=== PATIENT | female | born 1945 | race Caucasian/White ===

== ENCOUNTER 2018-01-24 15:59 | Inpatient (IN) | payer MEDICARE ==
--- NOTE | 2018-01-24 16:50 | ED ---
General Adult HPI - General Chief complaint: Nausea/Vomiting/Diarrhea Stated complaint: SOB Time Seen by Provider: 01/24/18 16:00 Source: patient, RN notes reviewed Mode of arrival: wheelchair Limitations: no limitations - History of Present Illness Initial comments: This is a 73-year-old female who presents emergency Department complaining of nausea initially. But as I talked to the patient she states she's noticed some heaviness on her chest today as well as some shortness of breath. Patient states the nausea is been intermittent for the last 3 days and today has been more consistent. Patient states the heaviness on her chest and shortness of breath is only started today. Patient denies any fever chills or cough per patient denies any chest pain. Patient denies any palpitations. Patient denies abdominal pain patient denies any actual vomiting or diarrhea. Patient has a headache patient denies numbness weakness. Patient denies any lightheadedness dizziness or near syncopal episode. - Related Data Home Medications Medication Instructions Recorded Confirmed Aspirin 81 mg PO DAILY 11/14/14 01/24/18 Atenolol [Tenormin] 50 mg PO DAILY 11/14/14 01/24/18 Hydrochlorothiazide [Hydrodiuril] 50 mg PO DAILY 11/14/14 01/24/18 Lisinopril 40 mg PO BID 11/14/14 01/24/18 Spironolactone [Aldactone] 25 mg PO DAILY 11/14/14 01/24/18 amLODIPine BESYLATE [Norvasc] 2.5 mg PO DAILY 11/14/14 01/24/18 cloNIDine HCL [Catapres] 0.2 mg PO TID 11/14/14 01/24/18 hydrALAZINE HCL [Apresoline] 25 mg PO BID 11/14/14 01/24/18 Biotin 5 mg PO DAILY 01/24/18 01/24/18 Calcium Carb/Vitamin D3/Vit K1 1 tab PO DAILY 01/24/18 01/24/18 [Citracal Soft Chew] Eye Vitamin Otc 1 tab PO DAILY 01/24/18 01/24/18 L.acidoph,Paracasei, B.lactis 1 cap PO DAILY 01/24/18 01/24/18 [Probiotic] Rosuvastatin [Crestor] 10 mg PO DAILY 01/24/18 01/24/18 Allergies Allergy/AdvReac Type Severity Reaction Status Date / Time Penicillins Allergy Unknown Verified 01/24/18 16:44 STAINLESS STEEL Allergy Rash/Hives Uncoded 01/24/18 16:44 Review of Systems ROS Statement: Those systems with pertinent positive or pertinent negative responses have been documented in the HPI. ROS Other: All systems not noted in ROS Statement are negative. Past Medical History Past Medical History: Hyperlipidemia, Hypertension History of Any Multi-Drug Resistant Organisms: None Reported Past Surgical History: Appendectomy, Cholecystectomy, Tubal Ligation Past Psychological History: No Psychological Hx Reported Smoking Status: Never smoker Past Alcohol Use History: None Reported Past Drug Use History: None Reported General Exam - General Exam Comments Initial Comments: GENERAL: Patient is well-developed and well-nourished. Patient is nontoxic and well- hydrated and is in mild distress. ENT: Neck is soft and supple. No significant lymphadenopathy is noted. Oropharynx is clear. Moist mucous membranes. Neck has full range of motion without eliciting any pain. EYES: The sclera were anicteric and conjunctiva were pink and moist. Extraocular movements were intact and pupils were equal round and reactive to light. Eyelids were unremarkable. PULMONARY: Unlabored respirations. Good breath sounds bilaterally. No audible rales rhonchi or wheezing was noted. CARDIOVASCULAR: There is a regular rate and rhythm without any murmurs gallops or rubs. ABDOMEN: Soft and nontender with normal bowel sounds. No palpable organomegaly was noted. There is no palpable pulsatile mass. SKIN: Skin is clear with no lesions or rashes and otherwise unremarkable. NEUROLOGIC: Patient is alert and oriented x3. Cranial nerves II through XII are grossly intact. Motor and sensory are also intact. Normal speech, volume and content. Symmetrical smile. MUSCULOSKELETAL: Normal extremities with adequate strength and full range of motion. No lower extremity swelling or edema. No calf tenderness. LYMPHATICS: No significant lymphadenopathy is noted PSYCHIATRIC: Normal psychiatric evaluation. Normal interpersonal interactions appears functionally intact in deals appropriately with others. No signs of depression. No signs of anxiety. Limitations: no limitations Course Vital Signs 01/24/18 01/24/18 01/24/18 16:05 17:30 18:25 Temperature 98.4 F Pulse Rate 67 66 65 Respiratory 18 16 18 Rate Blood Pressure 144/67 142/74 150/88 O2 Sat by Pulse 99 98 98 Oximetry Medical Decision Making - Medical Decision Making EKG shows sinus rhythm at 60 bpm DE interval 212 QRS is 164 Q-T intervals 466 QTC is 466 patient's EKG shows a right bundle branch block when compared this EKG to an old EKG there are no acute changes noted. Chest x-ray shows no acute abnormality. I will back into reevaluate the patient she stated she got aspirin and shortly thereafter her chest heaviness resolved. [facility] the patient I consult cardiology. - Lab Data Result diagrams: 01/24/18 17:11 01/24/18 17:11 Lab Results 01/24/18 01/24/18 01/24/18 Range/Units 17:11 17:11 17:11 WBC 10.6 (3.8-10.6) k/uL RBC 4.82 (3.80-5.40) m/uL Hgb 13.6 (11.4-16.0) gm/dL Hct 41.4 (34.0-46.0) % MCV 85.8 (80.0-100.0) fL MCH 28.2 (25.0-35.0) pg MCHC 32.8 (31.0-37.0) g/dL RDW 13.6 (11.5-15.5) % Plt Count 318 (150-450) k/uL Neutrophils % 76 % Lymphocytes % 17 % Monocytes % 5 % Eosinophils % 2 % Basophils % 0 % Neutrophils # 8.1 H (1.3-7.7) k/uL Lymphocytes # 1.8 (1.0-4.8) k/uL Monocytes # 0.5 (0-1.0) k/uL Eosinophils # 0.2 (0-0.7) k/uL Basophils # 0.0 (0-0.2) k/uL PT (9.0-12.0) sec INR (<1.2) APTT (22.0-30.0) sec Sodium 133 L (137-145) mmol/L Potassium 4.3 (3.5-5.1) mmol/L Chloride 95 L (98-107) mmol/L Carbon Dioxide 25 (22-30) mmol/L Anion Gap 13 mmol/L BUN 24 H (7-17) mg/dL Creatinine 0.90 (0.52-1.04) mg/dL Est GFR (CKD-EPI)AfAm 75 (>60 ml/min/1.73 sqM) Est GFR (CKD-EPI)NonAf 65 (>60 ml/min/1.73 sqM) Glucose 101 H (74-99) mg/dL Calcium 10.1 (8.4-10.2) mg/dL Magnesium 1.6 (1.6-2.3) mg/dL Total Bilirubin 0.2 (0.2-1.3) mg/dL AST 16 (14-36) U/L ALT 26 (9-52) U/L Alkaline Phosphatase 114 (38-126) U/L Total Creatine Kinase 35 (30-135) U/L CK-MB (CK-2) 0.4 (0.0-2.4) ng/mL CK-MB (CK-2) Rel Index 1.1 Troponin I <0.012 (0.000-0.034) ng/mL Total Protein 7.3 (6.3-8.2) g/dL Albumin 4.3 (3.5-5.0) g/dL 01/24/18 Range/Units 17:11 WBC (3.8-10.6) k/uL RBC (3.80-5.40) m/uL Hgb (11.4-16.0) gm/dL Hct (34.0-46.0) % MCV (80.0-100.0) fL MCH (25.0-35.0) pg MCHC (31.0-37.0) g/dL RDW (11.5-15.5) % Plt Count (150-450) k/uL Neutrophils % % Lymphocytes % % Monocytes % % Eosinophils % % Basophils % % Neutrophils # (1.3-7.7) k/uL Lymphocytes # (1.0-4.8) k/uL Monocytes # (0-1.0) k/uL Eosinophils # (0-0.7) k/uL Basophils # (0-0.2) k/uL PT 9.6 (9.0-12.0) sec INR 1.0 (<1.2) APTT 23.7 (22.0-30.0) sec Sodium (137-145) mmol/L Potassium (3.5-5.1) mmol/L Chloride (98-107) mmol/L Carbon Dioxide (22-30) mmol/L Anion Gap mmol/L BUN (7-17) mg/dL Creatinine (0.52-1.04) mg/dL Est GFR (CKD-EPI)AfAm (>60 ml/min/1.73 sqM) Est GFR (CKD-EPI)NonAf (>60 ml/min/1.73 sqM) Glucose (74-99) mg/dL Calcium (8.4-10.2) mg/dL Magnesium (1.6-2.3) mg/dL Total Bilirubin (0.2-1.3) mg/dL AST (14-36) U/L ALT (9-52) U/L Alkaline Phosphatase (38-126) U/L Total Creatine Kinase (30-135) U/L CK-MB (CK-2) (0.0-2.4) ng/mL CK-MB (CK-2) Rel Index Troponin I (0.000-0.034) ng/mL Total Protein (6.3-8.2) g/dL Albumin (3.5-5.0) g/dL Disposition Clinical Impression: Chest pain, Dyspnea Disposition: ADMITTED IP TO THIS HOSP Referrals: Matthew Olivas MD [Primary Care Provider] - 1-2 days Time of Disposition: 18:45
[2018-01-24] MEDS ORDERED: ONDANSETRON 4 MG/2 ML VIAL IVP STA (16:52)
[2018-01-24] MEDS ORDERED: NITROGLYCERIN SL TABS 0.4 MG TAB SUBLINGUAL STA (16:52)
[2018-01-24] MEDS ORDERED: ASPIRIN 81 MG PO STA (16:52)
[2018-01-24 17:27] LABS: Basophils % (A) 0 %; Eosinophils # (A) 0.2 k/uL (0-0.7); Eosinophils % (A) 2 %; HCT 41.4 % (34.0-46.0); HGB 13.6 gm/dL (11.4-16.0); Lymphocytes # (A) 1.8 k/uL (1.0-4.8); Lymphocytes % (A) 17 %; MCH 28.2 pg (25.0-35.0); MCHC 32.8 g/dL (31.0-37.0); MCV 85.8 fL (80.0-100.0); Mean Platelet Volume 6.6; Monocytes # (A) 0.5 k/uL (0-1.0); Monocytes % (A) 5 %; Neutrophils # (A) 8.1 k/uL (1.3-7.7); Neutrophils % (A) 76 %; Platelet Count 318 k/uL (150-450); RBC 4.82 m/uL (3.80-5.40); RDW 13.6 % (11.5-15.5); WBC 10.6 k/uL (3.8-10.6)
[2018-01-24 17:37] LABS: Albumin 4.3 g/dL (3.5-5.0); Calcium 10.1 mg/dL (8.4-10.2); Magnesium 1.6 mg/dL (1.6-2.3); Partial Thromboplastin Time 23.7 sec (22.0-30.0); Potassium 4.3 mmol/L (3.5-5.1); Prothrombin Time 9.6 sec (9.0-12.0); Total Bilirubin 0.2 mg/dL (0.2-1.3); Total Protein 7.3 g/dL (6.3-8.2)
[2018-01-24 17:41] LABS: Creatine Kinase 35 U/L (30-135)
[2018-01-24 17:53] LABS: Creatine Kinase MB 0.4 ng/mL (0.0-2.4); Troponin I <0.012 ng/mL (0.000-0.034)
--- NOTE | 2018-01-24 17:53 | XR ---
EXAMINATION TYPE: XR chest 2V DATE OF EXAM: 01/24/2018 COMPARISON: Chest x-ray October 10, 2016. HISTORY: Shortness of breath and chest pain. TECHNIQUE: Frontal and lateral views of the chest are obtained. FINDINGS: There is chronic parenchymal change without suspicious focal air space opacity, pleural ef fusion, or pneumothorax seen. The cardiac silhouette size remains enlarged. Underlying scoliosis is redemonstrated. Cholecystectomy clips are redemonstrated seen best on lateral view. IMPRESSION: Chronic changes and cardiomegaly without acute pulmonary process.
[2018-01-24] MEDS ORDERED: NITROGLYCERIN OINT 1 INCH/GM PACKET TOPICAL STA (18:35)
[2018-01-24] MEDS ORDERED: NITROGLYCERIN SL TABS 0.4 MG TAB SUBLINGUAL PRN (18:45)
[2018-01-24] MEDS: cloNIDine HCL 0.2 MG TAB PO SCH (22:06)
[2018-01-24] MEDS: ACETAMINOPHEN TAB 325 MG TAB PO PRN (23:53)
[2018-01-25 00:36] LABS: Creatine Kinase 35 U/L (30-135)
[2018-01-25 00:50] LABS: Creatine Kinase MB 0.7 ng/mL (0.0-2.4); Troponin I <0.012 ng/mL (0.000-0.034)
[2018-01-25] MEDS: NITROGLYCERIN OINT 1 INCH/GM PACKET TOPICAL SCH ×2 (03:00→14:09)
[2018-01-25 05:53] VITALS: BMI 34.3
[2018-01-25 06:20] LABS: Cholesterol 127 mg/dL (<200); HDL Cholesterol 42 mg/dL (40-60); LDL Cholesterol,Calculated 53 mg/dL (0-99); Triglycerides 158 mg/dL (<150)
[2018-01-25 06:29] LABS: Creatine Kinase 115 U/L (30-135)
[2018-01-25 06:41] LABS: Creatine Kinase MB 0.6 ng/mL (0.0-2.4); Troponin I <0.012 ng/mL (0.000-0.034)
[2018-01-25] MEDS ORDERED: ASPIRIN 325 MG TAB PO SCH (09:00)
[2018-01-25] MEDS ORDERED: ASPIRIN 81 MG PO SCH (09:00)
[2018-01-25] MEDS ORDERED: REGADENOSON 0.4 MG/5 ML SYRINGE IV ONE (09:42)
[2018-01-25] MEDS ORDERED: AMINOPHYLLINE 500 MG/20 ML VIAL IV PRN (09:42)
--- NOTE | 2018-01-25 12:21 | NM ---
EXAMINATION TYPE: NM stress lexiscan cardiolite DATE OF EXAM: 01/25/2018 COMPARISON: NONE HISTORY: Chest pain TECHNIQUE: After the intravenous administration of 9.27 mCi Tc 99m Sestamibi - Cardiolite resting SP ECT images acquired 50 minutes post injection. The patient received 0.4mg Lexiscan, 25.7 mCi Tc 99m Sestamibi - Stress images obtained [address] injection FINDINGS: Review of stress and rest SPECT images demonstrates focal area of stress-induced reversibility involv ing the apical myocardium. Findings compatible with stress-induced reversible ischemia.. Gated katerina sis shows normal wall motion with an estimated left ventricular ejection fraction of 67 %. Report edvin led to the patient's nurse. IMPRESSION: Findings are compatible with an area of stress-induced reversible ischemia involving the apical myoca rdium. A [place] level critical message alert has been initiated for Gumaro Montes De Oca MD via the [employer] Critical Results System on 01/25/2018 12:17 PM. This message alert has been sent to Gumaro Montes De Oca MD via the preferences provided by the clinician for the receipt of Radiology Critical Findings. Message ID [id number].
--- NOTE | 2018-01-25 12:54 | P.CRDCN ---
History of Present Illness Consult date: 01/25/18 Consult reason: chest pain History of present illness: Mrs. Marcial is a pleasant 73-year-old female past medical history significant for dyslipidemia and hypertension. She sees Dr. Durbin in the office. We have been asked to see her in consultation for complaints of chest pain. She states for the last 3 days she has felt increasing shortness of breath and nausea. Then started with intermittent episodes of heaviness in the mid-sternal region. The symptoms come at rest and exertion actually makes things better. 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 She denies symptoms since admission and telemetry tracings have been unremarkable. She denies radiation of the pain to her back, arm, neck/jaw or shoulder. Denies associated palpitations, vomiting, diaphoresis or dizziness. EKG on arrival reveals right bundle branch block pattern with first degree AV block. This is consistent with old EKG. Chest xray shows cardiomegaly with no evidence of acute cardiopulmonary process. Laboratory data reviewed, hgb 13.6, plt 318, potassium 4.3, magnesium 1.6, creatinine 0.9, cardiac enzymes negative 3, LDL 53. Current cardiac medications include aspirin 81 mg daily, atenolol 50 mg daily, hydrochlorothiazide 50 mg daily, lisinopril 40 mg twice a day, rosuvastatin 10 mg daily, Aldactone 25 mg daily, amlodipine 2.5 mg daily, Catapres 0.2 mg 3 times a day and hydralazine 25 mg twice a day. Review of Systems At the time of my exam: CONSTITUTIONAL: Denies fever. Denies chills. EYES: Denies blurred vision. Denies vision changes. Denies eye pain. EARS, NOSE, MOUTH & THROAT: Denies headache. Denies sore throat. Denies ear pain. CARDIOVASCULAR: Denies chest pain. Denies shortness of breath. Denies orthopnea. Denies PND. Denies palpitations. RESPIRATORY: Denies cough. GASTROINTESTINAL: Denies abdominal pain. Denies diarrhea. Denies constipation. Denies nausea. Denies vomiting. MUSCULOSKELETAL: Denies myalgias. INTEGUMENTARY: Denies pruitis. Denies rash. NEUROLOGIC: Denies numbness. Denies tingling. Denies weakness. PSYCHIATRIC: Denies anxiety. Denies depression. ENDOCRINE: Denies fatigue. Denies weight change. Denies polydipsia. Denies polyurina. GENITOURINARY: Denies burning, hematuria or urgency with micturation. HEMATOLOGIC: Denies history of anemia. Denies bleeding. Past Medical History Past Medical History: Hyperlipidemia, Hypertension History of Any Multi-Drug Resistant Organisms: None Reported Past Surgical History: Appendectomy, Cholecystectomy, Tubal Ligation Past Anesthesia/Blood Transfusion Reactions: No Reported Reaction Past Psychological History: No Psychological Hx Reported Smoking Status: Never smoker Past Alcohol Use History: None Reported Past Drug Use History: None Reported Medications and Allergies Home Medications Medication Instructions Recorded Confirmed Type Aspirin 81 mg PO DAILY 11/14/14 01/24/18 History Atenolol [Tenormin] 50 mg PO DAILY 11/14/14 01/24/18 History Hydrochlorothiazide [Hydrodiuril] 50 mg PO DAILY 11/14/14 01/24/18 History Lisinopril 40 mg PO BID 11/14/14 01/24/18 History Spironolactone [Aldactone] 25 mg PO DAILY 11/14/14 01/24/18 History amLODIPine BESYLATE [Norvasc] 2.5 mg PO DAILY 11/14/14 01/24/18 History cloNIDine HCL [Catapres] 0.2 mg PO TID 11/14/14 01/24/18 History hydrALAZINE HCL [Apresoline] 25 mg PO BID 11/14/14 01/24/18 History Biotin 5 mg PO DAILY 01/24/18 01/24/18 History Calcium Carb/Vitamin D3/Vit K1 1 tab PO DAILY 01/24/18 01/24/18 History [Citracal Soft Chew] Eye Vitamin Otc 1 tab PO DAILY 01/24/18 01/24/18 History L.acidoph,Paracasei, B.lactis 1 cap PO DAILY 01/24/18 01/24/18 History [Probiotic] Rosuvastatin [Crestor] 10 mg PO DAILY 01/24/18 01/24/18 History Allergies Allergy/AdvReac Type Severity Reaction Status Date / Time Penicillins Allergy Unknown Verified 01/24/18 16:44 STAINLESS STEEL Allergy Rash/Hives Uncoded 01/24/18 16:44 Physical Exam Vitals: Vital Signs Temp Pulse Pulse Resp BP BP Pulse Ox 01/25/18 04:00 16 01/25/18 03:05 97.3 F L 61 16 107/53 95 01/25/18 00:02 98.1 F 72 18 116/58 96 01/25/18 00:00 16 01/24/18 21:00 98.3 F 78 16 158/87 98 01/24/18 19:53 97.9 F 67 18 161/75 99 01/24/18 18:25 65 18 150/88 98 01/24/18 17:30 66 16 142/74 98 01/24/18 16:05 98.4 F 67 18 144/67 99 Intake and Output 01/24/18 01/25/18 01/25/18 22:59 06:59 14:59 Other: Voiding Method Toilet Toilet # Voids 1 Weight 90.718 kg Blood pressure 114/79 heart rate 64 afebrile maintaining oxygen saturation on room air GENERAL: This is a 73-year-old female in no apparent distress at the time of my examination. HEENT: Head is atraumatic, normocephalic. Pupils are equal, round. Sclerae anicteric. Conjunctivae are clear. Mucous membranes of the mouth are moist. Neck is supple. There is no jugular venous distention. No carotid bruit is heard. LUNGS: Clear to auscultation no wheezes, rales or rhonchi. No chest wall tenderness is noted on palpation or with deep breathing. HEART: Regular rate and rhythm without murmurs, rubs or gallops. S1 and S2 heard. ABDOMEN: Soft, nontender. Bowel sounds are heard. No organomegaly noted. EXTREMITIES: No evidence of peripheral edema and no calf tenderness noted. VASCULAR: Radial and dorsalis pedis pulses palpated, no evidence of clubbing. NEUROLOGIC: Patient is awake, alert and oriented x3. Results 01/24/18 17:11 01/24/18 17:11 Cardiac Enzymes 01/24/18 01/24/18 01/24/18 Range/Units 17:11 17:11 23:50 AST 16 (14-36) U/L CK-MB (CK-2) 0.4 0.7 (0.0-2.4) ng/mL Troponin I <0.012 <0.012 (0.000-0.034) ng/mL 01/25/18 Range/Units 05:25 AST (14-36) U/L CK-MB (CK-2) 0.6 (0.0-2.4) ng/mL Troponin I <0.012 (0.000-0.034) ng/mL Coagulation 01/24/18 Range/Units 17:11 PT 9.6 (9.0-12.0) sec APTT 23.7 (22.0-30.0) sec Lipids 01/25/18 Range/Units 05:25 Triglycerides 158 H (<150) mg/dL Cholesterol 127 (<200) mg/dL HDL Cholesterol 42 (40-60) mg/dL CBC 01/24/18 Range/Units 17:11 WBC 10.6 (3.8-10.6) k/uL RBC 4.82 (3.80-5.40) m/uL Hgb 13.6 (11.4-16.0) gm/dL Hct 41.4 (34.0-46.0) % Plt Count 318 (150-450) k/uL Comprehensive Metabolic Panel 01/24/18 Range/Units 17:11 Sodium 133 L (137-145) mmol/L Potassium 4.3 (3.5-5.1) mmol/L Chloride 95 L (98-107) mmol/L Carbon Dioxide 25 (22-30) mmol/L BUN 24 H (7-17) mg/dL Creatinine 0.90 (0.52-1.04) mg/dL Glucose 101 H (74-99) mg/dL Calcium 10.1 (8.4-10.2) mg/dL AST 16 (14-36) U/L ALT 26 (9-52) U/L Alkaline Phosphatase 114 (38-126) U/L Total Protein 7.3 (6.3-8.2) g/dL Albumin 4.3 (3.5-5.0) g/dL Current Medications Generic Name Dose Route Start Last Admin Trade Name Freq PRN Reason Stop Dose Admin Acetaminophen 650 mg 01/24/18 23:47 01/24/18 23:53 Tylenol Tab PO 650 mg Q6HR PRN Administration Fever and/ or Pain Aspirin 81 mg 01/25/18 09:00 Aspirin PO DAILY KRISTINE Clonidine 0.2 mg 01/24/18 22:00 01/24/18 22:06 Catapres PO 0.2 mg TID KRISTINE Administration Nitroglycerin 0.4 mg 01/24/18 18:45 Nitrostat SUBLINGUAL Q5M PRN Chest Pain Intake and Output 01/24/18 01/25/18 01/25/18 22:59 06:59 14:59 Other: Voiding Method Toilet Toilet # Voids 1 Weight 90.718 kg 01/24/18 17:11 01/24/18 17:11 Assessment and Plan Assessment: ASSESSMENT 1. Chest pain, atypical. An acute coronary event has been ruled out with negative cardiac enzymes and no EKG evidence of ischemia. 2. Dyslipidemia, maintained on rosuvastatin 3. Hypertension 4. Obesity, BMI 34.3 PLAN An acute coronary event has been ruled out with negative cardiac enzymes and no EKG evidence of acute ischemia. Change aspirin to 81 mg daily from 324 that was started in ED. Obtain 2D echocardiogram and doppler study to assess cardiac structure and function. Perform Lexiscan stress test to evaluate for stress induced ischemia. Further recommendations to follow based on diagnostic findings. Thank you kindly for this consultation. Nurse Practitioner note has been reviewed, I agree with a documented findings and plan of care. Patient was seen and examined.
[2018-01-25] MEDS: cloNIDine HCL 0.2 MG TAB PO SCH ×3 (14:09→20:03)
[2018-01-25] MEDS ORDERED: SODIUM CHLORIDE 0.9% 1,000 ML in EMPTY BAG 1 BAG IV ONE (14:10)
[2018-01-25] MEDS ORDERED: ALPRAZolam 0.25 MG TAB PO PRN (14:10)
[2018-01-25] MEDS ORDERED: ALPRAZolam 0.5 MG TAB PO PRN (14:10)
--- NOTE | 2018-01-25 14:10 | P.PN ---
Progress Note - Text Progress Note Date: 01/25/18 Lexiscan stress test indicates area of stress induced reversible ischemia in apical region with EF 67%. These finding were discussed with her primary [employer] sales consultant Dr. Durbin and he is recommending cardiac catheterization in the morning. I have discussed the risks, benefits and alternative therapies for the above-mentioned procedure and for both sedation/analgesia as well as necessary blood product administration, if indicated, as they pertain to this patient. The patient has indicated understanding and acceptance of the risks and procedures discussed. Questions have been answered appropriately and she is agreeable to move forward with above stated procedure. Her is at the bedside. Procedure has been boarded for tomorrow morning at 0715, orders have been placed.
[2018-01-25] MEDS: ACETAMINOPHEN TAB 325 MG TAB PO PRN (14:24)
--- NOTE | 2018-01-25 15:36 | P.HPIM ---
History of Present Illness H&P Date: 01/25/18 Chief Complaint: Chest pain Patient is a 73-year-old female with a known history of hypertension, hyperlipidemia came to ER with complaints of chest pain. Patient says that for the past 3 days she's been having chest tightness and nausea and shortness of breath along with that. Patient felt like heaviness in the chest. Her symptoms worsens with exertion. Otherwise denied any headache or dizziness or lightheadedness. No nausea vomiting or abdominal pain. Patient felt like she was catching a cold. Denied any recent travel or sick contacts. EKG showed right bundle branch block with first-degree AV block. No change from previous study Chest x-ray showed cardiac megaly with no acute cardio pulmonary process Magnesium 1.6 Troponin 3 negative Patient is on multiple antihypertensive medications. Patient follows with Dr. Durbin due to her fluctuating blood pressure. Review of Systems Constitutional: Patient denies any fever or chills . No generalized weakness or weight loss. Abdomen: Patient denied nausea vomiting and diarrhea and abdominal pain. Cardiovascular: Patient did have chest pressure and nausea and no palpitations no leg swelling Respiratory: patient denied any cough is from production. No shortness of breath Neurologic: Patient denied any numbness or tingling headache. Musculoskeletal: Patient denies any complaints of joint swelling or deformity. Skin: Negative Psychiatric: Negative Endocrine: No heat or cold intolerance. No recent weight gain. Genitourinary: No dysuria or hematuria. All other 14 point ROS negative except the above Past Medical History Past Medical History: Hyperlipidemia, Hypertension History of Any Multi-Drug Resistant Organisms: None Reported Past Surgical History: Appendectomy, Cholecystectomy, Tubal Ligation Past Anesthesia/Blood Transfusion Reactions: No Reported Reaction Past Psychological History: No Psychological Hx Reported Smoking Status: Never smoker Past Alcohol Use History: None Reported Past Drug Use History: None Reported Medications and Allergies Home Medications Medication Instructions Recorded Confirmed Type Aspirin 81 mg PO DAILY 11/14/14 01/24/18 History Atenolol [Tenormin] 50 mg PO DAILY 11/14/14 01/24/18 History Hydrochlorothiazide [Hydrodiuril] 50 mg PO DAILY 11/14/14 01/24/18 History Lisinopril 40 mg PO BID 11/14/14 01/24/18 History Spironolactone [Aldactone] 25 mg PO DAILY 11/14/14 01/24/18 History amLODIPine BESYLATE [Norvasc] 2.5 mg PO DAILY 11/14/14 01/24/18 History cloNIDine HCL [Catapres] 0.2 mg PO TID 11/14/14 01/24/18 History hydrALAZINE HCL [Apresoline] 25 mg PO BID 11/14/14 01/24/18 History Biotin 5 mg PO DAILY 01/24/18 01/24/18 History Calcium Carb/Vitamin D3/Vit K1 1 tab PO DAILY 01/24/18 01/24/18 History [Citracal Soft Chew] Eye Vitamin Otc 1 tab PO DAILY 01/24/18 01/24/18 History L.acidoph,Paracasei, B.lactis 1 cap PO DAILY 01/24/18 01/24/18 History [Probiotic] Rosuvastatin [Crestor] 10 mg PO DAILY 01/24/18 01/24/18 History Allergies Allergy/AdvReac Type Severity Reaction Status Date / Time Penicillins Allergy Unknown Verified 01/24/18 16:44 STAINLESS STEEL Allergy Rash/Hives Uncoded 01/24/18 16:44 Physical Exam Vitals: Vital Signs Temp Pulse Pulse Resp BP BP Pulse Ox 01/25/18 08:00 98.7 F 64 16 114/79 97 01/25/18 04:00 16 01/25/18 03:05 97.3 F L 61 16 107/53 95 01/25/18 00:02 98.1 F 72 18 116/58 96 01/25/18 00:00 16 01/24/18 21:00 98.3 F 78 16 158/87 98 01/24/18 19:53 97.9 F 67 18 161/75 99 01/24/18 18:25 65 18 150/88 98 01/24/18 17:30 66 16 142/74 98 01/24/18 16:05 98.4 F 67 18 144/67 99 Intake and Output 01/24/18 01/25/18 01/25/18 22:59 06:59 14:59 Other: Voiding Method Toilet Toilet Toilet # Voids 1 Weight 90.718 kg PHYSICAL EXAMINATION: Patient is lying in the bed comfortably, no acute distress, awake alert and oriented.. HEENT: Normocephalic. Neck is supple. Pupils reactive. Nostrils clear. Oral cavity is moist. Ears reveal no drainage. Neck reveals no JVD, carotid bruits, or thyromegaly. CHEST EXAMINATION: Trachea is central. Symmetrical expansion. Lung ramirez clear to auscultation and percussion. CARDIAC: Normal S1, S2 with no gallops. No murmurs ABDOMEN: Soft. Bowel sounds normal. No organomegaly. No abdominal bruits. Extremities: reveal no edema. No clubbing or cyanosis Neurologically awake, alert, oriented x3 with well-coordinated movements. No focal deficits noted Skin: No rash or skin lesions. Psychiatric: Coperative. Nonsuicidal Musculoskeletal: No joint swelling or deformity. Normal range of motion. Results CBC & Chem 7: 01/24/18 17:11 01/24/18 17:11 Labs: Abnormal Lab Results - Last 24 Hours (Table) 01/24/18 01/24/18 01/25/18 Range/Units 17:11 17:11 05:25 Neutrophils # 8.1 H (1.3-7.7) k/uL Sodium 133 L (137-145) mmol/L Chloride 95 L (98-107) mmol/L BUN 24 H (7-17) mg/dL Glucose 101 H (74-99) mg/dL Triglycerides 158 H (<150) mg/dL Thrombosis Risk Factor Assmnt - Choose All That Apply Each Risk Factor Represents 2 Points: Age 61-74 years Thrombosis Risk Factor Assessment Total Risk Factor Score: 2 Thrombosis Risk Factor Assessment Level: Low Risk Assessment and Plan Assessment: Atypical chest pain vs angina. rule out acute coronary syndrome. Serial EKG and troponins are negative. Positive Lexiscan stress test Abnormal EKG with right bundle branch block and first-degree AV block. No change from previous EKG tracing Hyperlipidemia Hypertension uncontrolled Obesity with BMI 34.3 Plan: Patient be continued on telemetry monitoring. Patient had Lexiscan stress test today which showed findings are compatible with an area of stress-induced reversible ischemia involving the apical myocardium. Cardiology is planning for catheterization tomorrow. Further recommendations based on the clinical course. Time with Patient: Greater than 30
--- NOTE | 2018-01-25 17:00 | P.STRESS ---
- Stress Test Note Stress Test Results/Findings: Exam Performed: NM stress lexiscan cardiolite Exam Date: 01/25/18 Reason for Exam: Chest Pain Height: 5 ft 4 in Weight: 90.718 kg Protocol: Khalida Scan Stage: na Duration of Exercise: na Resting Heart Rate: 64 Resting Blood Pressure: 121/86 Maximum Achieved Heart Rate: 88 Maximum Achieved Blood Pressure: 160/75 85% PMHR: na 100% PMHR: na METS: na Technologist Comment: Stress Test Results/Findings: This is a 73-year-old female is admitted to the hospital with chest pain and shortness of breath. Has history of hypertension and hypercholesterolemia. Baseline EKG showed sinus rhythm with evidence of right bundle-branch block pattern. Blood pressure at rest was 120/80 with pulse rate of 64. A standard dose of Lexiscan was infused EKGs continued to show right bundle branch block pattern without any significant deviation from the baseline. Final impression #1. Negative Lexiscan stress test #2. Report on the nuclear images to begin with the radiologist.
[2018-01-25 19:23] VITALS: RESP 16
[2018-01-25] MEDS: hydrALAZINE HCL 25 MG TAB PO SCH (20:02)
[2018-01-25] MEDS: LISINOPRIL 20 MG TAB PO SCH (20:03)
[2018-01-26 03:47] VITALS: TEMP 97.6
[2018-01-26] MEDS ORDERED: ASPIRIN 325 MG TAB PO ONE (06:00)
[2018-01-26] MEDS ORDERED: ATORVASTATIN 80 MG TAB PO ONE (06:00)
[2018-01-26] MEDS: cloNIDine HCL 0.2 MG TAB PO SCH (06:14)
[2018-01-26] MEDS: LISINOPRIL 20 MG TAB PO SCH (06:14)
[2018-01-26] MEDS: hydrALAZINE HCL 25 MG TAB PO SCH (06:15)
[2018-01-26] MEDS ORDERED: VERAPAMIL 2.5 MG/ML 2 ML AMP ONE (07:25)
[2018-01-26] MEDS ORDERED: fentaNYL (PF) 50 MCG/ML 2 ML AMP IV ONE (07:38)
[2018-01-26] MEDS ORDERED: LIDOCAINE 2% INJ 20 MG/ML SQ ONE (07:39)
[2018-01-26] MEDS ORDERED: IV FLUID CONTINUATION 1,000 ML IV ONE (07:41)
[2018-01-26] MEDS ORDERED: VERAPAMIL SYRINGE (5 MG/10 ML) INTRAARTER ONE (07:43)
[2018-01-26] MEDS ORDERED: IOHEXOL 350 MG/ML 125ML BOTTLE INJ ONE (07:52)
[2018-01-26] MEDS ORDERED: RX INFO: IV CONTRAST WAS GIVEN 1 EACH MISC MISCELLANE PRN (08:02)
[2018-01-26] MEDS ORDERED: SODIUM CHLORIDE 0.9% 1,000 ML IV SCH (08:15)
--- NOTE | 2018-01-26 08:48 | CC ---
CARDIAC CATHETERIZATION REPORT Mrs. Marcial is a 73-year-old female, known history of hypertension, hyperlipidemia, who has been complaining of episode of chest discomfort, was admitted to the hospital. Her cardiac enzymes were unremarkable, but she had an abnormal stress test. In view of that, recommendation was made regarding cardiac catheterization. The procedure as well as the risks and the complication were discussed with the patient who is in full understanding and agreement. PROCEDURE: Patient was brought to laborer sawmill in a fasting semi-sedated state after receiving fentanyl and Benadryl and achieving moderate conscious sedated state. Using Xylocaine anesthesia in the Seldinger technique, a 6-New Zealander sheath was introduced in the right radial artery. Selective right and left coronary angiography performed using 5-New Zealander 3.5 bend right and left Danie catheters. Multiple views of the coronary artery including hemiaxial view was obtained. Following that 5-New Zealander tight pigtail catheter was introduced in the left ventricle and a 30-degree WRIGHT view of the left ventricle was obtained. Following that, catheter and sheath were removed. Hemostasis was obtained with deployment of a TR band. There was no immediate complication. Patient is returned to her room in stable condition. Of note, the patient received 4500 units of intravenous heparin as well as intra-arterial verapamil. FINDINGS: LEFT MAIN: This is a short size vessel trifurcating left circumflex, left anterior descending artery and ramus intermedius. Left main coronary artery has no evidence of high-grade stenosis. LEFT ANTERIOR DESCENDING ARTERY: This vessel gives rise to 3 diagonal branches. The third one is largest in caliber. The left anterior descending artery tapers down in the distal third and has no evidence of high-grade stenosis. Minimal plaque were noted in the mid segment. LEFT CIRCUMFLEX: This is a nondominant vessel giving rise to 3 obtuse marginal branches with small caliber. The left circumflex as well as branches have no evidence of obstructive coronary artery disease. RAMUS INTERMEDIUS: This is a large-size vessel reaching towards the apical lateral wall. The ramus intermedius has no evidence of high-grade stenosis. RIGHT CORONARY ARTERY: This is a large dominant vessel bifurcating into PDA, posterolateral segment and branches. The right PDA reaches toward the inferior apical segment. The right coronary artery as well as branches have no evidence of obstructive coronary artery disease. LEFT VENTRICULOGRAM: Left ventriculogram is performed 30-degree WRIGHT view and revealed normal left ventricular size and systolic function. Ejection fraction is 60%. appearance of dilatation of the ascending aorta. HEMODYNAMICS: There was no gradient across the aortic valve. The left ventricle end- diastolic pressure was 16 to 20 mmHg. CONCLUSION: 1. Minimal plaque involving the mid left anterior descending artery. 2. Normal left ventricular size and systolic function. 3. Appearance of dilatation of the ascending aorta. RECOMMENDATION: In view of finding anatomy, I recommend continuing with medical therapy. Those findings and recommendations were discussed with the patient and her family and are in full understanding and agreement. Duration procedure is 17 minutes. MMODL / IJN: [id number] /
--- NOTE | 2018-01-26 08:57 | LTR ---
January 26, 2018 Re: Sue Marcial Dear Dr. Olivas: I had the opportunity to perform cardiac catheterization on Mrs. Marcial at [facility] the 26 of January and a full copy of the procedure note will be forwarded to you. In brief, she was found to have mild intimal disease with a normal left ventricular size and systolic function. Based on those findings, I recommend to continue medical therapy with aggressive coronary risk modification initiated. Thank you again for allowing me the opportunity to participate in her care. Please feel free to call for any questions. Sincerely yours, MD HARJIT De LeonL / BJN: [id number] /
[2018-01-26] MEDS ORDERED: ATENOLOL 50 MG TAB PO SCH (09:00)
[2018-01-26] MEDS ORDERED: SPIRONOLACTONE 25 MG TAB PO SCH (09:00)
[2018-01-26] MEDS ORDERED: amLODIPine 2.5 MG TAB PO SCH (09:00)
[2018-01-26 15:22] VITALS: PULSE 55
[2018-01-26 15:23] VITALS: BP 109/58
--- NOTE | 2018-01-26 23:07 | P.DS ---
Providers Date of admission: 01/25/18 15:08 Expected date of discharge: 01/26/18 Attending physician: Gumaro Montes De Oca Consults: 01/24/18 18:45 Consult Physician Urgent Consulting Provider: [facility] Consult Reason/Comments: Chest pain, dyspnea Do you want consulting provider notified?: Yes Primary care physician: [facility] Course: Discharge diagnosis Atypical chest pain vs angina. ruled out acute coronary syndrome. Serial EKG and troponins are negative. Positive Lexiscan stress test but a cardiac Catheterization showed normal coronaries Abnormal EKG with right bundle branch block and first-degree AV block. No change from previous EKG tracing Hyperlipidemia Hypertension uncontrolled Obesity with BMI 34.3 Hospital course Patient is a 73-year-old female with a known history of hypertension, hyperlipidemia came to ER with complaints of chest pain. Patient says that for the past 3 days she's been having chest tightness and nausea and shortness of breath along with that. Patient felt like heaviness in the chest. Her symptoms worsens with exertion. Otherwise denied any headache or dizziness or lightheadedness. No nausea vomiting or abdominal pain. Patient felt like she was catching a cold. Denied any recent travel or sick contacts. EKG showed right bundle branch block with first-degree AV block. No change from previous study Chest x-ray showed cardiac megaly with no acute cardio pulmonary process Magnesium 1.6 Troponin 3 negative Patient is on multiple antihypertensive medications. Patient follows with Dr. Durbin due to her fluctuating blood pressure. Patient was continued on telemetry monitoring. Patient had Lexiscan stress test today which showed findings are compatible with an area of stress-induced reversible ischemia involving the apical myocardium. Patient underwent cardiac catheterization today which showed normal coronaries. Otherwise patient currently is chest pain-free. Chest tightness could related to her stressful situation. 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 Discharge physical examination PHYSICAL EXAMINATION: Patient is lying in the bed comfortably, no acute distress, awake alert and oriented.. HEENT: Normocephalic. Neck is supple. Pupils reactive. Nostrils clear. Oral cavity is moist. Ears reveal no drainage. Neck reveals no JVD, carotid bruits, or thyromegaly. CHEST EXAMINATION: Trachea is central. Symmetrical expansion. Lung ramirez clear to auscultation and percussion. CARDIAC: Normal S1, S2 with no gallops. No murmurs ABDOMEN: Soft. Bowel sounds normal. No organomegaly. No abdominal bruits. Extremities: reveal no edema. No clubbing or cyanosis Neurologically awake, alert, oriented x3 with well-coordinated movements. No focal deficits noted Skin: No rash or skin lesions. Psychiatric: Coperative. Nonsuicidal Musculoskeletal: No joint swelling or deformity. Normal range of motion. Patient Condition at Discharge: Stable Plan - Discharge Summary Discharge Rx Participant: No New Discharge Prescriptions: Continue Hydrochlorothiazide [Hydrodiuril] 50 mg PO DAILY hydrALAZINE HCL [Apresoline] 25 mg PO BID amLODIPine BESYLATE [Norvasc] 2.5 mg PO DAILY Atenolol [Tenormin] 50 mg PO DAILY cloNIDine HCL [Catapres] 0.2 mg PO TID Spironolactone [Aldactone] 25 mg PO DAILY Lisinopril 40 mg PO BID Aspirin 81 mg PO DAILY L.acidoph,Paracasei, B.lactis [Probiotic] 1 cap PO DAILY Biotin 5 mg PO DAILY Calcium Carb/Vitamin D3/Vit K1 [Citracal Soft Chew] 1 tab PO DAILY Rosuvastatin [Crestor] 10 mg PO DAILY Eye Vitamin Otc 1 tab PO DAILY Discharge Medication List Aspirin 81 mg PO DAILY 11/14/14 [History] Atenolol [Tenormin] 50 mg PO DAILY 11/14/14 [History] Hydrochlorothiazide [Hydrodiuril] 50 mg PO DAILY 11/14/14 [History] Lisinopril 40 mg PO BID 11/14/14 [History] Spironolactone [Aldactone] 25 mg PO DAILY 11/14/14 [History] amLODIPine BESYLATE [Norvasc] 2.5 mg PO DAILY 11/14/14 [History] cloNIDine HCL [Catapres] 0.2 mg PO TID 11/14/14 [History] hydrALAZINE HCL [Apresoline] 25 mg PO BID 11/14/14 [History] Biotin 5 mg PO DAILY 01/24/18 [History] Calcium Carb/Vitamin D3/Vit K1 [Citracal Soft Chew] 1 tab PO DAILY 01/24/18 [ History] Eye Vitamin Otc 1 tab PO DAILY 01/24/18 [History] L.acidoph,Paracasei, B.lactis [Probiotic] 1 cap PO DAILY 01/24/18 [History] Rosuvastatin [Crestor] 10 mg PO DAILY 01/24/18 [History] Follow up Appointment(s)/Referral(s): Ryley Durbin MD [STAFF PHYSICIAN] - 01/31/18 1:30 pm Matthew Olivas MD [Primary Care Provider] - 1-2 days Patient Instructions/Handouts: After Radial Heart Catheterization (GEN) Discharge Disposition: HOME SELF-CARE
[2018-01-27] MEDS ORDERED: ASPIRIN 81 MG PO SCH (09:00)
[2018-01-27] MEDS ORDERED: ATORVASTATIN 20 MG TAB PO SCH (09:00)
--- NOTE | 2018-01-30 18:45 | ECHOF ---
Referral Reason:cp, sob MEASUREMENTS -------- HEIGHT: 162.6 cm WEIGHT: 90.7 kg BP: 114/79 RVIDd: 3.4 cm (< 3.3) IVSd: 1.5 cm (0.6 - 1.1) LVIDd: 4.7 cm (3.9 - 5.3) LVPWd: 1.5 cm (0.6 - 1.1) IVSs: 2.0 cm LVIDs: 3.0 cm LVPWs: 1.7 cm LA Diam: 3.8 cm (2.7 - 3.8) LAESV Index (A-L): 18.69 ml/m Ao Diam: 3.8 cm (2.0 - 3.7) AV Cusp: 2.3 cm (1.5 - 2.6) MV EXCURSION: 16.594 mm (> 18.000) MV EF SLOPE: 22 mm/s (70 - 150) EPSS: 0.6 cm MV E Bay: 0.68 m/s MV DecT: 206 ms MV A Bay: 0.90 m/s MV E/A Ratio: 0.76 RAP: 5.00 mmHg RVSP: 23.58 mmHg FINDINGS -------- Sinus rhythm. This was a technically adequate study. The left ventricular size is normal. There is moderate concentric left ventricular hypertrophy. O verall left ventricular systolic function is normal with, an EF between 55 - 60 %. Moderate asymmet martina septal hypertrophy with septal thickness 1.6 - 1.9 cm. The right ventricle is mildly enlarged. Normal LA size by volume 22+/-6 ml/m2. The right atrium is normal in size. Lipomatous Hypertrophy of the atrial septum is present There is mild aortic valve sclerosis. Mild mitral annular calcification present. The tricuspid valve appears structurally normal. Trace/mild (physiologic) pulmonic regurgitation. The aortic root is dilated measuring 3.8cm. Normal inferior vena cava with normal inspiratory collapse consistent with estimated right atrial pre ssure of 5 mmHg. There is no pericardial effusion. CONCLUSIONS -------- 1. Sinus rhythm. 2. This was a technically adequate study. 3. The left ventricular size is normal. 4. There is moderate concentric left ventricular hypertrophy. 5. Overall left ventricular systolic function is normal with, an EF between 55 - 60 %. 6. Moderate asymmetric septal hypertrophy with septal thickness 1.6 - 1.9 cm. 7. The right ventricle is mildly enlarged. 8. Normal LA size by volume 22+/-6 ml/m2. 9. The right atrium is normal in size. 10. Lipomatous Hypertrophy of the atrial septum is present 11. There is mild aortic valve sclerosis. 12. Mild mitral annular calcification present. 13. The tricuspid valve appears structurally normal. 14. Trace/mild (physiologic) pulmonic regurgitation. 15. The aortic root is dilated measuring 3.8cm. 16. Normal inferior vena cava with normal inspiratory collapse consistent with estimated right atrial pressure of 5 mmHg. 17. There is no pericardial effusion. ARCHITECTURAL INSPECTOR: Elva Chester RDCS
== END 2018-01-26 15:43 | disposition home or self-care (01) | DRG 287 ==
LOC: EC 15:59 → 3OBS 18:45 → OBSVTOIN 01-25 15:08
PROVIDERS: ADMIT Hospitalist; ATTEND Hospitalist
PROC: B2111ZZ Fluoroscopy of Multiple Coronary Arteries using Low Osmolar Contrast (ICD-10-PCS; 2018-01-26)
PROC: B2151ZZ Fluoroscopy of Left Heart using Low Osmolar Contrast (ICD-10-PCS; 2018-01-26)
PROC: 4A023N7 Measurement of Cardiac Sampling and Pressure, Left Heart, Percutaneous Approach (ICD-10-PCS; principal; 2018-01-26 07:18)
DX: R07.89 Other chest pain (principal); I11.9 Hypertensive heart disease without heart failure; I45.10 Unspecified right bundle-branch block; E66.9 Obesity, unspecified; I20.9 Angina pectoris, unspecified; E78.5 Hyperlipidemia, unspecified; F41.9 Anxiety disorder, unspecified; I44.0 Atrioventricular block, first degree; I51.7 Cardiomegaly; I77.810 Thoracic aortic ectasia; Z68.34 Body mass index [BMI] 34.0-34.9, adult; Z79.82 Long term (current) use of aspirin; Z79.899 Other long term (current) drug therapy; Z90.49 Acquired absence of other specified parts of digestive tract; Z88.0 Allergy status to penicillin; Z91.048 Other nonmedicinal substance allergy status
CPT/HCPCS: 36415; 71046; 78452; 80053; 80061; 82550; 82553; 83735; 84484; 85025; 85379; 85610; 85730; 93005; 93017; 93306; 93458; 96374; 99285

== ENCOUNTER → 2018-02-06 | Outpatient (CLI) | payer MEDICARE ==
[2018-02-06 16:03] LABS: Blood Urea Nitrogen 19 mg/dL (7-17)
--- NOTE | 2018-02-06 16:42 | CT ---
EXAMINATION TYPE: CT angio chest DATE OF EXAM: 02/06/2018 COMPARISON: NONE HISTORY: Ascending aortic aneurysm. CT DLP: 419.5 mGycm. Automated Exposure Control for Dose Reduction was Utilized. CONTRAST: CTA scan of the thorax is performed with IV Contrast, patient injected with 100 mL of Omnipaque 350, pulmonary embolism protocol. Three-D reconstructed images are created on independent workstation and reviewed. FINDINGS: LUNGS: The lungs are grossly clear, there is no concerning parenchymal mass or nodule identified. T here is no pleural effusion or pneumothorax seen. The tracheobronchial tree is patent. MEDIASTINUM: There are no greater than 1 cm hilar or mediastinal lymph nodes. There is prominent prev ascular lymph node measuring 1.6 x 0.8 cm axial image 13. No cardiomegaly or pericardial effusion i s seen. Ascending aorta measures up to 4.4 cm in diameter axial image 22. There is normal three-vesse l origin from aorta. No aneurysm of descending aorta is present. There is heterogeneous suspicious lo wer pole left thyroid with substernal extension, cannot exclude large nodule. Advise follow-up. OTHER: Cholecystectomy clips are noted. Underlying dextroconvex scoliosis is seen. There is moderate multilevel spurring in the mid to lower thoracic spine. A few subcentimeter low dense lesions scatter ed throughout the liver are too small to characterize but presumed benign. IMPRESSION: 1. There is 4.4 cm aneurysm of the ascending aorta. 2. Enlarged left thyroid lobe with substernal extension versus lower pole left thyroid nodule. Advise thyroid ultrasound to better evaluate and characterize.
== END | disposition home or self-care (01) ==
LOC: RADCTMAIN 15:12
PROVIDERS: ATTEND Internal Medicine Interventional Cardiology
DX: I71.2 Thoracic aortic aneurysm, without rupture (principal)
CPT/HCPCS: 82565; 84520; 71275; Q9967

== ENCOUNTER → 2018-07-09 | Outpatient (CLI) | payer MEDICARE ==
--- NOTE | 2018-07-09 17:26 | CT ---
EXAMINATION TYPE: CT abdomen pelvis wo con DATE OF EXAM: 07/09/2018 COMPARISON: None INDICATION: diverticulitis DLP: 1154 mGycm, Automated exposure control for dose reduction was used. CONTRAST: 0 mL of Isovue 300. Study performed with Oral Contrast TECHNIQUE: Axial images were obtained from above the diaphragm to the pubic rami in the axial plane a t 5 mm thick sections. Reconstructed images are reviewed on the computer in the coronal plane. FINDINGS: Limited CT sections are obtained the lung bases. The lung bases are clear. There is a small hiatal hernia. CT ABDOMEN: Scoliosis is present. There is tortuosity the aorta. There is a periumbilical hernia yi uring 1.7 cm an opening with mesenteric fat. Liver: There is a 1.0 cm hepatic cyst in the anterior right lobe liver. Spleen: Normal Pancreas: Normal Adrenal glands: The adrenal glands are normal. Gallbladder: Not identified. Postsurgical changes appear to be present. Kidneys: No masses are evident. No hydronephrosis is present. No cysts are present. Delayed images were obtained through the kidneys, which remain unremarkable. Aorta: Vascular calcification is within the aorta. Inferior vena cava: Normal. CT PELVIS: Loops of bowel within the abdomen and pelvis are normal. There are loops of bowel which are incom pletely distended or lack oral contrast limiting their evaluation. Appendix: Normal as visualized. Urinary bladder: Normal. Genitourinary structures: Uterus and adnexal regions are unremarkable. Osseous structures: No suspicious lytic or sclerotic lesions. Scoliosis is present. Degenerative disc changes are within the lumbar spine. Degenerative joint changes are at the bilateral hips. IMPRESSIONS: 1. No suspicious acute changes to suggest renal stones or diverticulitis
== END | disposition home or self-care (01) ==
LOC: RADCTMAIN 06:14
PROVIDERS: ATTEND Surgery Plastic and Reconstructive Surgery
DX: K57.32 Diverticulitis of large intestine without perforation or abscess without bleeding (principal); Z88.0 Allergy status to penicillin
CPT/HCPCS: 74176

== ENCOUNTER 2018-11-29 09:47 | Day surgery (SDC) | payer MEDICARE ==
[2018-11-27 11:51] VITALS: BMI 36.0
--- NOTE | 2018-11-29 05:47 | P.GSHP ---
History of Present Illness H&P Date: 11/29/18 CHIEF COMPLAINT: Ventral hernia. HISTORY OF PRESENT ILLNESS: The patient is a 73-year-old female who presents with a history of swelling along the umbilicus. Findings were consistent with hernia. Now she presents for further evaluation and management. PAST MEDICAL HISTORY: Please see list. PAST SURGICAL HISTORY: Please see list. MEDICATIONS: Please see list. ALLERGIES: Please see list. SOCIAL HISTORY: No illicit drug use FAMILY HISTORY: No reports of Crohn disease or ulcerative colitis. REVIEW OF ORGAN SYSTEMS: CONSTITUTIONAL: No reports of fevers or chills. GI: Denies any blood in stools or constipation. PHYSICAL EXAM: VITAL SIGNS: Stable GENERAL: Well-developed pleasant female in no acute distress. HEENT: No scleral icterus. Extraocular movements grossly intact. Moist buccal mucosa. NECK: Supple without lymphadenopathy. CHEST: Unlabored respirations. Equal bilateral excursions. CARDIOVASCULAR: Regular rate and rhythm. Distal 2+ pulses. ABDOMEN: Soft, nondistended. Umbilical hernia. Protuberant. MUSCULOSKELETAL: No clubbing, cyanosis, or edema. ASSESSMENT: 1. Umbilical ventral hernia. 2. Morbid obesity, BMI 36.0 PLAN: 1. Recommend proceeding with robotic ventral hernia repair with mesh. 2. Benefits and risks of surgical intervention was discussed including possibility of open technique. 3. DVT prophylaxis. 4. Antibiotic prophylaxis. Past Medical History Past Medical History: Cancer, Hyperlipidemia, Hypertension Additional Past Medical History / Comment(s): aneurysm,melanoma History of Any Multi-Drug Resistant Organisms: None Reported Past Surgical History: Appendectomy, Cholecystectomy, Heart Catheterization, Tubal Ligation Past Anesthesia/Blood Transfusion Reactions: No Reported Reaction Smoking Status: Never smoker - Past Family History Father Family Medical History: Cancer Medications and Allergies Home Medications Medication Instructions Recorded Confirmed Type Aspirin 81 mg PO DAILY 11/14/14 11/27/18 History Atenolol [Tenormin] 50 mg PO DAILY 11/14/14 11/27/18 History Hydrochlorothiazide [Hydrodiuril] 50 mg PO DAILY 11/14/14 11/27/18 History Spironolactone [Aldactone] 25 mg PO DAILY 11/14/14 11/27/18 History amLODIPine BESYLATE [Norvasc] 2.5 mg PO DAILY 11/14/14 11/27/18 History cloNIDine HCL [Catapres] 0.2 mg PO TID 11/14/14 11/27/18 History hydrALAZINE HCL [Apresoline] 25 mg PO BID 11/14/14 11/27/18 History L.acidoph,Paracasei, B.lactis 1 cap PO DAILY 01/24/18 11/27/18 History [Probiotic] Rosuvastatin [Crestor] 10 mg PO TUTHSA 01/24/18 11/27/18 History Calcium Carb/Vitamin D3/Vit K1 1 each PO DAILY 11/27/18 11/27/18 History [Citracal Soft Chew] Losartan Potassium [Cozaar] 100 mg PO HS 11/27/18 11/27/18 History Vitamin C/Biotin [Hair, Skin and 1 tab PO DAILY 11/27/18 11/27/18 History Nails] Allergies Allergy/AdvReac Type Severity Reaction Status Date / Time Penicillins Allergy Unknown Verified 11/27/18 11:08 STAINLESS STEEL Allergy Rash/Hives Uncoded 11/27/18 11:08
[~2018-11-29 09:47] MED LIST: ACETAMINOPHEN IV (For NPO) 1,000 MG in EMPTY BAG 1 BAG IVPB ONE; DEXAMETHASONE SOD PHOSPHATE 10 MG/ML 1 ML VIAL IV ONE; HEPARIN SODIUM,PORCINE 5,000 UNIT/ML 1 ML VIAL SQ STA; HYDROmorphone 0.5 MG/0.5 ML SYRINGE IVP PRN; LACTATED RINGERS 1,000 ML IV SCH; LIDOCAINE 1% 20 ML VIAL (10MG/ML) FOR IV START INTRADERMA PRN; ONDANSETRON 4 MG/2 ML VIAL IVP ONE; ceFAZolin IN SWFI 2 GM/20 ML SYRINGE IVP ONE
[2018-11-29] MEDS ORDERED: MIDAZOLAM 2 MG/2 ML VIAL IV ONE (11:36)
[2018-11-29] MEDS ORDERED: fentaNYL (PF) 50 MCG/ML 2 ML AMP IV ONE (11:36)
[2018-11-29] MEDS ORDERED: ROPIVACAINE 5 MG/ML 30 ML VIAL ONE (11:52)
[2018-11-29] MEDS ORDERED: PHENYLEPHRINE-0.9% NACL SYG 1 MG/10 ML SYRINGE ONE (11:52)
[2018-11-29] MEDS ORDERED: PROPOFOL 10 MG/ML 20 ML VIAL IV ONE (11:52)
[2018-11-29] MEDS ORDERED: NEOSTIGMINE 1 MG/ML 10 ML VIAL ONE (11:52)
[2018-11-29] MEDS ORDERED: fentaNYL (PF) 50 MCG/ML 2 ML AMP ONE (11:52)
[2018-11-29] MEDS ORDERED: ROCURONIUM BROMIDE 10 MG/ML 10 ML VIAL IV ONE (11:52)
[2018-11-29] MEDS ORDERED: GLYCOPYRROLATE 0.2 MG/ML 2 ML VIAL ONE (11:52)
[2018-11-29] MEDS ORDERED: SUCCINYLCHOLINE CHLORIDE 100 MG/5 ML SYR IV ONE (11:52)
[2018-11-29] MEDS ORDERED: KETOROLAC 30 MG/ML 1 ML VIAL ONE (11:52)
[2018-11-29] MEDS ORDERED: MIDAZOLAM 2 MG/2 ML VIAL ONE (11:52)
[2018-11-29] MEDS ORDERED: LIDOCAINE 1% INJ 10MG/ML (20 ML MDV) ONE (11:52)
--- NOTE | 2018-11-29 12:18 | P.ONQ ---
Anesthesiology Proc Note - PNB - Peripheral Nerve Block Performed Bilateral Rectus Abdominis Single Procedure Start Time: 11:35 Indication: Acute Post-Operative Pain Specifically requested for management of pain by DrThom: Sue Balbuena Sedation Type: Sedate with meaningful contact maintained Preparation: Sterile Prep Position: Supine Catheter: None Needle Types: Other (see comment) (Pajunk) Needle Size: 100mm (4") Needle Gauge: 21 Technique: Ultrasound Injectate: Other (see comment) (0.5% lido/ .025% ropivicaine 30cc on a side) Adjunct: Epinephrine (see comment for dilution ratio) (1:200,000) Blood Aspirated: No Pain Paresthesia on Injection Noted: No Resistance on Injection: Normal Events: Uneventful and Well Tolerated
[2018-11-29] MEDS ORDERED: BUPIVACAIN-EPI 0.25%-1:200,000 30 ML VIAL SQ ONE ×2 (12:31)
[2018-11-29] MEDS: MORPHINE SULFATE 4 MG/ML SYRINGE IVP ONE ×2 (12:46→13:51)
[2018-11-29] MEDS ORDERED: LACTATED RINGERS 1,000 ML IV ONE (13:37)
[2018-11-29 13:50] VITALS: TEMP 97.1
[2018-11-29 13:56] VITALS: RESP 16
[2018-11-29] MEDS: fentaNYL (PF) 50 MCG/ML 2 ML AMP IVP ONE ×2 (14:00→14:05)
--- NOTE | 2018-11-29 14:20 | P.OP ---
Date of Procedure: 11/29/18 Description of Procedure: SURGEON: ISAMAR ROME MD PREOPERATIVE DIAGNOSES: 1. Initial ventral hernia with incarceration 2. Morbid obesity does due to excess calories, BMI 36.0 3. Hypertensive heart disease 4. Congestive heart failure, diastolic dysfunction 5. Previous history of melanoma 6. Hyperlipidemia POSTOPERATIVE DIAGNOSES: 1. Initial ventral hernia with incarceration 2. Morbid obesity does due to excess calories, BMI 36.0 3. Hypertensive heart disease 4. Congestive heart failure, diastolic dysfunction 5. Previous history of melanoma 6. Hyperlipidemia OPERATION: 1. Robotic-assisted da Alexandria Xi laparoscopic repair of initial incarcerated ventral hernia 3-cm with mesh, ventralight ST mesh 11.4 cm COMPLICATIONS: None. Anesthesia: GETA, regional, local Estimated Blood Loss (ml): 10 Pathology: other (Ventral hernia) Condition: stable Disposition: same day Operative Findings: 1. Incarcerated ventral hernia. 2. No peritoneal adhesions along previous right upper quadrant cholecystectomy scar INDICATIONS: The patient is a 73-year-old female who presents ventral hernia of the umbilicus. Surgical intervention with laparoscopic versus robotic and open techniques were reviewed. Placement of mesh was also reviewed. Benefits and risks were thoroughly described. Informed consent was obtained. DESCRIPTION OF PROCEDURE: The patient was brought into the operating room and laid in supine position. After general induction, the abdomen had been prepped and draped in standard sterile fashion. Ioban draping was also placed. Prior to incision, a timeout protocol was confirmed with surgical team regarding the patient's name including procedures to be performed. The robot was primed prior to the procedure. A field block using local anesthetic was placed along hernia site including the proposed port sites. Initial incision was made with an #11 blade along the left upper quadrant. A 0 degree 5 mm laparoscopic trocar entry was performed and insufflated. An 8 mm port was placed along the right upper quadrant and another at the epigastrium under direct localization. The 5- mm port was exchanged for an 12 mm robotic port. Placements of the ports were 15 cm from the target anatomy and 10 cm apart. The Party Over Herei Xi robot was previously primed, prepped and draped then docked along the right side of the patient. I then sat at the robot Fracturei Xi console where working arms of the robot including Bovie cautery connected to robotic scissors, vessel sealer, needle stacker driver, and graspers placed by the orthodontic assistant. Fascial defect of 3 cm of the umbilicus was identified after cleaning the peritoneal fat of the abdominal wall and reducing an incarcerated omentum. A 12 mm port was placed along the left upper quadrant for placement of the mesh and for sutures. The incarcerated contents was reduced as the peritoneal fat was cleaned from the abdominal wall. Next, hemostasis was checked with cautery. The hernia defect was oversewn using #1 Stratafix with fascial imbrication x 3. Next, ventralight ST mesh 11.4 cm was placed with the rough side towards the abdominal wall. 2-0 VLOC 9 inch sutures were used to fixate the mesh. A final endoscopic imaging was obtained. All instruments and pneumoperitoneum were evacuated from the abdominal cavity. The da Alexandria Xi robot was undocked from the patient. I re-scrubbed into the case for closure of incisions. The fascia of the 12-mm port was probed and less than 8-mm in size. The incisions were reapproximated using 4-0 Monocryl in an interrupted subcuticular fashion. Liquid glue was applied to the skin after cleansing the skin with normal saline and dilute hydrogen peroxide. An abdominal binder was placed. An umbilical dressing was placed prior. At the end of the procedure, needle, sponge, and instrument count had been verified correct by surgical forceps fabricator. The patient was taken to the postanesthesia care unit in stable condition.
[2018-11-29 14:29] VITALS: PULSE 62
[2018-11-29 15:11] VITALS: BP 121/69
== END 2018-11-29 15:45 | disposition home or self-care (01) ==
LOC: OR 09:47
PROVIDERS: ATTEND Surgery Plastic and Reconstructive Surgery
DX: K43.6 Other and unspecified ventral hernia with obstruction, without gangrene (principal); K42.0 Umbilical hernia with obstruction, without gangrene; I71.4 Abdominal aortic aneurysm, without rupture; E66.01 Morbid (severe) obesity due to excess calories; I11.0 Hypertensive heart disease with heart failure; I50.30 Unspecified diastolic (congestive) heart failure; E78.5 Hyperlipidemia, unspecified; Z85.820 Personal history of malignant melanoma of skin; Z88.0 Allergy status to penicillin; Z79.899 Other long term (current) drug therapy; Z68.36 Body mass index [BMI] 36.0-36.9, adult; Z79.82 Long term (current) use of aspirin
CPT/HCPCS: 64488; 49653; 88302; C1781; J2250; J2270; J1644; J1100; J2710; J2405; J2001; J3010; J1885; J2795; J0131; J2370; J0330; J2704; J0690

== ENCOUNTER → 2019-02-06 | Outpatient (CLI) | payer MEDICARE ==
--- NOTE | 2019-02-06 11:58 | CT ---
EXAMINATION TYPE: CT angio chest DATE OF EXAM: 02/06/2019 COMPARISON: CTA chest February 06, 2018 HISTORY: ANEURYSM CT DLP: 357.2 mGycm. Automated Exposure Control for Dose Reduction was Utilized. CONTRAST: CTA scan of the thorax is performed with IV Contrast, patient injected with 100 mL of Isovue 370, pul monary embolism protocol. 3-D reconstructed images are created on an independent workstation and revi ewed. FINDINGS: LUNGS: The lungs are grossly clear, there is no concerning parenchymal mass or nodule identified. T here is no pleural effusion or pneumothorax seen. The tracheobronchial tree is patent. MEDIASTINUM: There is satisfactory enhancement of the pulmonary artery and its branches, there is no CT evidence for pulmonary embolism. 70 aorta measures up to 4.3 cm at level of main pulmonary artery bifurcation axial image 26 not significantly changed in size from prior CT. No aneurysm extension int o the arch is identified. Normal 3 vessel origins from arch is seen. Ascending aorta shows slight tor tuous course without aneurysm. No linear hypodensity or dissection is present. There are no greater t jones 1 cm hilar or mediastinal lymph nodes. No significant pericardial effusion is seen. Cardiomegal y is redemonstrated. There is persistent heterogeneous enlarged left thyroid lobe with substernal ext ension unchanged from prior. OTHER: Mild to moderate multilevel spurring in the thoracic spine is seen. Slight S-shaped scoliotic curvature is noted. Occasional subcentimeter lesions throughout the liver remains present presumed be nign. IMPRESSION: Stable 4.3 cm ascending aortic aneurysm. No significant change from prior CT.
== END | disposition home or self-care (01) ==
LOC: RADCTMAIN 10:32
PROVIDERS: ATTEND Internal Medicine Interventional Cardiology
DX: I71.2 Thoracic aortic aneurysm, without rupture (principal)
CPT/HCPCS: 82565; 84520; 71275; 36415; Q9967

== ENCOUNTER → 2021-03-08 | Outpatient (CLI) | payer MEDICARE ==
--- NOTE | 2021-03-08 13:38 | CT ---
EXAMINATION TYPE: CT angio chest DATE OF EXAM: 03/08/2021 12:32 PM COMPARISON: CTA chest February 06, 2019 and older studies HISTORY: Thoracic aortic aneurysm CT DLP: 774 mGycm Automated exposure control for dose reduction was used. CONTRAST: CTA scan of the thorax is performed without and with IV Contrast, patient injected with 100 mL of Iso zaida 370, aneurysm protocol. 3D reconstructed images are created on an independent workstation and re viewed.. FINDINGS: LUNGS: The lungs are grossly clear, there is no concerning parenchymal mass or nodule identified. T here is no pleural effusion or pneumothorax seen. The tracheobronchial tree is patent. MEDIASTINUM: Noncontrast images show no suspicious hyperdensity in the arch or thoracic aorta to sugg est intramural hematoma. There is satisfactory enhancement of the pulmonary artery and its branches, there is no CT evidence for pulmonary embolism. Thoracic aorta measures up to 4.7 cm at level of main pulmonary artery bifurcation axial image 26 slightly increased in in size from prior CTs. No aneurys m extension into the arch is identified. Normal 3 vessel origins from arch is seen. The descending ao rta shows slight tortuous course without aneurysm. No linear hypodensity or dissection is present. There are no new greater than 1 cm hilar or mediastinal lymph nodes. No significant pericardial eff usion is seen. Stable Cardiomegaly is redemonstrated. There is persistent heterogeneous enlarged left thyroid lobe or goiter with substernal extension unch anged from prior studies. OTHER: Mild to moderate multilevel spurring in the thoracic spine is seen. There is S-shaped scolioti c curvature redemonstrated. Occasional subcentimeter lesions throughout the liver remains present pre sumed benign. Cholecystectomy clips are redemonstrated. IMPRESSION: Slightly more prominent 4.7 cm ascending aortic aneurysm.
== END | disposition home or self-care (01) ==
LOC: RADCTMAIN 10:19
PROVIDERS: ATTEND Internal Medicine Interventional Cardiology
DX: I71.2 Thoracic aortic aneurysm, without rupture (principal)
CPT/HCPCS: 82565; 84520; 71275; 36415; Q9967

== ENCOUNTER → 2022-03-22 | Outpatient (CLI) | payer MEDICARE ==
--- NOTE | 2022-03-22 12:33 | CT ---
EXAMINATION TYPE: CT angio chest DATE OF EXAM: 03/22/2022 12:17 PM COMPARISON: 03/08/2021 HISTORY: Thoracic aortic aneurysm, without rupture CT DLP: 647 mGycm Automated exposure control for dose reduction was used. CONTRAST: CTA scan of the thorax is performed without and with IV Contrast, patient injected with 80 mL of Isov ue 370, pulmonary embolism protocol. . FINDINGS: LUNGS: The lungs are grossly clear, there is no concerning parenchymal mass or nodule identified. T here is no pleural effusion or pneumothorax seen. The tracheobronchial tree is patent. MEDIASTINUM: Noncontrast images show no suspicious hyperdensity in the arch or thoracic aorta to sugg est intramural hematoma. There is satisfactory enhancement of the pulmonary artery and its branches, there is no CT evidence for pulmonary embolism. Thoracic ascending aorta measures up to 4.7 cm stable from prior exam no aneurysm extension into the arch is identified. Normal 3 vessel origins from arch is seen. The descending aorta shows slight tort uous course without aneurysm. No linear hypodensity or dissection is present. There are no new greater than 1 cm hilar or mediastinal lymph nodes. No significant pericardial effus ion is seen. Stable Cardiomegaly is redemonstrated. There is persistent heterogeneous enlarged left thyroid lobe or goiter with substernal extension unch anged from prior studies. OTHER: Mild to moderate multilevel spurring in the thoracic spine is seen. There is S-shaped scoliot ic curvature redemonstrated. Occasional subcentimeter lesions throughout the liver remains present pr esumed benign. Cholecystectomy clips are redemonstrated Small hiatal hernia noted. IMPRESSION: STABLE 4.7 CM ASCENDING AORTIC ANEURYSM.
== END | disposition home or self-care (01) ==
LOC: RADCTMAIN 10:52
PROVIDERS: ATTEND Internal Medicine Interventional Cardiology
DX: I71.2 Thoracic aortic aneurysm, without rupture (principal)
CPT/HCPCS: 82565; 84520; 71275; 36415; Q9967

== ENCOUNTER → 2024-04-24 | Outpatient (CLI) | payer MEDICARE ==
[2024-04-24 09:37] LABS: African American GFR (CKD) 57 (>60 ml/min/1.73 sqM); Blood Urea Nitrogen 36 mg/dL (7-17); Non-African American GFR(CKD) 50 (>60 ml/min/1.73 sqM)
--- NOTE | 2024-04-24 13:30 | CT ---
EXAMINATION TYPE: CT angio chest CT DLP: 854.3 mGycm, Automated exposure control for dose reduction was used. DATE OF EXAM: 04/24/2024 10:31 AM COMPARISON: Chest CAT scan 03/22/2022. CLINICAL INDICATION:Female, 79 years old with history of I71.20 THORACIC AORTIC ANEURYSM; FOLLOW UP T HORACIC ANEURYSM TECHNIQUE/CONTRAST: CTA scan of the thorax is performed with IV Contrast, patient injected with 80 mL of Isovue 370, MIP images are created and reviewed these are created on a separate workstation.. FINDINGS: Pulmonary Artery: Unremarkable and unchanged. Lungs/Pleura: No evidence of focal consolidation, pleural effusion or pneumothorax. Airway: Large airways are patent. Heart: Heart is within normal limits for size. Vasculature: Descending thoracic aortic aneurysm is stable measuring since 2021 measuring 4.6 cm. No dissection. No pulmonary emboli. Mediastinum: No gross evidence of adenopathy. Musculoskeletal: No acute osseous abnormalities Soft Tissues: Unremarkable. Lower neck: Thyroid goiter appears similar with large left lobe displacing the trachea to the right. Upper Abdomen: No significant findings. IMPRESSION: 1. No evidence of pulmonary embolism.. Stable ascending thoracic aortic aneurysm. No dissection
== END | disposition home or self-care (01) ==
LOC: RADCTMAIN 08:56
PROVIDERS: ATTEND Internal Medicine Interventional Cardiology
DX: I71.21 Aneurysm of the ascending aorta, without rupture (principal)
CPT/HCPCS: 82565; 84520; 71275; 36415; Q9967

== ENCOUNTER 2025-02-07 13:15 | Inpatient (IN) | payer MEDICARE ==
--- NOTE | 2025-02-07 14:08 | ED ---
Female Urogenital HPI - General Chief complaint: Fever Stated complaint: Fever Time Seen by Provider: 02/07/25 14:07 Source: patient, family (son), RN notes reviewed, old records reviewed Mode of arrival: wheelchair Limitations: no limitations - History of Present Illness Initial comments: 80-year-old female presented to the ER for evaluation of fevers. Son, at bedside, is aiding in HPI and past medical history. Patient reports since 01 18 25 she has felt unwell. Patient was seen by urgent care at that time and diagnosed with a UTI. Patient was started on Macrobid. She completed the full course of antibiotic and was still feeling unwell. She states she feels weak and fatigued. Unknown fevers but states she has recently had the chills and shakes. Patient was seen by PCP this week and diagnosed with another UTI and started on another round of Macrobid. Patient has taken 2 doses of this. Patient presents today for increase in chills, myalgias, fatigue and weakness. Patient does admit to a recent cough and congestion but denies any shortness of breath, chest pain, constipation/diarrhea. No other complaints. - Related Data Home Medications Medication Instructions Recorded Confirmed Atenolol [Tenormin] 50 mg PO DAILY 11/14/14 02/07/25 Spironolactone [Aldactone] 25 mg PO DAILY 11/14/14 02/07/25 amLODIPine BESYLATE [Norvasc] 2.5 mg PO DAILY 11/14/14 02/07/25 cloNIDine HCL [Catapres] 0.2 mg PO TID 11/14/14 02/07/25 Rosuvastatin [Crestor] 10 mg PO DAILY 01/24/18 02/07/25 Losartan Potassium [Cozaar] 100 mg PO DAILY 11/27/18 02/07/25 Acetaminophen [Tylenol 8 Hour] 1,300 mg PO Q8H PRN 02/07/25 02/07/25 Aspirin EC [Ecotrin Low Dose] 81 mg PO DAILY 02/07/25 02/07/25 Biotin 5 mg PO DAILY 02/07/25 02/07/25 Cholecalciferol [Vitamin D3 (125 125 mcg PO DAILY 02/07/25 02/07/25 Mcg = 5000 Iu)] Furosemide [Lasix] 20 mg PO BID 02/07/25 02/07/25 Ketoconazole 2% Cream [Nizoral 2%] 1 applic TOPICAL BID PRN 02/07/25 02/07/25 LORazepam [Ativan] 0.25 - 0.5 mg PO Q6H PRN 02/07/25 02/07/25 Nitrofurantoin Monohyd/M-Cryst 100 mg PO Q12H 02/07/25 02/07/25 [Macrobid] Potassium Chloride ER [K-Dur 10] 10 meq PO BID 02/07/25 02/07/25 Vit C/E/Zn/Coppr/Lutein/Zeaxan 1 cap PO DAILY 02/07/25 02/07/25 [Preservision Areds 2 Softgel] Vitamin C/Biotin [Hair, Skin and 2 tab PO DAILY 02/07/25 02/07/25 Nails Chew] hydrALAZINE HCL [Apresoline] 75 mg PO BID 02/07/25 02/07/25 Allergies Allergy/AdvReac Type Severity Reaction Status Date / Time Penicillins Allergy Rash/Hives Verified 02/07/25 15:25 Review of Systems ROS Statement: Those systems with pertinent positive or pertinent negative responses have been documented in the HPI. ROS Other: All systems not noted in ROS Statement are negative. Past Medical History Past Medical History: Cancer, Hyperlipidemia, Hypertension Additional Past Medical History / Comment(s): aneurysm,melanoma History of Any Multi-Drug Resistant Organisms: None Reported Past Surgical History: Appendectomy, Cholecystectomy, Heart Catheterization, Tubal Ligation Past Anesthesia/Blood Transfusion Reactions: No Reported Reaction Past Psychological History: No Psychological Hx Reported Smoking Status: Never smoker Past Alcohol Use History: None Reported Past Drug Use History: None Reported - Past Family History Father Family Medical History: Cancer General Exam - General Exam Comments Initial Comments: Visual Physical Exam Vital signs reviewed General: Well-appearing, nontoxic, no acute distress. Head: Normocephalic, atraumatic Eyes: PERRLA, EOMI ENT: Airway patent Chest: Nonlabored breathing Skin: No visual rash, normal skin tone Neuro: Alert and oriented 3 Musculoskeletal: No gross abnormalities Limitations: no limitations General appearance: alert, in no apparent distress Respiratory exam: Present: normal lung sounds bilaterally. Absent: respiratory distress, wheezes, rales, rhonchi, stridor Cardiovascular Exam: Present: regular rate, normal rhythm, normal heart sounds. Absent: systolic murmur, diastolic murmur, rubs, gallop, clicks GI/Abdominal exam: Present: soft, normal bowel sounds. Absent: distended, tend erness, guarding, rebound, rigid Extremities exam: Present: normal inspection, full ROM, normal capillary refill. Absent: tenderness, pedal edema, joint swelling, calf tenderness Neurological exam: Present: alert, oriented X3, CN II-XII intact Skin exam: Present: warm, dry, intact, normal color. Absent: rash Course Vital Signs 02/07/25 02/07/25 02/07/25 13:30 15:50 18:04 Temperature 100.4 F H 102.1 F H 98.4 F Pulse Rate 83 81 72 Respiratory 18 18 18 Rate Blood Pressure 119/80 122/89 102/52 O2 Sat by Pulse 95 94 L 93 L Oximetry - Reevaluation(s) Reevaluation #1: 02/07/25 17:28 Case discussed with Delgado Zamorano. [facility] for admission. 02/07/25 17:51 Patient met sepsis criteria at 1414 Rocephin ordered at 1451. Infection identified at 1653. Medical Decision Making - Medical Decision Making I performed the quick note portion of this chart. Electronically signed by Jaime Kumar PA-C Was pt. sent in by a medical professional or institution (DEANA Kiran, SEPARATING MACHINE OPERATOR, urgent care, hospital, or jail...) When possible be specific @ -No Did you speak to anyone other than the patient for history (EMS, parent, family, police, friend...)? What history was obtained from this source @ -Patient's son, at bedside, aiding in HPI past medical history. Did you review nursing and triage notes (agree or disagree)? Why? @ -I reviewed and agree with nursing and triage notes Were old charts reviewed (outside hosp., previous admission, EMS record, old EKG, old radiological studies, urgent care reports/EKG's, jail records)? Report findings @ -No old charts were reviewed Differential Diagnosis (chest pain, altered mental status, abdominal pain women, abdominal pain men, vaginal bleeding, weakness, fever, dyspnea, syncope, headache, dizziness, GI bleed, back pain, seizure, CVA, palpatations, mental health, musculoskeletal)? @ -Differential Fever: Pneumonia, viral URI, endocarditis, myocarditis, pericarditis, otitis, sinusitis, peritonsillar Abscess, retropharyngeal Abscess, epiglottitis, peritonitis, appendicitis, Maia cystitis, diverticulitis, hepatitis, colitis, UTI, PID, TOA, pyelonephritis, prostatitis, epididymitis, meningitis, encephalitis, pulmonary embolism, CVA, thyroid storm, pancreatitis, adrenal crisis, cavernous sinus thrombosis, this is not meant to be an all- inclusive list. EKG interpreted by me (3pts min.). @ -As above X-rays interpreted by me (1pt min.). @ -CXR interpreted by me showing bibasilar patchy airspace opacities possibly atelectasis versus infiltrates. Cardiomegaly w/ pulmonary vascular congestion CT interpreted by me (1pt min.). @ -None done U/S interpreted by me (1pt. min.). @ -None done What testing was considered but not performed or refused? (CT, X-rays, U/S, labs)? Why? @ -None What meds were considered but not given or refused? Why? @ -None Did you discuss the management of the patient with other professionals (professionals i.e. , PA, SEPARATING MACHINE OPERATOR, lab, RT, psych nurse, social science professor, devops consultant, teacher, student officer, leather case finisher)? Give summary @ -Yes, case discussed with Delgado Zamorano [facility] for admission. Was smoking cessation discussed for >3mins.? @ -No Was critical care preformed (if so, how long)? @ -No Were there social determinants of health that impacted care today? How? (Homelessness, low income, unemployed, alcoholism, drug addiction, transportation, low edu. Level, literacy, decrease access to med. care, custodial, r ehab)? @ -No Was there de-escalation of care discussed even if they declined (Discuss DNR or withdrawal of care, Hospice)? DNR status @ -No What co-morbidities impacted this encounter? (DM, HTN, Smoking, COPD, CAD, Cancer, CVA, ARF, Chemo, Hep., AIDS, mental health diagnosis, sleep apnea, morbid obesity)? @ -Hyperlipidemia, hypertension Was patient admitted / discharged? Hospital course, mention meds given and route, prescriptions, significant lab abnormalities, going to OR and other pertinent info. @ -Admitted. 80-year-old female presented the ER for evaluation of fever. Patient febrile upon arrival with a oral temperature of 100.4. Vital signs otherwise within acceptable limits. Upon examination, patient resting comfortably on stretcher no signs of acute distress. Laboratory studies showed a leukocytosis of 12.3 with a left shift. Lactic 1.3. Hemoglobin 9.4. Kidney function appears to be at patient's baseline with a creatinine 1.09 with a GFR 49. Urinalysis with trace protein concerning of dehydration no evidence of infection. Viral swabs negative. Chest x-ray showing bibasilar patchy airspace opacities possibly representing atelectasis versus infiltrates. Given patient is febrile with a leukocytosis it is believed to be a pneumonia for which patient received 2 g IV Rocephin and azithromycin. Blood cultures obtained. Patient given IV 2000 LR fluid bolus. Patient was started on maintenance fluid at 50 cc/h given concern of possible CHF as patient takes Lasix 20 mg BID. Patient denies a history of CHF. Patient given ibuprofen and Tylenol for fever control in the ER, with improvement. Admission considered and discussed with [facility], Delgado Zamorano for further treatment of sepsis and pneumonia. ID on consult. Patient agreeable for admission. Case discussed with ED attending, Dr. Brock. Undiagnosed new problem with uncertain prognosis? @ -No Drug Therapy requiring intensive monitoring for toxicity (Heparin, Nitro, Insulin, Cardizem)? @ -No Were any procedures done? @ -No Diagnosis/symptom? @ -Sepsis/pneumonia Acute, or Chronic, or Acute on Chronic? @ -Acute Uncomplicated (without systemic symptoms) or Complicated (systemic symptoms)? @ -Complicated Side effects of treatment? @ -No Exacerbation, Progression, or Severe Exacerbation? @ -No Poses a threat to life or bodily function? How? (Chest pain, [place], [place], pneumonia, PE, COPD, DKA, ARF, appy, cholecystitis, CVA, Diverticulitis, Homicidal, Suicidal, threat to staff... and all critical care pts) @ -Yes, sepsis can lead to endorgan dysfunction - Lab Data Result diagrams: 02/07/25 14:00 02/07/25 16:10 Lab Results 02/07/25 02/07/25 02/07/25 Range/Units 14:00 16:10 16:10 WBC 12.3 H (3.8-10.6) k/uL RBC 3.44 L (3.80-5.40) m/uL Hgb 9.4 L (11.4-16.0) gm/dL Hct 29.1 L (34.0-46.0) % MCV 84.5 (80.0-100.0) fL MCH 27.4 (25.0-35.0) pg MCHC 32.5 (31.0-37.0) g/dL RDW 14.6 (11.5-15.5) % Plt Count 429 (150-450) k/uL MPV 6.8 Neutrophils % 91 % Lymphocytes % 4 % Monocytes % 2 % Eosinophils % 3 % Basophils % 0 % Neutrophils # 11.2 H (1.3-7.7) k/uL Lymphocytes # 0.5 L (1.0-4.8) k/uL Monocytes # 0.3 (0-1.0) k/uL Eosinophils # 0.3 (0-0.7) k/uL Basophils # 0.0 (0-0.2) k/uL Hypochromasia Slight Sodium 131 L (137-145) mmol/L Potassium 5.0 (3.5-5.1) mmol/L Chloride 98 (98-107) mmol/L Carbon Dioxide 23 (22-30) mmol/L Anion Gap 10 mmol/L BUN 28 H (7-17) mg/dL Creatinine 1.09 H (0.52-1.04) mg/dL Est GFR (CKD-EPI)AfAm 56 (>60 ml/min/1.73 sqM) Est GFR (CKD-EPI)NonAf 49 (>60 ml/min/1.73 sqM) Glucose 124 H (74-99) mg/dL Plasma Lactic Acid Greg 1.3 (0.7-2.0) mmol/L Calcium 9.1 (8.4-10.2) mg/dL Total Bilirubin 0.4 (0.2-1.3) mg/dL AST 18 (14-36) U/L ALT 12 (4-34) U/L Alkaline Phosphatase 149 H (38-126) U/L Total Protein 6.1 L (6.3-8.2) g/dL Albumin 3.4 L (3.5-5.0) g/dL Urine Color Urine Appearance (Clear) Urine pH (5.0-8.0) Ur Specific [place] (1.001-1.035) Urine Protein (Negative) Urine Glucose (UA) (Negative) Urine Ketones (Negative) Urine Blood (Negative) Urine Nitrite (Negative) Urine Bilirubin (Negative) Urine Urobilinogen (<2.0) mg/dL Ur Leukocyte Esterase (Negative) Influenza Type A (PCR) (Not Detectd) Influenza Type B (PCR) (Not Detectd) RSV (PCR) (Not Detectd) SARS-CoV-2 (PCR) (Not Detectd) 02/07/25 02/07/25 Range/Units 16:10 17:00 WBC (3.8-10.6) k/uL RBC (3.80-5.40) m/uL Hgb (11.4-16.0) gm/dL Hct (34.0-46.0) % MCV (80.0-100.0) fL MCH (25.0-35.0) pg MCHC (31.0-37.0) g/dL RDW (11.5-15.5) % Plt Count (150-450) k/uL MPV Neutrophils % % Lymphocytes % % Monocytes % % Eosinophils % % Basophils % % Neutrophils # (1.3-7.7) k/uL Lymphocytes # (1.0-4.8) k/uL Monocytes # (0-1.0) k/uL Eosinophils # (0-0.7) k/uL Basophils # (0-0.2) k/uL Hypochromasia Sodium (137-145) mmol/L Potassium (3.5-5.1) mmol/L Chloride (98-107) mmol/L Carbon Dioxide (22-30) mmol/L Anion Gap mmol/L BUN (7-17) mg/dL Creatinine (0.52-1.04) mg/dL Est GFR (CKD-EPI)AfAm (>60 ml/min/1.73 sqM) Est GFR (CKD-EPI)NonAf (>60 ml/min/1.73 sqM) Glucose (74-99) mg/dL Plasma Lactic Acid Greg (0.7-2.0) mmol/L Calcium (8.4-10.2) mg/dL Total Bilirubin (0.2-1.3) mg/dL AST (14-36) U/L ALT (4-34) U/L Alkaline Phosphatase (38-126) U/L Total Protein (6.3-8.2) g/dL Albumin (3.5-5.0) g/dL Urine Color Yellow Urine Appearance Clear (Clear) Urine pH 5.5 (5.0-8.0) Ur Specific [place] 1.016 (1.001-1.035) Urine Protein Trace H (Negative) Urine Glucose (UA) Negative (Negative) Urine Ketones Negative (Negative) Urine Blood Negative (Negative) Urine Nitrite Negative (Negative) Urine Bilirubin Negative (Negative) Urine Urobilinogen <2.0 (<2.0) mg/dL Ur Leukocyte Esterase Negative (Negative) Influenza Type A (PCR) Not Detected (Not Detectd) Influenza Type B (PCR) Not Detected (Not Detectd) RSV (PCR) Not Detected (Not Detectd) SARS-CoV-2 (PCR) Not Detected (Not Detectd) - Radiology Data Radiology results: report reviewed, image reviewed Disposition Clinical Impression: Sepsis, Pneumonia Disposition: ADMITTED IP TO THIS [facility] Condition: Stable Time of Disposition: 17:21
[2025-02-07 14:12] LABS: Basophils % (A) 0 %; Eosinophils # (A) 0.3 k/uL (0-0.7); Eosinophils % (A) 3 %; HCT 29.1 % (34.0-46.0); HGB 9.4 gm/dL (11.4-16.0); Hypochromasia Slight; Lymphocytes # (A) 0.5 k/uL (1.0-4.8); Lymphocytes % (A) 4 %; MCH 27.4 pg (25.0-35.0); MCHC 32.5 g/dL (31.0-37.0); MCV 84.5 fL (80.0-100.0); Mean Platelet Volume 6.8; Monocytes # (A) 0.3 k/uL (0-1.0); Monocytes % (A) 2 %; Neutrophils # (A) 11.2 k/uL (1.3-7.7); Neutrophils % (A) 91 %; Platelet Count 429 k/uL (150-450); RBC 3.44 m/uL (3.80-5.40); RDW 14.6 % (11.5-15.5); WBC 12.3 k/uL (3.8-10.6)
[2025-02-07] MEDS: ACETAMINOPHEN TAB 325 MG TAB PO STA (15:29)
[2025-02-07] MEDS: IBUPROFEN 800 MG TAB PO STA (15:29)
[2025-02-07] MEDS: LACTATED RINGERS 1,000 ML IV SCH ×2 (16:09→18:52)
[2025-02-07] MEDS: cefTRIAXone IN SWFI 1,000 MG/10 ML SYRINGE IVP STA (16:11)
[2025-02-07 16:42] LABS: ALT 12 U/L (4-34); AST 18 U/L (14-36); African American GFR (CKD) 56 (>60 ml/min/1.73 sqM); Albumin 3.4 g/dL (3.5-5.0); Alkaline Phosphatase 149 U/L (38-126); Anion Gap 10 mmol/L; Blood Urea Nitrogen 28 mg/dL (7-17); Calcium 9.1 mg/dL (8.4-10.2); Carbon Dioxide 23 mmol/L (22-30); Chloride 98 mmol/L (98-107); Glucose 124 mg/dL (74-99); Non-African American GFR(CKD) 49 (>60 ml/min/1.73 sqM); Sodium 131 mmol/L (137-145); Total Bilirubin 0.4 mg/dL (0.2-1.3); Total Protein 6.1 g/dL (6.3-8.2)
--- NOTE | 2025-02-07 16:57 | XR ---
EXAMINATION TYPE: XR chest 2V DATE OF EXAM: 02/07/2025 4:49 PM COMPARISON: Chest radiographs from 05/17/2023, CTA chest 04/24/2024 TECHNIQUE: XR chest 2V Frontal and lateral views of the chest. CLINICAL INDICATION:Female, 80 years old with history of Fever; FINDINGS: Lungs/Pleura: There is no evidence of pleural effusion or pneumothorax. Bibasilar patchy airspace opa cities. Pulmonary vascularity: Pulmonary vascular congestion. Heart/mediastinum: Cardiomediastinal silhouette is enlarged and stable. Musculoskeletal: Multiple level degenerative disc disease changes seen throughout the spine. Other findings: Surgical clips in the upper abdomen. IMPRESSION: 1. Cardiomegaly with pulmonary vascular congestion. Correlate for CHF exacerbation. 2. Bibasilar patchy airspace opacities which may represent atelectasis versus infiltrates. [facility], , 02/07/2025 4:55 PM
[2025-02-07 17:02] LABS: Influenza A Not Detected (Not Detectd); Influenza B Not Detected (Not Detectd); RSV Not Detected (Not Detectd)
[2025-02-07 17:08] LABS: Appearance,Urine Clear (Clear); Bilirubin,Urine Negative (Negative); Blood,Urine Negative (Negative); Color,Urine Yellow; Glucose,Urine (UA) Negative (Negative); Ketones,Urine Negative (Negative); Leukocyte Esterase,Urine Negative (Negative); Nitrite,Urine Negative (Negative); PH, Urine 5.5 (5.0-8.0); Protein,Urine Trace (Negative); Specific Gravity,Urine 1.016 (1.001-1.035); Urobilinogen,Urine <2.0 mg/dL (<2.0)
[2025-02-07] MEDS ORDERED: NALOXONE 0.4 MG/ML 1 ML VIAL IV PRN (17:21)
[2025-02-07] MEDS: AZITHROMYCIN 500 MG TAB PO STA (18:49)
[2025-02-08 07:27] LABS: Basophils % (A) 0 %; Eosinophils # (A) 0.7 k/uL (0-0.7); Eosinophils % (A) 7 %; HCT 29.5 % (34.0-46.0); HGB 9.1 gm/dL (11.4-16.0); Hypochromasia Moderate; Lymphocytes # (A) 0.5 k/uL (1.0-4.8); Lymphocytes % (A) 6 %; MCH 26.9 pg (25.0-35.0); MCHC 30.7 g/dL (31.0-37.0); MCV 87.5 fL (80.0-100.0); Monocytes # (A) 0.4 k/uL (0-1.0); Monocytes % (A) 4 %; Neutrophils # (A) 7.5 k/uL (1.3-7.7); Neutrophils % (A) 82 %; Platelet Count 417 k/uL (150-450); RBC 3.37 m/uL (3.80-5.40); RDW 14.8 % (11.5-15.5); WBC 9.2 k/uL (3.8-10.6)
[2025-02-08 07:47] LABS: ALT 13 U/L (4-34); AST 17 U/L (14-36); African American GFR (CKD) 56 (>60 ml/min/1.73 sqM); Albumin 3.1 g/dL (3.5-5.0); Albumin/Globulin Ratio 1.2; Alkaline Phosphatase 132 U/L (38-126); Anion Gap 8 mmol/L; Bilirubin,Unconjugated 0.1 mg/dL (0.0-1.1); Blood Urea Nitrogen 29 mg/dL (7-17); Calcium 8.6 mg/dL (8.4-10.2); Carbon Dioxide 26 mmol/L (22-30); Chloride 99 mmol/L (98-107); Globulin 2.6 g/dL; Glucose 119 mg/dL (74-99); Non-African American GFR(CKD) 49 (>60 ml/min/1.73 sqM); Potassium 4.2 mmol/L (3.5-5.1); Sodium 133 mmol/L (137-145); Total Bilirubin 0.4 mg/dL (0.2-1.3); Total Protein 5.7 g/dL (6.3-8.2)
[2025-02-08 07:55] LABS: NT-Pro-B-Type Natriuretic Pept 2100 pg/mL
[2025-02-08] MEDS: LACTATED RINGERS 1,000 ML IV SCH (08:33)
[2025-02-08] MEDS: ACETAMINOPHEN TAB 325 MG TAB PO PRN (08:33)
[2025-02-08] MEDS ORDERED: CLOTRIMAZOLE 1% CREAM 30 GM TUBE TOPICAL PRN (11:53)
[2025-02-08] MEDS ORDERED: NON FORMULARY DRUG (Acetaminophen [Tylenol 8 Hour] 650 MG Tablet) PO PRN (11:53)
--- NOTE | 2025-02-08 12:01 | P.HPIM ---
History of Present Illness This is a pleasant 80 years old female with past medical history of multiple medical problems including hypertension. Presents because of not feeling well and suspected infection and fever. Patient states that in the first week of January she felt that she is weak and she thought she has UTI when she went to urgent care and she was prescribed oral antibiotic x 1 week, after finishing her antibiotic she did not feel improved and she still was weak and lethargic so she went to her PCP who sent a urine culture and then they called her and called in for another 7 days of the same antibiotics but patient did not feel improvement and she was feeling this time shaking with chills and yesterday showing a fever at 102 at home as she confirms so she decided to come to the emergency room. Patient complaining from cough and shortness of breath but no chest pain. Denies any specific GI or symptoms. No abdominal pain vomiting or diarrhea. No dysuria or urgency. Patient also did not notice any blood in her stool or urine or anywhere else. She denies headache dizziness weakness or numbness. She is walking at her baseline. She denies smoking alcohol or illicit drugs. She denies falling or confusion. Patient was hypotensive on admission and blood pressure was low at 92/53, currently improved. WBC mildly elevated at 12.3, hemoglobin 9.4 with baseline about 12-14 Creatinine is slightly up at 1.09 with baseline 0.7-1.0. Lactic acid 1.3. Urine analysis is not suspicious for infection Influenza A and type B, RSV, SARS (coronavirus) are undetected chest x-ray showing cardiomegaly with mild pulmonary vascular congestion and bibasilar infiltrate with suspicious for atelectasis versus pneumonia. Patient was given one-time dose of Zithromax and ceftriaxone emergency room and started on Ringer lactate at 100 mL/h and admitted to the hospital Patient currently sitting up in chair feeling improved but still generally weak. Review of Systems Review of systems CONSTITUTIONAL: No fever, no malaise, no fatigue. HEENT: No recent visual problems or hearing problems. Denied any sore throat. CARDIOVASCULAR: No orthopnea, PND, no palpitations, no syncope. PULMONARY: no chest wall tenderness, no hemoptysis. GASTROINTESTINAL: No diarrhea, no nausea, no vomiting, no abdominal pain. Normoactive bowel sounds. NEUROLOGICAL: No headaches, no weakness, no numbness. HEMATOLOGICAL: Denies any bleeding or petechiae. GENITOURINARY: Denies any burning micturition, frequency, or urgency. MUSCULOSKELETAL/RHEUMATOLOGICAL: Denies any joint pain, swelling, or any muscle pain. ENDOCRINE: Denies any polyuria or polydipsia. Past Medical History Past Medical History: Cancer, Hyperlipidemia, Hypertension Additional Past Medical History / Comment(s): aneurysm,melanoma History of Any Multi-Drug Resistant Organisms: None Reported Past Surgical History: Appendectomy, Cholecystectomy, Heart Catheterization, Tubal Ligation Past Anesthesia/Blood Transfusion Reactions: No Reported Reaction Past Psychological History: No Psychological Hx Reported Smoking Status: Never smoker Past Alcohol Use History: None Reported Past Drug Use History: None Reported - Past Family History Father Family Medical History: Cancer Medications and Allergies Home Medications Medication Instructions Recorded Confirmed Type Atenolol [Tenormin] 50 mg PO DAILY 11/14/14 02/07/25 History Spironolactone [Aldactone] 25 mg PO DAILY 11/14/14 02/07/25 History amLODIPine BESYLATE [Norvasc] 2.5 mg PO DAILY 11/14/14 02/07/25 History cloNIDine HCL [Catapres] 0.2 mg PO TID 11/14/14 02/07/25 History Rosuvastatin [Crestor] 10 mg PO DAILY 01/24/18 02/07/25 History Losartan Potassium [Cozaar] 100 mg PO DAILY 11/27/18 02/07/25 History Acetaminophen [Tylenol 8 Hour] 1,300 mg PO Q8H PRN 02/07/25 02/07/25 History Aspirin EC [Ecotrin Low Dose] 81 mg PO DAILY 02/07/25 02/07/25 History Biotin 5 mg PO DAILY 02/07/25 02/07/25 History Cholecalciferol [Vitamin D3 (125 125 mcg PO DAILY 02/07/25 02/07/25 History Mcg = 5000 Iu)] Furosemide [Lasix] 20 mg PO BID 02/07/25 02/07/25 History Ketoconazole 2% Cream [Nizoral 2%] 1 applic TOPICAL BID PRN 02/07/25 02/07/25 History LORazepam [Ativan] 0.25 - 0.5 mg PO Q6H PRN 02/07/25 02/07/25 History Nitrofurantoin Monohyd/M-Cryst 100 mg PO Q12H 02/07/25 02/07/25 History [Macrobid] Potassium Chloride ER [K-Dur 10] 10 meq PO BID 02/07/25 02/07/25 History Vit C/E/Zn/Coppr/Lutein/Zeaxan 1 cap PO DAILY 02/07/25 02/07/25 History [Preservision Areds 2 Softgel] Vitamin C/Biotin [Hair, Skin and 2 tab PO DAILY 02/07/25 02/07/25 History Nails Chew] hydrALAZINE HCL [Apresoline] 75 mg PO BID 02/07/25 02/07/25 History Allergies Allergy/AdvReac Type Severity Reaction Status Date / Time Penicillins Allergy Rash/Hives Verified 02/07/25 15:25 Physical Exam Vitals: Vital Signs Temp Pulse Pulse Resp BP BP Pulse Ox 02/08/25 07:06 97.5 F L 66 18 123/70 95 02/08/25 01:15 97.9 F 65 18 93/58 96 02/07/25 20:40 87 18 92/53 96 02/07/25 18:04 98.4 F 72 18 102/52 93 L 02/07/25 15:50 102.1 F H 81 18 122/89 94 L 02/07/25 13:30 100.4 F H 83 18 119/80 95 Intake and Output 02/07/25 02/08/25 02/08/25 22:59 06:59 14:59 Intake Total 400 Balance 400 Intake: Oral 400 Other: Voiding Method Toilet # Voids 4 Weight 87.09 kg -GENERAL: The patient is alert and oriented x3, not in any acute distress. Well developed, well nourished. Obese HEENT: Pupils are round and equally reacting to light. EOMI. No scleral icterus. No conjunctival pallor. Normocephalic, atraumatic. No pharyngeal erythema. No thyromegaly. CARDIOVASCULAR: S1 and S2 present. No murmurs, rubs, or gallops. PULMONARY: Chest is clear to auscultation, no wheezing , no crackles. ABDOMEN: Soft, nontender, nondistended, normoactive bowel sounds. No palpable organomegaly. MUSCULOSKELETAL: No joint swelling or deformity. EXTREMITIES: No cyanosis, clubbing, or pedal edema. NEUROLOGICAL: Gross neurological examination did not reveal any focal deficits. SKIN: No rashes. no petechiae. Results CBC & Chem 7: 02/08/25 07:05 02/08/25 07:05 Labs: Abnormal Lab Results - Last 24 Hours (Table) 02/07/25 02/07/25 02/07/25 Range/Units 14:00 16:10 17:00 WBC 12.3 H (3.8-10.6) k/uL RBC 3.44 L (3.80-5.40) m/uL Hgb 9.4 L (11.4-16.0) gm/dL Hct 29.1 L (34.0-46.0) % MCHC (31.0-37.0) g/dL Neutrophils # 11.2 H (1.3-7.7) k/uL Lymphocytes # 0.5 L (1.0-4.8) k/uL Sodium 131 L (137-145) mmol/L BUN 28 H (7-17) mg/dL Creatinine 1.09 H (0.52-1.04) mg/dL Glucose 124 H (74-99) mg/dL Alkaline Phosphatase 149 H (38-126) U/L Total Protein 6.1 L (6.3-8.2) g/dL Albumin 3.4 L (3.5-5.0) g/dL Urine Protein Trace H (Negative) 02/08/25 02/08/25 Range/Units 07:05 07:05 WBC (3.8-10.6) k/uL RBC 3.37 L (3.80-5.40) m/uL Hgb 9.1 L (11.4-16.0) gm/dL Hct 29.5 L (34.0-46.0) % MCHC 30.7 L (31.0-37.0) g/dL Neutrophils # (1.3-7.7) k/uL Lymphocytes # 0.5 L (1.0-4.8) k/uL Sodium 133 L (137-145) mmol/L BUN 29 H (7-17) mg/dL Creatinine 1.09 H (0.52-1.04) mg/dL Glucose 119 H (74-99) mg/dL Alkaline Phosphatase 132 H (38-126) U/L Total Protein 5.7 L (6.3-8.2) g/dL Albumin 3.1 L (3.5-5.0) g/dL Urine Protein (Negative) Thrombosis Risk Factor Assmnt - Choose All That Apply Any of the Below Risk Factors Present?: Yes Each Factor Represents 1 point: Obesity (BMI >25), Sepsis (< 1month), Serious lung disease incl. pneumonia (< 1month) Other Risk Factors: Yes Each Risk Factor Represents 3 Points: Age 75 years or older Other congenital or acquired thrombophilia - If yes, enter type in comment: No Thrombosis Risk Factor Assessment Total Risk Factor Score: 6 Thrombosis Risk Factor Assessment Level: High Risk Assessment and Plan Assessment: Possible pneumonia with bibasilar infiltrate Sepsis with fever, checked at home and leukocytosis, mild and is improving Acute anemia Chronic kidney disease stage III Obesity with BMI of 33. Hypotension, improved History of hypertension on multiple medication which are put on hold now Plan: Continue with antibiotics ceftriaxone and Zithromax for total of 5 days Check procalcitonin Infectious disease consult Patient has acute drop in hemoglobin will do anemia workup Check occult blood in stool General Surgery consult. Please note there is no GI coverage in this facility during this weekend or week. Start therapeutic dose of Protonix twice daily Labs and medication were reviewed.. Continue same treatment. Continue with sym ptomatic treatment. Resume home medication. Monitor labs and vitals. DVT and GI prophylaxis. Further recommendations as per clinical course of the patient DVT prophylaxis: no for low hemoglobin subcutaneous heparin GI Prophylaxis: Protonix PT/OT: Pending Prognosis is guarded
[2025-02-08] MEDS: AZITHROMYCIN 500 MG TAB PO SCH (12:28)
[2025-02-08] MEDS: PANTOPRAZOLE 40 MG/10 ML VIAL IVP SCH (12:29)
[2025-02-08] MEDS: FUROSEMIDE 20 MG TAB PO SCH (16:19)
[2025-02-08] MEDS: SENNOSIDES-DOCUSATE SODIUM 1 EACH TAB PO SCH (18:12)
[2025-02-08] MEDS: MELATONIN 3 MG TABLET PO SCH (21:44)
[2025-02-08] MEDS: POTASSIUM CHLORIDE ER 10 MEQ TAB.ER.PRT PO SCH (21:44)
--- NOTE | 2025-02-08 23:24 | P.CONS ---
History of Present Illness - Reason for Consult Consult date: 02/08/25 Sepsis Requesting physician: Beulah Kumar - Chief Complaint Fever and weakness x days - History of Present Illness Patient is a 80-year-old female with a past medical history significant for hypertension hyperlipidemia melanoma presenting to the hospital for evaluation of fever patient mention she has been not feeling well since beginning of January 2025 and apparently has been evaluated in urgent care diagnosed with a UTI and treated with Macrobid patient mention she completed a course of antibiotic however still feeling very weak and fatigue subsequently went by PCP diagnosed with a UTI and again another course of Macrobid. Patient took 2 doses however the patient did have progressive weakness along with chills and myalgias and started having a fever with the patient was brought to the hospital patient denies having any URI symptoms no chest pain or shortness of breath she did have mild cough but not bring up any sputum denies any nausea no vomiting no abdominal pain no diarrhea or constipation no burning or frequency of urine no joint swelling or any lower extremity swelling or redness or presentation to the hospital patient did have a temperature of 102.1 degrees for night patient was not tachycardic hypotensive or hypoxic no need for sup plemental oxygen she did have a white count of 12.3 with a left shift BUN and creatinine has been mildly elevated liver enzymes normal patient did have negative UA influenza RSV COVID testing was negative procalcitonin 0.48 blood culture has been obtained chest x-ray did shows cardiomegaly with pulmonary vascular congestion bibasilar patchy airspace opacity concerning for atelectasis versus infiltrate patient was started on Rocephin and Zithromax infectious disease was consulted for further management of antibiotic therapy Review of Systems Positive point and negatives has been mentioned in the HPI, complete review of systems was performed and all other systems are negative Past Medical History Past Medical History: Cancer, Hyperlipidemia, Hypertension Additional Past Medical History / Comment(s): aneurysm,melanoma History of Any Multi-Drug Resistant Organisms: None Reported Past Surgical History: Appendectomy, Cholecystectomy, Heart Catheterization, Tubal Ligation Past Anesthesia/Blood Transfusion Reactions: No Reported Reaction Past Psychological History: No Psychological Hx Reported Smoking Status: Never smoker Past Alcohol Use History: None Reported Past Drug Use History: None Reported - Past Family History Father Family Medical History: Cancer Medications and Allergies Home Medications Medication Instructions Recorded Confirmed Type Atenolol [Tenormin] 50 mg PO DAILY 11/14/14 02/07/25 History Spironolactone [Aldactone] 25 mg PO DAILY 11/14/14 02/07/25 History amLODIPine BESYLATE [Norvasc] 2.5 mg PO DAILY 11/14/14 02/07/25 History cloNIDine HCL [Catapres] 0.2 mg PO TID 11/14/14 02/07/25 History Rosuvastatin [Crestor] 10 mg PO DAILY 01/24/18 02/07/25 History Losartan Potassium [Cozaar] 100 mg PO DAILY 11/27/18 02/07/25 History Acetaminophen [Tylenol 8 Hour] 1,300 mg PO Q8H PRN 02/07/25 02/07/25 History Aspirin EC [Ecotrin Low Dose] 81 mg PO DAILY 02/07/25 02/07/25 History Biotin 5 mg PO DAILY 02/07/25 02/07/25 History Cholecalciferol [Vitamin D3 (125 125 mcg PO DAILY 02/07/25 02/07/25 History Mcg = 5000 Iu)] Furosemide [Lasix] 20 mg PO BID 02/07/25 02/07/25 History Ketoconazole 2% Cream [Nizoral 2%] 1 applic TOPICAL BID PRN 02/07/25 02/07/25 History LORazepam [Ativan] 0.25 - 0.5 mg PO Q6H PRN 02/07/25 02/07/25 History Nitrofurantoin Monohyd/M-Cryst 100 mg PO Q12H 02/07/25 02/07/25 History [Macrobid] Potassium Chloride ER [K-Dur 10] 10 meq PO BID 02/07/25 02/07/25 History Vit C/E/Zn/Coppr/Lutein/Zeaxan 1 cap PO DAILY 02/07/25 02/07/25 History [Preservision Areds 2 Softgel] Vitamin C/Biotin [Hair, Skin and 2 tab PO DAILY 02/07/25 02/07/25 History Nails Chew] hydrALAZINE HCL [Apresoline] 75 mg PO BID 02/07/25 02/07/25 History Allergies Allergy/AdvReac Type Severity Reaction Status Date / Time Penicillins Allergy Rash/Hives Verified 02/07/25 15:25 Physical Exam Vitals: Vital Signs Temp Pulse Pulse Resp BP BP Pulse Ox 02/08/25 07:06 97.5 F L 66 18 123/70 95 02/08/25 01:15 97.9 F 65 18 93/58 96 02/07/25 20:40 87 18 92/53 96 02/07/25 18:04 98.4 F 72 18 102/52 93 L 02/07/25 15:50 102.1 F H 81 18 122/89 94 L 02/07/25 13:30 100.4 F H 83 18 119/80 95 Intake and Output 02/07/25 02/08/25 02/08/25 22:59 06:59 14:59 Intake Total 400 Balance 400 Intake: Oral 400 Other: Voiding Method Toilet # Voids 4 Weight 87.09 kg GENERAL DESCRIPTION: Elderly female up in the chair, no distress. No tachypnea or accessory muscle of respiration use. HEENT: Shows Pallor , no scleral icterus. Oral mucous membrane is dry. No pharyngeal erythema or thrush NECK: Trachea central, no thyromegaly. LUNGS: Unlabored breathing. Decreased breath sounds at the base HEART: S1, S2, regular rate and rhythm. ABDOMEN: Soft, no tenderness , EXTREMITIES: No edema of feet. SKIN: No rash, no masses palpable. NEUROLOGICAL: The patient is awake, alert, oriented x3, mood and affect normal. Results CBC & Chem 7: 02/08/25 07:05 02/08/25 07:05 Labs: Abnormal Lab Results - Last 24 Hours (Table) 02/07/25 02/07/25 02/07/25 Range/Units 14:00 16:10 17:00 WBC 12.3 H (3.8-10.6) k/uL RBC 3.44 L (3.80-5.40) m/uL Hgb 9.4 L (11.4-16.0) gm/dL Hct 29.1 L (34.0-46.0) % MCHC (31.0-37.0) g/dL Neutrophils # 11.2 H (1.3-7.7) k/uL Lymphocytes # 0.5 L (1.0-4.8) k/uL Sodium 131 L (137-145) mmol/L BUN 28 H (7-17) mg/dL Creatinine 1.09 H (0.52-1.04) mg/dL Glucose 124 H (74-99) mg/dL Alkaline Phosphatase 149 H (38-126) U/L Total Protein 6.1 L (6.3-8.2) g/dL Albumin 3.4 L (3.5-5.0) g/dL Urine Protein Trace H (Negative) 02/08/25 02/08/25 Range/Units 07:05 07:05 WBC (3.8-10.6) k/uL RBC 3.37 L (3.80-5.40) m/uL Hgb 9.1 L (11.4-16.0) gm/dL Hct 29.5 L (34.0-46.0) % MCHC 30.7 L (31.0-37.0) g/dL Neutrophils # (1.3-7.7) k/uL Lymphocytes # 0.5 L (1.0-4.8) k/uL Sodium 133 L (137-145) mmol/L BUN 29 H (7-17) mg/dL Creatinine 1.09 H (0.52-1.04) mg/dL Glucose 119 H (74-99) mg/dL Alkaline Phosphatase 132 H (38-126) U/L Total Protein 5.7 L (6.3-8.2) g/dL Albumin 3.1 L (3.5-5.0) g/dL Urine Protein (Negative) Assessment and Plan (1) Penicillin allergy Current Visit: Yes Status: Acute Code(s): Z88.0 - ALLERGY STATUS TO PENICILLIN SNOMED Code(s): 60190698 (2) Failure of outpatient treatment Current Visit: Yes Status: Acute Code(s): Z78.9 - OTHER SPECIFIED HEALTH STATUS SNOMED Code(s): 942699055 (3) Pneumonia Current Visit: Yes Status: Acute Code(s): J18.9 - PNEUMONIA, UNSPECIFIED ORGANISM SNOMED Code(s): 449844257 (4) Sepsis Current Visit: Yes Status: Acute Code(s): A41.9 - SEPSIS, UNSPECIFIED ORGANISM SNOMED Code(s): 91757392 Plan: 1patient presented hospital with sepsis in this patient who did have fever elevated white count meeting currently for SIRS source is likely pneumonia as currently do not have any other obvious focus of infection UA has been negative abdominal was soft on clinical examination no evidence of any joint swelling or cellulitis noticed clinically. 2patient did fail outpatient Macrobid therapy x 2 before presentation to the hospital. 3penicillin allergy that will limit the number of antibiotics safe to use. 4try to obtain sputum for Gram stain and culture. 5we will treat the patient with Rocephin and Zithromax while waiting for the workup to be completed Question concern answered We will follow on clinical condition and cultures to further adjust medication if needed Thank you for this consultation we will follow the patient along with you Dictation was produced using [employer] dictation software. please excuse any grammatical, word or spelling errors. Time with Patient: Greater than 30
[2025-02-09 09:28] LABS: Basophils # (A) 0.03 X 10*3/uL (0.00-0.10); Basophils % (A) 0.4 %; Eosinophils % (A) 9.9 %; HCT 26.9 % (37.2-46.3); HGB 8.2 g/dL (12.0-15.0); Lymphocytes # (A) 1.26 X 10*3/uL (0.90-5.00); Lymphocytes % (A) 15.7 %; MCH 26.5 pg (27.0-32.0); MCHC 30.5 g/dL (32.0-37.0); MCV 86.8 FL (80.0-97.0); Mean Platelet Volume 9.5 FL (9.5-12.2); Monocytes # (A) 0.64 X 10*3/uL (0.20-1.00); NRBC Per 100 WBC 0 X 10*3/uL (0.00-0.01); Neutrophils # (A) 5.22 X 10*3/uL (1.80-7.70); Neutrophils % (A) 64.8 %; Platelet Count 419 X 10*3/uL (140-440); RDW 15.6 % (11.5-14.5); WBC 8.05 X 10*3/uL (4.50-10.00)
[2025-02-09] MEDS: ONDANSETRON ODT 4 MG TAB PO PRN (09:41)
[2025-02-09] MEDS: LORazepam 1 MG TAB PO PRN (09:41)
[2025-02-09 09:53] LABS: % Iron Saturation 9.69 (12.00-45.00); BUN/Creat Ratio 18.25 Ratio (12.00-20.00); Blood Urea Nitrogen 21.9 mg/dL (9.0-27.0); Calcium 8.4 mg/dL (8.7-10.3); Carbon Dioxide 23.1 mmol/L (21.6-31.8); Chloride 99 mmol/L (96-109); Glucose 124 mg/dL (70-110); Iron 25 UG/DL (50-170); Potassium 4.5 mmol/L (3.5-5.5); Sodium 134 mmol/L (135-145); Total Iron Binding Capacity 258 UG/DL (228-460)
--- NOTE | 2025-02-09 11:19 | P.PN ---
Subjective This is a pleasant 80 years old female with past medical history of multiple medical problems including hypertension. Presents because of not feeling well and suspected infection and fever. Patient states that in the first week of January she felt that she is weak and she thought she has UTI when she went to urgent care and she was prescribed oral antibiotic x 1 week, after finishing her antibiotic she did not feel improved and she still was weak and lethargic so she went to her PCP who sent a urine culture and then they called her and called in for another 7 days of the same antibiotics but patient did not feel improvement and she was feeling this time shaking with chills and yesterday showing a fever at 102 at home as she confirms so she decided to come to the emergency room. Patient complaining from cough and shortness of breath but no chest pain. Denies any specific GI or symptoms. No abdominal pain vomiting or diarrhea. No dysuria or urgency. Patient also did not notice any blood in her stool or urine or anywhere else. She denies headache dizziness weakness or numbness. She is walking at her baseline. She denies smoking alcohol or illicit drugs. She denies falling or confusion. Patient was hypotensive on admission and blood pressure was low at 92/53, currently improved. WBC mildly elevated at 12.3, hemoglobin 9.4 with baseline about 12-14 Creatinine is slightly up at 1.09 with baseline 0.7-1.0. Lactic acid 1.3. Urine analysis is not suspicious for infection Influenza A and type B, RSV, SARS (coronavirus) are undetected chest x-ray showing cardiomegaly with mild pulmonary vascular congestion and bibasilar infiltrate with suspicious for atelectasis versus pneumonia. Patient was given one-time dose of Zithromax and ceftriaxone emergency room and started on Ringer lactate at 100 mL/h and admitted to the hospital Patient currently sitting up in chair feeling improved but still generally weak. 02/09 Patient sitting in chair, states breathing and coughing are improving but not completely resolved No other new complaint. She has a brown bowel movement, occult blood in the stool is negative. Hemoglobin dropped to 8.2. Creatinine slightly up to 1.2 Blood pressure slightly elevated after multiple blood pressure medication were held. She still has nausea and poor appetite we will keep IV fluid at 50 mL/h Resume her atenolol 50 mg and Aldactone 25 mg Keep the rest of blood pressure medication on hold Discussed the case with surgery team who recommended colonoscopy as an outpatient in 1 or 2 weeks, patient informed and she agrees. Currently aspirin remains on hold Anemia most likely also nutritional with borderline low vitamin B12, low folate and low iron. Home Medications Medication Instructions Recorded Confirmed Atenolol [Tenormin] 50 mg PO DAILY 11/14/14 02/07/25 Spironolactone [Aldactone] 25 mg PO DAILY 11/14/14 02/07/25 amLODIPine BESYLATE [Norvasc] 2.5 mg PO DAILY 11/14/14 02/07/25 cloNIDine HCL [Catapres] 0.2 mg PO TID 11/14/14 02/07/25 Rosuvastatin [Crestor] 10 mg PO DAILY 01/24/18 02/07/25 Losartan Potassium [Cozaar] 100 mg PO DAILY 11/27/18 02/07/25 Acetaminophen [Tylenol 8 Hour] 1,300 mg PO Q8H PRN 02/07/25 02/07/25 Aspirin EC [Ecotrin Low Dose] 81 mg PO DAILY 02/07/25 02/07/25 Biotin 5 mg PO DAILY 02/07/25 02/07/25 Cholecalciferol [Vitamin D3 (125 125 mcg PO DAILY 02/07/25 02/07/25 Mcg = 5000 Iu)] Furosemide [Lasix] 20 mg PO BID 02/07/25 02/07/25 Ketoconazole 2% Cream [Nizoral 2%] 1 applic TOPICAL BID PRN 02/07/25 02/07/25 LORazepam [Ativan] 0.25 - 0.5 mg PO Q6H PRN 02/07/25 02/07/25 Nitrofurantoin Monohyd/M-Cryst 100 mg PO Q12H 02/07/25 02/07/25 [Macrobid] Potassium Chloride ER [K-Dur 10] 10 meq PO BID 02/07/25 02/07/25 Vit C/E/Zn/Coppr/Lutein/Zeaxan 1 cap PO DAILY 02/07/25 02/07/25 [Preservision Areds 2 Softgel] Vitamin C/Biotin [Hair, Skin and 2 tab PO DAILY 02/07/25 02/07/25 Nails Chew] hydrALAZINE HCL [Apresoline] 75 mg PO BID 02/07/25 02/07/25 Objective - Vital Signs Vital signs: Vital Signs Temp 97.8 F 02/09/25 07:19 Pulse 85 02/09/25 07:19 Resp 22 02/09/25 07:19 BP 164/78 02/09/25 07:19 Pulse Ox 96 02/09/25 07:19 FiO2 Intake & Output 02/08/25 02/09/25 02/09/25 18:59 06:59 18:59 Other: Voiding Method Toilet Toilet # Voids 1 4 # Bowel Movements 1 - Exam GENERAL: The patient is alert and oriented x3, not in any acute distress. Well developed, well nourished. HEENT: Pupils are round and equally reacting to light. EOMI. No scleral icterus. No conjunctival pallor. Normocephalic, atraumatic. No pharyngeal erythema. No t hyromegaly. CARDIOVASCULAR: S1 and S2 present. No murmurs, rubs, or gallops. PULMONARY: Chest is clear to auscultation, no wheezing , no crackles. ABDOMEN: Soft, nontender, nondistended, normoactive bowel sounds. No palpable organomegaly. MUSCULOSKELETAL: No joint swelling or deformity. EXTREMITIES: No cyanosis, clubbing, or pedal edema. NEUROLOGICAL: Gross neurological examination did not reveal any focal deficits. SKIN: No rashes. no petechiae. - Labs CBC & Chem 7: 02/09/25 02:30 02/09/25 02:30 Labs: Abnormal Lab Results - Last 24 Hours (Table) 02/09/25 02/09/25 02/09/25 Range/Units 02:30 02:30 02:30 RBC 3.10 L (4.10-5.20) X 10*6/uL Hgb 8.2 L (12.0-15.0) g/dL Hct 26.9 L (37.2-46.3) % MCH 26.5 L (27.0-32.0) pg MCHC 30.5 L (32.0-37.0) g/dL RDW 15.6 H (11.5-14.5) % Immature Gran # 0.10 H (0.00-0.04) X 10*3/uL Eosinophils # 0.80 H (0.04-0.35) X 10*3/uL Sodium 134 L (135-145) mmol/L Est GFR (CKD-EPI) 46 L (>=60) Glucose 124 H (70-110) mg/dL Calcium 8.4 L (8.7-10.3) mg/dL Iron 25 L (50-170) UG/DL % Saturation 9.69 L (12.00-45.00) Transferrin 184.0 L (204.0-354.0) mg/dL Folate 3.80 L (4.40-31.00) ng/mL Microbiology - Last 24 Hours (Table) 02/07/25 16:03 Blood Culture - Preliminary Blood Assessment and Plan Assessment: Possible pneumonia with bibasilar infiltrate Sepsis with fever, checked at home and leukocytosis, resolved Acute anemia, mostly nutritional with iron deficiency, folate deficiency and low borderline B12 deficiency Chronic kidney disease stage III Obesity with BMI of 33. Hypotension, improved History of hypertension on multiple medication which are put on hold now Plan: Continue with antibiotics ceftriaxone and Zithromax for total of 5 days Reviewed procalcitonin mildly elevated with intermediate probability for pneumonia. Antibiotics indicated Infectious disease consult Patient has acute drop in hemoglobin will do anemia workup showing nutritional deficiency secondary to iron, low folate and low B12 which has been replaced Check occ discussed with surgery team recommend colonoscopy as an outpatient. Patient also informed need colonoscopy aspiration risk including of continuous of bleeding, missing a tumor or cancer and she verbalized understanding and acceptance General Surgery consult. Please note there is no GI coverage in this facility during this weekend or week. Start therapeutic dose of Protonix twice daily Labs and medication were reviewed.. Continue same treatment. Continue with symptomatic treatment. Resume home medication. Monitor labs and vitals. DVT and GI prophylaxis. Further recommendations as per clinical course of the patient DVT prophylaxis: no for low hemoglobin subcutaneous heparin GI Prophylaxis: Protonix PT/OT: Pending Prognosis is guarded
[2025-02-09] MEDS: FOLIC ACID 1 MG TAB PO SCH (12:01)
[2025-02-09] MEDS: atenoloL 50 MG TAB PO SCH (12:02)
[2025-02-09] MEDS: SPIRONOLACTONE 25 MG TAB PO SCH (12:02)
[2025-02-09] MEDS: FERROUS SULFATE 325 MG TAB PO SCH (12:02)
--- NOTE | 2025-02-09 12:37 | P.GSCN ---
History of Present Illness Consult date: 02/09/25 Reason for Consult: anemia History of present illness: This is a pleasant 80 years old female with past medical history of multiple medical problems including hypertension. Presents because of not feeling well and suspected infection and fever. Patient states that in the first week of January she felt that she is weak and she thought she has UTI when she went to urgent care and she was prescribed oral antibiotic x 1 week, after finishing her antibiotic she did not feel improved and she still was weak and lethargic so she went to her PCP who sent a urine culture and then they called her and called in for another 7 days of the same antibiotics but patient did not feel improvement and she was feeling this time shaking with chills and yesterday showing a fever at 102 at home as she confirms so she decided to come to the emergency room. Patient complaining from cough and shortness of breath but no chest pain. Denies any specific GI or symptoms. No abdominal pain vomiting or diarrhea. No dysuria or urgency. Patient also did not notice any blood in her stool or urine or anywhere else. She denies headache dizziness weakness or numbness. General Surgery was consulted 2/2 anemia. patient admits to bloody bowel movement a few days ago but states only brown stools over the last 48 hrs. Past Medical History Past Medical History: Cancer, Hyperlipidemia, Hypertension Additional Past Medical History / Comment(s): aneurysm,melanoma History of Any Multi-Drug Resistant Organisms: None Reported Past Surgical History: Appendectomy, Cholecystectomy, Heart Catheterization, Tubal Ligation Past Anesthesia/Blood Transfusion Reactions: No Reported Reaction Past Psychological History: No Psychological Hx Reported Smoking Status: Never smoker Past Alcohol Use History: None Reported Past Drug Use History: None Reported - Past Family History Father Family Medical History: Cancer Medications and Allergies Home Medications Medication Instructions Recorded Confirmed Type Atenolol [Tenormin] 50 mg PO DAILY 11/14/14 02/07/25 History Spironolactone [Aldactone] 25 mg PO DAILY 11/14/14 02/07/25 History amLODIPine BESYLATE [Norvasc] 2.5 mg PO DAILY 11/14/14 02/07/25 History cloNIDine HCL [Catapres] 0.2 mg PO TID 11/14/14 02/07/25 History Rosuvastatin [Crestor] 10 mg PO DAILY 01/24/18 02/07/25 History Losartan Potassium [Cozaar] 100 mg PO DAILY 11/27/18 02/07/25 History Acetaminophen [Tylenol 8 Hour] 1,300 mg PO Q8H PRN 02/07/25 02/07/25 History Aspirin EC [Ecotrin Low Dose] 81 mg PO DAILY 02/07/25 02/07/25 History Biotin 5 mg PO DAILY 02/07/25 02/07/25 History Cholecalciferol [Vitamin D3 (125 125 mcg PO DAILY 02/07/25 02/07/25 History Mcg = 5000 Iu)] Furosemide [Lasix] 20 mg PO BID 02/07/25 02/07/25 History Ketoconazole 2% Cream [Nizoral 2%] 1 applic TOPICAL BID PRN 02/07/25 02/07/25 History LORazepam [Ativan] 0.25 - 0.5 mg PO Q6H PRN 02/07/25 02/07/25 History Nitrofurantoin Monohyd/M-Cryst 100 mg PO Q12H 02/07/25 02/07/25 History [Macrobid] Potassium Chloride ER [K-Dur 10] 10 meq PO BID 02/07/25 02/07/25 History Vit C/E/Zn/Coppr/Lutein/Zeaxan 1 cap PO DAILY 02/07/25 02/07/25 History [Preservision Areds 2 Softgel] Vitamin C/Biotin [Hair, Skin and 2 tab PO DAILY 02/07/25 02/07/25 History Nails Chew] hydrALAZINE HCL [Apresoline] 75 mg PO BID 02/07/25 02/07/25 History Allergies Allergy/AdvReac Type Severity Reaction Status Date / Time Penicillins Allergy Rash/Hives Verified 02/07/25 15:25 Surgical - Exam Osteopathic Statement: *. No significant issues noted on an osteopathic structural exam other than those noted in the History and Physical/Consult. Vital Signs Temp Pulse Resp BP Pulse Ox 100.4 F H 83 18 119/80 95 02/07/25 13:30 02/07/25 13:30 02/07/25 13:30 02/07/25 13:30 02/07/25 13:30 gen: nad cv: rrr pul: non labored breathing abd: soft, non distended, non tender to palpation, no guarding or rebound tenderness Results - Labs 02/09/25 02:30 02/09/25 02:30 Abnormal Lab Results - Last 24 Hours (Table) 02/09/25 02/09/25 02/09/25 Range/Units 02:30 02:30 02:30 RBC 3.10 L (4.10-5.20) X 10*6/uL Hgb 8.2 L (12.0-15.0) g/dL Hct 26.9 L (37.2-46.3) % MCH 26.5 L (27.0-32.0) pg MCHC 30.5 L (32.0-37.0) g/dL RDW 15.6 H (11.5-14.5) % Immature Gran # 0.10 H (0.00-0.04) X 10*3/uL Eosinophils # 0.80 H (0.04-0.35) X 10*3/uL Sodium 134 L (135-145) mmol/L Est GFR (CKD-EPI) 46 L (>=60) Glucose 124 H (70-110) mg/dL Calcium 8.4 L (8.7-10.3) mg/dL Iron 25 L (50-170) UG/DL % Saturation 9.69 L (12.00-45.00) Transferrin 184.0 L (204.0-354.0) mg/dL Folate 3.80 L (4.40-31.00) ng/mL Microbiology - Last 24 Hours (Table) 02/07/25 16:03 Blood Culture - Preliminary Blood Diabetes panel 02/09/25 Range/Units 02:30 Sodium 134 L (135-145) mmol/L Potassium 4.5 (3.5-5.5) mmol/L Chloride 99 (96-109) mmol/L Carbon Dioxide 23.1 (21.6-31.8) mmol/L BUN 21.9 (9.0-27.0) mg/dL Creatinine 1.2 (0.6-1.5) mg/dL Glucose 124 H (70-110) mg/dL Calcium 8.4 L (8.7-10.3) mg/dL Calcium panel 02/09/25 Range/Units 02:30 Calcium 8.4 L (8.7-10.3) mg/dL Pituitary panel 02/09/25 Range/Units 02:30 Sodium 134 L (135-145) mmol/L Potassium 4.5 (3.5-5.5) mmol/L Chloride 99 (96-109) mmol/L Carbon Dioxide 23.1 (21.6-31.8) mmol/L BUN 21.9 (9.0-27.0) mg/dL Creatinine 1.2 (0.6-1.5) mg/dL Glucose 124 H (70-110) mg/dL Calcium 8.4 L (8.7-10.3) mg/dL Adrenal panel 02/09/25 Range/Units 02:30 Sodium 134 L (135-145) mmol/L Potassium 4.5 (3.5-5.5) mmol/L Chloride 99 (96-109) mmol/L Carbon Dioxide 23.1 (21.6-31.8) mmol/L BUN 21.9 (9.0-27.0) mg/dL Creatinine 1.2 (0.6-1.5) mg/dL Glucose 124 H (70-110) mg/dL Calcium 8.4 L (8.7-10.3) mg/dL Assessment and Plan Assessment: 80 yo female w/ anemia resolved gi bleeding -ok for regular diet -ok for discharge -ok to continue asa outpatient follow up for colonoscopy as patient last colonscopy was 10 years ago Time with Patient: Less than 30
[2025-02-09] MEDS: CYANOCOBALAMIN 1,000 MCG/ML 1 ML VIAL IM SCH (13:34)
--- NOTE | 2025-02-09 16:13 | P.PN ---
Subjective Progress Note Date: 02/09/25 Principal diagnosis: Reason for follow-up is fever/pneumonia Patient is a 80-year-old female with a past medical history significant for hypertension hyperlipidemia melanoma presenting to the hospital for evaluation of fever treated outpatient setting with oral Macrobid for possible UTI workup so far suspicious for pneumonia. On today's evaluation that is 02/09/2025, Patient did have resolution of her fever and is afebrile this morning patient is currently on room air and denies having any shortness of breath, the patient denies any chest pain he did have a cough but not bring up any sputum. The patient denies any nausea vomiting did not have any abdominal pain and no diarrhea. Patient white count is 8.05, creatinine is 1.2 blood cultures are pending Objective - Vital Signs Vital signs: Vital Signs Temp 98.3 F 02/09/25 13:45 Pulse 75 02/09/25 13:45 Resp 18 02/09/25 13:45 BP 152/83 02/09/25 13:45 Pulse Ox 97 02/09/25 13:45 FiO2 Intake & Output 02/08/25 02/09/25 02/09/25 18:59 06:59 18:59 Other: Voiding Method Toilet Toilet Toilet # Voids 1 4 # Bowel Movements 1 - Exam GENERAL DESCRIPTION: An elderly female up in the chair in no distress RESPIRATORY SYSTEM: Unlabored breathing , decreased breath sounds at bases HEART: S1 S2 regular rate and rhythm , ABDOMEN: Soft , no tenderness EXTREMITIES: No edema feet - Labs CBC & Chem 7: 02/09/25 02:30 02/09/25 02:30 Labs: Abnormal Lab Results - Last 24 Hours (Table) 02/09/25 02/09/25 02/09/25 Range/Units 02:30 02:30 02:30 RBC 3.10 L (4.10-5.20) X 10*6/uL Hgb 8.2 L (12.0-15.0) g/dL Hct 26.9 L (37.2-46.3) % MCH 26.5 L (27.0-32.0) pg MCHC 30.5 L (32.0-37.0) g/dL RDW 15.6 H (11.5-14.5) % Immature Gran # 0.10 H (0.00-0.04) X 10*3/uL Eosinophils # 0.80 H (0.04-0.35) X 10*3/uL Sodium 134 L (135-145) mmol/L Est GFR (CKD-EPI) 46 L (>=60) Glucose 124 H (70-110) mg/dL Calcium 8.4 L (8.7-10.3) mg/dL Iron 25 L (50-170) UG/DL % Saturation 9.69 L (12.00-45.00) Transferrin 184.0 L (204.0-354.0) mg/dL Folate 3.80 L (4.40-31.00) ng/mL Microbiology - Last 24 Hours (Table) 02/07/25 16:03 Blood Culture - Preliminary Blood Assessment and Plan (1) Penicillin allergy Current Visit: Yes Status: Acute Code(s): Z88.0 - ALLERGY STATUS TO PENICILLIN SNOMED Code(s): 66271511 (2) Failure of outpatient treatment Current Visit: Yes Status: Acute Code(s): Z78.9 - OTHER SPECIFIED HEALTH STATUS SNOMED Code(s): 221402807 (3) Pneumonia Current Visit: Yes Status: Acute Code(s): J18.9 - PNEUMONIA, UNSPECIFIED ORGANISM SNOMED Code(s): 723971251 (4) Sepsis Current Visit: Yes Status: Acute Code(s): A41.9 - SEPSIS, UNSPECIFIED ORGANISM SNOMED Code(s): 86754931 Plan: 1patient presented hospital with sepsis in this patient who did have fever elevated white count meeting currently for SIRS source is likely pneumonia as currently do not have any other obvious focus of infection UA has been negative abdominal was soft on clinical examination no evidence of any joint swelling or cellulitis noticed clinically. 2patient did fail outpatient Macrobid therapy x 2 before presentation to the [facility]. 3penicillin allergy that will limit the number of antibiotics safe to use. 4try to obtain sputum for Gram stain and culture. 5patient did have resolution of her fever hence we will continue with Rocephin and Zithromax while waiting for the workup to be completed Dictation was produced using [employer] dictation software. please excuse any grammatical, word or spelling errors. Time with Patient: Less than 30
[2025-02-09] MEDS: LORazepam 0.5 MG TAB PO PRN (20:59)
[2025-02-10 08:36] LABS: Basophils # (A) 0.02 X 10*3/uL (0.00-0.10); Basophils % (A) 0.2 %; Eosinophils # (A) 0.63 X 10*3/uL (0.04-0.35); Eosinophils % (A) 7.1 %; HCT 26.4 % (37.2-46.3); HGB 7.9 g/dL (12.0-15.0); Lymphocytes # (A) 1.45 X 10*3/uL (0.90-5.00); Lymphocytes % (A) 16.3 %; MCH 26.1 pg (27.0-32.0); MCHC 29.9 g/dL (32.0-37.0); MCV 87.1 FL (80.0-97.0); Mean Platelet Volume 9.5 FL (9.5-12.2); Monocytes # (A) 0.69 X 10*3/uL (0.20-1.00); Monocytes % (A) 7.8 %; NRBC Per 100 WBC 0 X 10*3/uL (0.00-0.01); Neutrophils # (A) 5.92 X 10*3/uL (1.80-7.70); Neutrophils % (A) 66.8 %; Platelet Count 436 X 10*3/uL (140-440); RBC 3.03 X 10*6/uL (4.10-5.20); RDW 15.3 % (11.5-14.5); WBC 8.87 X 10*3/uL (4.50-10.00)
[2025-02-10 08:48] LABS: Blood Urea Nitrogen 14.5 mg/dL (9.0-27.0); Calcium 8.1 mg/dL (8.7-10.3); Carbon Dioxide 25.8 mmol/L (21.6-31.8); Chloride 101 mmol/L (96-109); Glucose 112 mg/dL (70-110); Potassium 4.8 mmol/L (3.5-5.5); Sodium 137 mmol/L (135-145)
[2025-02-10 09:09] VITALS: BP 130/75; PULSE 83; RESP 18; TEMP 98.4
--- NOTE | 2025-02-10 11:44 | P.PN ---
Subjective Progress Note Date: 02/10/25 SURGICAL PROGRESS NOTE CHIEF COMPLAINT: Anemia HISTORY OF PRESENT ILLNESS: Surgical service following regards to patient's anemia. She had 1 episode of a small amount of blood passed with bowel movement several days ago. She has had no further bloody bowel movements. She denies any abdominal pain. vitals stable. Hgb is down from 8.2-7.9. Iron low at 25. Stool for occult blood negative PHYSICAL EXAM: VITAL SIGNS: Reviewed. GENERAL: Well-developed in no acute distress. ABDOMEN: Soft. Nondistended. Nontender. NEUROLOGIC: Alert and oriented. Cranial nerves II through XII grossly intact. ASSESSMENT: 1. 80-year-old female with anemia and resolved GI bleeding PLAN: -Continue regular diet -Okay for discharge from surgical standpoint -Vital stable. No active bleeding. Hemoglobin stable. Recommend outpatient colonoscopy. -Surgical service will sign off. Please call with any questions or concerns. Physician Belt Back Operator note has been reviewed by physician. Signing provider agrees with the documented findings, assessment, and plan of care. Objective - Vital Signs Vital signs: Vital Signs Temp 98.4 F 02/10/25 07:13 Pulse 83 02/10/25 07:13 Resp 18 02/10/25 07:13 BP 130/75 02/10/25 07:13 Pulse Ox 98 02/10/25 07:13 FiO2 Intake & Output 02/09/25 02/10/25 02/10/25 18:59 06:59 18:59 Other: Voiding Method Toilet Toilet # Voids 4 3 # Bowel Movements 1 1 - Labs CBC & Chem 7: 02/10/25 02:34 02/10/25 02:34 Labs: Abnormal Lab Results - Last 24 Hours (Table) 02/10/25 02/10/25 Range/Units 02:34 02:34 RBC 3.03 L (4.10-5.20) X 10*6/uL Hgb 7.9 L (12.0-15.0) g/dL Hct 26.4 L (37.2-46.3) % MCH 26.1 L (27.0-32.0) pg MCHC 29.9 L (32.0-37.0) g/dL RDW 15.3 H (11.5-14.5) % Immature Gran # 0.16 H (0.00-0.04) X 10*3/uL Eosinophils # 0.63 H (0.04-0.35) X 10*3/uL Est GFR (CKD-EPI) 58 L (>=60) Glucose 112 H (70-110) mg/dL Calcium 8.1 L (8.7-10.3) mg/dL Microbiology - Last 24 Hours (Table) 02/07/25 16:03 Blood Culture - Preliminary Blood
[2025-02-10] MEDS: LOSARTAN 50 MG TAB PO SCH (14:11)
--- NOTE | 2025-02-10 22:06 | P.DS ---
Providers Date of admission: 02/07/25 17:29 Attending physician: Gumaro Montes De Oca Consults: 02/07/25 17:21 Consult Physician Urgent Consulting Provider: Cesar Bower Consult Reason/Comments: sepsis Do you want consulting provider notified?: Yes Primary care physician: Matthew L [place] Hospital Course: Diagnoses: pneumonia with bibasilar infiltrate, clinically improved Sepsis with fever, checked at home and leukocytosis, resolved Acute anemia, mostly nutritional with iron deficiency, folate deficiency and low borderline B12 deficiency Chronic kidney disease stage III Obesity with BMI of 33. Hypotension, improved History of hypertension on multiple medication which are put on hold now Hospital course: This is a pleasant 80 years old female with past medical history of multiple medical problems including hypertension. Presents because of not feeling well and suspected infection and fever. Patient states that in the first week of January she felt that she is weak and she thought she has UTI when she went to urgent care and she was prescribed oral antibiotic x 1 week, after finishing her antibiotic she did not feel improved and she still was weak and lethargic so she went to her PCP who sent a urine culture and then they called her and called in for another 7 days of the same antibiotics but patient did not feel improvement and she was feeling this time shaking with chills and yesterday showing a fever at 102 at home as she confirms so she decided to come to the emergency room. Patient complaining from cough and shortness of breath but no chest pain. Patient chest x-ray showing evidence of bibasilar infiltrates suspicious for pneumonia versus atelectasis. Patient was treated with antibiotics for pneumonia including Zithromax and ceftriaxone. Infectious disease team evaluated the patient. Patient was hypotensive on admission she was treated with IV fluid. Her blood pressure medication were held on admission and gradually was placed back. Patient was instructed to resume all of her blood pressure medication upon discharge except hydralazine and to check her blood pressure with her PCP within this coming week and she agrees. Also patient has evidence of acute anemia but hemoglobin remains stable. Patient evaluated by surgery team Dr. Hurst. I discussed the case with Dr. Hurst who told me patient can be discharged home and follow-up as an outpatient for outpatient colonoscopy. Also he told me she can resume her aspirin upon discharge, this recommendation were discussed with the patient with details including risk but not limited to cancer or bleeding and she verbalized understanding and acceptance Patient today she was feeling all right, no chest pain no coughing or dyspnea improved. Ability to ambulate is better close to baseline. She has good appetite no headache or dizziness. No other new complaint no fever or chills. Patient agrees to go home and follow-up as an outpatient Patient was cleared for discharge by infectious disease and surgery team. Patient will be discharged on antibiotics as per ID team Problems and management plan were discussed with the patient and he verbalized understanding and acceptance Patient was found stable and can be discharged home in guarded prognosis however he needs follow-up as an outpatient. Patient was instructed to follow up with PCP within one week and patient agrees. Patient told me her PCP Dr. Puckett has retired and she is looking for new PCP, patient was instructed to call her health insurance provider for this purpose and she agrees. Also upon her request the contact information for Dr. Carbone was provided for her Patient was instructed to follow-up with type rolling machine operator Dr. Durbin in 1 week. And with general surgeon Dr. Hurst in 1 to 2 weeks after discharge and she agrees Physical exam Gen: patient is a AAOx3, no distress CVS: S1-S2, RRR, no murmur Lungs: B/L CTA, no wheezing Abdomen: soft, no distention, no tenderness, positive bowel sounds Extremity: no leg edema or induration Time spent more than 35 minutes Patient Condition at Discharge: Stable Plan - Discharge Summary Discharge Rx Participant: Yes New Discharge Prescriptions: New cefuroxime axetiL [Ceftin] 500 mg PO BID #4 tab Folic Acid 1 mg PO DAILY #30 tab Cyanocobalamin [Vitamin B-12] 1,000 mcg PO DAILY #60 tab Ferrous Sulfate [Iron (65 MG Elemental)] 325 mg PO BID-W/MEALS #60 tab Sennosides-Docusate Sodium [Senokot-S] 2 each PO BID 5 Days #10 tab Continue amLODIPine BESYLATE [Norvasc] 2.5 mg PO DAILY Atenolol [Tenormin] 50 mg PO DAILY cloNIDine HCL [Catapres] 0.2 mg PO TID Spironolactone [Aldactone] 25 mg PO DAILY Rosuvastatin [Crestor] 10 mg PO DAILY Losartan Potassium [Cozaar] 100 mg PO DAILY Aspirin EC [Ecotrin Low Dose] 81 mg PO DAILY Cholecalciferol [Vitamin D3 (125 Mcg = 5000 Iu)] 125 mcg PO DAILY Acetaminophen [Tylenol 8 Hour] 1,300 mg PO Q8H PRN PRN Reason: Pain LORazepam [Ativan] 0.25 - 0.5 mg PO Q6H PRN PRN Reason: Anxiety Biotin 5 mg PO DAILY Vitamin C/Biotin [Hair, Skin and Nails Chew] 2 tab PO DAILY Potassium Chloride ER [K-Dur 10] 10 meq PO BID Ketoconazole 2% Cream [Nizoral 2%] 1 applic TOPICAL BID PRN PRN Reason: under breast & groin area Vit C/E/Zn/Coppr/Lutein/Zeaxan [Preservision Areds 2 Softgel] 1 cap PO DAILY Furosemide [Lasix] 20 mg PO BID Discontinued hydrALAZINE HCL [Apresoline] 75 mg PO BID Nitrofurantoin Monohyd/M-Cryst [Macrobid] 100 mg PO Q12H Discharge Medication List Atenolol [Tenormin] 50 mg PO DAILY 11/14/14 [History] Spironolactone [Aldactone] 25 mg PO DAILY 11/14/14 [History] amLODIPine BESYLATE [Norvasc] 2.5 mg PO DAILY 11/14/14 [History] cloNIDine HCL [Catapres] 0.2 mg PO TID 11/14/14 [History] Rosuvastatin [Crestor] 10 mg PO DAILY 01/24/18 [History] Losartan Potassium [Cozaar] 100 mg PO DAILY 11/27/18 [History] Acetaminophen [Tylenol 8 Hour] 1,300 mg PO Q8H PRN 02/07/25 [History] Aspirin EC [Ecotrin Low Dose] 81 mg PO DAILY 02/07/25 [History] Biotin 5 mg PO DAILY 02/07/25 [History] Cholecalciferol [Vitamin D3 (125 Mcg = 5000 Iu)] 125 mcg PO DAILY 02/07/25 [History] Furosemide [Lasix] 20 mg PO BID 02/07/25 [History] Ketoconazole 2% Cream [Nizoral 2%] 1 applic TOPICAL BID PRN 02/07/25 [History] LORazepam [Ativan] 0.25 - 0.5 mg PO Q6H PRN 02/07/25 [History] Potassium Chloride ER [K-Dur 10] 10 meq PO BID 02/07/25 [History] Vit C/E/Zn/Coppr/Lutein/Zeaxan [Preservision Areds 2 Softgel] 1 cap PO DAILY 02/07/25 [History] Vitamin C/Biotin [Hair, Skin and Nails Chew] 2 tab PO DAILY 02/07/25 [History] Cyanocobalamin [Vitamin B-12] 1,000 mcg PO DAILY #60 tab 02/10/25 [Rx] Ferrous Sulfate [Iron (65 MG Elemental)] 325 mg PO BID-W/MEALS #60 tab 02/10/25 [Rx] Folic Acid 1 mg PO DAILY #30 tab 02/10/25 [Rx] Sennosides-Docusate Sodium [Senokot-S] 2 each PO BID 5 Days #10 tab 02/10/25 [Rx] cefuroxime axetiL [Ceftin] 500 mg PO BID #4 tab 02/10/25 [Rx] Follow up Appointment(s)/Referral(s): Delgado Carbone MD [STAFF PHYSICIAN] - 1 Week Matthew Olivas MD [Primary Care Provider] - 1-2 days (Office closed for lunch.) Amador Hurst DO [Doctor of Osteopathic Medicine] - 02/25/25 8:30 am (Recommend colonoscopy as an outpatient) Activity/Diet/Wound Care/Special Instructions: Heart healthy diet Activity is restricted till you see your doctor Avoid NSAIDs like ibuprofen naproxen and Mobic We recommend colonoscopy in 1 to [address] surgeon Dr[address] Hurst Discharge Disposition: HOME WITH HOME HEALTH SERVICES
--- NOTE | 2025-02-11 13:48 | P.PN ---
Subjective Progress Note Date: 02/10/25 Principal diagnosis: Reason for follow-up is fever/pneumonia Patient is a 80-year-old female with a past medical history significant for hypertension hyperlipidemia melanoma presenting to the hospital for evaluation of fever treated outpatient setting with oral Macrobid for possible UTI workup so far suspicious for pneumonia. On today's evaluation that is 02/10/2025, patient has been afebrile, patient is breathing comfortably and is currently on room air, patient denies having any significant chest pain and cough is decreased in intensity, patient denies nausea vomiting or diarrhea and no abdominal pain. Patient white count is 8.87, creatinine is 1.0 blood culture has been negative so far Objective - Vital Signs Vital signs: Vital Signs Temp 98.4 F 02/10/25 07:13 Pulse 83 02/10/25 07:13 Resp 18 02/10/25 07:13 BP 130/75 02/10/25 07:13 Pulse Ox 98 02/10/25 07:13 FiO2 Intake & Output 02/09/25 02/10/25 02/10/25 18:59 06:59 18:59 Other: Voiding Method Toilet Toilet Toilet # Voids 4 3 # Bowel Movements 1 1 - Exam GENERAL DESCRIPTION: An elderly female up in the chair in no distress RESPIRATORY SYSTEM: Unlabored breathing , decreased breath sounds at bases HEART: S1 S2 regular rate and rhythm , ABDOMEN: Soft , no tenderness EXTREMITIES: No edema feet - Labs CBC & Chem 7: 02/10/25 02:34 02/10/25 02:34 Labs: Abnormal Lab Results - Last 24 Hours (Table) 02/10/25 02/10/25 Range/Units 02:34 02:34 RBC 3.03 L (4.10-5.20) X 10*6/uL Hgb 7.9 L (12.0-15.0) g/dL Hct 26.4 L (37.2-46.3) % MCH 26.1 L (27.0-32.0) pg MCHC 29.9 L (32.0-37.0) g/dL RDW 15.3 H (11.5-14.5) % Immature Gran # 0.16 H (0.00-0.04) X 10*3/uL Eosinophils # 0.63 H (0.04-0.35) X 10*3/uL Est GFR (CKD-EPI) 58 L (>=60) Glucose 112 H (70-110) mg/dL Calcium 8.1 L (8.7-10.3) mg/dL Microbiology - Last 24 Hours (Table) 02/07/25 16:03 Blood Culture - Preliminary Blood Assessment and Plan (1) Penicillin allergy Status: Acute Code(s): Z88.0 - ALLERGY STATUS TO PENICILLIN SNOMED Code(s): 27865935 (2) Failure of outpatient treatment Status: Acute Code(s): Z78.9 - OTHER SPECIFIED HEALTH STATUS SNOMED Code(s): 956856692 (3) Pneumonia Status: Acute Code(s): J18.9 - PNEUMONIA, UNSPECIFIED ORGANISM SNOMED Code(s): 371564213 (4) Sepsis Status: Acute Code(s): A41.9 - SEPSIS, UNSPECIFIED ORGANISM SNOMED Code(s): 36489049 Plan: 1patient presented hospital with sepsis in this patient who did have fever elevated white count meeting currently for SIRS source is likely pneumonia as currently do not have any other obvious focus of infection UA has been negative abdominal was soft on clinical examination no evidence of any joint swelling or cellulitis noticed clinically. 2patient did fail outpatient Macrobid therapy x 2 before presentation to the hospital. 3penicillin allergy that will limit the number of antibiotics safe to use. 4patient did have resolution of her fever we will consider 2-day course of oral Ceftin to finish a 5-day course of therapy for community-acquired pneumonia prescription sent to the pharmacy Dictation was produced using [employer] dictation software. please excuse any grammatical, word or spelling errors.
[2025-02-12] MEDS ORDERED: CYANOCOBALAMIN 500 MCG TAB PO SCH (09:00)
== END 2025-02-10 14:27 | disposition home health service (06) | DRG 871 ==
LOC: EC 13:15 → 4SSUR 17:29
PROVIDERS: ADMIT Hospitalist; ATTEND Hospitalist
DX: A41.9 Sepsis, unspecified organism (principal); J18.9 Pneumonia, unspecified organism; N39.0 Urinary tract infection, site not specified; K92.1 Melena; D63.1 Anemia in chronic kidney disease; N18.30 Chronic kidney disease, stage 3 unspecified; I12.9 Hypertensive chronic kidney disease with stage 1 through stage 4 chronic kidney disease, or unspecified chronic kidney disease; D50.9 Iron deficiency anemia, unspecified; E66.9 Obesity, unspecified; I13.10 Hypertensive heart and chronic kidney disease without heart failure, with stage 1 through stage 4 chronic kidney disease, or unspecified chronic kidney disease; E53.8 Deficiency of other specified B group vitamins; E78.5 Hyperlipidemia, unspecified; Z68.33 Body mass index [BMI] 33.0-33.9, adult; Z85.820 Personal history of malignant melanoma of skin; Z79.82 Long term (current) use of aspirin; Z88.0 Allergy status to penicillin; Z79.899 Other long term (current) drug therapy
CPT/HCPCS: 36415; 71046; 80048; 80053; 80076; 81003; 82272; 82607; 82728; 82746; 83540; 83550; 83605; 83880; 84145; 85025; 87040; 87636; 96361; 96365; 99285

== ENCOUNTER 2025-03-15 20:03 | Inpatient (IN) | payer MEDICARE ==
--- NOTE | 2025-03-15 20:32 | ED ---
Recheck HPI - General Chief Complaint: Recheck/Abnormal Lab/Rx Stated Complaint: abn labs Time Seen by Provider: 03/15/25 20:32 Source: patient, RN notes reviewed, old records reviewed Mode of arrival: ambulatory Limitations: no limitations - History of Present Illness Initial Comments: This is a 80 female who presents with anemia known anemia and known recent anemia from inpatient hospitalization patient found to have fever here in the ER he had been called by primary care told that she has low hemoglobin and told to come to the emergency room. Patient admits to black stools currently on iron. No current feelings of lightheadedness dizziness or weakness MD Complaint: abnormal lab (Low hemoglobin) -: week(s) Returns Today for: Called Because of Abnormal Lab/Test (Low hemoglobin) Symptoms Since Prior Visit: no new symptoms Context: called for abnormal lab result Associated Symptoms: none - Related Data Home Medications Medication Instructions Recorded Confirmed Atenolol [Tenormin] 50 mg PO DAILY 11/14/14 03/16/25 Spironolactone [Aldactone] 25 mg PO DAILY 11/14/14 03/16/25 amLODIPine BESYLATE [Norvasc] 2.5 mg PO DAILY 11/14/14 03/16/25 cloNIDine HCL [Catapres] 0.2 mg PO TID 11/14/14 03/16/25 Rosuvastatin [Crestor] 10 mg PO Q48H 01/24/18 03/16/25 Losartan Potassium [Cozaar] 100 mg PO DAILY 11/27/18 03/16/25 Acetaminophen [Tylenol 8 Hour] 650 mg PO HS PRN 02/07/25 03/16/25 Aspirin EC [Ecotrin Low Dose] 81 mg PO DAILY 02/07/25 03/16/25 Cholecalciferol [Vitamin D3 (125 125 mcg PO DAILY 02/07/25 03/16/25 Mcg = 5000 Iu)] Furosemide [Lasix] 20 mg PO BID 02/07/25 03/16/25 Ketoconazole 2% Cream [Nizoral 2%] 1 applic TOPICAL BID PRN 02/07/25 03/16/25 LORazepam [Ativan] 0.25 - 0.5 mg PO Q6H PRN 02/07/25 03/16/25 Potassium Chloride ER [K-Dur 10] 10 meq PO BID 02/07/25 03/16/25 Vit C/E/Zn/Coppr/Lutein/Zeaxan 1 cap PO BID 02/07/25 03/16/25 [Preservision Areds 2 Softgel] Previous Rx's Medication Instructions Recorded Cyanocobalamin [Vitamin B-12] 1,000 mcg PO DAILY #60 tab 02/10/25 Ferrous Sulfate [Iron (65 MG 325 mg PO BID-W/MEALS #60 tab 02/10/25 Elemental)] Folic Acid 1 mg PO DAILY #30 tab 02/10/25 Pantoprazole [Protonix] 40 mg PO DAILY #30 tab 03/18/25 Allergies Allergy/AdvReac Type Severity Reaction Status Date / Time Penicillins Allergy Rash/Hives Verified 03/16/25 09:48 Review of Systems ROS Statement: Those systems with pertinent positive or pertinent negative responses have been documented in the HPI. ROS Other: All systems not noted in ROS Statement are negative. Past Medical History Past Medical History: Cancer, Hyperlipidemia, Hypertension Additional Past Medical History / Comment(s): Recent hospitalization for pneumonia and low blood/iron counts-d/c 02/10/25, treatment completed. 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 Durbin, hx of melanoma. History of Any Multi-Drug Resistant Organisms: None Reported Past Surgical History: Appendectomy, Cholecystectomy, Heart Catheterization, Tubal Ligation Additional Past Surgical History / Comment(s): Melanoma removed L leg. Cataract removal B/L eyes. Past Anesthesia/Blood Transfusion Reactions: No Reported Reaction Additional Past Anesthesia/Blood Transfusion Reaction / Comment(s): No hx of blood transfusion. Past Psychological History: Anxiety, Depression Smoking Status: Never smoker Past Alcohol Use History: None Reported Past Drug Use History: None Reported - Past Family History Father Family Medical History: Cancer Mother Additional Family Medical History / Comment(s): Mother in her 90s in the hospital after she broke her hip, suddenly after she was taken off of blood thinners before hip surgery. General Exam Limitations: no limitations General appearance: alert, in no apparent distress Head exam: Present: atraumatic, normocephalic, normal inspection Eye exam: Present: normal appearance, PERRL, EOMI. Absent: scleral icterus, conjunctival injection, periorbital swelling ENT exam: Present: normal exam, mucous membranes moist Neck exam: Present: normal inspection. Absent: tenderness, meningismus, lymphadenopathy Respiratory exam: Present: normal lung sounds bilaterally. Absent: respiratory distress, wheezes, rales, rhonchi, stridor Cardiovascular Exam: Present: regular rate, normal rhythm, normal heart sounds. Absent: systolic murmur, diastolic murmur, rubs, gallop, clicks GI/Abdominal exam: Present: soft, normal bowel sounds. Absent: distended, tenderness, guarding, rebound, rigid Extremities exam: Present: normal inspection, full ROM, normal capillary refill. Absent: tenderness, pedal edema, joint swelling, calf tenderness Back exam: Present: normal inspection Neurological exam: Present: alert, oriented X3, CN II-XII intact Psychiatric exam: Present: normal affect, normal mood Skin exam: Present: warm, dry, intact, normal color. Absent: rash Course Vital Signs 03/15/25 03/15/25 03/15/25 20:06 21:06 23:30 Temperature 100.2 F H 100.1 F H 98.5 F Pulse Rate 71 69 65 Respiratory 18 18 18 Rate Blood Pressure 105/66 107/58 O2 Sat by Pulse 99 94 L 95 Oximetry 03/15/25 03/15/25 03/16/25 23:54 23:57 00:07 Temperature 99.4 F 99.4 F 100.1 F H Pulse Rate 63 64 63 Respiratory 18 15 18 Rate Blood Pressure 111/59 111/59 122/65 O2 Sat by Pulse 96 Oximetry 03/16/25 03/16/25 03/16/25 00:27 01:28 02:51 Temperature 98.4 F 98.3 F 95.5 F L Pulse Rate 60 64 59 L Respiratory 16 16 18 Rate Blood Pressure 95/60 114/62 131/71 O2 Sat by Pulse 95 93 L 98 Oximetry 03/16/25 03/16/25 03/16/25 03:10 03:20 03:40 Temperature 98.3 F 98.2 F 98.0 F Pulse Rate 62 62 61 Respiratory 16 18 16 Rate Blood Pressure 117/73 120/64 126/60 O2 Sat by Pulse 98 97 Oximetry 03/16/25 03/16/25 03/16/25 05:00 06:20 08:39 Temperature 98.1 F 98.4 F 97.7 F Pulse Rate 64 65 Respiratory 16 69 H 18 Rate Blood Pressure 141/85 170/91 135/58 O2 Sat by Pulse 99 99 97 Oximetry 03/16/25 03/16/25 03/16/25 10:26 13:54 20:41 Temperature 97.8 F Pulse Rate 66 73 70 Respiratory 16 16 19 Rate Blood Pressure 147/61 147/98 110/71 O2 Sat by Pulse 96 98 97 Oximetry 03/16/25 03/17/25 21:59 02:56 Temperature 97.3 F L Pulse Rate 67 97 Respiratory 19 Rate Blood Pressure 122/63 152/89 O2 Sat by Pulse 96 100 Oximetry - Reevaluation(s) Reevaluation #1: 03/15/25 22:38 Medical records reviewed hemoglobin does continue to have drop, patient's hemoglobin is same today as it was earlier Reevaluation #2: 03/15/25 22:39 Patient has no active GI bleed here in the ER Patient has no cough or congestion no shortness of breath Reevaluation #3: 03/15/25 22:39 Patient informed of results and questions answered Reevaluation #4: Was pt. sent in by a medical professional or institution (, PA, SENIOR SECURITY ENGINEER, urgent care, hospital, or usp...) When possible be specific @ -no Did you speak to anyone other than the patient for history (EMS, parent, family, police, friend...)? What history was obtained from this source @ -no Did you review nursing and triage notes (agree or disagree)? Why? @ -agree Are old charts reviewed (outside hosp., previous admission, EMS record, old EKG, old radiological studies, urgent care reports/EKG's, usp records)? Report findings @ -yes Differential Diagnosis (chest pain, altered mental status, abdominal pain women, abdominal pain men, vaginal bleeding, weakness, fever, dyspnea, syncope, headache, dizziness, GI bleed, back pain, seizure, CVA, palpatations, mental health, musculoskeletal)? @ -prior EKG interpreted by me (3pts min.). @ -yes X-rays interpreted by me (1pt min.). @ -yes negative for acute disease CT interpreted by me (1pt min.). @ -no U/S interpreted by me (1pt. min.). @ -no What testing was considered but not performed or refused? (CT, X-rays, U/S, labs)? Why? @ -none What meds were considered but not given or refused? Why? @ -none Did you discuss the management of the patient with other professionals (pro fessionals i.e. , PA, SENIOR SECURITY ENGINEER, lab, RT, psych nurse, high school social studies teacher, work order detailer, teacher, founder and chief executive officer, nurse case management)? Give summary @ -no Was smoking cessation discussed for >3mins.? @ -no Was critical care preformed (if so, how long)? @ -yes31 Were there social determinants of health that impacted care today? How? (Homelessness, low income, unemployed, alcoholism, drug addiction, transportation, low edu. Level, literacy, decrease access to med. care, nursing home, rehab)? @ -none Was there de-escalation of care discussed even if they declined (Discuss DNR or withdrawal of care, Hospice)? DNR status @ -no What co-morbidities impacted this encounter? (DM, HTN, Smoking, COPD, CAD, Cancer, CVA, ARF, Chemo, Hep., AIDS, mental health diagnosis, sleep apnea, morbid obesity)? @ -none Was patient admitted / discharged? Hospital course, mention meds given and route, prescriptions, significant lab abnormalities, going to OR and other pertinent info. @ - 80 female for concern for anemia. Patient does have scheduled colonoscopy with Dr. Carolina, patient presents today for worsening anemia will admit for transfusion Admitted Undiagnosed new problem with uncertain prognosis? @ -no Drug Therapy requiring intensive monitoring for toxicity (Heparin, Nitro, Insulin, Cardizem)? @ -no Were any procedures done? @ -no Diagnosis/symptom? @ -anemia and weakness Acute, or Chronic, or Acute on Chronic? @ -Acute Uncomplicated (without systemic symptoms) or Complicated (systemic symptoms)? @ -Complicated Side effects of treatment? @ -no Exacerbation, Progression, or Severe Exacerbation? @ -exacerbation Poses a threat to life or bodily function? How? (Chest pain, [place], [place], pneumonia, PE, COPD, DKA, ARF, appy, cholecystitis, CVA, Diverticulitis, Homicidal, Suicidal, threat to staff... and all critical care pts) @ -yes severe anemia Reevaluation #5: Differential Weakness: Hypoglycemia, shock, sepsis, hyponatremia, anemia, infection, [place], ETOH, adverse medicine reaction, overdose, stroke, this is not meant to be an all-inclusive list. - Consultations Consultation #1: Spoke with [facility] who agrees to admit this patient Medical Decision Making - Medical Decision Making 80 female for concern for anemia. Patient does have scheduled colonoscopy with Dr. Carolina, patient presents today for worsening anemia will admit for transfusion, patient did not have cough or congestion no elevated white blood cell count x-ray did have concern for pneumonia but patient is for low-grade fever - Lab Data Result diagrams: 03/18/25 06:47 03/18/25 06:47 Lab Results 03/15/25 03/15/25 03/15/25 Range/Units 20:30 20:35 20:39 WBC 10.85 H (4.50-10.00) 10*3/uL RBC 2.47 L (4.10-5.20) 10*6/uL Hgb 6.5 L* (12.0-15.0) g/dL Hct 21.0 L (37.2-46.3) % MCV 85.0 (80.0-97.0) fL MCH 26.3 L (27.0-32.0) pg MCHC 31.0 L (32.0-37.0) g/dL Plt Count 521 H (140-440) 10*3/uL MPV 9.0 L (9.5-12.2) fL Immature Gran % (Auto) 0.8 % Neutrophils % 75.3 % Lymphocytes % 12.3 % Monocytes % 10.9 % Eosinophils % 0.4 % Basophils % 0.3 % Immature Gran # 0.09 H (0.00-0.04) 10*3/uL Neutrophils # 8.18 H (1.80-7.70) 10*3/uL Lymphocytes # 1.33 (0.90-5.00) 10*3/uL Monocytes # 1.18 H (0.20-1.00) 10*3/uL Eosinophils # 0.04 (0.04-0.35) 10*3/uL Basophils # 0.03 (0.00-0.10) 10*3/uL PT (10.0-12.5) sec INR (<1.2) APTT (22.0-30.0) sec Sodium (137-145) mmol/L Potassium (3.5-5.1) mmol/L Chloride (98-107) mmol/L Carbon Dioxide (22-30) mmol/L Anion Gap mmol/L BUN (7-17) mg/dL Creatinine (0.52-1.04) mg/dL Est GFR (CKD-EPI)AfAm (>60 ml/min/1.73 sqM) Est GFR (CKD-EPI)NonAf (>60 ml/min/1.73 sqM) Glucose (74-99) mg/dL Plasma Lactic Acid Greg (0.7-2.0) mmol/L Calcium (8.4-10.2) mg/dL Phosphorus (2.5-4.5) mg/dL Magnesium (1.6-2.3) mg/dL Total Bilirubin (0.2-1.3) mg/dL AST (14-36) U/L ALT (4-34) U/L Alkaline Phosphatase (38-126) U/L Troponin I (0.000-0.034) ng/mL NT-Pro-B Natriuret Pep pg/mL Total Protein (6.3-8.2) g/dL Albumin (3.5-5.0) g/dL Blood Type A Positive Blood Type Confirm A Positive Blood Type Recheck No Previous Record Bld Type Recheck Status CABO Indicated Antibody Screen NEGATIVE Crossmatch See Detail Spec Expiration Date 03/18/2025 - 232903/15/25 03/15/25 03/15/25 Range/Units 20:39 20:39 20:39 WBC (4.50-10.00) 10*3/uL RBC (4.10-5.20) 10*6/uL Hgb (12.0-15.0) g/dL Hct (37.2-46.3) % MCV (80.0-97.0) fL MCH (27.0-32.0) pg MCHC (32.0-37.0) g/dL Plt Count (140-440) 10*3/uL MPV (9.5-12.2) fL Immature Gran % (Auto) % Neutrophils % % Lymphocytes % % Monocytes % % Eosinophils % % Basophils % % Immature Gran # (0.00-0.04) 10*3/uL Neutrophils # (1.80-7.70) 10*3/uL Lymphocytes # (0.90-5.00) 10*3/uL Monocytes # (0.20-1.00) 10*3/uL Eosinophils # (0.04-0.35) 10*3/uL Basophils # (0.00-0.10) 10*3/uL PT 11.5 (10.0-12.5) sec INR 1.1 (<1.2) APTT 24.6 (22.0-30.0) sec Sodium 138 (137-145) mmol/L Potassium 4.3 (3.5-5.1) mmol/L Chloride 102 (98-107) mmol/L Carbon Dioxide 24 (22-30) mmol/L Anion Gap 12 mmol/L BUN 31 H (7-17) mg/dL Creatinine 1.16 H (0.52-1.04) mg/dL Est GFR (CKD-EPI)AfAm 52 (>60 ml/min/1.73 sqM) Est GFR (CKD-EPI)NonAf 45 (>60 ml/min/1.73 sqM) Glucose 142 H (74-99) mg/dL Plasma Lactic Acid Greg (0.7-2.0) mmol/L Calcium 9.6 (8.4-10.2) mg/dL Phosphorus 3.9 (2.5-4.5) mg/dL Magnesium 2.0 (1.6-2.3) mg/dL Total Bilirubin 0.3 (0.2-1.3) mg/dL AST 22 (14-36) U/L ALT 10 (4-34) U/L Alkaline Phosphatase 128 H (38-126) U/L Troponin I <0.012 (0.000-0.034) ng/mL NT-Pro-B Natriuret Pep 719 pg/mL Total Protein 6.3 (6.3-8.2) g/dL Albumin 3.5 (3.5-5.0) g/dL Blood Type Blood Type Confirm Blood Type Recheck Bld Type Recheck Status Antibody Screen Crossmatch Spec Expiration Date 03/15/25 Range/Units 20:43 WBC (4.50-10.00) 10*3/uL RBC (4.10-5.20) 10*6/uL Hgb (12.0-15.0) g/dL Hct (37.2-46.3) % MCV (80.0-97.0) fL MCH (27.0-32.0) pg MCHC (32.0-37.0) g/dL Plt Count (140-440) 10*3/uL MPV (9.5-12.2) fL Immature Gran % (Auto) % Neutrophils % % Lymphocytes % % Monocytes % % Eosinophils % % Basophils % % Immature Gran # (0.00-0.04) 10*3/uL Neutrophils # (1.80-7.70) 10*3/uL Lymphocytes # (0.90-5.00) 10*3/uL Monocytes # (0.20-1.00) 10*3/uL Eosinophils # (0.04-0.35) 10*3/uL Basophils # (0.00-0.10) 10*3/uL PT (10.0-12.5) sec INR (<1.2) APTT (22.0-30.0) sec Sodium (137-145) mmol/L Potassium (3.5-5.1) mmol/L Chloride (98-107) mmol/L Carbon Dioxide (22-30) mmol/L Anion Gap mmol/L BUN (7-17) mg/dL Creatinine (0.52-1.04) mg/dL Est GFR (CKD-EPI)AfAm (>60 ml/min/1.73 sqM) Est GFR (CKD-EPI)NonAf (>60 ml/min/1.73 sqM) Glucose (74-99) mg/dL Plasma Lactic Acid Greg 1.2 (0.7-2.0) mmol/L Calcium (8.4-10.2) mg/dL Phosphorus (2.5-4.5) mg/dL Magnesium (1.6-2.3) mg/dL Total Bilirubin (0.2-1.3) mg/dL AST (14-36) U/L ALT (4-34) U/L Alkaline Phosphatase (38-126) U/L Troponin I (0.000-0.034) ng/mL NT-Pro-B Natriuret Pep pg/mL Total Protein (6.3-8.2) g/dL Albumin (3.5-5.0) g/dL Blood Type Blood Type Confirm Blood Type Recheck Bld Type Recheck Status Antibody Screen Crossmatch Spec Expiration Date - EKG Data -: EKG Interpreted by Me (EKG is sinus 70 VA 200 QRS 145 QTc 441) - Radiology Data Radiology results: report reviewed (Chest x-ray concern for possible developing infiltrate), image reviewed Critical Care Time Critical Care Time: Yes Total Critical Care Time: 31 Disposition Clinical Impression: Anemia, Weakness Disposition: ADMITTED IP TO THIS [facility] Condition: Serious Is patient prescribed a controlled substance at d/c from ED?: No Time of Disposition: 22:30
[2025-03-15] MEDS: SODIUM CHLORIDE 0.9% 1,000 ML IV SCH (21:04)
[2025-03-15 21:11] LABS: ALT 10 U/L (4-34); AST 22 U/L (14-36); African American GFR (CKD) 52 (>60 ml/min/1.73 sqM); Albumin 3.5 g/dL (3.5-5.0); Alkaline Phosphatase 128 U/L (38-126); Anion Gap 12 mmol/L; Basophils # (A) 0.03 10*3/uL (0.00-0.10); Basophils % (A) 0.3 %; Blood Urea Nitrogen 31 mg/dL (7-17); Calcium 9.6 mg/dL (8.4-10.2); Carbon Dioxide 24 mmol/L (22-30); Chloride 102 mmol/L (98-107); Eosinophils # (A) 0.04 10*3/uL (0.04-0.35); Eosinophils % (A) 0.4 %; Glucose 142 mg/dL (74-99); Lymphocytes # (A) 1.33 10*3/uL (0.90-5.00); Lymphocytes % (A) 12.3 %; MCH 26.3 pg (27.0-32.0); Monocytes # (A) 1.18 10*3/uL (0.20-1.00); Monocytes % (A) 10.9 %; Neutrophils # (A) 8.18 10*3/uL (1.80-7.70); Neutrophils % (A) 75.3 %; Non-African American GFR(CKD) 45 (>60 ml/min/1.73 sqM); Phosphorus 3.9 mg/dL (2.5-4.5); Platelet Count 521 10*3/uL (140-440); Potassium 4.3 mmol/L (3.5-5.1); RBC 2.47 10*6/uL (4.10-5.20); RDW 18.2 % (11.5-14.5); Sodium 138 mmol/L (137-145); Total Bilirubin 0.3 mg/dL (0.2-1.3); Total Protein 6.3 g/dL (6.3-8.2); WBC 10.85 10*3/uL (4.50-10.00)
[2025-03-15 21:13] LABS: INR 1.1 (<1.2); Partial Thromboplastin Time 24.6 sec (22.0-30.0); Prothrombin Time 11.5 sec (10.0-12.5)
[2025-03-15 21:19] LABS: NT-Pro-B-Type Natriuretic Pept 719 pg/mL
[2025-03-15 21:26] LABS: HGB 6.5 g/dL (12.0-15.0)
[2025-03-15] MEDS ORDERED: NALOXONE 0.4 MG/ML 1 ML VIAL IV PRN (22:34)
[2025-03-15] MEDS ORDERED: ONDANSETRON 4 MG/2 ML VIAL IVP PRN (22:34)
[2025-03-15] MEDS: ACETAMINOPHEN TAB 325 MG TAB PO STA (22:37)
--- NOTE | 2025-03-15 22:55 | XR ---
EXAMINATION TYPE: XR chest 1V portable DATE OF EXAM: 03/15/2025 COMPARISON: Chest x-ray February 07, 2025 CLINICAL INDICATION: Female, 80 years old with history of cough; TECHNIQUE: Single frontal view of the chest is obtained. FINDINGS: There is no new focal air space opacity, pleural effusion, or pneumothorax seen. Persisten t bibasilar opacities and cardiomegaly. Osseous structures are intact. IMPRESSION: Stable cardiomegaly and bibasilar opacities consistent with acute infiltrates and/or ate lectasis. [facility] Yue Aquino, , 03/15/2025 10:53 PM
[2025-03-15 23:42] LABS: Influenza A Not Detected (Not Detectd); Influenza B Not Detected (Not Detectd); RSV Not Detected (Not Detectd)
[2025-03-15] MEDS: PANTOPRAZOLE 40 MG/10 ML VIAL IV SCH (23:42)
[2025-03-16 02:30] LABS: Appearance,Urine Clear (Clear); Bilirubin,Urine Negative (Negative); Blood,Urine Negative (Negative); Color,Urine Yellow; Glucose,Urine (UA) Negative (Negative); Ketones,Urine Negative (Negative); Leukocyte Esterase,Urine Negative (Negative); Nitrite,Urine Negative (Negative); Protein,Urine Negative (Negative); Specific Gravity,Urine 1.014 (1.001-1.035); Urobilinogen,Urine <2.0 mg/dL (<2.0)
[2025-03-16] MEDS: ACETAMINOPHEN TAB 325 MG TAB PO PRN (06:07)
[2025-03-16] MEDS: SODIUM CHLORIDE 0.9% 1,000 ML IV SCH (06:51)
[2025-03-16 07:35] LABS: Basophils # (A) 0.03 10*3/uL (0.00-0.10); Basophils % (A) 0.3 %; Eosinophils # (A) 0.05 10*3/uL (0.04-0.35); Eosinophils % (A) 0.4 %; HCT 28.8 % (37.2-46.3); Lymphocytes # (A) 1.34 10*3/uL (0.90-5.00); Lymphocytes % (A) 11.9 %; MCH 27.6 pg (27.0-32.0); MCHC 31.6 g/dL (32.0-37.0); MCV 87.3 fL (80.0-97.0); Mean Platelet Volume 9.2 fL (9.5-12.2); Monocytes # (A) 1.21 10*3/uL (0.20-1.00); Monocytes % (A) 10.8 %; Neutrophils # (A) 8.45 10*3/uL (1.80-7.70); Neutrophils % (A) 75.3 %; Platelet Count 479 10*3/uL (140-440); RDW 17.4 % (11.5-14.5); WBC 11.23 10*3/uL (4.50-10.00)
[2025-03-16 07:37] LABS: HGB 9.1 g/dL (12.0-15.0)
[2025-03-16 07:54] LABS: ALT 9 U/L (4-34); AST 23 U/L (14-36); African American GFR (CKD) 62 (>60 ml/min/1.73 sqM); Albumin 3.4 g/dL (3.5-5.0); Alkaline Phosphatase 125 U/L (38-126); Anion Gap 11 mmol/L; Blood Urea Nitrogen 34 mg/dL (7-17); Calcium 9.2 mg/dL (8.4-10.2); Carbon Dioxide 22 mmol/L (22-30); Chloride 106 mmol/L (98-107); Glucose 128 mg/dL (74-99); Non-African American GFR(CKD) 54 (>60 ml/min/1.73 sqM); Phosphorus 4.7 mg/dL (2.5-4.5); Potassium 4.7 mmol/L (3.5-5.1); Sodium 139 mmol/L (137-145); Total Bilirubin 0.9 mg/dL (0.2-1.3); Total Protein 6.2 g/dL (6.3-8.2)
--- NOTE | 2025-03-16 13:35 | P.GSCN ---
History of Present Illness History of present illness: his is a 80 female who presents with anemia known anemia and known recent anemia from inpatient hospitalization patient found to have fever here in the ER he had been called by primary care told that she has low hemoglobin and told to come to the emergency room. Patient admits to black stools currently on iron. No current feelings of lightheadedness dizziness or weakness MD Complaint:Low hemoglobin. s/p transfusion. Pt denies any active bleeding, hematemesis, Review of Systems - Constitutional Reports as per HPI Past Medical History Past Medical History: Cancer, Hyperlipidemia, Hypertension Additional Past Medical History / Comment(s): Recent hospitalization for pneumonia and low blood/iron counts-d/c 02/10/25, treatment completed. 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 Durbin, hx of melanoma. History of Any Multi-Drug Resistant Organisms: None Reported Past Surgical History: Appendectomy, Cholecystectomy, Heart Catheterization, Tubal Ligation Additional Past Surgical History / Comment(s): Melanoma removed L leg. Cataract removal B/L eyes. Past Anesthesia/Blood Transfusion Reactions: No Reported Reaction Additional Past Anesthesia/Blood Transfusion Reaction / Comm: No hx of blood transfusion. Past Psychological History: Anxiety, Depression Smoking Status: Never smoker Past Alcohol Use History: None Reported Past Drug Use History: None Reported - Past Family History Father Family Medical History: Cancer Mother Additional Family Medical History / Comment(s): Mother in her 90s in the hospital after she broke her hip, suddenly after she was taken off of blood thinners before hip surgery. Medications and Allergies Home Medications Medication Instructions Recorded Confirmed Type Atenolol [Tenormin] 50 mg PO DAILY 11/14/14 03/16/25 History Spironolactone [Aldactone] 25 mg PO DAILY 11/14/14 03/16/25 History amLODIPine BESYLATE [Norvasc] 2.5 mg PO DAILY 11/14/14 03/16/25 History cloNIDine HCL [Catapres] 0.2 mg PO TID 11/14/14 03/16/25 History Rosuvastatin [Crestor] 10 mg PO Q48H 01/24/18 03/16/25 History Losartan Potassium [Cozaar] 100 mg PO DAILY 11/27/18 03/16/25 History Acetaminophen [Tylenol 8 Hour] 650 mg PO HS PRN 02/07/25 03/16/25 History Aspirin EC [Ecotrin Low Dose] 81 mg PO DAILY 02/07/25 03/16/25 History Cholecalciferol [Vitamin D3 (125 125 mcg PO DAILY 02/07/25 03/16/25 History Mcg = 5000 Iu)] Furosemide [Lasix] 20 mg PO BID 02/07/25 03/16/25 History Ketoconazole 2% Cream [Nizoral 2%] 1 applic TOPICAL BID PRN 02/07/25 03/16/25 History LORazepam [Ativan] 0.25 - 0.5 mg PO Q6H PRN 02/07/25 03/16/25 History Potassium Chloride ER [K-Dur 10] 10 meq PO BID 02/07/25 03/16/25 History Vit C/E/Zn/Coppr/Lutein/Zeaxan 1 cap PO BID 02/07/25 03/16/25 History [Preservision Areds 2 Softgel] Cyanocobalamin [Vitamin B-12] 1,000 mcg PO DAILY #60 tab 02/10/25 03/16/25 Rx Ferrous Sulfate [Iron (65 MG 325 mg PO BID-W/MEALS #60 tab 02/10/25 03/16/25 Rx Elemental)] Folic Acid 1 mg PO DAILY #30 tab 02/10/25 03/16/25 Rx Allergies Allergy/AdvReac Type Severity Reaction Status Date / Time Penicillins Allergy Rash/Hives Verified 03/16/25 09:48 Surgical - Exam Osteopathic Statement: *. No significant issues noted on an osteopathic structural exam other than those noted in the History and Physical/Consult. Vital Signs Temp Pulse Resp BP Pulse Ox 100.2 F H 71 18 105/66 99 03/15/25 20:06 03/15/25 20:06 03/15/25 20:06 03/15/25 20:06 03/15/25 20:06 gen: nad cv: rrr pul: non labored breathing abd: soft, non distended, non tender to palpation, noguarding or rebound tenderness Results - Labs 03/16/25 06:40 03/16/25 06:40 Abnormal Lab Results - Last 24 Hours (Table) 03/15/25 03/15/25 03/15/25 Range/Units 20:30 20:39 20:39 WBC 10.85 H (4.50-10.00) 10*3/uL RBC 2.47 L (4.10-5.20) 10*6/uL Hgb 6.5 L* (12.0-15.0) g/dL Hct 21.0 L (37.2-46.3) % MCH 26.3 L (27.0-32.0) pg MCHC 31.0 L (32.0-37.0) g/dL Plt Count 521 H (140-440) 10*3/uL MPV 9.0 L (9.5-12.2) fL Immature Gran # 0.09 H (0.00-0.04) 10*3/uL Neutrophils # 8.18 H (1.80-7.70) 10*3/uL Monocytes # 1.18 H (0.20-1.00) 10*3/uL BUN 31 H (7-17) mg/dL Creatinine 1.16 H (0.52-1.04) mg/dL Glucose 142 H (74-99) mg/dL Phosphorus (2.5-4.5) mg/dL Alkaline Phosphatase 128 H (38-126) U/L Total Protein (6.3-8.2) g/dL Albumin (3.5-5.0) g/dL Crossmatch See Detail 03/16/25 03/16/25 Range/Units 06:40 06:40 WBC 11.23 H (4.50-10.00) 10*3/uL RBC 3.30 L (4.10-5.20) 10*6/uL Hgb 9.1 L D (12.0-15.0) g/dL Hct 28.8 L (37.2-46.3) % MCH (27.0-32.0) pg MCHC 31.6 L (32.0-37.0) g/dL Plt Count 479 H (140-440) 10*3/uL MPV 9.2 L (9.5-12.2) fL Immature Gran # 0.15 H (0.00-0.04) 10*3/uL Neutrophils # 8.45 H (1.80-7.70) 10*3/uL Monocytes # 1.21 H (0.20-1.00) 10*3/uL BUN 34 H (7-17) mg/dL Creatinine (0.52-1.04) mg/dL Glucose 128 H (74-99) mg/dL Phosphorus 4.7 H (2.5-4.5) mg/dL Alkaline Phosphatase (38-126) U/L Total Protein 6.2 L (6.3-8.2) g/dL Albumin 3.4 L (3.5-5.0) g/dL Crossmatch Diabetes panel 03/15/25 03/16/25 Range/Units 20:39 06:40 Sodium 138 139 (137-145) mmol/L Potassium 4.3 4.7 (3.5-5.1) mmol/L Chloride 102 106 (98-107) mmol/L Carbon Dioxide 24 22 (22-30) mmol/L BUN 31 H 34 H (7-17) mg/dL Creatinine 1.16 H 1.01 (0.52-1.04) mg/dL Glucose 142 H 128 H (74-99) mg/dL Calcium 9.6 9.2 (8.4-10.2) mg/dL AST 22 23 (14-36) U/L ALT 10 9 (4-34) U/L Alkaline Phosphatase 128 H 125 (38-126) U/L Total Protein 6.3 6.2 L (6.3-8.2) g/dL Albumin 3.5 3.4 L (3.5-5.0) g/dL Calcium panel 03/15/25 03/16/25 Range/Units 20:39 06:40 Calcium 9.6 9.2 (8.4-10.2) mg/dL Phosphorus 3.9 4.7 H (2.5-4.5) mg/dL Albumin 3.5 3.4 L (3.5-5.0) g/dL Pituitary panel 03/15/25 03/16/25 Range/Units 20:39 06:40 Sodium 138 139 (137-145) mmol/L Potassium 4.3 4.7 (3.5-5.1) mmol/L Chloride 102 106 (98-107) mmol/L Carbon Dioxide 24 22 (22-30) mmol/L BUN 31 H 34 H (7-17) mg/dL Creatinine 1.16 H 1.01 (0.52-1.04) mg/dL Glucose 142 H 128 H (74-99) mg/dL Calcium 9.6 9.2 (8.4-10.2) mg/dL Adrenal panel 03/15/25 03/16/25 Range/Units 20:39 06:40 Sodium 138 139 (137-145) mmol/L Potassium 4.3 4.7 (3.5-5.1) mmol/L Chloride 102 106 (98-107) mmol/L Carbon Dioxide 24 22 (22-30) mmol/L BUN 31 H 34 H (7-17) mg/dL Creatinine 1.16 H 1.01 (0.52-1.04) mg/dL Glucose 142 H 128 H (74-99) mg/dL Calcium 9.6 9.2 (8.4-10.2) mg/dL Total Bilirubin 0.3 0.9 (0.2-1.3) mg/dL AST 22 23 (14-36) U/L ALT 10 9 (4-34) U/L Alkaline Phosphatase 128 H 125 (38-126) U/L Total Protein 6.3 6.2 L (6.3-8.2) g/dL Albumin 3.5 3.4 L (3.5-5.0) g/dL Assessment and Plan Assessment: 80 yo female w/ unexplained anemia -regular diet today -clear liquid diet tomorrow -golytely prep starting in am -upper/lower scope on Monday Time with Patient: Greater than 30
--- NOTE | 2025-03-16 15:29 | P.HPIM ---
History of Present Illness H&P Date: 03/16/25 History of present illness; patient 80-year-old lady with past medical history significant for anemia, hypertension, hyperlipidemia who was sent to the ER because of abnormal labs. Patient was recently admitted to the hospital and was treated for pneumonia, during that admission, patient was seen by surgery as well as ID. Patient stated that ever since discharge he was doing well. Patient did not notice that her stools were dark in color, patient is currently taking iron supplementation. Denies any nausea or vomiting. Denies any hematemesis. Patient had blood work done at her PCP office and was later told that her hemoglobin was 6.5 and she was told to come to the ER Initial lab work done in the ER showed WBC 10.85, hemoglobin 6.5, platelet count 521, sodium 130, potassium 4.3, BUN 31, creatinine 1.16, glucose 142, calcium 9.6, phosphorus 3.9, MG 72, alk phos 128, troponin 0.012 UA negative for infection Influenza A not detected Influenza B not detected RSV not detected COVID-19 not detected EKG done in the ER showed heart rate of 70, no ST segment elevation or depression seen, no T-wave inversions seen. Chest x-ray done in the ER showed stable cardiomegaly and bibasilar opacities consistent with acute infiltrates/atelectasis Patient admitted to internal medicine service REVIEW OF SYSTEMS: CONSTITUTIONAL: No fever, no malaise, no fatigue. HEENT: No recent visual problems or hearing problems. Denied any sore throat. CARDIOVASCULAR: No chest pain, orthopnea, PND, no palpitations, no syncope. PULMONARY: No shortness of breath, no cough, no hemoptysis. GASTROINTESTINAL: As mentioned above NEUROLOGICAL: No headaches, no weakness, no numbness. HEMATOLOGICAL: Denies any bleeding or petechiae. GENITOURINARY: Denies any burning micturition, frequency, or urgency. MUSCULOSKELETAL/RHEUMATOLOGICAL: Denies any joint pain, swelling, or any muscle pain. ENDOCRINE: Denies any polyuria or polydipsia. The rest of the 14-point review of systems is negative. PHYSICAL EXAMINATION: GENERAL: The patient is alert and oriented x3, not in any acute distress. Well developed, well nourished. HEENT: Pupils are round and equally reacting to light. EOMI. No scleral icterus. No conjunctival pallor. Normocephalic, atraumatic. No pharyngeal erythema. No thyromegaly. CARDIOVASCULAR: S1 and S2 present. No murmurs, rubs, or gallops. PULMONARY: Chest is clear to auscultation, no wheezing or crackles. ABDOMEN: Soft, nontender, nondistended, normoactive bowel sounds. No palpable organomegaly. MUSCULOSKELETAL: No joint swelling or deformity. EXTREMITIES: No cyanosis, clubbing, or pedal edema. NEUROLOGICAL: Gross neurological examination did not reveal any focal deficits. SKIN: No rashes. Assessment and plan Acute on chronic anemia most likely iron, folate deficient Chronic kidney disease stage III Obesity with BMI of 33. History of hypertension Monitor vital signs Monitor CBC Monitor CMP Ordered IV fluids Ordered IV Protonix Ordered antiemetics Patient is on a bunch of blood pressure medications, at this time we will resume atenolol, Norvasc and clonidine Consult surgery, patient was seen by Dr. Hurst last time, patient prefers to see him. Labs and medication were reviewed.. Continue same treatment. Continue with symptomatic treatment. Resume home medication. Monitor labs and vitals. DVT and GI prophylaxis. Further recommendations as per clinical course of the patient Dictation was produced using [employer] dictation software. please excuse any grammatical, word or spelling errors. Past Medical History Past Medical History: Cancer, Hyperlipidemia, Hypertension Additional Past Medical History / Comment(s): Recent hospitalization for pneumonia and low blood/iron counts-d/c 02/10/25, treatment completed. 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 Durbin, hx of melanoma. History of Any Multi-Drug Resistant Organisms: None Reported Past Surgical History: Appendectomy, Cholecystectomy, Heart Catheterization, Tubal Ligation Additional Past Surgical History / Comment(s): Melanoma removed L leg. Cataract removal B/L eyes. Past Anesthesia/Blood Transfusion Reactions: No Reported Reaction Additional Past Anesthesia/Blood Transfusion Reaction / Comment(s): No hx of blood transfusion. Past Psychological History: Anxiety, Depression Smoking Status: Never smoker Past Alcohol Use History: None Reported Past Drug Use History: None Reported - Past Family History Father Family Medical History: Cancer Mother Additional Family Medical History / Comment(s): Mother in her 90s in the hospital after she broke her hip, suddenly after she was taken off of blood thinners before hip surgery. Medications and Allergies Home Medications Medication Instructions Recorded Confirmed Type Atenolol [Tenormin] 50 mg PO DAILY 11/14/14 03/16/25 History Spironolactone [Aldactone] 25 mg PO DAILY 11/14/14 03/16/25 History amLODIPine BESYLATE [Norvasc] 2.5 mg PO DAILY 11/14/14 03/16/25 History cloNIDine HCL [Catapres] 0.2 mg PO TID 11/14/14 03/16/25 History Rosuvastatin [Crestor] 10 mg PO Q48H 01/24/18 03/16/25 History Losartan Potassium [Cozaar] 100 mg PO DAILY 11/27/18 03/16/25 History Acetaminophen [Tylenol 8 Hour] 650 mg PO HS PRN 02/07/25 03/16/25 History Aspirin EC [Ecotrin Low Dose] 81 mg PO DAILY 02/07/25 03/16/25 History Cholecalciferol [Vitamin D3 (125 125 mcg PO DAILY 02/07/25 03/16/25 History Mcg = 5000 Iu)] Furosemide [Lasix] 20 mg PO BID 02/07/25 03/16/25 History Ketoconazole 2% Cream [Nizoral 2%] 1 applic TOPICAL BID PRN 02/07/25 03/16/25 History LORazepam [Ativan] 0.25 - 0.5 mg PO Q6H PRN 02/07/25 03/16/25 History Potassium Chloride ER [K-Dur 10] 10 meq PO BID 02/07/25 03/16/25 History Vit C/E/Zn/Coppr/Lutein/Zeaxan 1 cap PO BID 02/07/25 03/16/25 History [Preservision Areds 2 Softgel] Cyanocobalamin [Vitamin B-12] 1,000 mcg PO DAILY #60 tab 02/10/25 03/16/25 Rx Ferrous Sulfate [Iron (65 MG 325 mg PO BID-W/MEALS #60 tab 02/10/25 03/16/25 Rx Elemental)] Folic Acid 1 mg PO DAILY #30 tab 02/10/25 03/16/25 Rx Allergies Allergy/AdvReac Type Severity Reaction Status Date / Time Penicillins Allergy Rash/Hives Verified 03/16/25 09:48 Physical Exam Vitals: Vital Signs Temp Pulse Resp BP Pulse Ox 03/16/25 13:54 73 16 147/98 98 03/16/25 10:26 66 16 147/61 96 03/16/25 08:39 97.7 F 65 18 135/58 97 03/16/25 06:20 98.4 F 69 H 170/91 99 03/16/25 05:00 98.1 F 64 16 141/85 99 03/16/25 03:40 98.0 F 61 16 126/60 97 03/16/25 03:20 98.2 F 62 18 120/64 98 03/16/25 03:10 98.3 F 62 16 117/73 03/16/25 02:51 95.5 F L 59 L 18 131/71 98 03/16/25 01:28 98.3 F 64 16 114/62 93 L 03/16/25 00:27 98.4 F 60 16 95/60 95 03/16/25 00:07 100.1 F H 63 18 122/65 96 03/15/25 23:57 99.4 F 64 15 111/59 03/15/25 23:54 99.4 F 63 18 111/59 03/15/25 23:30 98.5 F 65 18 95 03/15/25 21:06 100.1 F H 69 18 107/58 94 L 03/15/25 20:06 100.2 F H 71 18 105/66 99 Intake and Output 03/16/25 03/16/25 03/16/25 06:59 14:59 22:59 Intake Total 620 Balance 620 Intake: Blood Product 620 Rc As-1 Unit 310 [id number] Rc As-1 Unit 310 [id number] Results CBC & Chem 7: 03/16/25 06:40 03/16/25 06:40 Labs: Abnormal Lab Results - Last 24 Hours (Table) 03/15/25 03/15/25 03/15/25 Range/Units 20:30 20:39 20:39 WBC 10.85 H (4.50-10.00) 10*3/uL RBC 2.47 L (4.10-5.20) 10*6/uL Hgb 6.5 L* (12.0-15.0) g/dL Hct 21.0 L (37.2-46.3) % MCH 26.3 L (27.0-32.0) pg MCHC 31.0 L (32.0-37.0) g/dL Plt Count 521 H (140-440) 10*3/uL MPV 9.0 L (9.5-12.2) fL Immature Gran # 0.09 H (0.00-0.04) 10*3/uL Neutrophils # 8.18 H (1.80-7.70) 10*3/uL Monocytes # 1.18 H (0.20-1.00) 10*3/uL BUN 31 H (7-17) mg/dL Creatinine 1.16 H (0.52-1.04) mg/dL Glucose 142 H (74-99) mg/dL Phosphorus (2.5-4.5) mg/dL Alkaline Phosphatase 128 H (38-126) U/L Total Protein (6.3-8.2) g/dL Albumin (3.5-5.0) g/dL Crossmatch See Detail 03/16/25 03/16/25 Range/Units 06:40 06:40 WBC 11.23 H (4.50-10.00) 10*3/uL RBC 3.30 L (4.10-5.20) 10*6/uL Hgb 9.1 L D (12.0-15.0) g/dL Hct 28.8 L (37.2-46.3) % MCH (27.0-32.0) pg MCHC 31.6 L (32.0-37.0) g/dL Plt Count 479 H (140-440) 10*3/uL MPV 9.2 L (9.5-12.2) fL Immature Gran # 0.15 H (0.00-0.04) 10*3/uL Neutrophils # 8.45 H (1.80-7.70) 10*3/uL Monocytes # 1.21 H (0.20-1.00) 10*3/uL BUN 34 H (7-17) mg/dL Creatinine (0.52-1.04) mg/dL Glucose 128 H (74-99) mg/dL Phosphorus 4.7 H (2.5-4.5) mg/dL Alkaline Phosphatase (38-126) U/L Total Protein 6.2 L (6.3-8.2) g/dL Albumin 3.4 L (3.5-5.0) g/dL Crossmatch
[2025-03-16] MEDS: cloNIDine HCL 0.2 MG TAB PO SCH (16:17)
[2025-03-16] MEDS: FERROUS SULFATE 325 MG TAB PO SCH (17:43)
[2025-03-16] MEDS: VIT A,C & E-LUTEIN-MINERALS 1 EACH TAB PO SCH (20:40)
[2025-03-16] MEDS: ATORVASTATIN 20 MG TAB PO SCH (20:40)
[2025-03-16] MEDS: LORazepam 0.5 MG TAB PO PRN (22:00)
[2025-03-17 09:00] LABS: HCT 29.9 % (37.2-46.3); HGB 9.6 g/dL (12.0-15.0); MCH 27.8 pg (27.0-32.0); MCHC 32.1 g/dL (32.0-37.0); MCV 86.7 fL (80.0-97.0); Mean Platelet Volume 8.7 fL (9.5-12.2); Platelet Count 458 10*3/uL (140-440); RBC 3.45 10*6/uL (4.10-5.20); RDW 17.5 % (11.5-14.5)
[2025-03-17] MEDS: CHOLECALCIFEROL 125 MCG (5000 IU) TABLET PO SCH (09:42)
[2025-03-17] MEDS: SPIRONOLACTONE 25 MG TAB PO SCH (09:42)
[2025-03-17] MEDS: CYANOCOBALAMIN 500 MCG TAB PO SCH (09:42)
[2025-03-17] MEDS: FOLIC ACID 1 MG TAB PO SCH (09:43)
[2025-03-17] MEDS: atenoloL 50 MG TAB PO SCH (09:43)
[2025-03-17] MEDS: amLODIPine 2.5 MG TAB PO SCH (09:43)
--- NOTE | 2025-03-17 09:49 | P.PN ---
Subjective Progress Note Date: 03/17/25 patient 80-year-old lady with past medical history significant for anemia, hypertension, hyperlipidemia who was sent to the ER because of abnormal labs. Patient was recently admitted to the hospital and was treated for pneumonia, during that admission, patient was seen by surgery as well as ID. Patient stated that ever since discharge he was doing well. Patient did not notice that her stools were dark in color, patient is currently taking iron supplementation. Denies any nausea or vomiting. Denies any hematemesis. Patient had blood work done at her PCP office and was later told that her hemoglobin was 6.5 and she was told to come to the ER Initial lab work done in the ER showed WBC 10.85, hemoglobin 6.5, platelet count 521, sodium 130, potassium 4.3, BUN 31, creatinine 1.16, glucose 142, calcium 9.6, phosphorus 3.9, MG 72, alk phos 128, troponin 0.012 UA negative for infection Influenza A not detected Influenza B not detected RSV not detected COVID-19 not detected EKG done in the ER showed heart rate of 70, no ST segment elevation or depression seen, no T-wave inversions seen. Chest x-ray done in the ER showed stable cardiomegaly and bibasilar opacities consistent with acute infiltrates/atelectasis Patient admitted to internal medicine service 03/17. Patient seen and examined. Vital signs this morning temperature 97.3, heart rate 97, blood pressure 1 2/89.Labs done this morning showed WBC 8.2, hemoglobin 9.6,. Patient has received 2 units of packed red blood cell REVIEW OF SYSTEMS: CONSTITUTIONAL: No fever, no malaise,. CARDIOVASCULAR: No chest pain, no palpitations, no syncope. PULMONARY: No shortness of breath, no cough, GASTROINTESTINAL: No diarrhea, no nausea, no vomiting, no abdominal pain. NEUROLOGICAL: No headaches, no weakness, Assessment and plan GENERAL: The patient is alert and oriented x3, not in any acute distress. Well developed, well nourished. HEENT: Pupils are round and equally reacting to light. EOMI. No scleral icterus. No conjunctival pallor. Normocephalic, atraumatic. No pharyngeal erythema. No thyromegaly. CARDIOVASCULAR: S1 and S2 present. No murmurs, rubs, or gallops. PULMONARY: Chest is clear to auscultation, no wheezing or crackles. ABDOMEN: Soft, nontender, nondistended, normoactive bowel sounds. No palpable organomegaly. MUSCULOSKELETAL: No joint swelling or deformity. EXTREMITIES: No cyanosis, clubbing, or pedal edema. NEUROLOGICAL: Gross neurological examination did not reveal any focal deficits. SKIN: No rashes. Assessment and plan Acute on chronic anemia most likely iron, folate deficient Chronic kidney disease stage III Obesity with BMI of 33. History of hypertension Monitor vital signs Monitor CBC Monitor CMP Continue IV fluids Continue IV Protonix Continue antiemetics Continue atenolol, Norvasc and clonidine GI following, planning EGD and colonoscopy tomorrow Labs and medication were reviewed.. Continue same treatment. Continue with symptomatic treatment. Resume home medication. Monitor labs and vitals. DVT and GI prophylaxis. Further recommendations as per clinical course of the patient Dictation was produced using [employer] dictation software. please excuse any grammatical, word or spelling errors. Objective - Vital Signs Vital signs: Vital Signs Temp 97.3 F L 03/17/25 02:56 Pulse 97 03/17/25 02:56 Resp 19 03/17/25 02:56 BP 152/89 03/17/25 02:56 Pulse Ox 100 03/17/25 02:56 FiO2 - Labs CBC & Chem 7: 03/17/25 08:49 03/16/25 06:40 Labs: Abnormal Lab Results - Last 24 Hours (Table) 03/17/25 Range/Units 08:49 RBC 3.45 L (4.10-5.20) 10*6/uL Hgb 9.6 L (12.0-15.0) g/dL Hct 29.9 L (37.2-46.3) % Plt Count 458 H (140-440) 10*3/uL MPV 8.7 L (9.5-12.2) fL
[2025-03-17] MEDS: PEG 3350 (236 GM/BTL) + LYTES 4,000 ML BOTTLE PO ONE (11:42)
--- NOTE | 2025-03-17 15:12 | P.PN ---
Subjective Progress Note Date: 03/17/25 SURGICAL PROGRESS NOTE CHIEF COMPLAINT: Anemia HISTORY OF PRESENT ILLNESS: Patient had anemia with black stools and on iron. Hemoglobin 6.5 on admission received 2 units of blood repeat hemoglobin 9.1. Hemoglobin today 9.6. PHYSICAL EXAM: VITAL SIGNS: Reviewed. GENERAL: Well-developed in no acute distress. ABDOMEN: Soft. Nondistended. Nontender. NEUROLOGIC: Alert and oriented. Cranial nerves II through XII grossly intact. ASSESSMENT: 1. Anemia with black stools on iron PLAN: - Patient scheduled for EGD and colonoscopy tomorrow - GoLytely bowel prep today with clear liquid diet - N.p.o. after midnight - Repeat hemoglobin in a.m. Physician Line Maintenance Technician note has been reviewed by physician. Signing provider agrees with the documented findings, assessment, and plan of care. Objective - Vital Signs Vital signs: Vital Signs Temp 97.3 F L 03/17/25 02:56 Pulse 97 03/17/25 02:56 Resp 19 03/17/25 02:56 BP 152/89 03/17/25 02:56 Pulse Ox 100 03/17/25 02:56 FiO2 - Labs CBC & Chem 7: 03/17/25 08:49 03/16/25 06:40 Assessment and Plan Assessment: egd/colonoscopy tomorrow Time with Patient: Less than 30
[2025-03-17] MEDS ORDERED: ACETAMINOPHEN TAB 325 MG TAB PO PRN ×2 (23:47)
[2025-03-17] MEDS: ACETAMINOPHEN TAB 325 MG TAB PO PRN (23:49)
[2025-03-18 02:17] VITALS: TEMP 97.7
[2025-03-18 07:37] LABS: HCT 29.1 % (37.2-46.3); MCH 26.9 pg (27.0-32.0); MCHC 30.9 g/dL (32.0-37.0); MCV 87.1 fL (80.0-97.0); Mean Platelet Volume 9.1 fL (9.5-12.2); Platelet Count 433 10*3/uL (140-440); RBC 3.34 10*6/uL (4.10-5.20); RDW 17.4 % (11.5-14.5); WBC 7.05 10*3/uL (4.50-10.00)
[2025-03-18 08:36] LABS: African American GFR (CKD) >90 (>60 ml/min/1.73 sqM); Anion Gap 8 mmol/L; Blood Urea Nitrogen 15 mg/dL (7-17); Calcium 8.4 mg/dL (8.4-10.2); Carbon Dioxide 24 mmol/L (22-30); Chloride 105 mmol/L (98-107); Glucose 125 mg/dL (74-99); Non-African American GFR(CKD) 86 (>60 ml/min/1.73 sqM); Sodium 137 mmol/L (137-145)
--- NOTE | 2025-03-18 13:01 | P.PN ---
Subjective Progress Note Date: 03/18/25 patient 80-year-old lady with past medical history significant for anemia, hypertension, hyperlipidemia who was sent to the ER because of abnormal labs. Patient was recently admitted to the hospital and was treated for pneumonia, during that admission, patient was seen by surgery as well as ID. Patient stated that ever since discharge he was doing well. Patient did not notice that her stools were dark in color, patient is currently taking iron supplementation. Denies any nausea or vomiting. Denies any hematemesis. Patient had blood work done at her PCP office and was later told that her hemoglobin was 6.5 and she was told to come to the ER Initial lab work done in the ER showed WBC 10.85, hemoglobin 6.5, platelet count 521, sodium 130, potassium 4.3, BUN 31, creatinine 1.16, glucose 142, calcium 9.6, phosphorus 3.9, MG 72, alk phos 128, troponin 0.012 UA negative for infection Influenza A not detected Influenza B not detected RSV not detected COVID-19 not detected EKG done in the ER showed heart rate of 70, no ST segment elevation or depression seen, no T-wave inversions seen. Chest x-ray done in the ER showed stable cardiomegaly and bibasilar opacities consistent with acute infiltrates/atelectasis Patient admitted to internal medicine service 03/17. Patient seen and examined. Vital signs this morning temperature 97.3, heart rate 97, blood pressure 1 2/89.Labs done this morning showed WBC 8.2, hemoglobin 9.6,. Patient has received 2 units of packed red blood cell 03/18. Patient seen and examined. Labs reviewed showed WBC 7.05, hemoglobin is 9, sodium 137, potassium 4, BUN 15, 0.64 creatinine. No episode of blood in the stools. Currently n.p.o. going for EGD and colonoscopy REVIEW OF SYSTEMS: CONSTITUTIONAL: No fever, no malaise,. CARDIOVASCULAR: No chest pain, no palpitations, no syncope. PULMONARY: No shortness of breath, no cough, GASTROINTESTINAL: No diarrhea, no nausea, no vomiting, no abdominal pain. NEUROLOGICAL: No headaches, no weakness, Assessment and plan GENERAL: The patient is alert and oriented x3, not in any acute distress. Well developed, well nourished. HEENT: Pupils are round and equally reacting to light. EOMI. No scleral icterus. No conjunctival pallor. Normocephalic, atraumatic. No pharyngeal erythema. No thyromegaly. CARDIOVASCULAR: S1 and S2 present. No murmurs, rubs, or gallops. PULMONARY: Chest is clear to auscultation, no wheezing or crackles. ABDOMEN: Soft, nontender, nondistended, normoactive bowel sounds. No palpable organomegaly. MUSCULOSKELETAL: No joint swelling or deformity. EXTREMITIES: No cyanosis, clubbing, or pedal edema. NEUROLOGICAL: Gross neurological examination did not reveal any focal deficits. SKIN: No rashes. Assessment and plan Acute on chronic anemia most likely iron, folate deficient Chronic kidney disease stage III Obesity with BMI of 33. History of hypertension Monitor vital signs Monitor CBC Monitor CMP Continue IV fluids Continue IV Protonix Continue antiemetics Continue atenolol, Norvasc and clonidine GI following, planning EGD and colonoscopy today Labs and medication were reviewed.. Continue same treatment. Continue with symptomatic treatment. Resume home medication. Monitor labs and vitals. DVT and GI prophylaxis. Further recommendations as per clinical course of the patient Dictation was produced using [employer] dictation software. please excuse any grammatical, word or spelling errors. Objective - Vital Signs Vital signs: Vital Signs Temp 97.7 F 03/18/25 09:12 Pulse 80 03/18/25 09:12 Resp 18 03/18/25 09:12 BP 144/88 03/18/25 09:12 Pulse Ox 100 03/18/25 09:12 FiO2 Intake & Output 03/17/25 03/18/25 03/18/25 18:59 06:59 18:59 Other: Voiding Method Toilet # Voids 2 - Labs CBC & Chem 7: 03/18/25 06:47 03/18/25 06:47 Labs: Abnormal Lab Results - Last 24 Hours (Table) 03/18/25 03/18/25 Range/Units 06:47 06:47 RBC 3.34 L (4.10-5.20) 10*6/uL Hgb 9.0 L (12.0-15.0) g/dL Hct 29.1 L (37.2-46.3) % MCH 26.9 L (27.0-32.0) pg MCHC 30.9 L (32.0-37.0) g/dL MPV 9.1 L (9.5-12.2) fL Glucose 125 H (74-99) mg/dL
[2025-03-18] MEDS ORDERED: PROPOFOL 10 MG/ML 20 ML VIAL IV ONE (13:04)
[2025-03-18] MEDS: IV FLUID CONTINUATION 800 ML IV ONE (13:05)
--- NOTE | 2025-03-18 15:10 | P.OP ---
Date of Procedure: 03/18/25 Preoperative Diagnosis: gi bleed Postoperative Diagnosis: diverticulosis, internal hermorrhoids Procedure(s) Performed: EGD/Colonoscopy Anesthesia: TESSA Surgeon: Amador Hurst Pathology: other (gastric mucosa of antrum) Condition: stable Disposition: PACU Indications for Procedure: gi bleed Operative Findings: diverticulosis/internal hemorrhoids Description of Procedure: Patient was brought to the operative suite where she was cleaned and draped. A t imeout was performed and everyone agreed with the information recited. An adult size olymposcope was used to traverse the mouth, esophagus, stomach to the second portion of the duodenum. The scope was slowly retracted looing at the mucosa in a circumferential fashion. There was a pinpoint lesion representing an ulcer in the antrum of the stomach. Biopsies were taken, the scope was retroflexed assessing the ge junction. No hiatal hernia was observed. The scope was retracted further and the z line was inspected revealing no pathology. Colonoscopy An adult size olymposcope was used to traverse the anus, rectum, sigmoid colon, descending, transverse, ascending colon to the cecum where the appendiceal orfice was idntified. No abnormalities were seen in the ascending, transverse, descending, sigmoid colon or rectum. Scope time was greater than 6 minutes. Random biospies were taken in the ascending colon, descending colon and rectum. [facility] patient tolerated procedure well and was transported to pacu in stable condition.
[2025-03-18 15:38] VITALS: BP 154/78; PULSE 58; RESP 16
--- NOTE | 2025-03-23 11:55 | P.DS ---
Providers Date of admission: 03/15/25 22:34 Expected date of discharge: 03/18/25 Attending physician: Gumaro Montes De Oca Consults: 03/15/25 22:34 Consult Physician Routine Consulting Provider: Amador Hurst Consult Reason/Comments: known Do you want consulting provider notified?: Yes Primary care physician: Delgado Carbone Hospital Course: Discharge diagnoses; Acute on chronic anemia most likely iron, folate deficient Chronic kidney disease stage III Obesity with BMI of 33. History of hypertension Hospital course; patient 80-year-old lady with past medical history significant for anemia, hypertension, hyperlipidemia who was sent to the ER because of abnormal labs. Patient was recently admitted to the hospital and was treated for pneumonia, during that admission, patient was seen by surgery as well as ID. Patient stated that ever since discharge he was doing well. Patient did not notice that her stools were dark in color, patient is currently taking iron supplementation. Denies any nausea or vomiting. Denies any hematemesis. Patient had blood work done at her PCP office and was later told that her hemoglobin was 6.5 and she was told to come to the ER Initial lab work done in the ER showed WBC 10.85, hemoglobin 6.5, platelet count 521, sodium 130, potassium 4.3, BUN 31, creatinine 1.16, glucose 142, calcium 9.6, phosphorus 3.9, MG 72, alk phos 128, troponin 0.012 UA negative for infection Influenza A not detected Influenza B not detected RSV not detected COVID-19 not detected EKG done in the ER showed heart rate of 70, no ST segment elevation or depression seen, no T-wave inversions seen. Chest x-ray done in the ER showed stable cardiomegaly and bibasilar opacities consistent with acute infiltrates/atelectasis Patient admitted to internal medicine service 03/17. Patient seen and examined. Vital signs this morning temperature 97.3, heart rate 97, blood pressure 1 2/89.Labs done this morning showed WBC 8.2, hemoglobin 9.6,. Patient has received 2 units of packed red blood cell 03/18. Patient seen and examined. Labs reviewed showed WBC 7.05, hemoglobin is 9, sodium 137, potassium 4, BUN 15, 0.64 creatinine. No episode of blood in the stools. Currently n.p.o. going for EGD and colonoscopy. EGD done showed pinpoint lesion representing an ulcer in the antrum of the stomach, biopsies taken. Colonoscopy done, showed no abnormalities, biopsies taken. Surgery cleared the patient for discharge PHYSICAL EXAMINATION: GENERAL: The patient is alert and oriented x3, not in any acute distress. Well developed, well nourished. HEENT: Pupils are round and equally reacting to light. EOMI. No scleral icterus. No conjunctival pallor. Normocephalic, atraumatic. No pharyngeal erythema. No thyromegaly. CARDIOVASCULAR: S1 and S2 present. No murmurs, rubs, or gallops. PULMONARY: Chest is clear to auscultation, no wheezing or crackles. ABDOMEN: Soft, nontender, nondistended, normoactive bowel sounds. No palpable organomegaly. MUSCULOSKELETAL: No joint swelling or deformity. EXTREMITIES: No cyanosis, clubbing, or pedal edema. NEUROLOGICAL: Gross neurological examination did not reveal any focal deficits. SKIN: No rashes. Dictation was produced using [employer] dictation software. please excuse any grammatical, word or spelling errors. Patient Condition at Discharge: Serious Plan - Discharge Summary New Discharge Prescriptions: New Pantoprazole [Protonix] 40 mg PO DAILY #30 tab Continue amLODIPine BESYLATE [Norvasc] 2.5 mg PO DAILY Atenolol [Tenormin] 50 mg PO DAILY cloNIDine HCL [Catapres] 0.2 mg PO TID Spironolactone [Aldactone] 25 mg PO DAILY Rosuvastatin [Crestor] 10 mg PO Q48H Losartan Potassium [Cozaar] 100 mg PO DAILY Aspirin EC [Ecotrin Low Dose] 81 mg PO DAILY Cholecalciferol [Vitamin D3 (125 Mcg = 5000 Iu)] 125 mcg PO DAILY Acetaminophen [Tylenol 8 Hour] 650 mg PO HS PRN PRN Reason: Pain LORazepam [Ativan] 0.25 - 0.5 mg PO Q6H PRN PRN Reason: Anxiety Folic Acid 1 mg PO DAILY #30 tab Cyanocobalamin [Vitamin B-12] 1,000 mcg PO DAILY #60 tab Potassium Chloride ER [K-Dur 10] 10 meq PO BID Ketoconazole 2% Cream [Nizoral 2%] 1 applic TOPICAL BID PRN PRN Reason: under breast & groin area Vit C/E/Zn/Coppr/Lutein/Zeaxan [Preservision Areds 2 Softgel] 1 cap PO BID Furosemide [Lasix] 20 mg PO BID Ferrous Sulfate [Iron (65 MG Elemental)] 325 mg PO BID-W/MEALS #60 tab Discharge Medication List Atenolol [Tenormin] 50 mg PO DAILY 11/14/14 [History] Spironolactone [Aldactone] 25 mg PO DAILY 11/14/14 [History] amLODIPine BESYLATE [Norvasc] 2.5 mg PO DAILY 11/14/14 [History] cloNIDine HCL [Catapres] 0.2 mg PO TID 11/14/14 [History] Rosuvastatin [Crestor] 10 mg PO Q48H 01/24/18 [History] Losartan Potassium [Cozaar] 100 mg PO DAILY 11/27/18 [History] Acetaminophen [Tylenol 8 Hour] 650 mg PO HS PRN 02/07/25 [History] Aspirin EC [Ecotrin Low Dose] 81 mg PO DAILY 02/07/25 [History] Cholecalciferol [Vitamin D3 (125 Mcg = 5000 Iu)] 125 mcg PO DAILY 02/07/25 [History] Furosemide [Lasix] 20 mg PO BID 02/07/25 [History] Ketoconazole 2% Cream [Nizoral 2%] 1 applic TOPICAL BID PRN 02/07/25 [History] LORazepam [Ativan] 0.25 - 0.5 mg PO Q6H PRN 02/07/25 [History] Potassium Chloride ER [K-Dur 10] 10 meq PO BID 02/07/25 [History] Vit C/E/Zn/Coppr/Lutein/Zeaxan [Preservision Areds 2 Softgel] 1 cap PO BID 02/07/25 [History] Cyanocobalamin [Vitamin B-12] 1,000 mcg PO DAILY #60 tab 02/10/25 [Rx] Ferrous Sulfate [Iron (65 MG Elemental)] 325 mg PO BID-W/MEALS #60 tab 02/10/25 [Rx] Folic Acid 1 mg PO DAILY #30 tab 02/10/25 [Rx] Pantoprazole [Protonix] 40 mg PO DAILY #30 tab 03/18/25 [Rx] Follow up Appointment(s)/Referral(s): Delgado Carbone MD [Primary Care Provider] - 1-2 days Amador Hurst DO [Doctor of Osteopathic Medicine] - 1 Week Discharge Disposition: HOME SELF-CARE
== END 2025-03-18 17:45 | disposition home or self-care (01) | DRG 812 ==
LOC: EC 20:03 → 5NMEDONC 22:34 → 1SOBS 03-16 20:06
PROVIDERS: ADMIT Hospitalist; ATTEND Hospitalist
PROC: 30233N1 Transfusion of Nonautologous Red Blood Cells into Peripheral Vein, Percutaneous Approach (ICD-10-PCS; 2025-03-15)
PROC: 0DBP8ZX Excision of Rectum, Via Natural or Artificial Opening Endoscopic, Diagnostic (ICD-10-PCS; 2025-03-18)
PROC: 0DBM8ZX Excision of Descending Colon, Via Natural or Artificial Opening Endoscopic, Diagnostic (ICD-10-PCS; 2025-03-18)
PROC: 0DB78ZX Excision of Stomach, Pylorus, Via Natural or Artificial Opening Endoscopic, Diagnostic (ICD-10-PCS; principal; 2025-03-18 13:45)
PROC: 0DBK8ZX Excision of Ascending Colon, Via Natural or Artificial Opening Endoscopic, Diagnostic (ICD-10-PCS; 2025-03-18 13:45)
DX: D50.9 Iron deficiency anemia, unspecified (principal); E66.9 Obesity, unspecified; I12.9 Hypertensive chronic kidney disease with stage 1 through stage 4 chronic kidney disease, or unspecified chronic kidney disease; N18.30 Chronic kidney disease, stage 3 unspecified; K25.9 Gastric ulcer, unspecified as acute or chronic, without hemorrhage or perforation; K57.30 Diverticulosis of large intestine without perforation or abscess without bleeding; K64.8 Other hemorrhoids; Z68.33 Body mass index [BMI] 33.0-33.9, adult; Z85.820 Personal history of malignant melanoma of skin; Z79.82 Long term (current) use of aspirin; Z79.899 Other long term (current) drug therapy; Z88.0 Allergy status to penicillin
CPT/HCPCS: 36415; 36430; 43235; 45378; 71045; 80048; 80053; 81003; 83605; 83735; 83880; 84100; 84484; 85025; 85027; 85610; 85730; 86850; 86900; 86901; 86920; 87636; 93005; 96361; 96374; 96376; 99285

== ENCOUNTER 2025-04-16 16:01 | Inpatient (IN) | payer MEDICARE ==
--- NOTE | 2025-04-16 16:44 | ED ---
General Adult HPI - General Chief complaint: Recheck/Abnormal Lab/Rx Stated complaint: Abn Labs Time Seen by Provider: 04/16/25 16:12 Source: EMS, RN notes reviewed, old records reviewed Mode of arrival: EMS Limitations: no limitations - History of Present Illness Initial comments: 80-year-old female presenting for evaluation of weakness and fatigue, exertional dyspnea, recent evaluation for anemia. Patient had laboratory testing and her hemoglobin was low. She received a 2 unit transfusion 3 weeks ago and received both upper GI endoscopy and colonoscopy. According to the patient they did not find any cause of internal bleeding. She continues to have symptoms and contacted her primary care provider today who requested that she present to the emergency department. - Related Data Home Medications Medication Instructions Recorded Confirmed Atenolol [Tenormin] 50 mg PO DAILY 11/14/14 03/16/25 Spironolactone [Aldactone] 25 mg PO DAILY 11/14/14 03/16/25 amLODIPine BESYLATE [Norvasc] 2.5 mg PO DAILY 11/14/14 03/16/25 cloNIDine HCL [Catapres] 0.2 mg PO TID 11/14/14 03/16/25 Rosuvastatin [Crestor] 10 mg PO Q48H 01/24/18 03/16/25 Losartan Potassium [Cozaar] 100 mg PO DAILY 11/27/18 03/16/25 Acetaminophen [Tylenol 8 Hour] 650 mg PO HS PRN 02/07/25 03/16/25 Aspirin EC [Ecotrin Low Dose] 81 mg PO DAILY 02/07/25 03/16/25 Cholecalciferol [Vitamin D3 (125 125 mcg PO DAILY 02/07/25 03/16/25 Mcg = 5000 Iu)] Furosemide [Lasix] 20 mg PO BID 02/07/25 03/16/25 Ketoconazole 2% Cream [Nizoral 2%] 1 applic TOPICAL BID PRN 02/07/25 03/16/25 LORazepam [Ativan] 0.25 - 0.5 mg PO Q6H PRN 02/07/25 03/16/25 Potassium Chloride ER [K-Dur 10] 10 meq PO BID 02/07/25 03/16/25 Vit C/E/Zn/Coppr/Lutein/Zeaxan 1 cap PO BID 02/07/25 03/16/25 [Preservision Areds 2 Softgel] Previous Rx's Medication Instructions Recorded Cyanocobalamin [Vitamin B-12] 1,000 mcg PO DAILY #60 tab 02/10/25 Ferrous Sulfate [Iron (65 MG 325 mg PO BID-W/MEALS #60 tab 02/10/25 Elemental)] Folic Acid 1 mg PO DAILY #30 tab 02/10/25 Pantoprazole [Protonix] 40 mg PO DAILY #30 tab 03/18/25 Allergies Allergy/AdvReac Type Severity Reaction Status Date / Time Penicillins Allergy Rash/Hives Verified 03/16/25 09:48 Review of Systems ROS Statement: Those systems with pertinent positive or pertinent negative responses have been documented in the HPI. ROS Other: All systems not noted in ROS Statement are negative. Past Medical History Past Medical History: Cancer, Hyperlipidemia, Hypertension Additional Past Medical History / Comment(s): Recent hospitalization for pneumonia and low blood/iron counts-d/c 02/10/25, treatment completed. 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 Durbin, hx of melanoma. History of Any Multi-Drug Resistant Organisms: None Reported Past Surgical History: Appendectomy, Cholecystectomy, Heart Catheterization, Tubal Ligation Additional Past Surgical History / Comment(s): Melanoma removed L leg. Cataract removal B/L eyes. Past Anesthesia/Blood Transfusion Reactions: No Reported Reaction Additional Past Anesthesia/Blood Transfusion Reaction / Comment(s): No hx of blood transfusion. Past Psychological History: Anxiety, Depression Smoking Status: Never smoker Past Alcohol Use History: None Reported Past Drug Use History: None Reported - Past Family History Father Family Medical History: Cancer Mother Additional Family Medical History / Comment(s): Mother in her 90s in the hospital after she broke her hip, suddenly after she was taken off of blood thinners before hip surgery. General Exam Limitations: no limitations General appearance: alert, in no apparent distress Head exam: Present: atraumatic, normocephalic Eye exam: Present: normal appearance, PERRL ENT exam: Present: mucous membranes dry Neck exam: Present: normal inspection. Absent: tenderness, meningismus Respiratory exam: Present: normal lung sounds bilaterally. Absent: respiratory distress, wheezes Cardiovascular Exam: Present: regular rate, normal rhythm GI/Abdominal exam: Present: soft. Absent: distended, tenderness, guarding Extremities exam: Present: normal inspection, normal capillary refill Neurological exam: Present: alert, oriented X3, CN II-XII intact. Absent: motor sensory deficit Psychiatric exam: Present: anxious Skin exam: Present: pallor Course Vital Signs 04/16/25 16:03 Temperature 98.8 F Pulse Rate 74 Respiratory 18 Rate Blood Pressure 91/60 O2 Sat by Pulse 99 Oximetry Medical Decision Making - Medical Decision Making Was pt. sent in by a medical professional or institution (, [facility], [facility]ME[facility], urgent care, hospital, or snf...) When possible be specific @ -Sent in by primary care for evaluation of suspected anemia Did you speak to anyone other than the patient for history (EMS, parent, family, police, friend...)? What history was obtained from this source @ -No Did you review nursing and triage notes (agree or disagree)? Why? @ -I reviewed and agree with nursing and triage notes Were old charts reviewed (outside hosp., previous admission, EMS record, old EKG, old radiological studies, urgent care reports/EKG's, snf records)? Report findings @ -No old charts were reviewed Differential Weakness: Hypoglycemia, shock, sepsis, hyponatremia, anemia, infection, DC, ETOH, adverse medicine reaction, overdose, stroke, this is not meant to be an all-inclusive list. EKG interpreted by me (3pts min.). @ -Sinus rhythm right bundle branch block rate of 72 DC interval 197, QRS duration 154, QTc [address] segment elevation. X-rays interpreted by me (1pt min.). @ -None done CT interpreted by me (1pt min.). @ -None done U/S interpreted by me (1pt. min.). @ -None done What testing was considered but not performed or refused? (CT, X-rays, U/S, labs)? Why? @ -None What meds were considered but not given or refused? Why? @ -None Did you discuss the management of the patient with other professionals (professionals i.e. [facility] Kiran, EGG SMELLER, lab, RT, psych nurse, group social worker, scientific informatics analyst, teacher, community liaison officer, case planner)? Give summary @ -[Case discussed with Alix mccollum for [facility] Was smoking cessation discussed for >3mins.? @ -No Was critical care preformed (if so, how long)? @ -Yes, 35 minutes Were there social determinants of health that impacted care today? How? (Homelessness, low income, unemployed, alcoholism, drug addiction, transporta tion, low edu. Level, literacy, decrease access to med. care, shelter, rehab)? @ -No Was there de-escalation of care discussed even if they declined (Discuss DNR or withdrawal of care, Hospice)? DNR status @ -No What co-morbidities impacted this encounter? (DM, HTN, Smoking, COPD, CAD, Cancer, CVA, ARF, Chemo, Hep., AIDS, mental health diagnosis, sleep apnea, morbid obesity)? @ -Anemia Was patient admitted / discharged? Hospital course, mention meds given and route, prescriptions, significant lab abnormalities, going to OR and other pertinent info. @ -[80-year-old female presenting from the outpatient setting with suspected low hemoglobin. Patient had a recent admission 3 weeks ago where she underwent evaluation for anemia she had received upper GI endoscopy and colonoscopy. She states that she continues to feel unwell with no energy and increased fatigue. Hemoglobin today is 5.3. Patient is started on Protonix and transfused 2 units in the emergency department. She will be admitted for further evaluation of symptomatic anemia. General surgery Dr. Hurst who evaluated the patient on recent admission is placed on consult as well as hematology. Undiagnosed new problem with uncertain prognosis? @ -No Drug Therapy requiring intensive monitoring for toxicity (Heparin, Nitro, I nsulin, Cardizem)? @ -No Were any procedures done? @ -No Diagnosis/symptom? @ -Symptomatic anemia Acute, or Chronic, or Acute on Chronic? @ -Acute Uncomplicated (without systemic symptoms) or Complicated (systemic symptoms)? @ -Default Side effects of treatment? @ -No Exacerbation, Progression, or Severe Exacerbation? @ -No Poses a threat to life or bodily function? How? (Chest pain, USA, DC, pneumonia, PE, COPD, DKA, ARF, appy, cholecystitis, CVA, Diverticulitis, Homicidal, Suicidal, threat to staff... and all critical care pts) @ -[Yes, acute blood loss anemia, hemorrhagic shock - Lab Data Result diagrams: 04/16/25 16:40 04/16/25 16:40 Lab Results 04/16/25 04/16/25 04/16/25 Range/Units 16:40 16:40 16:40 WBC 9.19 (4.50-10.00) 10*3/uL RBC 2.04 L (4.10-5.20) 10*6/uL Hgb 5.3 L* D (12.0-15.0) g/dL Hct 18.1 L* (37.2-46.3) % MCV 88.7 (80.0-97.0) fL MCH 26.0 L (27.0-32.0) pg MCHC 29.3 L (32.0-37.0) g/dL Plt Count 487 H (140-440) 10*3/uL MPV 9.4 L (9.5-12.2) fL Immature Gran % (Auto) 1.5 % Neutrophils % 76.4 % Lymphocytes % 12.9 % Monocytes % 7.8 % Eosinophils % 1.2 % Basophils % 0.2 % Immature Gran # 0.14 H (0.00-0.04) 10*3/uL Neutrophils # 7.01 (1.80-7.70) 10*3/uL Lymphocytes # 1.19 (0.90-5.00) 10*3/uL Monocytes # 0.72 (0.20-1.00) 10*3/uL Eosinophils # 0.11 (0.04-0.35) 10*3/uL Basophils # 0.02 (0.00-0.10) 10*3/uL Manual Slide Review Performed PT 11.1 (10.0-12.5) sec INR 1.0 (<1.2) APTT 17.6 L (22.0-30.0) sec Sodium 137 (137-145) mmol/L Potassium 4.8 (3.5-5.1) mmol/L Chloride 105 (98-107) mmol/L Carbon Dioxide 18 L (22-30) mmol/L Anion Gap 14 mmol/L BUN 52 H (7-17) mg/dL Creatinine 1.26 H (0.52-1.04) mg/dL Est GFR (CKD-EPI)AfAm 47 (>60 ml/min/1.73 sqM) Est GFR (CKD-EPI)NonAf 41 (>60 ml/min/1.73 sqM) Glucose 137 H (74-99) mg/dL Calcium 9.1 (8.4-10.2) mg/dL Magnesium 2.3 (1.6-2.3) mg/dL Total Bilirubin 0.3 (0.2-1.3) mg/dL AST 19 (14-36) U/L ALT 11 (4-34) U/L Alkaline Phosphatase 155 H (38-126) U/L Total Protein 5.8 L (6.3-8.2) g/dL Albumin 3.2 L (3.5-5.0) g/dL Blood Type Blood Type Recheck Bld Type Recheck Status Antibody Screen Crossmatch Spec Expiration Date 04/16/25 Range/Units 16:40 WBC (4.50-10.00) 10*3/uL RBC (4.10-5.20) 10*6/uL Hgb (12.0-15.0) g/dL Hct (37.2-46.3) % MCV (80.0-97.0) fL MCH (27.0-32.0) pg MCHC (32.0-37.0) g/dL Plt Count (140-440) 10*3/uL MPV (9.5-12.2) fL Immature Gran % (Auto) % Neutrophils % % Lymphocytes % % Monocytes % % Eosinophils % % Basophils % % Immature Gran # (0.00-0.04) 10*3/uL Neutrophils # (1.80-7.70) 10*3/uL Lymphocytes # (0.90-5.00) 10*3/uL Monocytes # (0.20-1.00) 10*3/uL Eosinophils # (0.04-0.35) 10*3/uL Basophils # (0.00-0.10) 10*3/uL Manual Slide Review PT (10.0-12.5) sec INR (<1.2) APTT (22.0-30.0) sec Sodium (137-145) mmol/L Potassium (3.5-5.1) mmol/L Chloride (98-107) mmol/L Carbon Dioxide (22-30) mmol/L Anion Gap mmol/L BUN (7-17) mg/dL Creatinine (0.52-1.04) mg/dL Est GFR (CKD-EPI)AfAm (>60 ml/min/1.73 sqM) Est GFR (CKD-EPI)NonAf (>60 ml/min/1.73 sqM) Glucose (74-99) mg/dL Calcium (8.4-10.2) mg/dL Magnesium (1.6-2.3) mg/dL Total Bilirubin (0.2-1.3) mg/dL AST (14-36) U/L ALT (4-34) U/L Alkaline Phosphatase (38-126) U/L Total Protein (6.3-8.2) g/dL Albumin (3.5-5.0) g/dL Blood Type A Positive Blood Type Recheck A Pos Bld Type Recheck Status No Antibody Screen NEGATIVE Crossmatch See Detail Spec Expiration Date 04/19/20252339 Critical Care Time Critical Care Time: Yes Total Critical Care Time: 35 Disposition Clinical Impression: Anemia Disposition: ADMITTED IP TO THIS HOSP Condition: Stable Is patient prescribed a controlled substance at d/c from ED?: No Referrals: Delgado Carbone MD [Primary Care Provider] - 1-2 days Time of Disposition: 18:23
[2025-04-16 16:56] LABS: Basophils # (A) 0.02 10*3/uL (0.00-0.10); Basophils % (A) 0.2 %; Eosinophils # (A) 0.11 10*3/uL (0.04-0.35); Eosinophils % (A) 1.2 %; Lymphocytes # (A) 1.19 10*3/uL (0.90-5.00); Lymphocytes % (A) 12.9 %; MCHC 29.3 g/dL (32.0-37.0); MCV 88.7 fL (80.0-97.0); Mean Platelet Volume 9.4 fL (9.5-12.2); Monocytes # (A) 0.72 10*3/uL (0.20-1.00); Monocytes % (A) 7.8 %; Neutrophils # (A) 7.01 10*3/uL (1.80-7.70); Neutrophils % (A) 76.4 %; Platelet Count 487 10*3/uL (140-440); RBC 2.04 10*6/uL (4.10-5.20); RDW 19.5 % (11.5-14.5); WBC 9.19 10*3/uL (4.50-10.00)
[2025-04-16 17:08] LABS: HCT 18.1 % (37.2-46.3); HGB 5.3 g/dL (12.0-15.0)
[2025-04-16 17:12] LABS: ALT 11 U/L (4-34); AST 19 U/L (14-36); African American GFR (CKD) 47 (>60 ml/min/1.73 sqM); Albumin 3.2 g/dL (3.5-5.0); Alkaline Phosphatase 155 U/L (38-126); Anion Gap 14 mmol/L; Blood Urea Nitrogen 52 mg/dL (7-17); Calcium 9.1 mg/dL (8.4-10.2); Carbon Dioxide 18 mmol/L (22-30); Chloride 105 mmol/L (98-107); Glucose 137 mg/dL (74-99); Magnesium 2.3 mg/dL (1.6-2.3); Non-African American GFR(CKD) 41 (>60 ml/min/1.73 sqM); Potassium 4.8 mmol/L (3.5-5.1); Sodium 137 mmol/L (137-145); Total Bilirubin 0.3 mg/dL (0.2-1.3); Total Protein 5.8 g/dL (6.3-8.2)
[2025-04-16 17:16] LABS: Prothrombin Time 11.1 sec (10.0-12.5)
[2025-04-16 17:21] LABS: Partial Thromboplastin Time 17.6 sec (22.0-30.0)
[2025-04-16] MEDS ORDERED: NALOXONE 0.4 MG/ML 1 ML VIAL IV PRN (18:18)
[2025-04-16] MEDS ORDERED: ONDANSETRON 4 MG/2 ML VIAL IVP PRN (18:18)
[2025-04-16] MEDS: PANTOPRAZOLE 40 MG/10 ML VIAL IVP STA (18:25)
[2025-04-16] MEDS: PANTOPRAZOLE 40 MG/10 ML VIAL IVP SCH (21:47)
[2025-04-16 22:44] LABS: Appearance,Urine Cloudy (Clear); Bacteria,Urine Occasional /hpf; Bilirubin,Urine Negative (Negative); Blood,Urine Negative (Negative); Budding Yeast,Urine Occasional /hpf; Calcium Oxalate Crystals,Urine Rare /hpf; Color,Urine Light Yellow; Glucose,Urine (UA) Negative (Negative); Hyaline Casts,Urine 14 /lpf (0-2); Ketones,Urine Negative (Negative); Leukocyte Esterase,Urine Large (Negative); Mucus,Urine Rare /hpf; Nitrite,Urine Negative (Negative); Protein,Urine Negative (Negative); RBC,Urine 3 /hpf (0-5); Specific Gravity,Urine 1.015 (1.001-1.035); Squamous Epithelial Cell,Urine 12 /hpf (0-4); Urobilinogen,Urine <2.0 mg/dL (<2.0); WBC,Urine 43 /hpf (0-5)
[2025-04-16] MEDS: ACETAMINOPHEN TAB 325 MG TAB PO PRN (23:35)
[2025-04-17] MEDS: SODIUM CHLORIDE 0.9% 1,000 ML IV SCH (00:52)
[2025-04-17 02:24] LABS: Basophils # (A) 0.03 10*3/uL (0.00-0.10); Basophils % (A) 0.3 %; Eosinophils # (A) 0.09 10*3/uL (0.04-0.35); HCT 25.4 % (37.2-46.3); Lymphocytes # (A) 1.38 10*3/uL (0.90-5.00); Lymphocytes % (A) 14.7 %; MCH 27.3 pg (27.0-32.0); MCHC 30.7 g/dL (32.0-37.0); MCV 88.8 fL (80.0-97.0); Monocytes # (A) 0.91 10*3/uL (0.20-1.00); Monocytes % (A) 9.7 %; Neutrophils # (A) 6.84 10*3/uL (1.80-7.70); Neutrophils % (A) 72.6 %; Platelet Count 509 10*3/uL (140-440); RBC 2.86 10*6/uL (4.10-5.20); RDW 17.4 % (11.5-14.5); WBC 9.41 10*3/uL (4.50-10.00)
[2025-04-17 02:25] LABS: HGB 7.8 g/dL (12.0-15.0)
[2025-04-17 06:03] LABS: Basophils # (A) 0.03 10*3/uL (0.00-0.10); Basophils % (A) 0.3 %; Eosinophils # (A) 0.09 10*3/uL (0.04-0.35); HCT 26.4 % (37.2-46.3); HGB 8.1 g/dL (12.0-15.0); Lymphocytes # (A) 1.44 10*3/uL (0.90-5.00); Lymphocytes % (A) 15.9 %; MCHC 30.7 g/dL (32.0-37.0); Mean Platelet Volume 8.6 fL (9.5-12.2); Monocytes # (A) 0.82 10*3/uL (0.20-1.00); Monocytes % (A) 9.1 %; Neutrophils # (A) 6.51 10*3/uL (1.80-7.70); Platelet Count 498 10*3/uL (140-440); RDW 17.6 % (11.5-14.5); WBC 9.04 10*3/uL (4.50-10.00)
[2025-04-17] MEDS ORDERED: CLOTRIMAZOLE 1% CREAM 30 GM TUBE TOPICAL PRN (09:49)
[2025-04-17] MEDS ORDERED: NON FORMULARY DRUG (Acetaminophen [Tylenol 8 Hour] 650 MG Tablet) PO PRN (09:49)
--- NOTE | 2025-04-17 11:02 | P.GSCN ---
History of Present Illness Consult date: 04/17/25 History of present illness: CHIEF COMPLAINT: Weakness HISTORY OF PRESENT ILLNESS: This is a 80-year-old female who presented to hospital with weakness, fatigue and shortness of breath with ambulating. Patient was found to have a hemoglobin of 5.3 on admission. She has received 2 units of blood and hemoglobin is up to 8.1. Patient reports her stools have been black but she does take iron at home. Stool for occult blood was positive. Patient was in the hospital in February for anemia. On March 18, 2025 she had EGD and colonoscopy completed that reported pinpoint ulcer in the antrum, diverticulosis and internal hemorrhoids. Patient reports no blood in the stoo ls. Denies any abdominal pain. Denies any nausea or vomiting. PAST MEDICAL HISTORY: See below PAST SURGICAL HISTORY: See below MEDICATIONS: See below ALLERGIES: See below SOCIAL HISTORY: No illicit drug use. REVIEW OF SYSTEMS: CONSTITUTIONAL: Denies fever or chills. HEENT: Denies blurred vision, vision changes, or eye pain. Denies hemoptysis CARDIOVASCULAR: Denies chest pain or pressure. RESPIRATORY: No shortness of breath. GASTROINTESTINAL: See HPI for pertinent findings HEMATOLOGIC: Denies bleeding disorders. GENITOURINARY: Denies any blood in urine or increased urinary frequency. SKIN: Denies pruitis. Denies rash. PHYSICAL EXAM: VITAL SIGNS: Reviewed GENERAL: Pale. Well-developed in no acute distress. HEENT: No sclera icterus. Extraocular movements grossly intact. Moist buccal mucosa. Head is atraumatic, normocephalic. No nasal drainage. ABDOMEN: Soft. Nondistended. Nondistended NEUROLOGIC: Alert and oriented. Cranial nerves II through XII grossly intact. LABORATORY DATA: WBC 9.04 Hgb 5.3 up to 8.1 platelets 498 Sodium 137 potassium 4.8 BUN 52 creatinine 1.26 IMAGING: ASSESSMENT: 1. Symptomatic anemia requiring 2 units of blood. Status post EGD and colonoscopy on March 18, 2025 revealing a pinpoint ulcer in the antrum, diverticulosis and internal hemorrhoids. No active bleeding reported on endoscopy. Patient does take iron at home and is having black stools. PLAN: - Consult GI service for possible capsule endoscopy - Agree with hematology consult for further evaluation of anemia - Continue to monitor hemoglobin - Continue PPI Physician Associate Professor Of Literature note has been reviewed by physician. Signing provider agrees with the documented findings, assessment, and plan of care. Attestation Patient seen and examined at bedside. Presented with chief complaint of weakness. She was found to have hemoglobin of 5.3 on admission. She is status post 2 units of packed red blood cell with hemoglobin currently at 8.1. She is noted to have history of anemia and did undergo upper and lower endoscopy about 1 month ago. No evidence of active bleeding at the time and no obvious mass within the evaluated areas. She is found to have occult positive stool. She denies any gross blood in her stool. Recommendation made for GI consultation fo r evaluation for possible capsule endoscopy. Recommend hematology evaluation. Okay for clear liquid diet. Continue PPI. Dandre Pollard, DO Past Medical History Past Medical History: Cancer, Hyperlipidemia, Hypertension Additional Past Medical History / Comment(s): Recent hospitalization for pneumonia and low blood/iron counts-d/c 02/10/25, treatment completed. 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 Durbin, hx of melanoma. History of Any Multi-Drug Resistant Organisms: None Reported Past Surgical History: Appendectomy, Cholecystectomy, Heart Catheterization, Tubal Ligation Additional Past Surgical History / Comment(s): Melanoma removed L leg. Cataract removal B/L eyes. Past Anesthesia/Blood Transfusion Reactions: No Reported Reaction Additional Past Anesthesia/Blood Transfusion Reaction / Comm: . Past Psychological History: Anxiety, Depression Additional Psychological History / Comment(s): one year ago. Smoking Status: Never smoker Past Alcohol Use History: None Reported Past Drug Use History: None Reported - Past Family History Father Family Medical History: Cancer Mother Additional Family Medical History / Comment(s): Mother in her 90s in the hospital after she broke her hip, suddenly after she was taken off of blood thinners before hip surgery. Medications and Allergies Home Medications Medication Instructions Recorded Confirmed Type Atenolol [Tenormin] 50 mg PO DAILY 11/14/14 04/16/25 History Spironolactone [Aldactone] 25 mg PO DAILY 11/14/14 04/16/25 History amLODIPine BESYLATE [Norvasc] 2.5 mg PO DAILY 11/14/14 04/16/25 History cloNIDine HCL [Catapres] 0.2 mg PO TID 11/14/14 04/16/25 History Rosuvastatin [Crestor] 10 mg PO SUMOTH 01/24/18 04/16/25 History Losartan Potassium [Cozaar] 100 mg PO DAILY 11/27/18 04/16/25 History Acetaminophen [Tylenol 8 Hour] 650 mg PO HS PRN 02/07/25 04/16/25 History Aspirin EC [Ecotrin Low Dose] 81 mg PO DAILY 02/07/25 04/16/25 History Cholecalciferol [Vitamin D3 (125 125 mcg PO DAILY 02/07/25 04/16/25 History Mcg = 5000 Iu)] Furosemide [Lasix] 20 mg PO BID 02/07/25 04/16/25 History Ketoconazole 2% Cream [Nizoral 2%] 1 applic TOPICAL BID PRN 02/07/25 04/16/25 History LORazepam [Ativan] 0.25 - 0.5 mg PO Q6H PRN 02/07/25 04/16/25 History Potassium Chloride ER [K-Dur 10] 10 meq PO BID 02/07/25 04/16/25 History Vit C/E/Zn/Coppr/Lutein/Zeaxan 1 cap PO BID 02/07/25 04/16/25 History [Preservision Areds 2 Softgel] Cyanocobalamin [Vitamin B-12] 1,000 mcg PO DAILY #60 tab 02/10/25 04/16/25 Rx Ferrous Sulfate [Iron (65 MG 325 mg PO BID-W/MEALS #60 tab 02/10/25 04/16/25 Rx Elemental)] Folic Acid 1 mg PO DAILY #30 tab 02/10/25 04/16/25 Rx Pantoprazole [Protonix] 40 mg PO DAILY #30 tab 03/18/25 04/16/25 Rx Allergies Allergy/AdvReac Type Severity Reaction Status Date / Time Penicillins Allergy Rash/Hives Verified 04/16/25 19:43 Surgical - Exam Osteopathic Statement: *. No significant issues noted on an osteopathic structural exam other than those noted in the History and Physical/Consult. Vital Signs Temp Pulse Resp BP Pulse Ox 98.8 F 74 18 91/60 99 04/16/25 16:03 04/16/25 16:03 04/16/25 16:03 04/16/25 16:03 04/16/25 16:03 Results - Labs 04/17/25 05:50 04/16/25 16:40 Abnormal Lab Results - Last 24 Hours (Table) 04/16/25 04/16/25 04/16/25 Range/Units 16:40 16:40 16:40 RBC 2.04 L (4.10-5.20) 10*6/uL Hgb 5.3 L* D (12.0-15.0) g/dL Hct 18.1 L* (37.2-46.3) % MCH 26.0 L (27.0-32.0) pg MCHC 29.3 L (32.0-37.0) g/dL Plt Count 487 H (140-440) 10*3/uL MPV 9.4 L (9.5-12.2) fL Immature Gran # 0.14 H (0.00-0.04) 10*3/uL APTT 17.6 L (22.0-30.0) sec Carbon Dioxide 18 L (22-30) mmol/L BUN 52 H (7-17) mg/dL Creatinine 1.26 H (0.52-1.04) mg/dL Glucose 137 H (74-99) mg/dL Alkaline Phosphatase 155 H (38-126) U/L Lactate Dehydrogenase (120-246) U/L Total Protein 5.8 L (6.3-8.2) g/dL Albumin 3.2 L (3.5-5.0) g/dL Urine Appearance (Clear) Ur Leukocyte Esterase (Negative) Urine WBC (0-5) /hpf Ur Squamous Epith Cells (0-4) /hpf Calcium Oxalate Crystal (None) /hpf Urine Bacteria (None) /hpf Hyaline Casts (0-2) /lpf Urine Mucus (None) /hpf Urine Yeast (Budding) (None) /hpf Stool Occult Blood (Negative) Crossmatch 04/16/25 04/16/25 04/17/25 Range/Units 16:40 22:30 00:41 RBC (4.10-5.20) 10*6/uL Hgb (12.0-15.0) g/dL Hct (37.2-46.3) % MCH (27.0-32.0) pg MCHC (32.0-37.0) g/dL Plt Count (140-440) 10*3/uL MPV (9.5-12.2) fL Immature Gran # (0.00-0.04) 10*3/uL APTT (22.0-30.0) sec Carbon Dioxide (22-30) mmol/L BUN (7-17) mg/dL Creatinine (0.52-1.04) mg/dL Glucose (74-99) mg/dL Alkaline Phosphatase (38-126) U/L Lactate Dehydrogenase (120-246) U/L Total Protein (6.3-8.2) g/dL Albumin (3.5-5.0) g/dL Urine Appearance Cloudy H (Clear) Ur Leukocyte Esterase Large H (Negative) Urine WBC 43 H (0-5) /hpf Ur Squamous Epith Cells 12 H (0-4) /hpf Calcium Oxalate Crystal Rare H (None) /hpf Urine Bacteria Occasional H (None) /hpf Hyaline Casts 14 H (0-2) /lpf Urine Mucus Rare H (None) /hpf Urine Yeast (Budding) Occasional H (None) /hpf Stool Occult Blood Positive H (Negative) Crossmatch See Detail 04/17/25 04/17/25 04/17/25 Range/Units 01:21 05:50 09:58 RBC 2.86 L 3.00 L (4.10-5.20) 10*6/uL Hgb 7.8 L D 8.1 L (12.0-15.0) g/dL Hct 25.4 L 26.4 L (37.2-46.3) % MCH (27.0-32.0) pg MCHC 30.7 L 30.7 L (32.0-37.0) g/dL Plt Count 509 H 498 H (140-440) 10*3/uL MPV 9.0 L 8.6 L (9.5-12.2) fL Immature Gran # 0.16 H 0.15 H (0.00-0.04) 10*3/uL APTT (22.0-30.0) sec Carbon Dioxide (22-30) mmol/L BUN (7-17) mg/dL Creatinine (0.52-1.04) mg/dL Glucose (74-99) mg/dL Alkaline Phosphatase (38-126) U/L Lactate Dehydrogenase 613 H (120-246) U/L Total Protein (6.3-8.2) g/dL Albumin (3.5-5.0) g/dL Urine Appearance (Clear) Ur Leukocyte Esterase (Negative) Urine WBC (0-5) /hpf Ur Squamous Epith Cells (0-4) /hpf Calcium Oxalate Crystal (None) /hpf Urine Bacteria (None) /hpf Hyaline Casts (0-2) /lpf Urine Mucus (None) /hpf Urine Yeast (Budding) (None) /hpf Stool Occult Blood (Negative) Crossmatch Diabetes panel 04/16/25 Range/Units 16:40 Sodium 137 (137-145) mmol/L Potassium 4.8 (3.5-5.1) mmol/L Chloride 105 (98-107) mmol/L Carbon Dioxide 18 L (22-30) mmol/L BUN 52 H (7-17) mg/dL Creatinine 1.26 H (0.52-1.04) mg/dL Glucose 137 H (74-99) mg/dL Calcium 9.1 (8.4-10.2) mg/dL AST 19 (14-36) U/L ALT 11 (4-34) U/L Alkaline Phosphatase 155 H (38-126) U/L Total Protein 5.8 L (6.3-8.2) g/dL Albumin 3.2 L (3.5-5.0) g/dL Calcium panel 04/16/25 Range/Units 16:40 Calcium 9.1 (8.4-10.2) mg/dL Albumin 3.2 L (3.5-5.0) g/dL Pituitary panel 04/16/25 Range/Units 16:40 Sodium 137 (137-145) mmol/L Potassium 4.8 (3.5-5.1) mmol/L Chloride 105 (98-107) mmol/L Carbon Dioxide 18 L (22-30) mmol/L BUN 52 H (7-17) mg/dL Creatinine 1.26 H (0.52-1.04) mg/dL Glucose 137 H (74-99) mg/dL Calcium 9.1 (8.4-10.2) mg/dL Adrenal panel 04/16/25 Range/Units 16:40 Sodium 137 (137-145) mmol/L Potassium 4.8 (3.5-5.1) mmol/L Chloride 105 (98-107) mmol/L Carbon Dioxide 18 L (22-30) mmol/L BUN 52 H (7-17) mg/dL Creatinine 1.26 H (0.52-1.04) mg/dL Glucose 137 H (74-99) mg/dL Calcium 9.1 (8.4-10.2) mg/dL Total Bilirubin 0.3 (0.2-1.3) mg/dL AST 19 (14-36) U/L ALT 11 (4-34) U/L Alkaline Phosphatase 155 H (38-126) U/L Total Protein 5.8 L (6.3-8.2) g/dL Albumin 3.2 L (3.5-5.0) g/dL
[2025-04-17] MEDS: amLODIPine 2.5 MG TAB PO SCH (12:26)
[2025-04-17] MEDS: CHOLECALCIFEROL 125 MCG (5000 IU) TABLET PO SCH (12:27)
[2025-04-17] MEDS: CYANOCOBALAMIN 500 MCG TAB PO SCH (12:27)
[2025-04-17] MEDS: atenoloL 50 MG TAB PO SCH (12:27)
[2025-04-17] MEDS: ATORVASTATIN 20 MG TAB PO SCH (12:27)
--- NOTE | 2025-04-17 14:47 | P.CONS ---
History of Present Illness - Reason for Consult Consult date: 04/17/25 Possible small bowel capsule endoscopy Requesting physician: Magalie Nogueira - Chief Complaint Weakness and fatigue, exertional dyspnea - History of Present Illness This a pleasant 80-year-old female with a past medical history including hyperlipidemia, hypertension, melanoma, anemia with evaluation for GI bleed. She was found to have a hemoglobin of 5.3 on admission. She is status post 2 units of blood with a repeat hemoglobin of 8.1. Patient was recently worked up for anemia in the hospital in February. She underwent upper endoscopy and colonoscopy on March 18, 2025 with findings of pinpoint ulcer in the antrum on upper endoscopy and colonoscopy with reported findings of diverticulosis and internal hemorrhoids. Patient does endorse black stools but she has been on iron. Stool occult blood was positive. Denies any bright red blood in the stool, no abdominal pain nausea or vomiting. She denies any anticoagulation or NSAID use. She does take 81 mg aspirin daily. In January this year she had anemia profile with iron studies iron was 10 TIBC 260 saturation 3.8 ferritin was 264 completed on 02/14/2025. Patient is teary-eyed and concerned regarding going home and this happening again. Review of Systems REVIEW OF SYSTEMS: CARDIOPULMONARY: No chest pain. Shortness of breath with exertion and walking. Gastrointestinal: No abdominal pain. No nausea or vomiting. No hematemesis, coffee-ground emesis. No rectal bleeding, or melena. Patient does report black stool but is on oral iron. GENITOURINARY: No dysuria or hematuria. MUSCULOSKELETAL: Reports normal range of motion., Joint pain. SKIN: No rashes. No jaundice. ENDOCRINE: No chills, fevers. No excessive weight gain or loss. No polydipsia or polyuria. PSYCHIATRIC: Unremarkable. NEUROLOGY: No change in mental status. Denies dizziness, headache. ENT: Vision unremarkable. CONSTITUTIONAL: No recent weight loss. No fever, chills, night sweats. Increased fatigue and weakness. Past Medical History Past Medical History: Cancer, Hyperlipidemia, Hypertension Additional Past Medical History / Comment(s): Recent hospitalization for pneumonia and low blood/iron counts-d/c 02/10/25, treatment completed. 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 Durbin, hx of melanoma. History of Any Multi-Drug Resistant Organisms: None Reported Past Surgical History: Appendectomy, Cholecystectomy, Heart Catheterization, Tubal Ligation Additional Past Surgical History / Comment(s): Melanoma removed L leg. Cataract removal B/L eyes. Past Anesthesia/Blood Transfusion Reactions: No Reported Reaction Additional Past Anesthesia/Blood Transfusion Reaction / Comm: . Past Psychological History: Anxiety, Depression Additional Psychological History / Comment(s): one year ago. Smoking Status: Never smoker Past Alcohol Use History: None Reported Past Drug Use History: None Reported - Past Family History Father Family Medical History: Cancer Mother Additional Family Medical History / Comment(s): Mother in her 90s in the hospital after she broke her hip, suddenly after she was taken off of blood thinners before hip surgery. Medications and Allergies Home Medications Medication Instructions Recorded Confirmed Type Atenolol [Tenormin] 50 mg PO DAILY 11/14/14 04/16/25 History Spironolactone [Aldactone] 25 mg PO DAILY 11/14/14 04/16/25 History amLODIPine BESYLATE [Norvasc] 2.5 mg PO DAILY 11/14/14 04/16/25 History cloNIDine HCL [Catapres] 0.2 mg PO TID 11/14/14 04/16/25 History Rosuvastatin [Crestor] 10 mg PO SUMOTH 01/24/18 04/16/25 History Losartan Potassium [Cozaar] 100 mg PO DAILY 11/27/18 04/16/25 History Acetaminophen [Tylenol 8 Hour] 650 mg PO HS PRN 02/07/25 04/16/25 History Aspirin EC [Ecotrin Low Dose] 81 mg PO DAILY 02/07/25 04/16/25 History Cholecalciferol [Vitamin D3 (125 125 mcg PO DAILY 02/07/25 04/16/25 History Mcg = 5000 Iu)] Furosemide [Lasix] 20 mg PO BID 02/07/25 04/16/25 History Ketoconazole 2% Cream [Nizoral 2%] 1 applic TOPICAL BID PRN 02/07/25 04/16/25 History LORazepam [Ativan] 0.25 - 0.5 mg PO Q6H PRN 02/07/25 04/16/25 History Potassium Chloride ER [K-Dur 10] 10 meq PO BID 02/07/25 04/16/25 History Vit C/E/Zn/Coppr/Lutein/Zeaxan 1 cap PO BID 02/07/25 04/16/25 History [Preservision Areds 2 Softgel] Cyanocobalamin [Vitamin B-12] 1,000 mcg PO DAILY #60 tab 02/10/25 04/16/25 Rx Ferrous Sulfate [Iron (65 MG 325 mg PO BID-W/MEALS #60 tab 02/10/25 04/16/25 Rx Elemental)] Folic Acid 1 mg PO DAILY #30 tab 02/10/25 04/16/25 Rx Pantoprazole [Protonix] 40 mg PO DAILY #30 tab 03/18/25 04/16/25 Rx Allergies Allergy/AdvReac Type Severity Reaction Status Date / Time Penicillins Allergy Rash/Hives Verified 04/16/25 19:43 Physical Exam Vitals: Vital Signs Temp Pulse Pulse Resp BP BP Pulse Ox 04/17/25 12:00 98.0 F 69 16 130/76 100 04/17/25 08:45 98.1 F 66 16 144/67 99 04/17/25 03:20 98.1 F 71 16 120/65 97 04/17/25 00:33 98.4 F 74 16 116/77 96 04/16/25 23:35 98.2 F 70 16 151/80 98 04/16/25 22:10 98.6 F 74 18 119/73 04/16/25 21:50 98.5 F 72 18 113/72 97 04/16/25 21:12 98.8 F 72 18 115/65 99 04/16/25 20:40 98.3 F 70 12 108/93 70 L 04/16/25 20:14 66 16 100/53 96 04/16/25 19:10 98.9 F 67 22 105/58 97 04/16/25 18:50 99.1 F 69 20 124/55 98 04/16/25 18:40 98.1 F 72 16 104/79 98 04/16/25 16:03 98.8 F 74 18 91/60 99 Intake and Output 04/16/25 04/17/25 04/17/25 22:59 06:59 14:59 Intake Total 310 310 Output Total 250 Balance 60 310 Intake: Blood Product 310 310 Rc As-1 Unit 0 310 [id number] Rc As-1 Unit 310 [id number] Output: Urine 250 Other: Voiding Method Bedside Commode Bedside Commode Bedside Commode # Voids 1 2 Weight 81.647 kg 81.7 kg General appearance: The patient is alert, oriented, appears in no acute distress. HET: Head is normocephalic and atraumatic. Conjunctiva pink. Sclera anicteric. Neck: Supple without lymphadenopathy. Trachea midline. Heart: Regular. Lungs: Equal expansion, normal respiratory effort. Abdomen: Soft, nontender, nondistended. Skin: No rashes. No jaundice. Extremities: Normal skin color and turgor. No pedal edema. Neurological: No focal deficits. Alert and oriented x3. Results CBC & Chem 7: 04/17/25 05:50 04/16/25 16:40 Labs: Abnormal Lab Results - Last 24 Hours (Table) 04/16/25 04/16/25 04/16/25 Range/Units 16:40 16:40 16:40 RBC 2.04 L (4.10-5.20) 10*6/uL Hgb 5.3 L* D (12.0-15.0) g/dL Hct 18.1 L* (37.2-46.3) % MCH 26.0 L (27.0-32.0) pg MCHC 29.3 L (32.0-37.0) g/dL Plt Count 487 H (140-440) 10*3/uL MPV 9.4 L (9.5-12.2) fL Immature Gran # 0.14 H (0.00-0.04) 10*3/uL APTT 17.6 L (22.0-30.0) sec Carbon Dioxide 18 L (22-30) mmol/L BUN 52 H (7-17) mg/dL Creatinine 1.26 H (0.52-1.04) mg/dL Glucose 137 H (74-99) mg/dL Alkaline Phosphatase 155 H (38-126) U/L Lactate Dehydrogenase (120-246) U/L Total Protein 5.8 L (6.3-8.2) g/dL Albumin 3.2 L (3.5-5.0) g/dL Urine Appearance (Clear) Ur Leukocyte Esterase (Negative) Urine WBC (0-5) /hpf Ur Squamous Epith Cells (0-4) /hpf Calcium Oxalate Crystal (None) /hpf Urine Bacteria (None) /hpf Hyaline Casts (0-2) /lpf Urine Mucus (None) /hpf Urine Yeast (Budding) (None) /hpf Stool Occult Blood (Negative) Crossmatch 04/16/25 04/16/25 04/17/25 Range/Units 16:40 22:30 00:41 RBC (4.10-5.20) 10*6/uL Hgb (12.0-15.0) g/dL Hct (37.2-46.3) % MCH (27.0-32.0) pg MCHC (32.0-37.0) g/dL Plt Count (140-440) 10*3/uL MPV (9.5-12.2) fL Immature Gran # (0.00-0.04) 10*3/uL APTT (22.0-30.0) sec Carbon Dioxide (22-30) mmol/L BUN (7-17) mg/dL Creatinine (0.52-1.04) mg/dL Glucose (74-99) mg/dL Alkaline Phosphatase (38-126) U/L Lactate Dehydrogenase (120-246) U/L Total Protein (6.3-8.2) g/dL Albumin (3.5-5.0) g/dL Urine Appearance Cloudy H (Clear) Ur Leukocyte Esterase Large H (Negative) Urine WBC 43 H (0-5) /hpf Ur Squamous Epith Cells 12 H (0-4) /hpf Calcium Oxalate Crystal Rare H (None) /hpf Urine Bacteria Occasional H (None) /hpf Hyaline Casts 14 H (0-2) /lpf Urine Mucus Rare H (None) /hpf Urine Yeast (Budding) Occasional H (None) /hpf Stool Occult Blood Positive H (Negative) Crossmatch See Detail 04/17/25 04/17/25 04/17/25 Range/Units 01:21 05:50 09:58 RBC 2.86 L 3.00 L (4.10-5.20) 10*6/uL Hgb 7.8 L D 8.1 L (12.0-15.0) g/dL Hct 25.4 L 26.4 L (37.2-46.3) % MCH (27.0-32.0) pg MCHC 30.7 L 30.7 L (32.0-37.0) g/dL Plt Count 509 H 498 H (140-440) 10*3/uL MPV 9.0 L 8.6 L (9.5-12.2) fL Immature Gran # 0.16 H 0.15 H (0.00-0.04) 10*3/uL APTT (22.0-30.0) sec Carbon Dioxide (22-30) mmol/L BUN (7-17) mg/dL Creatinine (0.52-1.04) mg/dL Glucose (74-99) mg/dL Alkaline Phosphatase (38-126) U/L Lactate Dehydrogenase 613 H (120-246) U/L Total Protein (6.3-8.2) g/dL Albumin (3.5-5.0) g/dL Urine Appearance (Clear) Ur Leukocyte Esterase (Negative) Urine WBC (0-5) /hpf Ur Squamous Epith Cells (0-4) /hpf Calcium Oxalate Crystal (None) /hpf Urine Bacteria (None) /hpf Hyaline Casts (0-2) /lpf Urine Mucus (None) /hpf Urine Yeast (Budding) (None) /hpf Stool Occult Blood (Negative) Crossmatch Assessment and Plan (1) Anemia Narrative/Plan: 80-year-old female who was recently admitted and had underwent upper endoscopy and colonoscopy on 03/18/[address] Hurst as part of her workup for anemia. EGD with finding of a pinpoint lesion in the antrum suspected of nonbleeding ulcer, colonoscopy with diverticulosis and internal hemorrhoids. Patient states she has black stool but she also has been on oral iron. presenting hemoglobin of 5.3. Positive occult stool however patient does have internal hemorrhoids so may be false positive. Need to consider small bowel as possible etiology for GI blood loss. Will plan for small bowel capsule endoscopy. Patient agreeable. Treat symptomatically, transfuse as needed for hemoglobin less than 7. Current Visit: Yes Status: Acute Code(s): D64.9 - ANEMIA, UNSPECIFIED SNOMED Code(s): 649886801 (2) Occult blood positive stool Current Visit: Yes Status: Acute Code(s): R19.5 - OTHER FECAL ABNORMALITIES SNOMED Code(s): 03275440 Plan: 1. Continue symptomatic and supportive care 2. Continue clear liquid diet 3. Daily CBC, transfuse for hemoglobin less than 7 4. Protonix 40 mg daily for GI prophylaxis 5. Will plan for small bowel capsule endoscopy Monday evening or Monday morning when capsule study available with outpatient follow-up for results 6. Continue with further recommendations from hematology 7. Rest of medical management per primary medical team Thank you for this consultation, we will continue to follow. Dr. Katherine Patterson I agree with the dictator's note, documented as a scribe by Kanwal Zuniga.
[2025-04-17 15:36] LABS: Reticulocyte % 4.33 % (0.10-1.80)
[2025-04-17] MEDS ORDERED: FUROSEMIDE 20 MG TAB PO SCH (16:00)
[2025-04-17 16:10] LABS: % Iron Saturation 4.8 (12.00-45.00); Ferritin 77.1 ng/mL (10.0-291.0)
[2025-04-17] MEDS ORDERED: DEXTROSE 50% SYRINGE 50 ML IVP PRN ×2 (16:44)
--- NOTE | 2025-04-17 16:45 | P.HPIM ---
History of Present Illness H&P Date: 04/17/25 Patient is a 80-year-old female with history of hyperlipidemia and hypertension was sent to the ER for further evaluation by her PCP for low hemoglobin. Patient was recently hospitalized for pneumonia and symptomatic anemia and received 2 units of transfusion. EGD showed a pinpoint lesion representing an ulcer in the antrum. Colonoscopy showed diverticulosis and internal hemorrhoids. No active bleeding site was identified. Patient has since been fairly stable however for the past 2 days that she has been feeling progressively weaker with exertional dyspnea. She was evaluated by her PCP and her lab work was significant for anemia. Extensive evaluation in the ER shows hemoglobin 5.3 hematocrit 18.1. Patient received 2 units of packed RBC. Repeat blood work shows improvement in her hemoglobin to 8.1. No active bleeding. No bloody or tarry colored stools noted by patient. Patient reports she is feeling slightly better. Rest of blood work shows sodium 137, potassium 4.8, BUN 52, creatinine 1.26, glucose 137. Urinalysis remarkable for hyaline casts. EKG shows normal sinus rhythm with ventricular rate of 72 bpm, MT interval 197 ms, QRS duration 154 ms, QTc 438 ms. Right bundle branch block. Poor R wave progression. Vital signs on arrival shows temperature 98.8 F, pulse rate of 74, respiration rate of 18, blood pressure 91/60, oxygen saturation 99% on room air. Patient otherwise not complaining of chest pain, abdominal pain, diarrhea, constipation, numbness or tingling in upper or lower extremities. Review of systems: Pertinent positives and negatives as discussed in HPI, a complete review of systems was performed and all other systems are negative. Physical examination: Vital signs reviewed General: non toxic, no distress, appears at stated age, obese Derm: no unusual rashes/lesions, warm Head: atraumatic, normocephalic, symmetric Eyes: EOMI, no lid lag, anicteric sclera, pupils equal round reactive to light ENT: Nose and ears atraumatic Neck: No cervical lymphadenopathy, trachea midline, supple Mouth: no lip lesion, mucus membranes moist Cardiovascular: S1S2 reg, no murmur, positive dorsalis pedis pulse bilateral, no edema Lungs: CTA bilateral, no rhonchi, no rales, no accessory muscle use Abdominal: soft, nontender to palpation, no guarding Ext: muscle strength 5 out of 5 in all 4 extremities grossly, no gross muscle atrophy, no contractures, Neuro: CN II-XI grossly intact, no gross focal neuro deficits Psych: Alert, oriented, appropriate affect Assessment/Plan: This is a 80-year-old female with history of hyperlipidemia and hypertension was sent to the ER for further evaluation by her PCP for low hemoglobin. Case was discussed with the Emergency Room provider and decision was made to admit the patient for symptomatic anemia. Labs and images: hemoglobin 5.3 hematocrit 18.1. Patient received 2 units of packed RBC. Repeat blood work shows improvement in her hemoglobin to 8.1. sodium 137, potassium 4.8, BUN 52, creatinine 1.26, glucose 137. Urinalysis remarkable for hyaline casts. EKG shows normal sinus rhythm with ventricular rate of 72 bpm, MT interval 197 ms, QRS duration 154 ms, QTc 438 ms. Right bundle branch block. Poor R wave progression. Active: #Symptomatic normocytic anemia #Suspected upper GI bleed Status post 2 units of packed RBC IV Protonix 40 mg once daily Transfuse with PRBC if hemoglobin less than 7 Monitor hemoglobin Repeat CBC in a.m. Consult GI, hematology and general surgery Order iron studies reticulocyte, vitamin B12, folate, LDH, haptoglobin Start patient on IV iron infusions Recent EGD showed nonbleeding ulcer in the gastric antrum and colonoscopy unremarkable, consider capsule endoscopy Hold anticoagulants #Prerenal SHIRA Continue monitor BMP IV fluids Avoid nephrotoxins #Hyperglycemia Sliding scale Monitor for hypoglycemia Chronic conditions: Resume medications DVT prophylaxis: SCDs GI prophylaxis: IV Protonix F: Replete as needed E: Replete as needed N: Clear liquid diet A: Ambulatory baseline The patient is admitted with an anticipated < than 2 midnight stay for evaluation of severe anemia CODE STATUS: No code Discussed with: Patient Anticipated discharge place: Pending clinical course Dictation was produced using [employer] dictation software. Please excuse any grammatical, word or spelling errors. Past Medical History Past Medical History: Cancer, Hyperlipidemia, Hypertension Additional Past Medical History / Comment(s): Recent hospitalization for pneumonia and low blood/iron counts-d/c 02/10/25, treatment completed. 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 Durbin, hx of melanoma. History of Any Multi-Drug Resistant Organisms: None Reported Past Surgical History: Appendectomy, Cholecystectomy, Heart Catheterization, Tubal Ligation Additional Past Surgical History / Comment(s): Melanoma removed L leg. Cataract removal B/L eyes. Past Anesthesia/Blood Transfusion Reactions: No Reported Reaction Additional Past Anesthesia/Blood Transfusion Reaction / Comment(s): . Past Psychological History: Anxiety, Depression Additional Psychological History / Comment(s): one year ago. Smoking Status: Never smoker Past Alcohol Use History: None Reported Past Drug Use History: None Reported - Past Family History Father Family Medical History: Cancer Mother Additional Family Medical History / Comment(s): Mother in her 90s in the hospital after she broke her hip, suddenly after she was taken off of blood thinners before hip surgery. Medications and Allergies Home Medications Medication Instructions Recorded Confirmed Type Atenolol [Tenormin] 50 mg PO DAILY 11/14/14 04/16/25 History Spironolactone [Aldactone] 25 mg PO DAILY 11/14/14 04/16/25 History amLODIPine BESYLATE [Norvasc] 2.5 mg PO DAILY 11/14/14 04/16/25 History cloNIDine HCL [Catapres] 0.2 mg PO TID 11/14/14 04/16/25 History Rosuvastatin [Crestor] 10 mg PO SUMOTH 01/24/18 04/16/25 History Losartan Potassium [Cozaar] 100 mg PO DAILY 11/27/18 04/16/25 History Acetaminophen [Tylenol 8 Hour] 650 mg PO HS PRN 02/07/25 04/16/25 History Aspirin EC [Ecotrin Low Dose] 81 mg PO DAILY 02/07/25 04/16/25 History Cholecalciferol [Vitamin D3 (125 125 mcg PO DAILY 02/07/25 04/16/25 History Mcg = 5000 Iu)] Furosemide [Lasix] 20 mg PO BID 02/07/25 04/16/25 History Ketoconazole 2% Cream [Nizoral 2%] 1 applic TOPICAL BID PRN 02/07/25 04/16/25 History LORazepam [Ativan] 0.25 - 0.5 mg PO Q6H PRN 02/07/25 04/16/25 History Potassium Chloride ER [K-Dur 10] 10 meq PO BID 02/07/25 04/16/25 History Vit C/E/Zn/Coppr/Lutein/Zeaxan 1 cap PO BID 02/07/25 04/16/25 History [Preservision Areds 2 Softgel] Cyanocobalamin [Vitamin B-12] 1,000 mcg PO DAILY #60 tab 02/10/25 04/16/25 Rx Ferrous Sulfate [Iron (65 MG 325 mg PO BID-W/MEALS #60 tab 02/10/25 04/16/25 Rx Elemental)] Folic Acid 1 mg PO DAILY #30 tab 02/10/25 04/16/25 Rx Pantoprazole [Protonix] 40 mg PO DAILY #30 tab 03/18/25 04/16/25 Rx Allergies Allergy/AdvReac Type Severity Reaction Status Date / Time Penicillins Allergy Rash/Hives Verified 04/16/25 19:43 Physical Exam Vitals: Vital Signs Temp Pulse Pulse Resp BP BP Pulse Ox 04/17/25 03:20 98.1 F 71 16 120/65 97 04/17/25 00:33 98.4 F 74 16 116/77 96 04/16/25 23:35 98.2 F 70 16 151/80 98 04/16/25 22:10 98.6 F 74 18 119/73 04/16/25 21:50 98.5 F 72 18 113/72 97 04/16/25 21:12 98.8 F 72 18 115/65 99 04/16/25 20:40 98.3 F 70 12 108/93 70 L 04/16/25 20:14 66 16 100/53 96 04/16/25 19:10 98.9 F 67 22 105/58 97 04/16/25 18:50 99.1 F 69 20 124/55 98 04/16/25 18:40 98.1 F 72 16 104/79 98 04/16/25 16:03 98.8 F 74 18 91/60 99 Intake and Output 04/16/25 04/17/25 04/17/25 22:59 06:59 14:59 Intake Total 310 310 Output Total 250 Balance 60 310 Intake: Blood Product 310 310 Rc As-1 Unit 0 310 [id number] Rc As-1 Unit 310 [id number] Output: Urine 250 Other: Voiding Method Bedside Commode Bedside Commode # Voids 1 1 Weight 81.647 kg 81.7 kg Results CBC & Chem 7: 04/17/25 05:50 04/16/25 16:40 Labs: Abnormal Lab Results - Last 24 Hours (Table) 05/28/25 05/28/25 05/28/25 Range/Units 16:40 16:40 16:40 RBC 2.04 L (4.10-5.20) 10*6/uL Hgb 5.3 L* D (12.0-15.0) g/dL Hct 18.1 L* (37.2-46.3) % MCH 26.0 L (27.0-32.0) pg MCHC 29.3 L (32.0-37.0) g/dL Plt Count 487 H (140-440) 10*3/uL MPV 9.4 L (9.5-12.2) fL Immature Gran # 0.14 H (0.00-0.04) 10*3/uL APTT 17.6 L (22.0-30.0) sec Carbon Dioxide 18 L (22-30) mmol/L BUN 52 H (7-17) mg/dL Creatinine 1.26 H (0.52-1.04) mg/dL Glucose 137 H (74-99) mg/dL Alkaline Phosphatase 155 H (38-126) U/L Total Protein 5.8 L (6.3-8.2) g/dL Albumin 3.2 L (3.5-5.0) g/dL Urine Appearance (Clear) Ur Leukocyte Esterase (Negative) Urine WBC (0-5) /hpf Ur Squamous Epith Cells (0-4) /hpf Calcium Oxalate Crystal (None) /hpf Urine Bacteria (None) /hpf Hyaline Casts (0-2) /lpf Urine Mucus (None) /hpf Urine Yeast (Budding) (None) /hpf Stool Occult Blood (Negative) Crossmatch 04/16/25 04/16/25 04/17/25 Range/Units 16:40 22:30 00:41 RBC (4.10-5.20) 10*6/uL Hgb (12.0-15.0) g/dL Hct (37.2-46.3) % MCH (27.0-32.0) pg MCHC (32.0-37.0) g/dL Plt Count (140-440) 10*3/uL MPV (9.5-12.2) fL Immature Gran # (0.00-0.04) 10*3/uL APTT (22.0-30.0) sec Carbon Dioxide (22-30) mmol/L BUN (7-17) mg/dL Creatinine (0.52-1.04) mg/dL Glucose (74-99) mg/dL Alkaline Phosphatase (38-126) U/L Total Protein (6.3-8.2) g/dL Albumin (3.5-5.0) g/dL Urine Appearance Cloudy H (Clear) Ur Leukocyte Esterase Large H (Negative) Urine WBC 43 H (0-5) /hpf Ur Squamous Epith Cells 12 H (0-4) /hpf Calcium Oxalate Crystal Rare H (None) /hpf Urine Bacteria Occasional H (None) /hpf Hyaline Casts 14 H (0-2) /lpf Urine Mucus Rare H (None) /hpf Urine Yeast (Budding) Occasional H (None) /hpf Stool Occult Blood Positive H (Negative) Crossmatch See Detail 04/17/25 04/17/25 Range/Units 01:21 05:50 RBC 2.86 L 3.00 L (4.10-5.20) 10*6/uL Hgb 7.8 L D 8.1 L (12.0-15.0) g/dL Hct 25.4 L 26.4 L (37.2-46.3) % MCH (27.0-32.0) pg MCHC 30.7 L 30.7 L (32.0-37.0) g/dL Plt Count 509 H 498 H (140-440) 10*3/uL MPV 9.0 L 8.6 L (9.5-12.2) fL Immature Gran # 0.16 H 0.15 H (0.00-0.04) 10*3/uL APTT (22.0-30.0) sec Carbon Dioxide (22-30) mmol/L BUN (7-17) mg/dL Creatinine (0.52-1.04) mg/dL Glucose (74-99) mg/dL Alkaline Phosphatase (38-126) U/L Total Protein (6.3-8.2) g/dL Albumin (3.5-5.0) g/dL Urine Appearance (Clear) Ur Leukocyte Esterase (Negative) Urine WBC (0-5) /hpf Ur Squamous Epith Cells (0-4) /hpf Calcium Oxalate Crystal (None) /hpf Urine Bacteria (None) /hpf Hyaline Casts (0-2) /lpf Urine Mucus (None) /hpf Urine Yeast (Budding) (None) /hpf Stool Occult Blood (Negative) Crossmatch Thrombosis Risk Factor Assmnt - Choose All That Apply Any of the Below Risk Factors Present?: No Each Risk Factor Represents 3 Points: Age 75 years or older Thrombosis Risk Factor Assessment Total Risk Factor Score: 3 Thrombosis Risk Factor Assessment Level: Moderate Risk
[2025-04-17 17:11] LABS: Glucose,Whole Blood 122 mg/dL (70-110)
[2025-04-17] MEDS: INSULIN LISPRO (HumaLOG) 100 UNIT/ML 10 mL VL SQ SCH (17:40)
[2025-04-17] MEDS: FERROUS SULFATE 325 MG TAB PO SCH (17:42)
[2025-04-17] MEDS: cloNIDine HCL 0.2 MG TAB PO SCH (17:42)
[2025-04-17] MEDS: SODIUM FERRIC GLUCONAT-SUCROSE 125 MG in SODIUM CHLORIDE 0.9% 100 ML IVPB ONE (18:24)
--- NOTE | 2025-04-17 18:59 | P.CONS ---
History of Present Illness - Reason for Consult Consult date: 04/17/25 anemia Requesting physician: Hank Collado - Chief Complaint sob, dizziness, weakness - History of Present Illness Patient is a 80-year-old female who presented the emergency room with complaints of shortness of breath, dizziness and weakness. Consult was placed for anemia. On admit hemoglobin was noted at 5.3, MCV 88.7. She was transfused 2 units of blood with appropriate response, hemoglobin today 8.1. WBC 9.1, platelets 487,000. Creatinine 1.26, GFR 41, BUN 52. Bilirubin normal at 0.3. Last month patient was admitted for anemia and received blood transfusion. Anemia labs from 01/2025 showed iron saturation 3.8%, vitamin B12 268, folate 3.8, and fe rritin 164. Status post EGD and colonoscopy on March 18, 2025 revealing a pinpoint ulcer in the antrum, diverticulosis and internal hemorrhoids. No active bleeding reported on endoscopy. Patient does take baby aspirin for history of aneurysm. She states stools have been darker in color since starting oral iron. Review of Systems 10 point ROS is negative except as stated in the HPI Past Medical History Past Medical History: Cancer, Hyperlipidemia, Hypertension Additional Past Medical History / Comment(s): Recent hospitalization for pneumonia and low blood/iron counts-d/c 02/10/25, treatment completed. 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 Durbin, hx of melanoma. History of Any Multi-Drug Resistant Organisms: None Reported Past Surgical History: Appendectomy, Cholecystectomy, Heart Catheterization, Tubal Ligation Additional Past Surgical History / Comment(s): Melanoma removed L leg. Cataract removal B/L eyes. Past Anesthesia/Blood Transfusion Reactions: No Reported Reaction Additional Past Anesthesia/Blood Transfusion Reaction / Comm: . Past Psychological History: Anxiety, Depression Additional Psychological History / Comment(s): one year ago. Smoking Status: Never smoker Past Alcohol Use History: None Reported Past Drug Use History: None Reported - Past Family History Father Family Medical History: Cancer Mother Additional Family Medical History / Comment(s): Mother in her 90s in the hospital after she broke her hip, suddenly after she was taken off of blood thinners before hip surgery. Medications and Allergies Home Medications Medication Instructions Recorded Confirmed Type Atenolol [Tenormin] 50 mg PO DAILY 11/14/14 04/16/25 History Spironolactone [Aldactone] 25 mg PO DAILY 11/14/14 04/16/25 History amLODIPine BESYLATE [Norvasc] 2.5 mg PO DAILY 11/14/14 04/16/25 History cloNIDine HCL [Catapres] 0.2 mg PO TID 11/14/14 04/16/25 History Rosuvastatin [Crestor] 10 mg PO SUMOTH 01/24/18 04/16/25 History Losartan Potassium [Cozaar] 100 mg PO DAILY 11/27/18 04/16/25 History Acetaminophen [Tylenol 8 Hour] 650 mg PO HS PRN 02/07/25 04/16/25 History Aspirin EC [Ecotrin Low Dose] 81 mg PO DAILY 02/07/25 04/16/25 History Cholecalciferol [Vitamin D3 (125 125 mcg PO DAILY 02/07/25 04/16/25 History Mcg = 5000 Iu)] Furosemide [Lasix] 20 mg PO BID 02/07/25 04/16/25 History Ketoconazole 2% Cream [Nizoral 2%] 1 applic TOPICAL BID PRN 02/07/25 04/16/25 History LORazepam [Ativan] 0.25 - 0.5 mg PO Q6H PRN 02/07/25 04/16/25 History Potassium Chloride ER [K-Dur 10] 10 meq PO BID 02/07/25 04/16/25 History Vit C/E/Zn/Coppr/Lutein/Zeaxan 1 cap PO BID 02/07/25 04/16/25 History [Preservision Areds 2 Softgel] Cyanocobalamin [Vitamin B-12] 1,000 mcg PO DAILY #60 tab 02/10/25 04/16/25 Rx Ferrous Sulfate [Iron (65 MG 325 mg PO BID-W/MEALS #60 tab 02/10/25 04/16/25 Rx Elemental)] Folic Acid 1 mg PO DAILY #30 tab 02/10/25 04/16/25 Rx Pantoprazole [Protonix] 40 mg PO DAILY #30 tab 03/18/25 04/16/25 Rx Allergies Allergy/AdvReac Type Severity Reaction Status Date / Time Penicillins Allergy Rash/Hives Verified 04/16/25 19:43 Physical Exam Vitals: Vital Signs Temp Pulse Pulse Resp BP BP Pulse Ox 04/17/25 12:00 98.0 F 69 16 130/76 100 04/17/25 08:45 98.1 F 66 16 144/67 99 04/17/25 03:20 98.1 F 71 16 120/65 97 04/17/25 00:33 98.4 F 74 16 116/77 96 04/16/25 23:35 98.2 F 70 16 151/80 98 04/16/25 22:10 98.6 F 74 18 119/73 04/16/25 21:50 98.5 F 72 18 113/72 97 04/16/25 21:12 98.8 F 72 18 115/65 99 04/16/25 20:40 98.3 F 70 12 108/93 70 L 04/16/25 20:14 66 16 100/53 96 04/16/25 19:10 98.9 F 67 22 105/58 97 04/16/25 18:50 99.1 F 69 20 124/55 98 04/16/25 18:40 98.1 F 72 16 104/79 98 04/16/25 16:03 98.8 F 74 18 91/60 99 Intake and Output 04/16/25 04/17/25 04/17/25 22:59 06:59 14:59 Intake Total 310 310 Output Total 250 Balance 60 310 Intake: Blood Product 310 310 Rc As-1 Unit 0 310 [id number] Rc As-1 Unit 310 [id number] Output: Urine 250 Other: Voiding Method Bedside Commode Bedside Commode Bedside Commode # Voids 1 2 Weight 81.647 kg 81.7 kg - Constitutional General appearance: average body habitus, no acute distress - EENT Eyes: anicteric sclerae, EOMI ENT: hearing grossly normal - Respiratory breathing is even and unlabored - Cardiovascular skin warm and dry - Gastrointestinal General gastrointestinal: soft, no tenderness - Integumentary Integumentary: no cyanotic, no jaundiced, pale - Psychiatric tearful Psychiatric: A&O x's 3 Results CBC & Chem 7: 04/17/25 05:50 04/16/25 16:40 Labs: Abnormal Lab Results - Last 24 Hours (Table) 04/16/25 04/16/25 04/16/25 Range/Units 16:40 16:40 16:40 RBC 2.04 L (4.10-5.20) 10*6/uL Hgb 5.3 L* D (12.0-15.0) g/dL Hct 18.1 L* (37.2-46.3) % MCH 26.0 L (27.0-32.0) pg MCHC 29.3 L (32.0-37.0) g/dL Plt Count 487 H (140-440) 10*3/uL MPV 9.4 L (9.5-12.2) fL Immature Gran # 0.14 H (0.00-0.04) 10*3/uL APTT 17.6 L (22.0-30.0) sec Carbon Dioxide 18 L (22-30) mmol/L BUN 52 H (7-17) mg/dL Creatinine 1.26 H (0.52-1.04) mg/dL Glucose 137 H (74-99) mg/dL Alkaline Phosphatase 155 H (38-126) U/L Lactate Dehydrogenase (120-246) U/L Total Protein 5.8 L (6.3-8.2) g/dL Albumin 3.2 L (3.5-5.0) g/dL Urine Appearance (Clear) Ur Leukocyte Esterase (Negative) Urine WBC (0-5) /hpf Ur Squamous Epith Cells (0-4) /hpf Calcium Oxalate Crystal (None) /hpf Urine Bacteria (None) /hpf Hyaline Casts (0-2) /lpf Urine Mucus (None) /hpf Urine Yeast (Budding) (None) /hpf Stool Occult Blood (Negative) Crossmatch 04/16/25 04/16/25 04/17/25 Range/Units 16:40 22:30 00:41 RBC (4.10-5.20) 10*6/uL Hgb (12.0-15.0) g/dL Hct (37.2-46.3) % MCH (27.0-32.0) pg MCHC (32.0-37.0) g/dL Plt Count (140-440) 10*3/uL MPV (9.5-12.2) fL Immature Gran # (0.00-0.04) 10*3/uL APTT (22.0-30.0) sec Carbon Dioxide (22-30) mmol/L BUN (7-17) mg/dL Creatinine (0.52-1.04) mg/dL Glucose (74-99) mg/dL Alkaline Phosphatase (38-126) U/L Lactate Dehydrogenase (120-246) U/L Total Protein (6.3-8.2) g/dL Albumin (3.5-5.0) g/dL Urine Appearance Cloudy H (Clear) Ur Leukocyte Esterase Large H (Negative) Urine WBC 43 H (0-5) /hpf Ur Squamous Epith Cells 12 H (0-4) /hpf Calcium Oxalate Crystal Rare H (None) /hpf Urine Bacteria Occasional H (None) /hpf Hyaline Casts 14 H (0-2) /lpf Urine Mucus Rare H (None) /hpf Urine Yeast (Budding) Occasional H (None) /hpf Stool Occult Blood Positive H (Negative) Crossmatch See Detail 04/17/25 04/17/25 04/17/25 Range/Units 01:21 05:50 09:58 RBC 2.86 L 3.00 L (4.10-5.20) 10*6/uL Hgb 7.8 L D 8.1 L (12.0-15.0) g/dL Hct 25.4 L 26.4 L (37.2-46.3) % MCH (27.0-32.0) pg MCHC 30.7 L 30.7 L (32.0-37.0) g/dL Plt Count 509 H 498 H (140-440) 10*3/uL MPV 9.0 L 8.6 L (9.5-12.2) fL Immature Gran # 0.16 H 0.15 H (0.00-0.04) 10*3/uL APTT (22.0-30.0) sec Carbon Dioxide (22-30) mmol/L BUN (7-17) mg/dL Creatinine (0.52-1.04) mg/dL Glucose (74-99) mg/dL Alkaline Phosphatase (38-126) U/L Lactate Dehydrogenase 613 H (120-246) U/L Total Protein (6.3-8.2) g/dL Albumin (3.5-5.0) g/dL Urine Appearance (Clear) Ur Leukocyte Esterase (Negative) Urine WBC (0-5) /hpf Ur Squamous Epith Cells (0-4) /hpf Calcium Oxalate Crystal (None) /hpf Urine Bacteria (None) /hpf Hyaline Casts (0-2) /lpf Urine Mucus (None) /hpf Urine Yeast (Budding) (None) /hpf Stool Occult Blood (Negative) Crossmatch Assessment and Plan (1) Anemia Current Visit: Yes Status: Acute Code(s): D64.9 - ANEMIA, UNSPECIFIED SNOMED Code(s): 743839554 Plan: Normocytic anemia: Presented the emergency room with complaints of shortness of breath, dizziness and weakness. Last month patient was admitted for anemia and received blood transfusion. Anemia labs from 01/2025 showed iron saturation 3.8%, vitamin B12 268, folate 3.8, and ferritin 164. Status post EGD and colonoscopy on March 18, 2025 revealing a pinpoint ulcer in the antrum, diverticulosis and internal hemorrhoids. No active bleeding reported on endoscopy. Patient does take baby aspirin for history of aneurysm. She states stools have been darker in color sin ce starting oral iron. -On admit hemoglobin was noted at 5.3, MCV 88.7. She was transfused 2 units of blood with appropriate response, hemoglobin today 8.1. WBC 9.1, platelets 487,000. Creatinine 1.26, GFR 41, BUN 52. Bilirubin normal at 0.3. -Hemolysis and anemia labs have been ordered. Hemolysis workup negative. Iron saturation 4.8%, ferritin 77.1, these were drawn after blood transfusions. Vitamin B-12 and folate pending, patient is already on B12 and folate supplementation. IV iron x 4 doses has been ordered General Surgery and GI has been consulted. GI planning for capsule study Continue to monitor CBC, transfuse for hemoglobin less than 7 or symptomatic
[2025-04-17 19:01] LABS: HCT 24.9 % (37.2-46.3); HGB 7.8 g/dL (12.0-15.0); MCH 27.6 pg (27.0-32.0); MCHC 31.3 g/dL (32.0-37.0); Mean Platelet Volume 8.7 fL (9.5-12.2); Platelet Count 475 10*3/uL (140-440); RBC 2.83 10*6/uL (4.10-5.20); RDW 17.9 % (11.5-14.5)
[2025-04-17 19:58] LABS: Glucose,Whole Blood 173 mg/dL (70-110)
[2025-04-17] MEDS ORDERED: TEMAZEPAM 7.5 MG CAP PO PRN (20:29)
[2025-04-17] MEDS: LORazepam 0.5 MG TAB PO PRN (20:50)
[2025-04-17] MEDS: POTASSIUM CHLORIDE ER 10 MEQ TAB.ER.PRT PO SCH (21:08)
[2025-04-17 22:18] LABS: % Iron Saturation 5.15 (12.00-45.00); Ferritin 62.4 ng/mL (10.0-291.0)
[2025-04-18 06:03] LABS: Glucose,Whole Blood 124 mg/dL (70-110)
[2025-04-18 07:15] LABS: Basophils # (A) 0.02 10*3/uL (0.00-0.10); Basophils % (A) 0.3 %; Eosinophils # (A) 0.21 10*3/uL (0.04-0.35); Eosinophils % (A) 2.7 %; HGB 8.2 g/dL (12.0-15.0); Lymphocytes # (A) 0.98 10*3/uL (0.90-5.00); Lymphocytes % (A) 12.8 %; MCHC 30.4 g/dL (32.0-37.0); MCV 88.8 fL (80.0-97.0); Mean Platelet Volume 8.8 fL (9.5-12.2); Monocytes # (A) 0.66 10*3/uL (0.20-1.00); Monocytes % (A) 8.6 %; Neutrophils # (A) 5.72 10*3/uL (1.80-7.70); Neutrophils % (A) 74.4 %; Platelet Count 443 10*3/uL (140-440); RBC 3.04 10*6/uL (4.10-5.20); RDW 18.1 % (11.5-14.5); WBC 7.68 10*3/uL (4.50-10.00)
[2025-04-18 07:45] LABS: African American GFR (CKD) 86 (>60 ml/min/1.73 sqM); Anion Gap 8 mmol/L; Blood Urea Nitrogen 28 mg/dL (7-17); Calcium 8.5 mg/dL (8.4-10.2); Carbon Dioxide 19 mmol/L (22-30); Chloride 112 mmol/L (98-107); Glucose 105 mg/dL (74-99); Non-African American GFR(CKD) 74 (>60 ml/min/1.73 sqM); Potassium 4.3 mmol/L (3.5-5.1); Sodium 139 mmol/L (137-145)
[2025-04-18] MEDS: MAGNESIUM CITRATE 296 ML BOTTLE PO ONE (08:51)
[2025-04-18] MEDS: SODIUM FERRIC GLUCONAT-SUCROSE 125 MG in SODIUM CHLORIDE 0.9% 100 ML IVPB SCH (08:57)
[2025-04-18] MEDS ORDERED: SPIRONOLACTONE 25 MG TAB PO SCH (09:00)
[2025-04-18] MEDS: SIMETHICONE 40 MG/0.6 ML DROPS 2,000 MG/30 ML BOTTLE PO ONE (10:50)
--- NOTE | 2025-04-18 11:25 | P.PN ---
Subjective Progress Note Date: 04/18/25 Principal diagnosis: Anemia This a pleasant 80-year-old female with a past medical history including hyperlipidemia, hypertension, melanoma, anemia with evaluation for GI bleed. She was found to have a hemoglobin of 5.3 on admission. She is status post 2 units of blood with a repeat hemoglobin of 8.1. Patient was recently worked up for anemia in the hospital in February. She underwent upper endoscopy and colonoscopy on March 18, 2025 with findings of pinpoint ulcer in the antrum on upper endoscopy and colonoscopy with reported findings of diverticulosis and internal hemorrhoids. Patient does endorse black stools but she has been on iron. Stool occult blood was positive. Denies any bright red blood in the stool, no abdominal pain nausea or vomiting. She denies any anticoagulation or NSAID use. She does take 81 mg aspirin daily. In January this year she had anemia profile with iron studies iron was 10 TIBC 260 saturation 3.8 ferritin was 264 completed on 02/14/2025. Patient is teary-eyed and concerned regarding going home and this happening again. 04/18/2025 Patient seen and examined as a follow-up for anemia. Patient is drowsy this morning. She is NPO. No abdominal pain nausea or vomiting. No reported bowel movement. Hemoglobin stable at 8.2. Plan is for small bowel capsule endoscopy today. Objective - Vital Signs Vital signs: Vital Signs Temp 97.4 F L 04/18/25 03:10 Pulse 60 04/18/25 03:10 Resp 18 04/18/25 03:10 BP 150/81 04/18/25 03:10 Pulse Ox 94 L 04/18/25 03:10 FiO2 Intake & Output 04/17/25 04/18/25 04/18/25 18:59 06:59 18:59 Weight 82.3 kg Other: Voiding Method Toilet Bedside Commode # Voids 2 1 # Bowel Movements 1 - Exam General appearance: The patient is alert, oriented, appears in no acute distress. HET: Head is normocephalic and atraumatic. Conjunctiva pink. Sclera anicteric. Neck: Supple without lymphadenopathy. Abdomen: Soft, nontender, obese, nondistended. Extremities: Normal skin color and turgor. No pedal edema Skin: No rashes, no jaundice Neurological: No focal deficits. Alert and oriented. - Labs CBC & Chem 7: 04/18/25 06:38 04/18/25 06:38 Labs: Abnormal Lab Results - Last 24 Hours (Table) 04/16/25 04/17/25 04/17/25 Range/Units 16:40 05:50 09:58 RBC (4.10-5.20) 10*6/uL Hgb (12.0-15.0) g/dL Hct (37.2-46.3) % MCHC (32.0-37.0) g/dL Plt Count (140-440) 10*3/uL MPV (9.5-12.2) fL Immature Gran # (0.00-0.04) 10*3/uL Retic Count (0.10-1.80) % Haptoglobin (31.2-198.0) mg/dL POC Glucose (mg/dL) (70-110) mg/dL Iron 17 L 17 L (50-170) UG/DL % Saturation 5.15 L 4.80 L (12.00-45.00) Lactate Dehydrogenase 571 H 613 H (120-246) U/L Vitamin B12 >3600.0 H (200.0-944.0) pg/mL 04/17/25 04/17/25 04/17/25 Range/Units 09:58 09:58 17:10 RBC (4.10-5.20) 10*6/uL Hgb (12.0-15.0) g/dL Hct (37.2-46.3) % MCHC (32.0-37.0) g/dL Plt Count (140-440) 10*3/uL MPV (9.5-12.2) fL Immature Gran # (0.00-0.04) 10*3/uL Retic Count 4.33 H (0.10-1.80) % Haptoglobin 437.0 H (31.2-198.0) mg/dL POC Glucose (mg/dL) 122 H (70-110) mg/dL Iron (50-170) UG/DL % Saturation (12.00-45.00) Lactate Dehydrogenase (120-246) U/L Vitamin B12 (200.0-944.0) pg/mL 05/29/25 05/29/25 05/30/25 Range/Units 18:48 19:57 06:01 RBC 2.83 L (4.10-5.20) 10*6/uL Hgb 7.8 L (12.0-15.0) g/dL Hct 24.9 L (37.2-46.3) % MCHC 31.3 L (32.0-37.0) g/dL Plt Count 475 H (140-440) 10*3/uL MPV 8.7 L (9.5-12.2) fL Immature Gran # (0.00-0.04) 10*3/uL Retic Count (0.10-1.80) % Haptoglobin (31.2-198.0) mg/dL POC Glucose (mg/dL) 173 H 124 H (70-110) mg/dL Iron (50-170) UG/DL % Saturation (12.00-45.00) Lactate Dehydrogenase (120-246) U/L Vitamin B12 (200.0-944.0) pg/mL 04/18/25 Range/Units 06:38 RBC 3.04 L (4.10-5.20) 10*6/uL Hgb 8.2 L (12.0-15.0) g/dL Hct 27.0 L (37.2-46.3) % MCHC 30.4 L (32.0-37.0) g/dL Plt Count 443 H (140-440) 10*3/uL MPV 8.8 L (9.5-12.2) fL Immature Gran # 0.09 H (0.00-0.04) 10*3/uL Retic Count (0.10-1.80) % Haptoglobin (31.2-198.0) mg/dL POC Glucose (mg/dL) (70-110) mg/dL Iron (50-170) UG/DL % Saturation (12.00-45.00) Lactate Dehydrogenase (120-246) U/L Vitamin B12 (200.0-944.0) pg/mL Assessment and Plan (1) Anemia Narrative/Plan: 80-year-old female who was recently admitted and had underwent upper endoscopy and colonoscopy on 03/18/[address] Hurst as part of her workup for anemia. EGD with finding of a pinpoint lesion in the antrum suspected of nonbleeding ulcer, colonoscopy with diverticulosis and internal hemorrhoids. Patient states she has black stool but she also has been on oral iron. presenting hemoglobin of 5.3. Positive occult stool however patient does have internal hemorrhoids so may be false positive. Need to consider small bowel as possible etiology for GI blood loss. Will plan for small bowel capsule endoscopy. Patient agreeable. Treat symptomatically, transfuse as needed for hemoglobin less than 7. Current Visit: Yes Status: Acute Code(s): D64.9 - ANEMIA, UNSPECIFIED SNOMED Code(s): 812373251 (2) Occult blood positive stool Current Visit: Yes Status: Acute Code(s): R19.5 - OTHER FECAL ABNORMALITIES SNOMED Code(s): 83363306 Plan: 1. Continue symptomatic and supportive care 2. N.p.o. for small bowel capsule endoscopy study. Then follow diet orders per capsule study 3. Daily CBC, transfuse for hemoglobin less than 7 4. Protonix 40 mg daily for GI prophylaxis 5. Small bowel capsule endoscopy today. Will need to follow-up next week on capsule results 6. Continue with further recommendations from hematology 7. Rest of medical management per primary medical team Thank you for this consultation, we will sign off at this time as there will be no further gastroenterology services available. Recommend outpatient follow-up Dr. Katherine Patterson I agree with the dictator's note, documented as a scribe by Kanwal Zuniga.
[2025-04-18 11:50] LABS: Glucose,Whole Blood 125 mg/dL (70-110)
[2025-04-18] MEDS: PANTOPRAZOLE 40 MG/10 ML VIAL IVP SCH (15:15)
[2025-04-18] MEDS: FOLIC ACID 1 MG TAB PO SCH (15:15)
--- NOTE | 2025-04-18 16:28 | P.PN ---
Subjective Progress Note Date: 04/18/25 Patient is a 80-year-old female with history of hyperlipidemia and hypertension was sent to the ER for further evaluation by her PCP for low hemoglobin. Patient was recently hospitalized for pneumonia and symptomatic anemia and received 2 units of transfusion. EGD showed a pinpoint lesion representing an ulcer in the antrum. Colonoscopy showed diverticulosis and internal hemorrhoids. No active bleeding site was identified. Patient has since been fairly stable however for the past 2 days that she has been feeling progressively weaker with exertional dyspnea. She was evaluated by her PCP and her lab work was significant for anemia. Extensive evaluation in the ER shows hemoglobin 5.3 hematocrit 18.1. Patient received 2 units of packed RBC. Repeat blood work shows improvement in her hemoglobin to 8.1. No active bleeding. No bloody or tarry colored stools noted by patient. Patient reports she is feeling slightly better. Rest of blood work shows sodium 137, potassium 4.8, BUN 52, creatinine 1.26, glucose 137. Urinalysis remarkable for hyaline casts. EKG shows normal sinus rhythm with ventricular rate of 72 bpm, MT interval 197 ms, QRS duration 154 ms, QTc 438 ms. Right bundle branch block. Poor R wave progression. Vital signs on arrival shows temperature 98.8 F, pulse rate of 74, respiration rate of 18, blood pressure 91/60, oxygen saturation 99% on room air. Patient otherwise not complaining of chest pain, abdominal pain, diarrhea, constipation, numbness or tingling in upper or lower extremities. 04/18/2025 Patient seen and examined at the bedside. No acute events overnight. Hemoglobin at 8.2. No active bleeding. BUN 28 creatinine 0.77. Rest of the blood work within acceptable range. Patient to undergo small bowel capsule endoscopy today. Physical examination: Vital signs reviewed General: non toxic, no distress, appears at stated age, obese Derm: no unusual rashes/lesions, warm Head: atraumatic, normocephalic, symmetric Eyes: EOMI, no lid lag, anicteric sclera, pupils equal round reactive to light ENT: Nose and ears atraumatic Neck: No cervical lymphadenopathy, trachea midline, supple Mouth: no lip lesion, mucus membranes moist Cardiovascular: S1S2 reg, no murmur, positive dorsalis pedis pulse bilateral, no edema Lungs: CTA bilateral, no rhonchi, no rales, no accessory muscle use Abdominal: soft, nontender to palpation, no guarding Ext: muscle strength 5 out of 5 in all 4 extremities grossly, no gross muscle atrophy, no contractures, Neuro: CN II-XI grossly intact, no gross focal neuro deficits Psych: Alert, oriented, appropriate affect Assessment/Plan: This is a 80-year-old female with history of hyperlipidemia and hypertension was sent to the ER for further evaluation by her PCP for low hemoglobin. Case was discussed with the Emergency Room provider and decision was made to admit the patient for symptomatic anemia. Labs and images: hemoglobin 5.3 hematocrit 18.1. Patient received 2 units of packed RBC. Repeat blood work shows improvement in her hemoglobin to 8.1. sodium 137, potassium 4.8, BUN 52, creatinine 1.26, glucose 137. Urinalysis remarkable for hyaline casts. EKG shows normal sinus rhythm with ventricular rate of 72 bpm, MT interval 197 ms, QRS duration 154 ms, QTc 438 ms. Right bundle branch block. Poor R wave progression. Active: #Symptomatic normocytic anemia, status post 2 units of PRBC #Suspected upper GI bleed Status post 2 units of packed RBC IV Protonix 40 mg once daily Transfuse with PRBC if hemoglobin less than 7 Monitor hemoglobin Repeat CBC in a.m. GI, hematology and general surgery on board Order iron studies reticulocyte, vitamin B12, folate, LDH, haptoglobin Patient on IV iron infusions Recent EGD showed nonbleeding ulcer in the gastric antrum and colonoscopy unremarkable, small bowel capsule endoscopy today Hold anticoagulants #Prerenal SHIRA, improved Continue monitor BMP IV fluids Avoid nephrotoxins #Hyperglycemia Sliding scale Monitor for hypoglycemia Chronic conditions: Resume medications DVT prophylaxis: SCDs GI prophylaxis: IV Protonix F: Replete as needed E: Replete as needed N: Clear liquid diet A: Ambulatory baseline The patient is admitted with an anticipated < than 2 midnight stay for evaluation of severe anemia CODE STATUS: No code Discussed with: Patient Anticipated discharge place: Pending clinical course Dictation was produced using [employer] dictation software. Please excuse any grammatical, word or spelling errors. Attestation: I have seen and examined this patient with my resident, assessment and plan discussed with the resident, agree with assessment and plan as written above. Dr. Damian Objective - Vital Signs Vital signs: Vital Signs Temp 97.8 F 04/18/25 15:06 Pulse 85 04/18/25 15:06 Resp 16 04/18/25 12:04 BP 132/80 04/18/25 15:06 Pulse Ox 97 04/18/25 15:06 FiO2 Intake & Output 04/17/25 04/18/25 04/18/25 18:59 06:59 18:59 Weight 82.3 kg Other: Voiding Method Toilet Bedside Commode Bedside Commode # Voids 2 1 # Bowel Movements 1 3 - Labs CBC & Chem 7: 04/18/25 06:38 04/18/25 06:38 Labs: Abnormal Lab Results - Last 24 Hours (Table) 04/16/25 04/17/25 04/17/25 Range/Units 16:40 05:50 05:50 RBC (4.10-5.20) 10*6/uL Hgb (12.0-15.0) g/dL Hct (37.2-46.3) % MCHC (32.0-37.0) g/dL Plt Count (140-440) 10*3/uL MPV (9.5-12.2) fL Immature Gran # (0.00-0.04) 10*3/uL Chloride (98-107) mmol/L Carbon Dioxide (22-30) mmol/L BUN (7-17) mg/dL Glucose (74-99) mg/dL POC Glucose (mg/dL) (70-110) mg/dL Iron 17 L (50-170) UG/DL % Saturation 5.15 L (12.00-45.00) Vitamin B12 >3600.0 H (200.0-944.0) pg/mL RBC Folate 1,314 H (280 - 791) ng/mL 04/17/25 04/17/25 04/17/25 Range/Units 17:10 18:48 19:57 RBC 2.83 L (4.10-5.20) 10*6/uL Hgb 7.8 L (12.0-15.0) g/dL Hct 24.9 L (37.2-46.3) % MCHC 31.3 L (32.0-37.0) g/dL Plt Count 475 H (140-440) 10*3/uL MPV 8.7 L (9.5-12.2) fL Immature Gran # (0.00-0.04) 10*3/uL Chloride (98-107) mmol/L Carbon Dioxide (22-30) mmol/L BUN (7-17) mg/dL Glucose (74-99) mg/dL POC Glucose (mg/dL) 122 H 173 H (70-110) mg/dL Iron (50-170) UG/DL % Saturation (12.00-45.00) Vitamin B12 (200.0-944.0) pg/mL RBC Folate (280 - 791) ng/mL 04/18/25 04/18/25 04/18/25 Range/Units 06:01 06:38 06:38 RBC 3.04 L (4.10-5.20) 10*6/uL Hgb 8.2 L (12.0-15.0) g/dL Hct 27.0 L (37.2-46.3) % MCHC 30.4 L (32.0-37.0) g/dL Plt Count 443 H (140-440) 10*3/uL MPV 8.8 L (9.5-12.2) fL Immature Gran # 0.09 H (0.00-0.04) 10*3/uL Chloride 112 H (98-107) mmol/L Carbon Dioxide 19 L (22-30) mmol/L BUN 28 H (7-17) mg/dL Glucose 105 H (74-99) mg/dL POC Glucose (mg/dL) 124 H (70-110) mg/dL Iron (50-170) UG/DL % Saturation (12.00-45.00) Vitamin B12 (200.0-944.0) pg/mL RBC Folate (280 - 791) ng/mL 04/18/25 Range/Units 11:41 RBC (4.10-5.20) 10*6/uL Hgb (12.0-15.0) g/dL Hct (37.2-46.3) % MCHC (32.0-37.0) g/dL Plt Count (140-440) 10*3/uL MPV (9.5-12.2) fL Immature Gran # (0.00-0.04) 10*3/uL Chloride (98-107) mmol/L Carbon Dioxide (22-30) mmol/L BUN (7-17) mg/dL Glucose (74-99) mg/dL POC Glucose (mg/dL) 125 H (70-110) mg/dL Iron (50-170) UG/DL % Saturation (12.00-45.00) Vitamin B12 (200.0-944.0) pg/mL RBC Folate (280 - 791) ng/mL Microbiology - Last 24 Hours (Table) 04/16/25 22:30 Urine Culture - Final Urine,Voided
--- NOTE | 2025-04-18 16:33 | P.PN ---
Subjective Patient seen and evaluated at bedside. Patient doing well, no signs of active bleeding. Objective - Vital Signs Vital signs: Vital Signs Temp 97.8 F 04/18/25 15:06 Pulse 85 04/18/25 15:06 Resp 16 04/18/25 12:04 BP 132/80 04/18/25 15:06 Pulse Ox 97 04/18/25 15:06 FiO2 Intake & Output 04/17/25 04/18/25 04/18/25 18:59 06:59 18:59 Weight 82.3 kg Other: Voiding Method Toilet Bedside Commode Bedside Commode # Voids 2 1 # Bowel Movements 1 3 - Exam gen: nad cv: rrr pul: non labored breathing abd: soft, non distended, non tender to palpation no guarding or rebound tenderness - Labs CBC & Chem 7: 04/18/25 06:38 04/18/25 06:38 Labs: Abnormal Lab Results - Last 24 Hours (Table) 04/16/25 04/17/25 04/17/25 Range/Units 16:40 05:50 05:50 RBC (4.10-5.20) 10*6/uL Hgb (12.0-15.0) g/dL Hct (37.2-46.3) % MCHC (32.0-37.0) g/dL Plt Count (140-440) 10*3/uL MPV (9.5-12.2) fL Immature Gran # (0.00-0.04) 10*3/uL Chloride (98-107) mmol/L Carbon Dioxide (22-30) mmol/L BUN (7-17) mg/dL Glucose (74-99) mg/dL POC Glucose (mg/dL) (70-110) mg/dL Iron 17 L (50-170) UG/DL % Saturation 5.15 L (12.00-45.00) Vitamin B12 >3600.0 H (200.0-944.0) pg/mL RBC Folate 1,314 H (280 - 791) ng/mL 04/17/25 04/17/25 04/17/25 Range/Units 17:10 18:48 19:57 RBC 2.83 L (4.10-5.20) 10*6/uL Hgb 7.8 L (12.0-15.0) g/dL Hct 24.9 L (37.2-46.3) % MCHC 31.3 L (32.0-37.0) g/dL Plt Count 475 H (140-440) 10*3/uL MPV 8.7 L (9.5-12.2) fL Immature Gran # (0.00-0.04) 10*3/uL Chloride (98-107) mmol/L Carbon Dioxide (22-30) mmol/L BUN (7-17) mg/dL Glucose (74-99) mg/dL POC Glucose (mg/dL) 122 H 173 H (70-110) mg/dL Iron (50-170) UG/DL % Saturation (12.00-45.00) Vitamin B12 (200.0-944.0) pg/mL RBC Folate (280 - 791) ng/mL 04/18/25 04/18/25 04/18/25 Range/Units 06:01 06:38 06:38 RBC 3.04 L (4.10-5.20) 10*6/uL Hgb 8.2 L (12.0-15.0) g/dL Hct 27.0 L (37.2-46.3) % MCHC 30.4 L (32.0-37.0) g/dL Plt Count 443 H (140-440) 10*3/uL MPV 8.8 L (9.5-12.2) fL Immature Gran # 0.09 H (0.00-0.04) 10*3/uL Chloride 112 H (98-107) mmol/L Carbon Dioxide 19 L (22-30) mmol/L BUN 28 H (7-17) mg/dL Glucose 105 H (74-99) mg/dL POC Glucose (mg/dL) 124 H (70-110) mg/dL Iron (50-170) UG/DL % Saturation (12.00-45.00) Vitamin B12 (200.0-944.0) pg/mL RBC Folate (280 - 791) ng/mL 04/18/25 Range/Units 11:41 RBC (4.10-5.20) 10*6/uL Hgb (12.0-15.0) g/dL Hct (37.2-46.3) % MCHC (32.0-37.0) g/dL Plt Count (140-440) 10*3/uL MPV (9.5-12.2) fL Immature Gran # (0.00-0.04) 10*3/uL Chloride (98-107) mmol/L Carbon Dioxide (22-30) mmol/L BUN (7-17) mg/dL Glucose (74-99) mg/dL POC Glucose (mg/dL) 125 H (70-110) mg/dL Iron (50-170) UG/DL % Saturation (12.00-45.00) Vitamin B12 (200.0-944.0) pg/mL RBC Folate (280 - 791) ng/mL Microbiology - Last 24 Hours (Table) 04/16/25 22:30 Urine Culture - Final Urine,Voided Assessment and Plan Assessment: 80 yo female with recent history of GI bleeding History of taking iron Patient was recently scoped with a pinpoint ulcer and history diverticulosis Possible pill endoscopy on Monday with gastroenterology No intervention from surgical standpoint Time with Patient: Less than 30
[2025-04-18 16:41] LABS: Glucose,Whole Blood 191 mg/dL (70-110)
[2025-04-18 20:38] LABS: Glucose,Whole Blood 131 mg/dL (70-110)
[2025-04-19 06:11] LABS: Glucose,Whole Blood 142 mg/dL (70-110)
[2025-04-19 08:46] VITALS: RESP 20; TEMP 97.7
[2025-04-19 09:34] LABS: Basophils # (A) 0.03 10*3/uL (0.00-0.10); Basophils % (A) 0.3 %; Eosinophils # (A) 0.32 10*3/uL (0.04-0.35); Eosinophils % (A) 3.5 %; HCT 28.7 % (37.2-46.3); HGB 8.4 g/dL (12.0-15.0); Lymphocytes # (A) 0.95 10*3/uL (0.90-5.00); Lymphocytes % (A) 10.3 %; MCH 26.6 pg (27.0-32.0); MCHC 29.3 g/dL (32.0-37.0); MCV 90.8 fL (80.0-97.0); Mean Platelet Volume 9.1 fL (9.5-12.2); Monocytes % (A) 7.6 %; Neutrophils # (A) 7.14 10*3/uL (1.80-7.70); Neutrophils % (A) 77.2 %; Platelet Count 447 10*3/uL (140-440); RBC 3.16 10*6/uL (4.10-5.20); RDW 17.9 % (11.5-14.5); WBC 9.24 10*3/uL (4.50-10.00)
[2025-04-19 10:10] LABS: African American GFR (CKD) >90 (>60 ml/min/1.73 sqM); Anion Gap 9 mmol/L; Blood Urea Nitrogen 22 mg/dL (7-17); Calcium 7.8 mg/dL (8.4-10.2); Carbon Dioxide 18 mmol/L (22-30); Chloride 114 mmol/L (98-107); Glucose 188 mg/dL (74-99); Non-African American GFR(CKD) 79 (>60 ml/min/1.73 sqM); Sodium 141 mmol/L (137-145)
[2025-04-19 10:13] LABS: Potassium 5.1 mmol/L (3.5-5.1)
[2025-04-19 11:22] LABS: Glucose,Whole Blood 186 mg/dL (70-110)
[2025-04-19] MEDS: ARTIFICIAL TEARS-HYPROMELLOSE DROPS 15 ML BTL RIGHT EYE PRN (11:31)
[2025-04-19 11:54] VITALS: BP 124/78; PULSE 65
--- NOTE | 2025-04-19 13:20 | P.DS ---
Providers Date of admission: 04/16/25 18:18 Attending physician: Victorino Vasquez MD Consults: 04/16/25 18:18 Consult Physician Routine Consulting Provider: Manuel Ohara Consult Reason/Comments: Anemia Do you want consulting provider notified?: Yes Consult Physician Routine Consulting Provider: Amador Hurst Consult Reason/Comments: Anemia Do you want consulting provider notified?: Yes 04/17/25 10:35 Consult Physician Routine Consulting Provider: Karolyn Patterson Consult Reason/Comments: anemia, possible capsule endoscopy Do you want consulting provider notified?: Yes Primary care physician: Delgado Carbone Hospital Course: Discharge Diagnosis: #Symptomatic normocytic anemia, status post 2 units of PRBC, hemoglobin stable, no active bleeding #Nonbleeding gastric antrum ulcer on small bowel capsule endoscopy #Prerenal SHIRA, improved #Hyperglycemia Hospital Course: Patient is a 80-year-old female with history of hyperlipidemia and hypertension was sent to the ER for further evaluation by her PCP for low hemoglobin. Patient was recently hospitalized for pneumonia and symptomatic anemia and received 2 units of transfusion. EGD showed a pinpoint lesion representing an ulcer in the antrum. Colonoscopy showed diverticulosis and internal hemorrhoids. No active bleeding site was identified. Patient has since been fairly stable however for the past 2 days that she has been feeling progressively weaker with exertional dyspnea. She was evaluated by her PCP and her lab work was significant for anemia. Extensive evaluation in the ER shows hemoglobin 5.3 hematocrit 18.1. Patient received 2 units of packed RBC. Repeat blood work shows improvement in her hemoglobin to 8.1. No active bleeding. No bloody or tarry colored stools noted by patient. Patient reports she is feeling slightly better. Rest of blood work shows sodium 137, potassium 4.8, BUN 52, creatinine 1.26, glucose 137. Urinalysis remarkable for hyaline casts. EKG shows normal sinus rhythm with ventricular rate of 72 bpm, ID interval 197 ms, QRS duration 154 ms, QTc 438 ms. Right bundle branch block. Poor R wave progression. Vital signs on arrival shows temperature 98.8 F, pulse rate of 74, respiration rate of 18, blood pressure 91/60, oxygen saturation 99% on room air. Patient otherwise not complaining of chest pain, abdominal pain, diarrhea, constipation, numbness or tingling in upper or lower extremities. Iron studies were done. Iron 17, TIBC 330, percent saturation 5.15, transferrin 326, ferritin 62.4. Patient received iron infusions x 3 during this admission. Patient continue to report improvement in her symptoms. Her hemoglobin remained stable at 8.4. No active bleeding. Gastroenterology was consulted. Patient underwent small bowel capsule endoscopy with positive finding of nonbleeding gastric antrum ulcer. Patient is otherwise hemodynamically stable and medically optimized for discharge. Patient will continue on pantoprazole 40 mg once daily. Patient is advised against use of NSAIDs. She will follow-up with able bodied tankerman Dr. Patterson and her PCP within 1 week posthospital discharge. Discharge disposition: Home Vital signs reviewed. Gen: in no apparent distress, resting comfortably in bed Eyes: PERRLA, EOMI, no scleral injection or icterus HENT: normocephalic, atraumatic, good hearing acuity, moist mucous membranes Neck: full range of motion Resp: CTAB, no rales, rhonchi, or wheezes CVS: normal S1 and S2, no murmurs, rubs or gallops, no edema GI: soft, NTTP, ND, no hepatosplenomegaly : no suprapubic tenderness, no CVAT, [place] catheter [is/not] present MSK: no clubbing, no cyanosis, no noted contractures of extremities Skin: no noted rashes, petechiae; temperature of skin is appropriate Neuro: moving all extremities without signs of weakness, CN II-XII intact Psych: cooperative, euthymic mood, insight and judgment intact Dictation was produced using [employer] dictation software. Please excuse any grammatical, word or spelling errors. Patient Condition at Discharge: Stable Plan - Discharge Summary Discharge Rx Participant: No New Discharge Prescriptions: Continue amLODIPine BESYLATE [Norvasc] 2.5 mg PO DAILY Atenolol [Tenormin] 50 mg PO DAILY cloNIDine HCL [Catapres] 0.2 mg PO TID Spironolactone [Aldactone] 25 mg PO DAILY Rosuvastatin [Crestor] 10 mg PO SUMOTH Losartan Potassium [Cozaar] 100 mg PO DAILY Aspirin EC [Ecotrin Low Dose] 81 mg PO DAILY Cholecalciferol [Vitamin D3 (125 Mcg = 5000 Iu)] 125 mcg PO DAILY Acetaminophen [Tylenol 8 Hour] 650 mg PO HS PRN PRN Reason: Pain LORazepam [Ativan] 0.25 - 0.5 mg PO Q6H PRN PRN Reason: Anxiety Folic Acid 1 mg PO DAILY #30 tab Cyanocobalamin [Vitamin B-12] 1,000 mcg PO DAILY #60 tab Potassium Chloride ER [K-Dur 10] 10 meq PO BID Ketoconazole 2% Cream [Nizoral 2%] 1 applic TOPICAL BID PRN PRN Reason: under breast & groin area Vit C/E/Zn/Coppr/Lutein/Zeaxan [Preservision Areds 2 Softgel] 1 cap PO BID Furosemide [Lasix] 20 mg PO BID Ferrous Sulfate [Iron (65 MG Elemental)] 325 mg PO BID-W/MEALS #60 tab Pantoprazole [Protonix] 40 mg PO DAILY #30 tab Discharge Medication List Atenolol [Tenormin] 50 mg PO DAILY 11/14/14 [History] Spironolactone [Aldactone] 25 mg PO DAILY 11/14/14 [History] amLODIPine BESYLATE [Norvasc] 2.5 mg PO DAILY 11/14/14 [History] cloNIDine HCL [Catapres] 0.2 mg PO TID 11/14/14 [History] Rosuvastatin [Crestor] 10 mg PO SUMOTH 01/24/18 [History] Losartan Potassium [Cozaar] 100 mg PO DAILY 11/27/18 [History] Acetaminophen [Tylenol 8 Hour] 650 mg PO HS PRN 02/07/25 [History] Aspirin EC [Ecotrin Low Dose] 81 mg PO DAILY 02/07/25 [History] Cholecalciferol [Vitamin D3 (125 Mcg = 5000 Iu)] 125 mcg PO DAILY 02/07/25 [History] Furosemide [Lasix] 20 mg PO BID 02/07/25 [History] Ketoconazole 2% Cream [Nizoral 2%] 1 applic TOPICAL BID PRN 02/07/25 [History] LORazepam [Ativan] 0.25 - 0.5 mg PO Q6H PRN 02/07/25 [History] Potassium Chloride ER [K-Dur 10] 10 meq PO BID 02/07/25 [History] Vit C/E/Zn/Coppr/Lutein/Zeaxan [Preservision Areds 2 Softgel] 1 cap PO BID 02/07/25 [History] Cyanocobalamin [Vitamin B-12] 1,000 mcg PO DAILY #60 tab 02/10/25 [Rx] Ferrous Sulfate [Iron (65 MG Elemental)] 325 mg PO BID-W/MEALS #60 tab 02/10/25 [Rx] Folic Acid 1 mg PO DAILY #30 tab 02/10/25 [Rx] Pantoprazole [Protonix] 40 mg PO DAILY #30 tab 03/18/25 [Rx] Follow up Appointment(s)/Referral(s): Delgado Carbone MD [Primary Care Provider] - 1-2 days (Office is closed at this time; please call JOSE D to schedule follow up appointment.) Karolyn Patterson MD [STAFF PHYSICIAN] - 1 Week (Office is closed at this time; please call JOSE D to schedule follow up appointment.) Patient Instructions/Handouts: Peptic Ulcer (DC), Diet for Stomach Ulcers and Gastritis (ED), Melena (ED) Activity/Diet/Wound Care/Special Instructions: Please follow-up with your PCP and able bodied tankerman Dr. Patterson within 1 week posthospital discharge. Continue with pantoprazole 40 mg 1 tablet every day. Avoid NSAIDs. Discharge Disposition: HOME SELF-CARE
--- NOTE | 2025-04-24 12:02 | CDI ---
Documentation Clarification Form Date: 04/24/2025 11:38:29 AM From: Amaya Bucio Phone: Admit Date: 04/16/2025 06:18:00 PM Patient Name: Sue Marcial Visit Number: [id number] Discharge Date: 04/19/2025 02:19:00 PM ATTENTION: The Clinical Documentation Specialists (CDI) and [facility] Coding Staff appreciate your assistance in clarifying documentation. Please respond to the clarification below the line at the bottom and electronically sign. The CDI & [facility] Coding staff will review the response and follow-up if needed. Please note: Queries are made part of the Legal Health Record. If you have any questions, please contact the author of this message via ITS. Doctor/Provider: Victorino E Sheet Conflicting documentation has been found in the medical record. As attending physician, please provide clarification. Suspected upper gastrointestinal bleed is documented through 04/18. There is no mention of this diagnosis in the discharge summary. History/risk factors: 80yo F, normocytic anemia, gastric antrumulceron small bowel, prerenalAKI, hyperglycemia Clinical Indicators: Colonoscopy:diverticulosisandinternal hemorrhoids EGD:pinpointlesionrepresenting an ulcerin the antrum Black stoolbut she also has been on oral iron. Presenting hemoglobin of 5.3.Positive occult stool however patient does haveinternal hemorrhoidsso may be false positive. Treatment: 2u PRBC, capsule endoscopy Gastroenterology was consulted. Pt underwent small bowelcapsule endoscopywith positive finding of nonbleeding gastric antrumulcer; is otherwise hemodynamically stable and medically optimized for discharge. Pt will continue on pantoprazole 40 mg once daily. Pt is advised against use of NSAIDs. She willfollow-upwith gastroenterologistDr. Pattersonand her PCP within 1 week post hospital discharge. Please clarify if upper gastrointestinal bleed is a valid diagnosis? [ ] No, Gastrointestinal bleed is ruled out [ ] Yes, Gastrointestinal bleed is present as evidence by (additional clinical support): [ ] Other (please specify diagnosis) [x] Unable to determine (Template Last Revised: April 2024) MTDD
== END 2025-04-19 14:19 | disposition home or self-care (01) | DRG 812 ==
LOC: EC 16:01 → 3SCARD 18:18
PROVIDERS: ADMIT Internal Medicine; ATTEND Internal Medicine
PROC: 30233N1 Transfusion of Nonautologous Red Blood Cells into Peripheral Vein, Percutaneous Approach (ICD-10-PCS; principal; 2025-04-16)
PROC: 0DJ07ZZ Inspection of Upper Intestinal Tract, Via Natural or Artificial Opening (ICD-10-PCS; 2025-04-17)
DX: D62 Acute posthemorrhagic anemia (principal); N17.8 Other acute kidney failure; I10 Essential (primary) hypertension; K25.9 Gastric ulcer, unspecified as acute or chronic, without hemorrhage or perforation; R73.9 Hyperglycemia, unspecified; E78.5 Hyperlipidemia, unspecified; K57.30 Diverticulosis of large intestine without perforation or abscess without bleeding; K64.8 Other hemorrhoids; Z85.820 Personal history of malignant melanoma of skin; Z79.82 Long term (current) use of aspirin; Z79.899 Other long term (current) drug therapy; Z86.79 Personal history of other diseases of the circulatory system
CPT/HCPCS: 36410; 36415; 36430; 76937; 80048; 80053; 81001; 82272; 82607; 82728; 82747; 83010; 83540; 83550; 83615; 83735; 85025; 85027; 85045; 85610; 85730; 86850; 86900; 86901; 86920; 87086; 91110; 93005; 96374; 99291

== ENCOUNTER 2025-04-22 02:27 | Observation (INO) | payer MEDICARE ==
[2025-04-22 03:18] LABS: Basophils # (A) 0.02 10*3/uL (0.00-0.10); Basophils % (A) 0.2 %; Eosinophils # (A) 0.04 10*3/uL (0.04-0.35); Eosinophils % (A) 0.5 %; HCT 26.8 % (37.2-46.3); HGB 8.2 g/dL (12.0-15.0); Lymphocytes # (A) 1.01 10*3/uL (0.90-5.00); Lymphocytes % (A) 11.4 %; MCH 27.3 pg (27.0-32.0); MCHC 30.6 g/dL (32.0-37.0); MCV 89.3 fL (80.0-97.0); Mean Platelet Volume 9.4 fL (9.5-12.2); Monocytes # (A) 0.86 10*3/uL (0.20-1.00); Monocytes % (A) 9.7 %; Neutrophils # (A) 6.81 10*3/uL (1.80-7.70); Neutrophils % (A) 77.2 %; Platelet Count 371 10*3/uL (140-440); RDW 18.4 % (11.5-14.5); WBC 8.83 10*3/uL (4.50-10.00)
[2025-04-22] MEDS: SODIUM CHLORIDE 0.9% 500 ML 500 ML IV STA ×2 (03:32→05:19)
[2025-04-22 03:41] LABS: ALT 15 U/L (4-34); AST 37 U/L (14-36); African American GFR (CKD) 50 (>60 ml/min/1.73 sqM); Alkaline Phosphatase 161 U/L (38-126); Anion Gap 11 mmol/L; Blood Urea Nitrogen 31 mg/dL (7-17); Calcium 8.5 mg/dL (8.4-10.2); Carbon Dioxide 20 mmol/L (22-30); Chloride 106 mmol/L (98-107); Glucose 123 mg/dL (74-99); Magnesium 2.2 mg/dL (1.6-2.3); Non-African American GFR(CKD) 43 (>60 ml/min/1.73 sqM); Potassium 4.6 mmol/L (3.5-5.1); Sodium 137 mmol/L (137-145); Total Bilirubin 0.4 mg/dL (0.2-1.3); Total Protein 5.8 g/dL (6.3-8.2)
[2025-04-22] MEDS ORDERED: NALOXONE 0.4 MG/ML 1 ML VIAL IV PRN (07:18)
--- NOTE | 2025-04-22 07:28 | ED ---
Weakness HPI - General Chief complaint: Weakness Stated complaint: Weakness Time Seen by Provider: 04/22/25 02:44 Source: patient Mode of arrival: EMS - History of Present Illness Initial comments: This patient is a 80-year-old woman here to have evaluation for generalized weakness. The patient has recent history of having been found to be significantly anemic. She had transfusion of 2 units of blood 3 days ago and then was discharged. The patient since that time states she is just too weak. Family notes that she had tried to get up and slid down the side of her chair t onight. They are concerned that she appears paler than she had been and that she may have need of another transfusion. Patient has no exercise tolerance and not able to get from room to room in the house MD Complaint: generalized weakness Onset/Timin -: days(s) Location: generalized Severity scale (1-10): 0 Consistency: constant Improves with: rest Worsens with: exertion Context: history of similar Associated Symptoms: dark stools (Patient takes iron) - Related Data Home Medications Medication Instructions Recorded Confirmed Rosuvastatin [Crestor] 10 mg PO SUMOTH 01/24/18 04/22/25 Losartan Potassium [Cozaar] 100 mg PO DAILY 11/27/18 04/22/25 Acetaminophen [Tylenol 8 Hour] 650 mg PO HS PRN 02/07/25 04/22/25 Cholecalciferol [Vitamin D3 (125 125 mcg PO DAILY 02/07/25 04/22/25 Mcg = 5000 Iu)] Ketoconazole 2% Cream [Nizoral 2%] 1 applic TOPICAL BID PRN 02/07/25 04/22/25 Vit C/E/Zn/Coppr/Lutein/Zeaxan 1 cap PO BID 02/07/25 04/22/25 [Preservision Areds 2 Softgel] Previous Rx's Medication Instructions Recorded Cyanocobalamin [Vitamin B-12] 1,000 mcg PO DAILY #60 tab 02/10/25 Ferrous Sulfate [Iron (65 MG 325 mg PO BID-W/MEALS #60 tab 02/10/25 Elemental)] Folic Acid 1 mg PO DAILY #30 tab 02/10/25 Pantoprazole [Protonix] 40 mg PO DAILY #30 tab 03/18/25 Furosemide [Lasix] 20 mg PO DAILY #0 04/23/25 LORazepam [Ativan] 0.25 mg PO Q6H PRN #4 tab 04/23/25 LORazepam [Ativan] 0.5 mg PO Q6H PRN #4 tab 04/23/25 Metoprolol Succinate [Kapspargo 50 mg PO DAILY #10 cap 04/23/25 Sprinkle] Potassium Chloride ER [K-Dur 10] 10 meq PO DAILY #0 04/23/25 Allergies Allergy/AdvReac Type Severity Reaction Status Date / Time Penicillins Allergy Rash/Hives Verified 04/22/25 11:12 Review of Systems ROS Statement: Those systems with pertinent positive or pertinent negative responses have been documented in the HPI. ROS Other: All systems not noted in ROS Statement are negative. Constitutional: Reports: weakness. Denies: fever, chills Eyes: Denies: vision change Respiratory: Denies: cough, dyspnea Cardiovascular: Reports: dyspnea on exertion. Denies: chest pain, palpitations, syncope Gastrointestinal: Denies: abdominal pain, vomiting, diarrhea, melena, hematochezia Genitourinary: Denies: dysuria, hematuria Musculoskeletal: Denies: back pain Skin: Denies: rash Neurological: Denies: headache, weakness, numbness, confusion Past Medical History Past Medical History: Cancer, Hyperlipidemia, Hypertension Additional Past Medical History / Comment(s): Recent hospitalization for pneumonia and low blood/iron counts-d/c 02/10/25, treatment completed. 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 Durbin, hx of melanoma. History of Any Multi-Drug Resistant Organisms: None Reported Past Surgical History: Appendectomy, Cholecystectomy, Heart Catheterization, Tubal Ligation Additional Past Surgical History / Comment(s): Melanoma removed L leg. Cataract removal B/L eyes. Past Anesthesia/Blood Transfusion Reactions: No Reported Reaction Additional Past Anesthesia/Blood Transfusion Reaction / Comment(s): . Past Psychological History: Anxiety, Depression Smoking Status: Never smoker Past Alcohol Use History: None Reported Past Drug Use History: None Reported - Past Family History Father Family Medical History: Cancer Mother Additional Family Medical History / Comment(s): Mother in her 90s in the hospital after she broke her hip, suddenly after she was taken off of blood thinners before hip surgery. General Exam General appearance: alert, in no apparent distress Head exam: Present: atraumatic, normocephalic Eye exam: Present: normal appearance. Absent: scleral icterus, conjunctival injection ENT exam: Present: normal oropharynx Neck exam: Present: normal inspection Respiratory exam: Present: normal lung sounds bilaterally. Absent: respiratory distress, wheezes, rales, rhonchi, stridor, accessory muscle use Cardiovascular Exam: Present: regular rate, normal rhythm, systolic murmur. Absent: diastolic murmur, rubs, gallop GI/Abdominal exam: Present: soft. Absent: distended, tenderness, guarding, rebound, rigid, mass, pulsatile mass, hernia Extremities exam: Present: normal inspection, normal capillary refill. Absent: pedal edema, calf tenderness Back exam: Present: normal inspection. Absent: CVA tenderness (R), CVA tender ness (L) Neurological exam: Present: alert Skin exam: Present: warm, dry, intact, normal color. Absent: rash Course Vital Signs 04/22/25 04/22/25 04/22/25 02:29 05:19 06:43 Temperature 98.3 F Pulse Rate 75 66 64 Respiratory 17 17 17 Rate Blood Pressure 81/51 93/47 98/42 O2 Sat by Pulse 97 97 Oximetry 04/22/25 04/22/25 04/22/25 08:02 11:06 13:13 Temperature Pulse Rate 71 64 75 Respiratory 16 18 16 Rate Blood Pressure 107/77 100/51 105/67 O2 Sat by Pulse 98 97 98 Oximetry 04/22/25 04/22/25 16:45 17:15 Temperature 98.3 F Pulse Rate 61 62 Respiratory 18 18 Rate Blood Pressure 99/61 117/58 O2 Sat by Pulse 98 98 Oximetry Medical Decision Making - Medical Decision Making Patient is 80-year-old woman with recent anemia requiring transfusion returns with generalized weakness and inability to ambulate. The patient does have stable hemoglobin here. We are not able to get her up will admit to have rehabilitation placement. Was pt. sent in by a medical professional or institution (, PA, LOG DECKMAN, urgent care, hospital, or alf...) When possible be specific @ -[No] Did you speak to anyone other than the patient for history (EMS, parent, family, police, friend...)? What history was obtained from this source @ -[Patient's family did give history Did you review nursing and triage notes (agree or disagree)? Why? @ -[I reviewed and agree with nursing and triage notes] Were old charts reviewed (outside hosp., previous admission, EMS record, old EKG , old radiological studies, urgent care reports/EKG's, alf records)? Report findings @ -[Yes, old charts were reviewed] Differential Diagnosis (chest pain, altered mental status, abdominal pain women, abdominal pain men, vaginal bleeding, weakness, fever, dyspnea, syncope, headache, dizziness, GI bleed, back pain, seizure, CVA, palpatations, mental health, musculoskeletal)? @ -[Differential Weakness: Hypoglycemia, shock, sepsis, hyponatremia, anemia, infection, SC, ETOH, adverse medicine reaction, overdose, stroke, this is not meant to be an all-inclusive list. EKG interpreted by me (3pts min.). @ -[I interpreted as above] X-rays interpreted by me (1pt min.). @ -[None done] CT interpreted by me (1pt min.). @ -[None done] U/S interpreted by me (1pt. min.). @ -[None done] What testing was considered but not performed or refused? (CT, X-rays, U/S, labs)? Why? @ -[None] What meds were considered but not given or refused? Why? @ -[None] Did you discuss the management of the patient with other professionals (professionals i.e. , PA, LOG DECKMAN, lab, RT, psych nurse, manager social services, mat making machine tender, teacher, complaint investigations officer, bilingual patient support caseworker)? Give summary @ -[Case discussed with admitting physician and treatment recommendations incorporated Was smoking cessation discussed for >3mins.? @ -[No] Was critical care preformed (if so, how long)? @ -[No] Were there social determinants of health that impacted care today? How? (Homelessness, low income, unemployed, alcoholism, drug addiction, transportation, low edu. Level, literacy, decrease access to med. care, senior care, rehab)? @ -[No] Was there de-escalation of care discussed even if they declined (Discuss DNR or withdrawal of care, Hospice)? DNR status @ -[No] What co-morbidities impacted this encounter? (DM, HTN, Smoking, COPD, CAD, Cancer, CVA, ARF, Chemo, Hep., AIDS, mental health diagnosis, sleep apnea, morbid obesity)? @ -[Anemia Was patient admitted / discharged? Hospital course, mention meds given and route, prescriptions, significant lab abnormalities, going to OR and other pertinent info. @ -[As above, patient not able to support herself or walk, will be admitted to have rehabilitation placement Undiagnosed new problem with uncertain prognosis? @ -[No] Drug Therapy requiring intensive monitoring for toxicity (Heparin, Nitro, Insulin, Cardizem)? @ -[No] Were any procedures done? @ -[No] Diagnosis/symptom? @ -[Acute generalized weakness Inability to ambulate Acute, or Chronic, or Acute on Chronic? @ -[Acute Uncomplicated (without systemic symptoms) or Complicated (systemic symptoms)? @ -[Uncomplicated Side effects of treatment? @ -[No] Exacerbation, Progression, or Severe Exacerbation? @ -[No] Poses a threat to life or bodily function? How? (Chest pain, USA, SC, pneumonia, PE, COPD, DKA, ARF, appy, cholecystitis, CVA, Diverticulitis, Homicidal, Suicidal, threat to staff... and all critical care pts) @ -[No] All treatments are based on ideal body weight as in ED triage - Lab Data Result diagrams: 04/22/25 03:17 04/23/25 05:43 Lab Results 04/22/25 04/22/25 04/22/25 Range/Units 03:17 03:17 03:17 WBC 8.83 (4.50-10.00) 10*3/uL RBC 3.00 L (4.10-5.20) 10*6/uL Hgb 8.2 L (12.0-15.0) g/dL Hct 26.8 L (37.2-46.3) % MCV 89.3 (80.0-97.0) fL MCH 27.3 (27.0-32.0) pg MCHC 30.6 L (32.0-37.0) g/dL Plt Count 371 (140-440) 10*3/uL MPV 9.4 L (9.5-12.2) fL Immature Gran % (Auto) 1.0 % Neutrophils % 77.2 % Lymphocytes % 11.4 % Monocytes % 9.7 % Eosinophils % 0.5 % Basophils % 0.2 % Immature Gran # 0.09 H (0.00-0.04) 10*3/uL Neutrophils # 6.81 (1.80-7.70) 10*3/uL Lymphocytes # 1.01 (0.90-5.00) 10*3/uL Monocytes # 0.86 (0.20-1.00) 10*3/uL Eosinophils # 0.04 (0.04-0.35) 10*3/uL Basophils # 0.02 (0.00-0.10) 10*3/uL Sodium 137 (137-145) mmol/L Potassium 4.6 (3.5-5.1) mmol/L Chloride 106 (98-107) mmol/L Carbon Dioxide 20 L (22-30) mmol/L Anion Gap 11 mmol/L BUN 31 H (7-17) mg/dL Creatinine 1.21 H (0.52-1.04) mg/dL Est GFR (CKD-EPI)AfAm 50 (>60 ml/min/1.73 sqM) Est GFR (CKD-EPI)NonAf 43 (>60 ml/min/1.73 sqM) Glucose 123 H (74-99) mg/dL Plasma Lactic Acid Greg 1.2 (0.7-2.0) mmol/L Calcium 8.5 (8.4-10.2) mg/dL Magnesium 2.2 (1.6-2.3) mg/dL Total Bilirubin 0.4 (0.2-1.3) mg/dL AST 37 H (14-36) U/L ALT 15 (4-34) U/L Alkaline Phosphatase 161 H (38-126) U/L Troponin I (0.000-0.034) ng/mL Total Protein 5.8 L (6.3-8.2) g/dL Albumin 3.0 L (3.5-5.0) g/dL 04/22/25 Range/Units 03:17 WBC (4.50-10.00) 10*3/uL RBC (4.10-5.20) 10*6/uL Hgb (12.0-15.0) g/dL Hct (37.2-46.3) % MCV (80.0-97.0) fL MCH (27.0-32.0) pg MCHC (32.0-37.0) g/dL Plt Count (140-440) 10*3/uL MPV (9.5-12.2) fL Immature Gran % (Auto) % Neutrophils % % Lymphocytes % % Monocytes % % Eosinophils % % Basophils % % Immature Gran # (0.00-0.04) 10*3/uL Neutrophils # (1.80-7.70) 10*3/uL Lymphocytes # (0.90-5.00) 10*3/uL Monocytes # (0.20-1.00) 10*3/uL Eosinophils # (0.04-0.35) 10*3/uL Basophils # (0.00-0.10) 10*3/uL Sodium (137-145) mmol/L Potassium (3.5-5.1) mmol/L Chloride (98-107) mmol/L Carbon Dioxide (22-30) mmol/L Anion Gap mmol/L BUN (7-17) mg/dL Creatinine (0.52-1.04) mg/dL Est GFR (CKD-EPI)AfAm (>60 ml/min/1.73 sqM) Est GFR (CKD-EPI)NonAf (>60 ml/min/1.73 sqM) Glucose (74-99) mg/dL Plasma Lactic Acid Greg (0.7-2.0) mmol/L Calcium (8.4-10.2) mg/dL Magnesium (1.6-2.3) mg/dL Total Bilirubin (0.2-1.3) mg/dL AST (14-36) U/L ALT (4-34) U/L Alkaline Phosphatase (38-126) U/L Troponin I <0.012 (0.000-0.034) ng/mL Total Protein (6.3-8.2) g/dL Albumin (3.5-5.0) g/dL Disposition Clinical Impression: Weakness, Anemia, Inability to walk Disposition: ADMITTED IP TO THIS HOSP Condition: Fair Is patient prescribed a controlled substance at d/c from ED?: No
[2025-04-22] MEDS: FAMOTIDINE 20 MG TAB PO SCH (08:38)
[2025-04-22] MEDS: SODIUM CHLORIDE 0.9% 1,000 ML IV SCH ×2 (08:38→11:13)
--- NOTE | 2025-04-22 10:58 | P.HPIM ---
History of Present Illness Patient is a pleasant 74-year-old came in for evaluation of generalized weakness. Patient was recently discharged from the hospital couple days ago after she was treated for severe anemia symptomatic anemia. Patient underwent an endoscopy received units of blood transfusion endoscopy showed mild peptic ulcer disease. Patient was also treated for acute renal failure and dehydration. Patient is on 3 antiplatelet medications at this time blood pressure is low normal with elevated creatinine 1.21. REVIEW OF SYSTEMS: All other systems are negative except those mentioned in the HPI PHYSICAL EXAMINATION: GENERAL: The patient is alert and oriented x3, not in any acute distress. Well developed, well nourished. HEENT: Pupils are round and equally reacting to light. EOMI. No scleral icterus. No conjunctival pallor. Normocephalic, atraumatic. No pharyngeal erythema. No thyromegaly. CARDIOVASCULAR: S1 and S2 present. No murmurs, rubs, or gallops. PULMONARY: Chest is clear to auscultation, no wheezing or crackles. ABDOMEN: Soft, nontender, nondistended, normoactive bowel sounds. No palpable organomegaly. MUSCULOSKELETAL: No joint swelling or deformity. EXTREMITIES: No cyanosis, clubbing, or pedal edema. NEUROLOGICAL: Gross neurological examination did not reveal any focal deficits. SKIN: No rashes. Assessment and plan -Generalized weakness secondary to recent hospitalization and age-related muscle atrophy patient probably will need placement in subacute rehab. Physical therapy Occupational Therapy evaluation - Mild acute renal failure prerenal ischemia secondary to dehydration and patien t is also on 3 blood pressure medications have to hold some of her medications patient will be started on IV fluids. Patient's present creatinine is 1.21 baseline is within normal limits - Anemia no acute GI bleed at this time anemia appears to be from recent bleed patient serum ferritin was 71 during her last hospitalization B12 and folate are not low -Hyperlipidemia - Hypertension - Depression Appropriate home medications will be reordered once medications are verified DVT prophylaxis: Subcutaneous Lovenox Past Medical History Past Medical History: Cancer, Hyperlipidemia, Hypertension Additional Past Medical History / Comment(s): Recent hospitalization for pneumonia and low blood/iron counts-d/c 02/10/25, treatment completed. 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 Durbin, hx of melanoma. History of Any Multi-Drug Resistant Organisms: None Reported Past Surgical History: Appendectomy, Cholecystectomy, Heart Catheterization, Tubal Ligation Additional Past Surgical History / Comment(s): Melanoma removed L leg. Cataract removal B/L eyes. Past Anesthesia/Blood Transfusion Reactions: No Reported Reaction Additional Past Anesthesia/Blood Transfusion Reaction / Comment(s): . Past Psychological History: Anxiety, Depression Smoking Status: Never smoker Past Alcohol Use History: None Reported Past Drug Use History: None Reported - Past Family History Father Family Medical History: Cancer Mother Additional Family Medical History / Comment(s): Mother in her 90s in the hospital after she broke her hip, suddenly after she was taken off of blood thinners before hip surgery. Medications and Allergies Home Medications Medication Instructions Recorded Confirmed Type Atenolol [Tenormin] 50 mg PO DAILY 11/14/14 04/16/25 History Spironolactone [Aldactone] 25 mg PO DAILY 11/14/14 04/16/25 History amLODIPine BESYLATE [Norvasc] 2.5 mg PO DAILY 11/14/14 04/16/25 History cloNIDine HCL [Catapres] 0.2 mg PO TID 11/14/14 04/16/25 History Rosuvastatin [Crestor] 10 mg PO SUMOTH 01/24/18 04/16/25 History Losartan Potassium [Cozaar] 100 mg PO DAILY 11/27/18 04/16/25 History Acetaminophen [Tylenol 8 Hour] 650 mg PO HS PRN 02/07/25 04/16/25 History Cholecalciferol [Vitamin D3 (125 125 mcg PO DAILY 02/07/25 04/16/25 History Mcg = 5000 Iu)] Furosemide [Lasix] 20 mg PO BID 02/07/25 04/16/25 History Ketoconazole 2% Cream [Nizoral 2%] 1 applic TOPICAL BID PRN 02/07/25 04/16/25 History LORazepam [Ativan] 0.25 - 0.5 mg PO Q6H PRN 02/07/25 04/16/25 History Potassium Chloride ER [K-Dur 10] 10 meq PO BID 02/07/25 04/16/25 History Vit C/E/Zn/Coppr/Lutein/Zeaxan 1 cap PO BID 02/07/25 04/16/25 History [Preservision Areds 2 Softgel] Cyanocobalamin [Vitamin B-12] 1,000 mcg PO DAILY #60 tab 02/10/25 04/16/25 Rx Ferrous Sulfate [Iron (65 MG 325 mg PO BID-W/MEALS #60 tab 02/10/25 04/16/25 Rx Elemental)] Folic Acid 1 mg PO DAILY #30 tab 02/10/25 04/16/25 Rx Pantoprazole [Protonix] 40 mg PO DAILY #30 tab 03/18/25 04/16/25 Rx Allergies Allergy/AdvReac Type Severity Reaction Status Date / Time Penicillins Allergy Rash/Hives Verified 04/22/25 10:19 Physical Exam Vitals: Vital Signs Temp Pulse Resp BP Pulse Ox 04/22/25 08:02 71 16 107/77 98 04/22/25 06:43 64 17 98/42 97 04/22/25 05:19 66 17 93/47 04/22/25 02:29 98.3 F 75 17 81/51 97 Intake and Output 04/21/25 04/22/25 04/22/25 22:59 06:59 14:59 Other: Weight 86.183 kg Results CBC & Chem 7: 04/22/25 03:17 04/22/25 03:17 Labs: Abnormal Lab Results - Last 24 Hours (Table) 04/22/25 04/22/25 Range/Units 03:17 03:17 RBC 3.00 L (4.10-5.20) 10*6/uL Hgb 8.2 L (12.0-15.0) g/dL Hct 26.8 L (37.2-46.3) % MCHC 30.6 L (32.0-37.0) g/dL MPV 9.4 L (9.5-12.2) fL Immature Gran # 0.09 H (0.00-0.04) 10*3/uL Carbon Dioxide 20 L (22-30) mmol/L BUN 31 H (7-17) mg/dL Creatinine 1.21 H (0.52-1.04) mg/dL Glucose 123 H (74-99) mg/dL AST 37 H (14-36) U/L Alkaline Phosphatase 161 H (38-126) U/L Total Protein 5.8 L (6.3-8.2) g/dL Albumin 3.0 L (3.5-5.0) g/dL
[2025-04-22] MEDS: ACETAMINOPHEN TAB 325 MG TAB PO PRN (14:16)
[2025-04-22] MEDS ORDERED: CLOTRIMAZOLE 1% CREAM 30 GM TUBE TOPICAL PRN (16:52)
[2025-04-22] MEDS ORDERED: ACETAMINOPHEN TAB 325 MG TAB PO PRN (16:52)
[2025-04-22] MEDS ORDERED: LORazepam 0.5 MG TAB PO PRN (16:52)
[2025-04-22] MEDS: PANTOPRAZOLE 40 MG TABLET PO SCH (18:11)
[2025-04-22] MEDS: FERROUS SULFATE 325 MG TAB PO SCH (18:11)
[2025-04-22] MEDS: FUROSEMIDE 20 MG TAB PO SCH (20:02)
[2025-04-22] MEDS: HEPARIN SODIUM,PORCINE 5,000 UNIT/ML 1 ML VIAL SQ SCH (20:02)
[2025-04-22] MEDS: VIT A,C & E-LUTEIN-MINERALS 1 EACH TAB PO SCH (20:03)
[2025-04-23 06:51] LABS: African American GFR (CKD) 81 (>60 ml/min/1.73 sqM); Anion Gap 12 mmol/L; Blood Urea Nitrogen 27 mg/dL (7-17); Calcium 8.5 mg/dL (8.4-10.2); Carbon Dioxide 17 mmol/L (22-30); Chloride 111 mmol/L (98-107); Glucose 115 mg/dL (74-99); Non-African American GFR(CKD) 70 (>60 ml/min/1.73 sqM); Sodium 140 mmol/L (137-145)
[2025-04-23 07:35] VITALS: RESP 16
[2025-04-23] MEDS: CHOLECALCIFEROL 125 MCG (5000 IU) TABLET PO SCH (09:22)
[2025-04-23] MEDS: FOLIC ACID 1 MG TAB PO SCH (09:22)
[2025-04-23] MEDS: CYANOCOBALAMIN 500 MCG TAB PO SCH (09:23)
--- NOTE | 2025-04-23 10:54 | P.DS ---
Providers Date of admission: 04/22/25 07:18 Attending physician: Blake Magdaleno MD Primary care physician: Delgado Carbone Patient is a pleasant 74-year-old came in for evaluation of generalized weakness. Patient was recently discharged from the hospital couple days ago after she was treated for severe anemia symptomatic anemia. Patient underwent an endoscopy received units of blood transfusion endoscopy showed mild peptic ulcer disease. Patient was also treated for acute renal failure and dehydration. Patient is on 3 antiplatelet medications at this time blood pressure is low normal with elevated creatinine 1.21. 04/23/2025 Patient's very much better today but still weak and will require subacute rotation physical Lovenox patient will be evaluated patient recommending subacute rehab. Patient was in acute renal failure yesterday secondary to diuretics and blood pressure medications and blood pressure was also low. Following medication changes are being made at this time cutting down the dose of losartan to 50 mg discontinue clonidine, change atenolol to metoprolol, discontinue Norvasc. Patient was on 20 mg twice a day of Lasix along with Aldactone patient had a normal ejection fraction may have diastolic function we will cut down the dose of Lasix to 20 mg daily along with potassium supplementation discontinue Aldactone. Patient will need repeat basic metabolic profile tested in couple days to assess for the need of Lasix and potassium supplementation. PHYSICAL EXAMINATION: GENERAL: The patient is alert and oriented x3, not in any acute distress. Well developed, well nourished. HEENT: Pupils are round and equally reacting to light. EOMI. No scleral icterus. No conjunctival pallor. Normocephalic, atraumatic. No pharyngeal erythema. No thyromegaly. CARDIOVASCULAR: S1 and S2 present. No murmurs, rubs, or gallops. PULMONARY: Chest is clear to auscultation, no wheezing or crackles. ABDOMEN: Soft, nontender, nondistended, normoactive bowel sounds. No palpable organomegaly. MUSCULOSKELETAL: No joint swelling or deformity. EXTREMITIES: No cyanosis, clubbing, or pedal edema. NEUROLOGICAL: Gross neurological examination did not reveal any focal deficits. SKIN: No rashes. Assessment and plan -Generalized weakness secondary to recent hospitalization and age-related muscle atrophy patient will need placement in subacute rehab. - Mild acute renal failure prerenal ischemia secondary to dehydration and patient is also on 3 blood pressure medications have to hold some of her medications patient will be started on IV fluids. Patient's present creatinine is 1.21 baseline is within normal limits, creatinine improved today management as mentioned above - Anemia no acute GI bleed at this time anemia appears to be from recent bleed patient serum ferritin was 71 during her last hospitalization B12 and folate are not low -Hyperlipidemia - Hypertension - Depression Plan - Discharge Summary Discharge Rx Participant: No New Discharge Prescriptions: New Metoprolol Succinate [Kapspargo Sprinkle] 50 mg PO DAILY #10 cap Continue Rosuvastatin [Crestor] 10 mg PO SUMOTH Losartan Potassium [Cozaar] 100 mg PO DAILY Cholecalciferol [Vitamin D3 (125 Mcg = 5000 Iu)] 125 mcg PO DAILY Acetaminophen [Tylenol 8 Hour] 650 mg PO HS PRN PRN Reason: Pain LORazepam [Ativan] 0.25 - 0.5 mg PO Q6H PRN PRN Reason: Anxiety Folic Acid 1 mg PO DAILY #30 tab Cyanocobalamin [Vitamin B-12] 1,000 mcg PO DAILY #60 tab Ketoconazole 2% Cream [Nizoral 2%] 1 applic TOPICAL BID PRN PRN Reason: under breast & groin area Vit C/E/Zn/Coppr/Lutein/Zeaxan [Preservision Areds 2 Softgel] 1 cap PO BID Ferrous Sulfate [Iron (65 MG Elemental)] 325 mg PO BID-W/MEALS #60 tab Pantoprazole [Protonix] 40 mg PO DAILY #30 tab Changed Potassium Chloride ER [K-Dur 10] 10 meq PO DAILY #0 Furosemide [Lasix] 20 mg PO DAILY #0 Discontinued amLODIPine BESYLATE [Norvasc] 2.5 mg PO DAILY Atenolol [Tenormin] 50 mg PO DAILY cloNIDine HCL [Catapres] 0.2 mg PO TID Spironolactone [Aldactone] 25 mg PO DAILY Discharge Medication List Rosuvastatin [Crestor] 10 mg PO SUMOTH 01/24/18 [History] Losartan Potassium [Cozaar] 100 mg PO DAILY 11/27/18 [History] Acetaminophen [Tylenol 8 Hour] 650 mg PO HS PRN 02/07/25 [History] Cholecalciferol [Vitamin D3 (125 Mcg = 5000 Iu)] 125 mcg PO DAILY 02/07/25 [History] Ketoconazole 2% Cream [Nizoral 2%] 1 applic TOPICAL BID PRN 02/07/25 [History] LORazepam [Ativan] 0.25 - 0.5 mg PO Q6H PRN 02/07/25 [History] Vit C/E/Zn/Coppr/Lutein/Zeaxan [Preservision Areds 2 Softgel] 1 cap PO BID 02/07/25 [History] Cyanocobalamin [Vitamin B-12] 1,000 mcg PO DAILY #60 tab 02/10/25 [Rx] Ferrous Sulfate [Iron (65 MG Elemental)] 325 mg PO BID-W/MEALS #60 tab 02/10/25 [Rx] Folic Acid 1 mg PO DAILY #30 tab 02/10/25 [Rx] Pantoprazole [Protonix] 40 mg PO DAILY #30 tab 03/18/25 [Rx] Furosemide [Lasix] 20 mg PO DAILY #0 04/23/25 [Rx] Metoprolol Succinate [Kapspargo Sprinkle] 50 mg PO DAILY #10 cap 04/23/25 [Rx] Potassium Chloride ER [K-Dur 10] 10 meq PO DAILY #0 04/23/25 [Rx] Follow up Appointment(s)/Referral(s): Delgado Carbone MD [Primary Care Provider] - 1-2 days Neptali Roman MD [STAFF PHYSICIAN] - 1 Week
[2025-04-23 13:02] VITALS: BP 143/75; PULSE 86; TEMP 98.2
[2025-04-23] MEDS: MAG HYDROX/AL HYDROX/SIMETH 30 ML CUP PO PRN (13:32)
[2025-04-24] MEDS ORDERED: ATORVASTATIN 20 MG TAB PO SCH (09:00)
== END 2025-04-23 15:47 ==
LOC: EC 02:27 → 5NMEDONC 07:18
PROVIDERS: ADMIT Internal Medicine; ATTEND Internal Medicine
DX: R53.1 Weakness (principal); E86.0 Dehydration; M62.50 Muscle wasting and atrophy, not elsewhere classified, unspecified site; R79.89 Other specified abnormal findings of blood chemistry; N17.9 Acute kidney failure, unspecified; K27.9 Peptic ulcer, site unspecified, unspecified as acute or chronic, without hemorrhage or perforation; D64.9 Anemia, unspecified; E78.5 Hyperlipidemia, unspecified; F32.A Depression, unspecified; F41.9 Anxiety disorder, unspecified; I10 Essential (primary) hypertension; Z79.899 Other long term (current) drug therapy; Z85.820 Personal history of malignant melanoma of skin; Z88.0 Allergy status to penicillin
CPT/HCPCS: 96361 ×2; 96372 ×2; 96360; 99285; 36415; 97161; 97535; 97165; 80053; 80048; 83605; 83735; 84484; 85025; 87040; G0378 ×2; J1644 ×2

== ENCOUNTER 2025-05-24 04:52 | Inpatient (IN) | payer MEDICARE ==
[2025-05-24] MEDS: ACETAMINOPHEN TAB 325 MG TAB PO STA ×2 (06:05→06:11)
[2025-05-24 06:09] LABS: Basophils # (A) 0.03 10*3/uL (0.00-0.10); Basophils % (A) 0.2 %; Eosinophils # (A) 0.01 10*3/uL (0.04-0.35); Eosinophils % (A) 0.1 %; HCT 29.7 % (37.2-46.3); HGB 9.1 g/dL (12.0-15.0); Lymphocytes # (A) 1.48 10*3/uL (0.90-5.00); Lymphocytes % (A) 11.7 %; MCH 26.0 pg (27.0-32.0); MCHC 30.6 g/dL (32.0-37.0); Monocytes # (A) 0.86 10*3/uL (0.20-1.00); Monocytes % (A) 6.8 %; Neutrophils # (A) 10.17 10*3/uL (1.80-7.70); Neutrophils % (A) 80.1 %; Platelet Count 243 10*3/uL (140-440); RBC 3.50 10*6/uL (4.10-5.20); RDW 18.6 % (11.5-14.5); WBC 12.69 10*3/uL (4.50-10.00)
[2025-05-24] MEDS: LACTATED RINGERS 1,100 ML IV ONE (06:11)
[2025-05-24 06:14] LABS: MCV 84.9 fL (80.0-97.0)
[2025-05-24 06:20] LABS: ALT 15 U/L (4-34); African American GFR (CKD) 51 (>60 ml/min/1.73 sqM); Albumin 2.7 g/dL (3.5-5.0); Anion Gap 9 mmol/L; Blood Urea Nitrogen 35 mg/dL (7-17); Calcium 8.0 mg/dL (8.4-10.2); Carbon Dioxide 22 mmol/L (22-30); Chloride 109 mmol/L (98-107); Glucose 123 mg/dL (74-99); Non-African American GFR(CKD) 44 (>60 ml/min/1.73 sqM); Sodium 140 mmol/L (137-145); Total Protein 5.7 g/dL (6.3-8.2)
--- NOTE | 2025-05-24 06:44 | ED ---
Weakness HPI - General Chief complaint: Weakness Stated complaint: weakness,fever,dehydration Time Seen by Provider: 05/24/25 05:57 Source: patient Mode of arrival: EMS Limitations: no limitations - History of Present Illness Initial comments: This patient is a 80-year-old woman brought to have evaluation for worsening of generalized weakness. The patient states that she has been feeling progressively more weak over the past 2 days. Today she tried to get out of bed to go and use the bathroom and she ended up sliding down the side of the bed because her legs would not support her. She denies having any injury and going to the floor. Her son was not able to help get her up so EMS was called and they brought her here for evaluation. The patient's also having fever now. Patient's son relates that she has been in a number of times over the past approximately 3 months for sepsis, weakness, having gone to a rehabilitation facility and not seeming to bounce back well. MD Complaint: generalized weakness Onset/Timin -: days(s) Location: generalized Severity scale (1-10): 0 Consistency: constant Improves with: none Worsens with: exertion Associated Symptoms: loss of appetite - Related Data Home Medications Medication Instructions Recorded Confirmed Rosuvastatin [Crestor] 10 mg PO DAILY 01/24/18 05/24/25 Losartan Potassium [Cozaar] 100 mg PO DAILY 11/27/18 05/24/25 Ferrous Sulfate [Iron (65 MG 650 mg PO DAILY 05/24/25 05/24/25 Elemental)] Ondansetron Odt [Zofran ODT] 4 mg PO TID PRN 05/24/25 05/24/25 hydrALAZINE HCL [Apresoline] 50 mg PO TID 05/24/25 05/24/25 Previous Rx's Medication Instructions Recorded Folic Acid 1 mg PO DAILY #30 tab 02/10/25 Pantoprazole [Protonix] 40 mg PO DAILY #30 tab 03/18/25 Furosemide [Lasix] 20 mg PO DAILY #0 04/23/25 Potassium Chloride ER [K-Dur 10] 10 meq PO DAILY #0 04/23/25 Apixaban [Eliquis Starter Pack 5 - 10 mg PO DIRECTED 30 Days 05/26/25 (for VTE)] #1 each Allergies Allergy/AdvReac Type Severity Reaction Status Date / Time Penicillins Allergy Rash/Hives Verified 05/24/25 12:13 Review of Systems ROS Statement: Those systems with pertinent positive or pertinent negative responses have been documented in the HPI. ROS Other: All systems not noted in ROS Statement are negative. Constitutional: Reports: fever, weakness Eyes: Denies: vision change Respiratory: Reports: cough. Denies: dyspnea, wheezes, hemoptysis Cardiovascular: Denies: chest pain, palpitations, edema, syncope Gastrointestinal: Denies: abdominal pain, nausea, vomiting, diarrhea Genitourinary: Denies: dysuria, hematuria Musculoskeletal: Denies: back pain Skin: Denies: rash Neurological: Denies: headache, weakness, numbness, confusion Past Medical History Past Medical History: Cancer, Hyperlipidemia, Hypertension Additional Past Medical History / Comment(s): Recent hospitalization low blood/iron counts-d/c 04/19/25, treatment completed. 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 Durbin, hx of melanoma. History of Any Multi-Drug Resistant Organisms: None Reported Past Surgical History: Appendectomy, Cholecystectomy, Heart Catheterization, Tubal Ligation Additional Past Surgical History / Comment(s): Melanoma removed L leg. Cataract removal B/L eyes. Past Anesthesia/Blood Transfusion Reactions: No Reported Reaction Additional Past Anesthesia/Blood Transfusion Reaction / Comment(s): . Past Psychological History: Anxiety, Depression Smoking Status: Never smoker Past Alcohol Use History: None Reported Past Drug Use History: None Reported - Past Family History Father Family Medical History: Cancer Mother Additional Family Medical History / Comment(s): Mother in her 90s in the hospital after she broke her hip, suddenly after she was taken off of blood thinners before hip surgery. General Exam Limitations: no limitations General appearance: alert, in no apparent distress Head exam: Present: atraumatic, normocephalic Eye exam: Present: normal appearance. Absent: scleral icterus, conjunctival injection ENT exam: Present: mucous membranes dry Neck exam: Present: normal inspection, full ROM. Absent: tenderness Respiratory exam: Present: normal lung sounds bilaterally, rales. Absent: respiratory distress, wheezes, rhonchi, stridor, accessory muscle use Cardiovascular Exam: Present: normal rhythm, tachycardia, normal heart sounds. Absent: systolic murmur, diastolic murmur, rubs, gallop GI/Abdominal exam: Present: soft. Absent: distended, tenderness, guarding, rebound, rigid, mass, pulsatile mass Extremities exam: Present: normal inspection, normal capillary refill, pedal jennifer ma. Absent: calf tenderness Back exam: Present: normal inspection. Absent: CVA tenderness (R), CVA tenderness (L) Neurological exam: Present: alert Skin exam: Present: warm, dry, intact, normal color. Absent: rash Course Vital Signs 05/24/25 05/24/25 05/24/25 04:54 07:00 07:40 Temperature 101.5 F H 98.2 F Pulse Rate 109 H 97 92 Pulse Rate [ Pulse Oximetery ] Respiratory 30 H 30 H 18 Rate Blood Pressure 113/66 125/91 101/61 Blood Pressure [Left Arm] O2 Sat by Pulse 98 93 L 95 Oximetry 05/24/25 05/24/25 05/24/25 10:54 13:06 14:42 Temperature 97.5 F L Pulse Rate 87 83 Pulse Rate [ 88 Pulse Oximetery ] Respiratory 18 17 18 Rate Blood Pressure 109/64 117/70 Blood Pressure 107/71 [Left Arm] O2 Sat by Pulse 92 L 90 L 95 Oximetry 05/24/25 15:14 Temperature 98.9 F Pulse Rate Pulse Rate [ Pulse Oximetery ] Respiratory Rate Blood Pressure Blood Pressure [Left Arm] O2 Sat by Pulse Oximetry Medical Decision Making - Medical Decision Making The patient had chest x-ray that I interpreted as showing right lower lobe infiltrate. Was pt. sent in by a medical professional or institution (, PA, RN CIRCULATING, urgent care, hospital, or penitentiary...) When possible be specific @ -[No] Did you speak to anyone other than the patient for history (EMS, parent, family, police, friend...)? What history was obtained from this source @ -[No] Did you review nursing and triage notes (agree or disagree)? Why? @ -[I reviewed and agree with nursing and triage notes] Were old charts reviewed (outside hosp., previous admission, EMS record, old EKG, old radiological studies, urgent care reports/EKG's, penitentiary records)? Report findings @ -[Yes, old charts were reviewed] Differential Diagnosis (chest pain, altered mental status, abdominal pain women, abdominal pain men, vaginal bleeding, weakness, fever, dyspnea, syncope, headache, dizziness, GI bleed, back pain, seizure, CVA, palpatations, mental health, musculoskeletal)? @ -[Differential Weakness: Hypoglycemia, shock, sepsis, hyponatremia, anemia, infection, WI, ETOH, adverse medicine reaction, overdose, stroke, this is not meant to be an all-inclusive list. EKG interpreted by me (3pts min.). @ -[I interpreted as above] X-rays interpreted by me (1pt min.). @ -[I interpreted as above CT interpreted by me (1pt min.). @ -[None done] U/S interpreted by me (1pt. min.). @ -[None done] What testing was considered but not performed or refused? (CT, X-rays, U/S, labs)? Why? @ -[None] What meds were considered but not given or refused? Why? @ -[None] Did you discuss the management of the patient with other professionals (professionals i.e. , PA, RN CIRCULATING, lab, RT, psych nurse, nephrology social worker, overlock sewing machine operator, teacher, court collections officer, immigration case worker)? Give summary @ -[Case discussed with admitting physician and treatment recommendations Incorporated Was smoking cessation discussed for >3mins.? @ -[No] Was critical care preformed (if so, how long)? @ -[Yes, 35 minutes Were there social determinants of health that impacted care today? How? (Homelessness, low income, unemployed, alcoholism, drug addiction, transportation, low edu. Level, literacy, decrease access to med. care, intermediate, rehab)? @ -[No] Was there de-escalation of care discussed even if they declined (Discuss DNR or withdrawal of care, Hospice)? DNR status @ -[No] What co-morbidities impacted this encounter? (DM, HTN, Smoking, COPD, CAD, Cancer, CVA, ARF, Chemo, Hep., AIDS, mental health diagnosis, sleep apnea, morbid obesity)? @ -[History of melanoma Was patient admitted / discharged? Hospital course, mention meds given and route, prescriptions, significant lab abnormalities, going to OR and other pertinent info. @ -[Patient is 80-year-old woman here to have evaluation of weakness and also found to have what appears to be lower lobe pneumonia. Patient is started on antibiotics and fluid therapy and will be admitted to have further evaluation and treatment. Undiagnosed new problem with uncertain prognosis? @ -[No] Drug Therapy requiring intensive monitoring for toxicity (Heparin, Nitro, Insulin, Cardizem)? @ -[No] Were any procedures done? @ -[No] Diagnosis/symptom? @ -[Acute pneumonia Acute sepsis Acute, or Chronic, or Acute on Chronic? @ -[Acute Uncomplicated (without systemic symptoms) or Complicated (systemic symptoms)? @ -[Uncomplicated Side effects of treatment? @ -[No] Exacerbation, Progression, or Severe Exacerbation? @ -[No] Poses a threat to life or bodily function? How? (Chest pain, [place], WI, pneumonia, PE, COPD, DKA, ARF, appy, cholecystitis, CVA, Diverticulitis, Homicidal, Suicidal, threat to staff... and all critical care pts) @ -[Yes there is risk of worsening infection/sepsis/ All treatments are based on ideal body weight as in ED triage - Lab Data Result diagrams: 05/29/25 05:27 05/29/25 05:27 Lab Results 05/24/25 05/24/25 05/24/25 Range/Units 05:12 05:12 05:12 WBC 12.69 H (4.50-10.00) 10*3/uL RBC 3.50 L (4.10-5.20) 10*6/uL Hgb 9.1 L (12.0-15.0) g/dL Hct 29.7 L (37.2-46.3) % MCV 84.9 D (80.0-97.0) fL MCH 26.0 L (27.0-32.0) pg MCHC 30.6 L (32.0-37.0) g/dL Plt Count 243 (140-440) 10*3/uL MPV 10.1 (9.5-12.2) fL Immature Gran % (Auto) 1.1 % Neutrophils % 80.1 % Lymphocytes % 11.7 % Monocytes % 6.8 % Eosinophils % 0.1 % Basophils % 0.2 % Immature Gran # 0.14 H (0.00-0.04) 10*3/uL Neutrophils # 10.17 H (1.80-7.70) 10*3/uL Lymphocytes # 1.48 (0.90-5.00) 10*3/uL Monocytes # 0.86 (0.20-1.00) 10*3/uL Eosinophils # 0.01 L (0.04-0.35) 10*3/uL Basophils # 0.03 (0.00-0.10) 10*3/uL Sodium 140 (137-145) mmol/L Potassium 4.7 (3.5-5.1) mmol/L Chloride 109 H (98-107) mmol/L Carbon Dioxide 22 (22-30) mmol/L Anion Gap 9 mmol/L BUN 35 H (7-17) mg/dL Creatinine 1.19 H (0.52-1.04) mg/dL Est GFR (CKD-EPI)AfAm 51 (>60 ml/min/1.73 sqM) Est GFR (CKD-EPI)NonAf 44 (>60 ml/min/1.73 sqM) Glucose 123 H (74-99) mg/dL Lactic Ac Sepsis Rflx Plasma Lactic Acid Greg 2.1 H* (0.7-2.0) mmol/L Calcium 8.0 L (8.4-10.2) mg/dL Total Bilirubin 0.5 (0.2-1.3) mg/dL AST 37 H (14-36) U/L ALT 15 (4-34) U/L Alkaline Phosphatase 261 H (38-126) U/L Total Protein 5.7 L (6.3-8.2) g/dL Albumin 2.7 L (3.5-5.0) g/dL Procalcitonin (0.02-0.50) ng/mL 05/24/25 05/24/25 Range/Units 05:12 06:23 WBC (4.50-10.00) 10*3/uL RBC (4.10-5.20) 10*6/uL Hgb (12.0-15.0) g/dL Hct (37.2-46.3) % MCV (80.0-97.0) fL MCH (27.0-32.0) pg MCHC (32.0-37.0) g/dL Plt Count (140-440) 10*3/uL MPV (9.5-12.2) fL Immature Gran % (Auto) % Neutrophils % % Lymphocytes % % Monocytes % % Eosinophils % % Basophils % % Immature Gran # (0.00-0.04) 10*3/uL Neutrophils # (1.80-7.70) 10*3/uL Lymphocytes # (0.90-5.00) 10*3/uL Monocytes # (0.20-1.00) 10*3/uL Eosinophils # (0.04-0.35) 10*3/uL Basophils # (0.00-0.10) 10*3/uL Sodium (137-145) mmol/L Potassium (3.5-5.1) mmol/L Chloride (98-107) mmol/L Carbon Dioxide (22-30) mmol/L Anion Gap mmol/L BUN (7-17) mg/dL Creatinine (0.52-1.04) mg/dL Est GFR (CKD-EPI)AfAm (>60 ml/min/1.73 sqM) Est GFR (CKD-EPI)NonAf (>60 ml/min/1.73 sqM) Glucose (74-99) mg/dL Lactic Ac Sepsis Rflx Y Plasma Lactic Acid Greg (0.7-2.0) mmol/L Calcium (8.4-10.2) mg/dL Total Bilirubin (0.2-1.3) mg/dL AST (14-36) U/L ALT (4-34) U/L Alkaline Phosphatase (38-126) U/L Total Protein (6.3-8.2) g/dL Albumin (3.5-5.0) g/dL Procalcitonin 0.21 (0.02-0.50) ng/mL Disposition Clinical Impression: Sepsis, Pneumonia Disposition: ADMITTED IP TO THIS HOSP Condition: Fair Is patient prescribed a controlled substance at d/c from ED?: No
[2025-05-24 06:46] LABS: AST 37 U/L (14-36); Alkaline Phosphatase 261 U/L (38-126); Potassium 4.7 mmol/L (3.5-5.1)
--- NOTE | 2025-05-24 07:17 | XR ---
EXAMINATION TYPE: XR chest 2V DATE OF EXAM: 05/24/2025 6:38 AM COMPARISON: Chest radiographs from 01/24/2018. CLINICAL INDICATION: Female, 80 years old with history of fever; [facility] TECHNIQUE: XR chest 2V Frontal and lateral views of the chest. FINDINGS: Lungs/Pleura: questionable airspace opacities on lateral view over the spine. There here is no eviden ce of pleural effusion, focal consolidation, or pneumothorax. Pulmonary vascularity: Unremarkable. Heart/mediastinum: Cardiomediastinal silhouette is unremarkable. Musculoskeletal: No acute osseous pathology. Other findings: None IMPRESSION: There may be some increased airspace opacities over the spine on lateral view. Possibly representing pneumonia. [facility], , 05/24/2025 7:14 AM
[2025-05-24] MEDS: LACTATED RINGERS 1,000 ML IV SCH (07:49)
[2025-05-24 07:59] LABS: Bilirubin,Urine Negative (Negative); Blood,Urine Negative (Negative); Color,Urine Yellow; Glucose,Urine (UA) Negative (Negative); Ketones,Urine Negative (Negative); Leukocyte Esterase,Urine Negative (Negative); Nitrite,Urine Negative (Negative); PH, Urine 5.5 (5.0-8.0); Protein,Urine Trace (Negative); Specific Gravity,Urine 1.021 (1.001-1.035); Urobilinogen,Urine 2.0 mg/dL (<2.0)
[2025-05-24] MEDS: FAMOTIDINE 20 MG/2 ML VIAL IV SCH (10:49)
--- NOTE | 2025-05-24 11:37 | P.HPIM ---
History of Present Illness Patient open 74-year-old female came in with complaints of generalized weakness found to have fever. Patient was complaining of cough with sputum production. Patient denied any dysuria patient is also complaining of right upper quadrant abdominal pain patient had cholecystectomy in the past. Patient had a chest x- ray which showed increased opacities in the lower lung ramirez on the lateral view. Patient was started on Rocephin. Urine is not consistent with UTI. Patient denied any diarrhea denied any cellulitis. REVIEW OF SYSTEMS: All other systems are negative except those mentioned in the HPI PHYSICAL EXAMINATION: GENERAL: The patient is alert and oriented x3, not in any acute distress. Well developed, well nourished. HEENT: Pupils are round and equally reacting to light. EOMI. No scleral icterus. No conjunctival pallor. Normocephalic, atraumatic. No pharyngeal erythema. No thyromegaly. CARDIOVASCULAR: S1 and S2 present. No murmurs, rubs, or gallops. PULMONARY: Chest is clear to auscultation, no wheezing or crackles. ABDOMEN: Soft, nontender, nondistended, normoactive bowel sounds. No palpable organomegaly. MUSCULOSKELETAL: No joint swelling or deformity. EXTREMITIES: No cyanosis, clubbing, or pedal edema. NEUROLOGICAL: Gross neurological examination did not reveal any focal deficits. SKIN: No rashes. Assessment and plan -Sepsis possibly secondary to pneumonia although intra-abdominal infection cannot be ruled out. For now we will obtain procalcitonin will order Rocephin and azithromycin for pneumonia. Patient does have right upper quadrant abdominal tenderness. Ideally I want to do a CT scan of the abdomen to rule out any intra-abdominal infection or an abscess in the liver but her kidney function is borderline I will do an ultrasound of the right upper quadrant. Obtain sputum cultures - Generalized weakness probably because of sepsis will also obtain PT and OT consultation patient is multiple hospitalizations in the past and was discharged to subacute rehabilitation in the past - Acute renal failure: Prerenal azotemia secondary to sepsis and may be a competent of acute tubular necrosis secondary to sepsis patient will continue IV fluids but will cut down from 125 cc of fluids to 75 cc patient does have peripheral edema - Hyperlipidemia - Hypertension patient blood pressure is low normal hold off on losartan metoprolol can be continued - History of melanoma for which patient finished chemotherapy and presently in remission. DVT prophylaxis: Lovenox Past Medical History Past Medical History: Cancer, Hyperlipidemia, Hypertension Additional Past Medical History / Comment(s): Recent hospitalization low blood/iron counts-d/c 04/19/25, treatment completed. 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 Durbin hx of melanoma. History of Any Multi-Drug Resistant Organisms: None Reported Past Surgical History: Appendectomy, Cholecystectomy, Heart Catheterization, Tubal Ligation Additional Past Surgical History / Comment(s): Melanoma removed L leg. Cataract removal B/L eyes. Past Anesthesia/Blood Transfusion Reactions: No Reported Reaction Additional Past Anesthesia/Blood Transfusion Reaction / Comment(s): . Past Psychological History: Anxiety, Depression Smoking Status: Never smoker Past Alcohol Use History: None Reported Past Drug Use History: None Reported - Past Family History Father Family Medical History: Cancer Mother Additional Family Medical History / Comment(s): Mother in her 90s in the hospital after she broke her hip, suddenly after she was taken off of blood thinners before hip surgery. Medications and Allergies Home Medications Medication Instructions Recorded Confirmed Type Rosuvastatin [Crestor] 10 mg PO SUMOTH 01/24/18 04/22/25 History Losartan Potassium [Cozaar] 100 mg PO DAILY 11/27/18 04/22/25 History Acetaminophen [Tylenol 8 Hour] 650 mg PO HS PRN 02/07/25 04/22/25 History Cholecalciferol [Vitamin D3 (125 125 mcg PO DAILY 02/07/25 04/22/25 History Mcg = 5000 Iu)] Ketoconazole 2% Cream [Nizoral 2%] 1 applic TOPICAL BID PRN 02/07/25 04/22/25 History Vit C/E/Zn/Coppr/Lutein/Zeaxan 1 cap PO BID 02/07/25 04/22/25 History [Preservision Areds 2 Softgel] Cyanocobalamin [Vitamin B-12] 1,000 mcg PO DAILY #60 tab 02/10/25 04/22/25 Rx Ferrous Sulfate [Iron (65 MG 325 mg PO BID-W/MEALS #60 tab 02/10/25 04/22/25 Rx Elemental)] Folic Acid 1 mg PO DAILY #30 tab 02/10/25 04/22/25 Rx Pantoprazole [Protonix] 40 mg PO DAILY #30 tab 03/18/25 04/22/25 Rx Furosemide [Lasix] 20 mg PO DAILY #0 04/23/25 04/22/25 Rx LORazepam [Ativan] 0.25 mg PO Q6H PRN #4 tab 04/23/25 Rx LORazepam [Ativan] 0.5 mg PO Q6H PRN #4 tab 04/23/25 Rx Metoprolol Succinate [Kapspargo 50 mg PO DAILY #10 cap 04/23/25 Rx Sprinkle] Potassium Chloride ER [K-Dur 10] 10 meq PO DAILY #0 04/23/25 04/22/25 Rx Allergies Allergy/AdvReac Type Severity Reaction Status Date / Time Penicillins Allergy Rash/Hives Verified 05/24/25 05:00 Physical Exam Vitals: Vital Signs Temp Pulse Resp BP Pulse Ox 05/24/25 10:54 87 18 109/64 92 L 05/24/25 07:40 98.2 F 92 18 101/61 95 05/24/25 07:00 97 30 H 125/91 93 L 05/24/25 04:54 101.5 F H 109 H 30 H 113/66 98 Intake and Output 05/23/25 05/24/25 05/24/25 22:59 06:59 14:59 Other: Weight 79.379 kg Results CBC & Chem 7: 05/24/25 05:12 05/24/25 05:12 Labs: Abnormal Lab Results - Last 24 Hours (Table) 05/24/25 05/24/25 05/24/25 Range/Units 05:12 05:12 05:12 WBC 12.69 H (4.50-10.00) 10*3/uL RBC 3.50 L (4.10-5.20) 10*6/uL Hgb 9.1 L (12.0-15.0) g/dL Hct 29.7 L (37.2-46.3) % MCH 26.0 L (27.0-32.0) pg MCHC 30.6 L (32.0-37.0) g/dL Immature Gran # 0.14 H (0.00-0.04) 10*3/uL Neutrophils # 10.17 H (1.80-7.70) 10*3/uL Eosinophils # 0.01 L (0.04-0.35) 10*3/uL Chloride 109 H (98-107) mmol/L BUN 35 H (7-17) mg/dL Creatinine 1.19 H (0.52-1.04) mg/dL Glucose 123 H (74-99) mg/dL Plasma Lactic Acid Greg 2.1 H* (0.7-2.0) mmol/L Calcium 8.0 L (8.4-10.2) mg/dL AST 37 H (14-36) U/L Alkaline Phosphatase 261 H (38-126) U/L Total Protein 5.7 L (6.3-8.2) g/dL Albumin 2.7 L (3.5-5.0) g/dL Urine Protein (Negative) 05/24/25 Range/Units 07:40 WBC (4.50-10.00) 10*3/uL RBC (4.10-5.20) 10*6/uL Hgb (12.0-15.0) g/dL Hct (37.2-46.3) % MCH (27.0-32.0) pg MCHC (32.0-37.0) g/dL Immature Gran # (0.00-0.04) 10*3/uL Neutrophils # (1.80-7.70) 10*3/uL Eosinophils # (0.04-0.35) 10*3/uL Chloride (98-107) mmol/L BUN (7-17) mg/dL Creatinine (0.52-1.04) mg/dL Glucose (74-99) mg/dL Plasma Lactic Acid Greg (0.7-2.0) mmol/L Calcium (8.4-10.2) mg/dL AST (14-36) U/L Alkaline Phosphatase (38-126) U/L Total Protein (6.3-8.2) g/dL Albumin (3.5-5.0) g/dL Urine Protein Trace H (Negative)
--- NOTE | 2025-05-24 13:06 | US ---
EXAMINATION TYPE: US abdomen limited DATE OF EXAM: 05/24/2025 COMPARISON: CT 04/24/2024 CLINICAL INDICATION: Female, 80 years old with history of Right upper quadrant pain, patient had chol ecystec; Patient denies any signs or symptoms TECHNIQUE: Grayscale and color Doppler imaging of the right upper quadrant was performed. FINDINGS: EXAM MEASUREMENTS: Liver Length: 20.0 cm Gallbladder Wall: Surgically absent cm CBD: 0.5 cm Right Kidney: 11.0 x 4.8 x 5.1 cm IMPLEMENTATION SPECIALIST NOTES: Pancreas: Tail obscured by overlying bowel gas Liver: Multiple cysts are thought to be present = 10.0 x 6.6 x 11.7 cm Gallbladder: Surgically absent Evidence for sonographic Avila's sign: No CBD: Dilated Right Kidney: No hydronephrosis or masses seen ; ? Atrophic appearance IMPRESSION: 1. Possible masses throughout the liver. Further evaluation with cross-sectional imaging of the live r recommended liver mass protocol MRI or CT. Correlate with history of malignancy. 2. No evidence for acute process. 3. Atrophic appearance of the right kidney. [facility], , 05/24/2025 1:03 PM
[2025-05-24] MEDS: AZITHROMYCIN 500 MG TAB PO SCH (14:36)
[2025-05-24] MEDS: ACETAMINOPHEN TAB 325 MG TAB PO PRN (20:04)
--- NOTE | 2025-05-24 22:57 | P.CONS ---
History of Present Illness - Reason for Consult Consult date: 05/24/25 Sepsis Requesting physician: Zack Oswald - Chief Complaint Weakness x few days - History of Present Illness Patient is a 80-year-old female with a past medical history of peripheral hypertension hyperlipidemia anxiety depression patient has been brought into the hospital for evaluation of generalized weakness that has been progressively getting worse for the last 2 days patient tried to get out of the bed to go to the bathroom and up sliding down patient's son was not able to help her so EMS was called and the patient has been brought to the hospital on arrival to the hospital patient was noted to be febrile with a temperature of 101.5 F patient was tachycardic but not hypotensive mildly hypoxic but no need for supplemental oxygen patient did have elevated white count 12.69 with a left shift BUN acute mild elevated lactic acid was elevated electrolytes are normal AST mildly elevated liver enzymes are normal patient did have a chest x-ray some increased airspace opacity over the spine on lateral view possibly representing pneumonia patient also have abdominal ultrasound as the patient complains of pain in the right upper quadrant area there was concern for possible masses throughout the liver further evaluation the cross-sectional imaging of the liver recommended evidence for acute process patient has been empirically treated with ceftriaxone azithromycin infectious disease was consulted concerning for possible sepsis Review of Systems Positive point and negatives has been mentioned in the HPI, complete review of systems was performed and all other systems are negative Past Medical History Past Medical History: Cancer, Hyperlipidemia, Hypertension Additional Past Medical History / Comment(s): Recent hospitalization low blood/iron counts-d/c 04/19/25, treatment completed. 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 Durbin, hx of melanoma. History of Any Multi-Drug Resistant Organisms: None Reported Past Surgical History: Appendectomy, Cholecystectomy, Heart Catheterization, Tubal Ligation Additional Past Surgical History / Comment(s): Melanoma removed L leg. Cataract removal B/L eyes. Past Anesthesia/Blood Transfusion Reactions: No Reported Reaction Additional Past Anesthesia/Blood Transfusion Reaction / Comm: . Past Psychological History: Anxiety, Depression Smoking Status: Never smoker Past Alcohol Use History: None Reported Past Drug Use History: None Reported - Past Family History Father Family Medical History: Cancer Mother Additional Family Medical History / Comment(s): Mother in her 90s in the hospital after she broke her hip, suddenly after she was taken off of blood thinners before hip surgery. Medications and Allergies Home Medications Medication Instructions Recorded Confirmed Type Rosuvastatin [Crestor] 10 mg PO DAILY 01/24/18 05/24/25 History Losartan Potassium [Cozaar] 100 mg PO DAILY 11/27/18 05/24/25 History Folic Acid 1 mg PO DAILY #30 tab 02/10/25 05/24/25 Rx Pantoprazole [Protonix] 40 mg PO DAILY #30 tab 03/18/25 05/24/25 Rx Furosemide [Lasix] 20 mg PO DAILY #0 04/23/25 05/24/25 Rx Potassium Chloride ER [K-Dur 10] 10 meq PO DAILY #0 04/23/25 05/24/25 Rx Ferrous Sulfate [Iron (65 MG 650 mg PO DAILY 05/24/25 05/24/25 History Elemental)] Ondansetron Odt [Zofran Odt] 4 mg PO TID PRN 05/24/25 05/24/25 History hydrALAZINE HCL [Apresoline] 50 mg PO TID 05/24/25 05/24/25 History Allergies Allergy/AdvReac Type Severity Reaction Status Date / Time Penicillins Allergy Rash/Hives Verified 05/24/25 12:13 Physical Exam Vitals: Vital Signs Temp Pulse Resp BP Pulse Ox 05/24/25 10:54 87 18 109/64 92 L 05/24/25 07:40 98.2 F 92 18 101/61 95 05/24/25 07:00 97 30 H 125/91 93 L 05/24/25 04:54 101.5 F H 109 H 30 H 113/66 98 Intake and Output 05/23/25 05/24/25 05/24/25 22:59 06:59 14:59 Other: Weight 79.379 kg GENERAL DESCRIPTION: Elderly female lying in bed, no distress. No tachypnea or accessory muscle of respiration use. HEENT: Shows Pallor , no scleral icterus. Oral mucous membrane is dry. NECK: Trachea central, no thyromegaly. LUNGS: Unlabored breathing. Clear to auscultation anteriorly. No wheeze or crackle. HEART: S1, S2, regular rate and rhythm. No loud murmur ABDOMEN: Soft, mild right-sided tenderness EXTREMITIES: No edema of feet. SKIN: No rash, no masses palpable. NEUROLOGICAL: The patient is awake, alert, mood and affect normal. Results CBC & Chem 7: 05/24/25 05:12 05/24/25 05:12 Labs: Abnormal Lab Results - Last 24 Hours (Table) 05/24/25 05/24/25 05/24/25 Range/Units 05:12 05:12 05:12 WBC 12.69 H (4.50-10.00) 10*3/uL RBC 3.50 L (4.10-5.20) 10*6/uL Hgb 9.1 L (12.0-15.0) g/dL Hct 29.7 L (37.2-46.3) % MCH 26.0 L (27.0-32.0) pg MCHC 30.6 L (32.0-37.0) g/dL Immature Gran # 0.14 H (0.00-0.04) 10*3/uL Neutrophils # 10.17 H (1.80-7.70) 10*3/uL Eosinophils # 0.01 L (0.04-0.35) 10*3/uL Chloride 109 H (98-107) mmol/L BUN 35 H (7-17) mg/dL Creatinine 1.19 H (0.52-1.04) mg/dL Glucose 123 H (74-99) mg/dL Plasma Lactic Acid Greg 2.1 H* (0.7-2.0) mmol/L Calcium 8.0 L (8.4-10.2) mg/dL AST 37 H (14-36) U/L Alkaline Phosphatase 261 H (38-126) U/L Total Protein 5.7 L (6.3-8.2) g/dL Albumin 2.7 L (3.5-5.0) g/dL Urine Protein (Negative) 05/24/25 Range/Units 07:40 WBC (4.50-10.00) 10*3/uL RBC (4.10-5.20) 10*6/uL Hgb (12.0-15.0) g/dL Hct (37.2-46.3) % MCH (27.0-32.0) pg MCHC (32.0-37.0) g/dL Immature Gran # (0.00-0.04) 10*3/uL Neutrophils # (1.80-7.70) 10*3/uL Eosinophils # (0.04-0.35) 10*3/uL Chloride (98-107) mmol/L BUN (7-17) mg/dL Creatinine (0.52-1.04) mg/dL Glucose (74-99) mg/dL Plasma Lactic Acid Greg (0.7-2.0) mmol/L Calcium (8.4-10.2) mg/dL AST (14-36) U/L Alkaline Phosphatase (38-126) U/L Total Protein (6.3-8.2) g/dL Albumin (3.5-5.0) g/dL Urine Protein Trace H (Negative) Assessment and Plan (1) Pneumonia Current Visit: Yes Status: Acute Code(s): J18.9 - PNEUMONIA, UNSPECIFIED ORGANISM SNOMED Code(s): 186805247 (2) Sepsis Current Visit: Yes Status: Acute Code(s): A41.9 - SEPSIS, UNSPECIFIED ORGANISM SNOMED Code(s): 68594770 (3) Penicillin allergy Current Visit: No Status: Acute Code(s): Z88.0 - ALLERGY STATUS TO PENICILLIN SNOMED Code(s): 57886191 Plan: 1patient presented to hospital with weakness and did have a fall in this patient noticed to have a fever tachycardia elevated white count meeting criteria for SIRS/sepsis with concern for possible pneumonia however the patient did not have significant respiratory symptoms but did have abnormal x- rayconcern for possible metastatic disease versus infectious etiology involving the liver 2-patient benefit from CT of abdominal pelvis to better define the liver abnormality admission evidence of any diverticulitis or malignancy that may be contributing to the liver condition 3patient empirically treated with Rocephin Zithromax while waiting for the workup to be completed We will follow on clinical condition and cultures to further adjust medication if needed Thank you for this consultation we will follow the patient along with you Dictation was produced using [employer] dictation software. please excuse any grammatical, word or spelling errors. Time with Patient: Greater than 30
[2025-05-25] MEDS: FAMOTIDINE 20 MG/2 ML VIAL IV SCH (08:18)
[2025-05-25] MEDS: ENOXAPARIN 40 MG/0.4 ML SYRINGE SQ SCH (08:18)
[2025-05-25 09:01] LABS: HCT 27.6 % (37.2-46.3); HGB 7.9 g/dL (12.0-15.0); MCH 25.0 pg (27.0-32.0); MCHC 28.6 g/dL (32.0-37.0); MCV 87.3 FL (80.0-97.0); NRBC Per 100 WBC 0.02 X 10*3/uL (0.00-0.01); Platelet Count 256 X 10*3/uL (140-440); RBC 3.16 X 10*6/uL (4.10-5.20); RDW 18.2 % (11.5-14.5); WBC 9.45 X 10*3/uL (4.50-10.00)
[2025-05-25 09:07] LABS: ALT 14 U/L (8-44); AST 29 U/L (13-35); Albumin 2.4 g/dL (3.8-4.9); Albumin/Globulin Ratio 1.09 Ratio (1.60-3.17); Alkaline Phosphatase 211 U/L (41-126); Anion Gap 11.20 mmol/L (4.00-12.00); BUN/Creat Ratio 28.82 Ratio (12.00-20.00); Blood Urea Nitrogen 31.7 mg/dL (9.0-27.0); Calcium 7.6 mg/dL (8.7-10.3); Carbon Dioxide 22.8 mmol/L (21.6-31.8); Chloride 108 mmol/L (96-109); Globulin 2.2 g/dL (1.6-3.3); Glucose 95 mg/dL (70-110); Magnesium 1.8 mg/dL (1.5-2.4); Potassium 4.5 mmol/L (3.5-5.5); Sodium 142 mmol/L (135-145); Total Protein 4.6 g/dL (6.2-8.2)
--- NOTE | 2025-05-25 11:41 | P.PN ---
Subjective Patient open 74-year-old female came in with complaints of generalized weakness found to have fever. Patient was complaining of cough with sputum production. Patient denied any dysuria patient is also complaining of right upper quadrant abdominal pain patient had cholecystectomy in the past. Patient had a chest x- ray which showed increased opacities in the lower lung ramirez on the lateral view. Patient was started on Rocephin. Urine is not consistent with UTI. Patient denied any diarrhea denied any cellulitis. 05/25/2025 Patient's fever resolved white count improved serum creatinine remained at 1.1. Patient still not feeling well did have nausea vomiting today patient is already on Protonix Zofran was added. Patient does not have any clinical evidence of GI bleed hemoglobin is 7.9 compared to 9.1 yesterday because of IV fluids patient's antihypertensive medications and Lasix are being held patient oxygen saturation is at her borderline 90% will closely monitor for any heart failure exacerbation or pulmonary edema. CT of the abdomen was ordered because of the liver masses. Oncology was consulted. REVIEW OF SYSTEMS: All other systems are negative except those mentioned in the HPI PHYSICAL EXAMINATION: GENERAL: The patient is alert and oriented x3, not in any acute distress. Well developed, well nourished. HEENT: Pupils are round and equally reacting to light. EOMI. No scleral icterus. No conjunctival pallor. Normocephalic, atraumatic. No pharyngeal erythema. No thyromegaly. CARDIOVASCULAR: S1 and S2 present. No murmurs, rubs, or gallops. PULMONARY: Chest is clear to auscultation, no wheezing or crackles. ABDOMEN: Soft, nontender, nondistended, normoactive bowel sounds. No palpable organomegaly. MUSCULOSKELETAL: No joint swelling or deformity. EXTREMITIES: No cyanosis, clubbing, or pedal edema. NEUROLOGICAL: Gross neurological examination did not reveal any focal deficits. SKIN: No rashes. Assessment and plan -Sepsis secondary to pneumonia awaiting blood and sputum cultures -Incidental finding of liver masses which may be causing her abdominal pain, CT scan of the abdomen, oncology consultation - Nausea vomiting: Secondary to antibiotics, possibly stress ulcerations or even cancer. Continue with Protonix and Zofran - Generalized weakness probably because of sepsis will also obtain PT and OT consultation patient is multiple hospitalizations in the past and was discharged to subacute rehabilitation in the past - Acute renal failure: Prerenal azotemia secondary to sepsis and may be a competent of acute tubular necrosis secondary to sepsis, creatinine mildly improved will cut down the fluids to 50 cc/h. - Hyperlipidemia - Hypertension patient blood pressure is low normal hold off on losartan metoprolol can be continued - History of melanoma for which patient finished chemotherapy and presently in remission. DVT prophylaxis: Lovenox Objective - Vital Signs Vital signs: Vital Signs Temp 97.9 F 05/25/25 07:30 Pulse 133 H 05/25/25 07:30 Resp 18 05/25/25 07:30 BP 132/80 05/25/25 07:30 Pulse Ox 90 L 05/25/25 07:30 FiO2 Intake & Output 05/24/25 05/25/25 05/25/25 18:59 06:59 18:59 Weight 79.379 kg Other: Voiding Method Diaper # Voids 1 2 - Labs CBC & Chem 7: 05/25/25 05:45 05/25/25 05:45 Labs: Abnormal Lab Results - Last 24 Hours (Table) 05/25/25 05/25/25 Range/Units 05:45 05:45 RBC 3.16 L (4.10-5.20) X 10*6/uL Hgb 7.9 L (12.0-15.0) g/dL Hct 27.6 L (37.2-46.3) % MCH 25.0 L (27.0-32.0) pg MCHC 28.6 L (32.0-37.0) g/dL RDW 18.2 H (11.5-14.5) % NRBC/100 WBC Diff 0.02 H (0.00-0.01) X 10*3/uL BUN 31.7 H (9.0-27.0) mg/dL Est GFR (CKD-EPI) 51 L (>=60) BUN/Creatinine Ratio 28.82 H (12.00-20.00) Ratio Calcium 7.6 L (8.7-10.3) mg/dL Total Bilirubin <0.2 L (0.3-1.2) mg/dL Alkaline Phosphatase 211 H (41-126) U/L Total Protein 4.6 L (6.2-8.2) g/dL Albumin 2.4 L (3.8-4.9) g/dL Albumin/Globulin Ratio 1.09 L (1.60-3.17) Ratio
--- NOTE | 2025-05-25 13:38 | CT ---
EXAMINATION TYPE: CT abdomen wo/w con DATE OF EXAM: 05/25/2025 1:21 PM COMPARISON: 04/24/2024 CT, 07/09/2018 CLINICAL INDICATION: Female, 80 years old with history of Liver mass, liver mass protocol; liver mass protocol TECHNIQUE: Axial CT abdomen wo/w con;Sagittal and coronal reformats were created on a separate works tation. Contrast used:80ml mL of Isovue 370 without and with IV Contrast, (none if empty) Oral contrast used: without Oral Contrast (none if empty) CT DLP: 2105.9 mGycm, Automated exposure control for dose reduction was used. FINDINGS: LOWER CHEST: Scattered pulmonary nodules compatible with metastatic disease measuring 18 mm in the ri ght lower lobe and measuring up to 17 mm in the left lower lobe. heart is enlarged for size. ABDOMEN LIVER: Heterogenous masses the largest of which measuring up to 10.5 x 6.8 x 8.6 cm in the right late ral hepatic lobe and more inferiorly measuring up to 10.5 x 8.0 x 7.6 cm in segment 6. GALLBLADDER AND BILE DUCTS: Unremarkable. PANCREAS: Unremarkable. SPLEEN: Unremarkable. ADRENAL GLANDS: Indeterminate left adrenal 21 x 19 mm nodule. No right renal nodules. KIDNEYS AND URETERS: atrophic kidneys No evidence of hydronephrosis. No renal calculi. PELVIS BLADDER: No evidence for wall thickening or mass given limitations of exam. REPRODUCTIVE: Unremarkable. ABDOMEN & PELVIS STOMACH AND BOWEL: No evidence of bowel obstruction. Suspected bowel mass in the mid abdomen. PERITONEUM/RETROPERITONEUM: No evidence of pneumoperitoneum or free fluid. There is a mesenteric mass measuring up to 59 x 54 x 57 mm in the left lower quadrant. Additional mesenteric lymph nodes medial ly adjacent to where there is felt to be a small bowel mass series 501 image 99. There is obstruction from this mass. There is also some degree of intussusception present Anterior mesenteric mass anteri or to left hepatic lobe measuring up to 16 mm VASCULATURE: No evidence of aortic aneurysm. MUSCULOSKELETAL: Severe degeneration changes of the spine with scoliosis facet joint arthropathy thic kness phenomenon osteophytes. Grade 1 anterolisthesis of L4 on L5. Schmorl's nodes noted at a few lev els. LYMPH NODES: Enlarged lymph node at the level of the left kidney in the retroperitoneum measuring up to 17 mm. SOFT TISSUE/ABDOMINAL WALL: Anterior left subcutaneous fat containing lipoma along the anterior abdom inal musculature is measuring 60 x 20 x 41 mm. IMPRESSION: Constellation of findings concerning for malignancy with metastatic disease. There is small bowel int ussusception in the mid abdomen with possible some degree of obstruction of the small bowel. This cou ld be secondary to mesenteric masses versus small bowel mass is poorly visualized. Additionally mesen teric lymph nodes and dominant mass are present. Bilaterally large liver masses, pulmonary nodules, r etroperitoneal lymphadenopathy , mesenteric mass and left adrenal nodule. Consider PET/CT or other si mikey of metastatic disease as clinically indicated. [facility], , 05/25/2025 1:36 PM
[2025-05-25] MEDS: FOLIC ACID 1 MG TAB PO SCH (14:04)
--- NOTE | 2025-05-25 15:44 | P.PN ---
Subjective Progress Note Date: 05/25/25 Principal diagnosis: Reason for follow-up is fever Patient is a 80-year-old female with a past medical history of peripheral hypertension hyperlipidemia anxiety depression patient has been brought into the hospital for evaluation of generalized weakness patient present ed to hospital did have fever tachycardia chest x-ray with increased opacity with concern for possible pneumonia now with evidence of multiple hepatic metastasis. On today's evaluation that is 05/25/2025, Patient is afebrile patient is currently on room air and denies having any shortness of breath, the patient denies any chest pain or cough, the patient denies any nausea vomiting mention some improvement in the right-sided abdominal pain. Patient white count normalized to 9.45, creatinine is 1.[address] of the abdomen did shows multiple liver masses concerning for malignancy and there was small bowel intussusception in the mid abdomen with a degree of obstruction Objective - Vital Signs Vital signs: Vital Signs Temp 98.2 F 05/25/25 14:18 Pulse 95 05/25/25 14:18 Resp 18 05/25/25 14:18 BP 125/81 05/25/25 14:18 Pulse Ox 95 05/25/25 14:18 FiO2 Intake & Output 05/24/25 05/25/25 05/25/25 18:59 06:59 18:59 Weight 79.379 kg Other: Voiding Method Diaper # Voids 1 2 - Exam GENERAL DESCRIPTION: An elderly female lying in bed in no distress RESPIRATORY SYSTEM: Unlabored breathing , decreased breath sounds at bases HEART: S1 S2 regular rate and rhythm , ABDOMEN: Soft , no tenderness EXTREMITIES: No edema feet - Labs CBC & Chem 7: 05/25/25 05:45 05/25/25 05:45 Labs: Abnormal Lab Results - Last 24 Hours (Table) 05/25/25 05/25/25 Range/Units 05:45 05:45 RBC 3.16 L (4.10-5.20) X 10*6/uL Hgb 7.9 L (12.0-15.0) g/dL Hct 27.6 L (37.2-46.3) % MCH 25.0 L (27.0-32.0) pg MCHC 28.6 L (32.0-37.0) g/dL RDW 18.2 H (11.5-14.5) % NRBC/100 WBC Diff 0.02 H (0.00-0.01) X 10*3/uL BUN 31.7 H (9.0-27.0) mg/dL Est GFR (CKD-EPI) 51 L (>=60) BUN/Creatinine Ratio 28.82 H (12.00-20.00) Ratio Calcium 7.6 L (8.7-10.3) mg/dL Total Bilirubin <0.2 L (0.3-1.2) mg/dL Alkaline Phosphatase 211 H (41-126) U/L Total Protein 4.6 L (6.2-8.2) g/dL Albumin 2.4 L (3.8-4.9) g/dL Albumin/Globulin Ratio 1.09 L (1.60-3.17) Ratio Microbiology - Last 24 Hours (Table) 05/24/25 05:12 Blood Culture - Preliminary Blood Assessment and Plan (1) Pneumonia Current Visit: Yes Status: Acute Code(s): J18.9 - PNEUMONIA, UNSPECIFIED ORGANISM SNOMED Code(s): 190369250 (2) Sepsis Current Visit: Yes Status: Acute Code(s): A41.9 - SEPSIS, UNSPECIFIED ORGANISM SNOMED Code(s): 34774035 (3) Penicillin allergy Current Visit: No Status: Acute Code(s): Z88.0 - ALLERGY STATUS TO PENICILLIN SNOMED Code(s): 04159213 Plan: 1patient presented to hospital with weakness and did have a fall in this patient noticed to have a fever tachycardia elevated white count meeting criteria for SIRS/sepsis with concern for possible pneumonia however the patient did not have significant respiratory symptoms but did have abnormal x-rayconcern for possible metastatic disease versus infectious etiology involving the liver 2-patient did have CT of abdominal with concern for multiple liver masses and there was concern for small bowel intussusception 3patient empirically treated with Rocephin however will discontinue Zithromax start the patient on oral Flagyl on the basis of the abnormality seen on the CT Dictation was produced using [employer] dictation software. please excuse any grammatical, word or spelling errors. Time with Patient: Less than 30
[2025-05-25] MEDS: metroNIDAZOLE 500 MG TAB PO SCH (17:42)
[2025-05-25] MEDS: LACTATED RINGERS 1,000 ML IV SCH (19:22)
[2025-05-25] MEDS: ONDANSETRON 4 MG/2 ML VIAL IVP PRN (20:28)
--- NOTE | 2025-05-25 20:41 | P.CONS ---
History of Present Illness - Reason for Consult Consult date: 05/25/25 liver mass Requesting physician: Doe Damian - Chief Complaint fever, falls - History of Present Illness Ms. Marcial is a female pt we initially saw in consult 03/18/25 for anemia. On admit Hgb was 5.3, she was transfused 2 units of blood with appropriate response. Pt had been admitted in January for anemia as well and received a blood transfusion. Anemia work up 01/2025 showed iron saturation 3.8%, vitamin B12 268, folate 3.8, and ferritin 164. Status post EGD and colonoscopy on March 18, 2025 revealing a pinpoint ulcer in the antrum, diverticulosis and internal hemorrhoids. No active bleeding reported on endoscopy. Patient was on baby aspirin for history of aneurysm. She is currently admitted for fever, falls and vomiting. She denies cough, SOB, she does have abd bloating, and is positive for about a 20lb wt loss in the last few months. She had an US abd that reported concerning findings in the liver for malignancy. CT abd with contrast reporting scattered pulmonary nodules, a 10.5x6.8x8.6 mass in the right lobe of the liver, a 5.9x5.4x5.7cm LLQ mesenteric mass as well as mesenteric LAD, and a lt retroperitoneal LN. Pt denied any abd pain, she has pain under her right ribs. She feels better then on admit, she is still feeling weak and reports the weakness has been getting worse over the last few months. She has a Hx of melanoma, surgically removed many years ago, no other cancers to report, no GI surgeries, no bleeding to report. Review of Systems 10 point ROS is neg except as stated in HPI Past Medical History Past Medical History: Cancer, Hyperlipidemia, Hypertension Additional Past Medical History / Comment(s): Recent hospitalization low blood/iron counts-d/c 04/19/25, treatment completed. 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 Durbin, hx of melanoma. History of Any Multi-Drug Resistant Organisms: None Reported Past Surgical History: Appendectomy, Cholecystectomy, Heart Catheterization, Tubal Ligation Additional Past Surgical History / Comment(s): Melanoma removed L leg. Cataract removal B/L eyes. Past Anesthesia/Blood Transfusion Reactions: No Reported Reaction Additional Past Anesthesia/Blood Transfusion Reaction / Comm: . Past Psychological History: Anxiety, Depression Smoking Status: Never smoker Past Alcohol Use History: None Reported Past Drug Use History: None Reported - Past Family History Father Family Medical History: Cancer Mother Additional Family Medical History / Comment(s): Mother in her 90s in the hospital after she broke her hip, suddenly after she was taken off of blood thinners before hip surgery. Medications and Allergies Home Medications Medication Instructions Recorded Confirmed Type Rosuvastatin [Crestor] 10 mg PO DAILY 01/24/18 05/24/25 History Losartan Potassium [Cozaar] 100 mg PO DAILY 11/27/18 05/24/25 History Folic Acid 1 mg PO DAILY #30 tab 02/10/25 05/24/25 Rx Pantoprazole [Protonix] 40 mg PO DAILY #30 tab 03/18/25 05/24/25 Rx Furosemide [Lasix] 20 mg PO DAILY #0 04/23/25 05/24/25 Rx Potassium Chloride ER [K-Dur 10] 10 meq PO DAILY #0 04/23/25 05/24/25 Rx Ferrous Sulfate [Iron (65 MG 650 mg PO DAILY 05/24/25 05/24/25 History Elemental)] Ondansetron Odt [Zofran Odt] 4 mg PO TID PRN 05/24/25 05/24/25 History hydrALAZINE HCL [Apresoline] 50 mg PO TID 05/24/25 05/24/25 History Allergies Allergy/AdvReac Type Severity Reaction Status Date / Time Penicillins Allergy Rash/Hives Verified 05/24/25 12:13 Physical Exam Vitals: Vital Signs Temp Pulse Pulse Resp BP Pulse Ox 05/25/25 14:18 98.2 F 95 18 125/81 95 05/25/25 08:05 84 05/25/25 07:30 97.9 F 133 H 18 132/80 90 L 05/25/25 01:10 98.3 F 86 16 119/74 94 L 05/24/25 20:00 88 17 05/24/25 16:37 97.5 F L 88 17 107/71 90 L Intake and Output 05/25/25 05/25/25 05/25/25 06:59 14:59 22:59 Other: # Voids 2 - Constitutional General appearance: cooperative, no acute distress, obese - EENT Eyes: anicteric sclerae, EOMI ENT: hearing grossly normal, normal oropharynx - Neck Neck: no lymphadenopathy - Respiratory Respiratory: bilateral: CTA - Cardiovascular Rhythm: regular Heart sounds: normal: S1, S2 Abnormal Heart Sounds: no systolic murmur, no diastolic murmur, no rub, no S3 Gallop, no S4 Gallop, no click, no other leg Peripheral Edema: bilateral: 1+ - Gastrointestinal General gastrointestinal: decreased bowel sounds, distended, soft, tenderness - Integumentary Integumentary: pale - Neurologic Neurologic: CNII-XII intact - Musculoskeletal Musculoskeletal: generalized weakness - Psychiatric Psychiatric: A&O x's 3, appropriate affect, intact judgment & insight Pt consented to breast exam, stated ok with me performing without another Nurse in the room. 3cm, irregular hard, non fixed mass palpated 2oclock rt breast Results CBC & Chem 7: 05/25/25 05:45 05/25/25 05:45 Labs: Abnormal Lab Results - Last 24 Hours (Table) 05/25/25 05/25/25 Range/Units 05:45 05:45 RBC 3.16 L (4.10-5.20) X 10*6/uL Hgb 7.9 L (12.0-15.0) g/dL Hct 27.6 L (37.2-46.3) % MCH 25.0 L (27.0-32.0) pg MCHC 28.6 L (32.0-37.0) g/dL RDW 18.2 H (11.5-14.5) % NRBC/100 WBC Diff 0.02 H (0.00-0.01) X 10*3/uL BUN 31.7 H (9.0-27.0) mg/dL Est GFR (CKD-EPI) 51 L (>=60) BUN/Creatinine Ratio 28.82 H (12.00-20.00) Ratio Calcium 7.6 L (8.7-10.3) mg/dL Total Bilirubin <0.2 L (0.3-1.2) mg/dL Alkaline Phosphatase 211 H (41-126) U/L Total Protein 4.6 L (6.2-8.2) g/dL Albumin 2.4 L (3.8-4.9) g/dL Albumin/Globulin Ratio 1.09 L (1.60-3.17) Ratio Microbiology - Last 24 Hours (Table) 05/24/25 05:12 Blood Culture - Preliminary Blood Chest x-ray: report reviewed CT scan - abdomen: report reviewed US - abdomen: report reviewed Assessment and Plan (1) Liver mass, right lobe Current Visit: Yes Status: Acute Priority: High Code(s): R16.0 - HEPATOMEGALY, NOT ELSEWHERE CLASSIFIED SNOMED Code(s): 289530935 (2) Mesenteric lymphadenopathy Current Visit: Yes Status: Acute Priority: High Code(s): R59.0 - LOCALIZED ENLARGED LYMPH NODES SNOMED Code(s): 046064052 (3) Anemia Current Visit: Yes Status: Acute Priority: Medium Code(s): D64.9 - ANEMIA, UNSPECIFIED SNOMED Code(s): 190670086 (4) Weakness Current Visit: Yes Status: Acute Priority: High Code(s): R53.1 - WEAKNESS SNOMED Code(s): 39932751 Plan: Liver lesion, LLQ mesenteric mass, mesenteric LAD -Imaging findings concerning for a malignant process -Of note, a right breast mass was palpated -Discussed with pt concerning findings. She is interested in further work up -Consult placed for IR to review case, hopeful for liver biopsy -ID has seen pt and is treating with abx for fever on admit Folate and iron deficient anemia -Pt was seen in for anemia by Hematology -Found to be iron and folate deficient at that time-no need to repeat those labs -EGD/colonoscopy did not identify a source of bleeding 03/18/25 -Folic acid resumed. Will give additional IV iron once pt has had some treatment for pneumonia -Transfuse for Hgb <7 or if symptomatic
[2025-05-26] MEDS: ATORVASTATIN 20 MG TAB PO SCH (08:02)
[2025-05-26 08:17] LABS: HCT 26.3 % (37.2-46.3); HGB 7.7 g/dL (12.0-15.0); MCH 25.6 pg (27.0-32.0); MCHC 29.3 g/dL (32.0-37.0); MCV 87.4 FL (80.0-97.0); NRBC Per 100 WBC 0 X 10*3/uL (0.00-0.01); Platelet Count 285 X 10*3/uL (140-440); RBC 3.01 X 10*6/uL (4.10-5.20); RDW 18.3 % (11.5-14.5); WBC 9.69 X 10*3/uL (4.50-10.00)
[2025-05-26 08:34] LABS: BUN/Creat Ratio 29.50 Ratio (12.00-20.00); Blood Urea Nitrogen 29.5 mg/dL (9.0-27.0); Glucose 90 mg/dL (70-110); Magnesium 1.9 mg/dL (1.5-2.4)
[2025-05-26 08:35] LABS: Anion Gap 9.40 mmol/L (4.00-12.00); Calcium 7.7 mg/dL (8.7-10.3); Carbon Dioxide 22.6 mmol/L (21.6-31.8); Chloride 107 mmol/L (96-109); Potassium 4.4 mmol/L (3.5-5.5); Sodium 139 mmol/L (135-145)
[2025-05-26] MEDS ORDERED: HEPARIN SODIUM 1,000 UN/ML (10ML VL) IV PRN (10:26)
[2025-05-26 11:01] LABS: Basophils # (A) 0.02 10*3/uL (0.00-0.10); Basophils % (A) 0.2 %; Eosinophils # (A) 0.14 10*3/uL (0.04-0.35); Eosinophils % (A) 1.6 %; HCT 26.1 % (37.2-46.3); HGB 8.0 g/dL (12.0-15.0); Lymphocytes # (A) 1.22 10*3/uL (0.90-5.00); Lymphocytes % (A) 13.6 %; MCH 26.1 pg (27.0-32.0); MCHC 30.7 g/dL (32.0-37.0); MCV 85.3 fL (80.0-97.0); Monocytes # (A) 0.63 10*3/uL (0.20-1.00); Monocytes % (A) 7.0 %; Neutrophils # (A) 6.81 10*3/uL (1.80-7.70); Neutrophils % (A) 76.1 %; Platelet Count 287 10*3/uL (140-440); RBC 3.06 10*6/uL (4.10-5.20); RDW 18.4 % (11.5-14.5); WBC 8.95 10*3/uL (4.50-10.00)
[2025-05-26 11:16] LABS: INR 1.2 (<1.2); Partial Thromboplastin Time 28.4 sec (22.0-30.0); Prothrombin Time 12.5 sec (10.0-12.5)
[2025-05-26] MEDS: LORazepam 1 MG/0.5 ML VIAL IV STA (13:19)
--- NOTE | 2025-05-26 14:08 | CT ---
EXAMINATION TYPE: CT chest angio for PE DATE OF EXAM: 05/26/2025 1:47 PM COMPARISON: 04/24/2024 CLINICAL INDICATION: Female, 80 years old with history of PE, R/O PE., TECHNIQUE: CT of the chest is performed on a spiral scan at 2 mm thick sections. Study is performed with intravenous contrast timed for evaluation for pulmonary embolism. This will limit additional po rtions of the evaluation. 10mm MIP images reconstructed by the technologist are reviewed on the comp uter in the coronal and sagittal planes. Contrast used:80 ml mL of Isovue 370 with IV Contrast, (none if empty) Oral contrast used: (none if empty) CT DLP: 424.7 mGycm, Automated exposure control for dose reduction was used. FINDINGS: There are pulmonary emboli within the distal right main pulmonary artery. Nonobstructing smaller pulm onary emboli are in the low right lower lobe distally. Left lower lobe pulmonary emboli are also evid ent within secondary branches. There is a 2.6 cm enlarged lymph node adjacent to the aortic arch. The ascending aorta diameter at the level of the main pulmonary artery is 4.4 cm. The main pulmonary artery diameter at the bifurcation is 3.0 cm. There is a 1.2 cm nodule within the anterior left apex. There is a 0.5 cm nodule lateral right lung. Image 47. There is an irregular 1.5 cm nodule anterior 8 lung. Image 54. There is a 1.0 cm nodule ri ght hilar region. Image 60. There are 2 1.0 cm nodules anterior right midlung. Image 67. There is a 2.0 cm nodule posterior lateral right lung. There is a small left pleural effusion. Left lung volume is smaller than the right. No significant coronary artery calcifications. There is an enlarged left lobe thyroid extending superior mediastinum. Consider additional evaluation with ultrasound. Limited CT sections were through the upper abdomen. There is a large irregular mass within the later al right lobe liver measuring 9.2 cm. There appears to be a smaller 2 cm mass slightly more posterior . There is a large irregular mass inferior right tip of the liver measuring 11.5 cm adrenal gland is enlarged to 2.1 cm. There is masslike area within the splenic hilum adjacent to the stomach, series 4 01 image 1:30. This measures 2.1 cm. A lymph node could be considered. Splenule is less likely. Pancr eas atrophy is present. There may be an enlarged lymph node along the lesser curvature of the stomach , series 401 image 126 measuring 1.3 cm. There is a 2.4 cm lobular nodule within the medial right breast. Series 401 image 42. Preliminary report of positive pulmonary emboli was called to the floor patient nurse Sofia by Dr. Derick landin by telephone at 1354 hours 05/26/2025. IMPRESSION: 1. Bilateral pulmonary emboli. 2. Scattered nodules within the bilateral lung ramirez suspicious for metastasis.. 3. Enlarged lymph node superior mediastinum. 4. Masses within the liver suspicious for metastasis. 5. Enlarged left adrenal gland. 6. Suspected enlarged lymphadenopathy within the abdomen. 7. Lobular nodule within the medial right breast. Additional workup with mammography recommended. Mod erate descending thoracic aortic aneurysm 4.4 cm A [place] critical message alert has been initiated for Gumaro Montes De Oca MD via the [employer] System on 05/26/2025 2:05 PM. This message alert has been sent to Gumaro Montes De Oca MD via the preferences provided by the clinician for the receipt of Radiology Critical Findings. Message ID [id number]. [facility], , 05/26/2025 2:06 PM
[2025-05-26] MEDS: HEPARIN SOD,PORK IN 0.45% NACL 25,000 UNIT in 0.45% NACL 1 250ML.BAG IV SCH (14:54)
--- NOTE | 2025-05-26 14:56 | P.GSCN ---
History of Present Illness Consult date: 05/26/25 Reason for Consult: Abdominal pain, small bowel intussusception History of present illness: This a 80-year-old female with multiple medical problems. Patient was admitted to the hospital for treatment of generalized weakness and pneumonia. Patient a CAT scan performed patient's CAT scan shows evidence of small bowel intussusception. Patient is currently resting in bed. She denies any abdominal pain or nausea. Past Medical History Past Medical History: Cancer, Hyperlipidemia, Hypertension Additional Past Medical History / Comment(s): Recent hospitalization low blood/iron counts-d/c 04/19/25, treatment completed. 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 Durbin, hx of melanoma. History of Any Multi-Drug Resistant Organisms: None Reported Past Surgical History: Appendectomy, Cholecystectomy, Heart Catheterization, Tubal Ligation Additional Past Surgical History / Comment(s): Melanoma removed L leg. Cataract removal B/L eyes. Past Anesthesia/Blood Transfusion Reactions: No Reported Reaction Additional Past Anesthesia/Blood Transfusion Reaction / Comm: . Past Psychological History: Anxiety, Depression Smoking Status: Never smoker Past Alcohol Use History: None Reported Past Drug Use History: None Reported - Past Family History Father Family Medical History: Cancer Mother Additional Family Medical History / Comment(s): Mother in her 90s in the hospital after she broke her hip, suddenly after she was taken off of blood thinners before hip surgery. Medications and Allergies Home Medications Medication Instructions Recorded Confirmed Type Rosuvastatin [Crestor] 10 mg PO DAILY 01/24/18 05/24/25 History Losartan Potassium [Cozaar] 100 mg PO DAILY 11/27/18 05/24/25 History Folic Acid 1 mg PO DAILY #30 tab 02/10/25 05/24/25 Rx Pantoprazole [Protonix] 40 mg PO DAILY #30 tab 03/18/25 05/24/25 Rx Furosemide [Lasix] 20 mg PO DAILY #0 04/23/25 05/24/25 Rx Potassium Chloride ER [K-Dur 10] 10 meq PO DAILY #0 04/23/25 05/24/25 Rx Ferrous Sulfate [Iron (65 MG 650 mg PO DAILY 05/24/25 05/24/25 History Elemental)] Ondansetron Odt [Zofran Odt] 4 mg PO TID PRN 05/24/25 05/24/25 History hydrALAZINE HCL [Apresoline] 50 mg PO TID 05/24/25 05/24/25 History Allergies Allergy/AdvReac Type Severity Reaction Status Date / Time Penicillins Allergy Rash/Hives Verified 05/24/25 12:13 Surgical - Exam Vital Signs Temp Pulse Resp BP Pulse Ox 101.5 F H 109 H 30 H 113/66 98 05/24/25 04:54 05/24/25 04:54 05/24/25 04:54 05/24/25 04:54 05/24/25 04:54 - General well developed, well nourished, no distress - Eyes PERRL - ENT normal pinna - Neck no masses - Respiratory normal expansion - Cardiovascular Rhythm: regular - Abdomen Abdomen: soft, non tender Results - Labs 05/26/25 10:42 05/26/25 02:51 Abnormal Lab Results - Last 24 Hours (Table) 05/26/25 05/26/25 05/26/25 Range/Units 02:51 02:51 10:42 RBC 3.01 L 3.06 L (4.10-5.20) X 10*6/uL Hgb 7.7 L 8.0 L (12.0-15.0) g/dL Hct 26.3 L 26.1 L (37.2-46.3) % MCH 25.6 L 26.1 L (27.0-32.0) pg MCHC 29.3 L 30.7 L (32.0-37.0) g/dL RDW 18.3 H 18.4 H (11.5-14.5) % MPV 9.4 L (9.5-12.2) fL Immature Gran # 0.13 H (0.00-0.04) 10*3/uL INR (<1.2) BUN 29.5 H (9.0-27.0) mg/dL Est GFR (CKD-EPI) 58 L (>=60) BUN/Creatinine Ratio 29.50 H (12.00-20.00) Ratio Calcium 7.7 L (8.7-10.3) mg/dL 05/26/25 Range/Units 10:42 RBC (4.10-5.20) X 10*6/uL Hgb (12.0-15.0) g/dL Hct (37.2-46.3) % MCH (27.0-32.0) pg MCHC (32.0-37.0) g/dL RDW (11.5-14.5) % MPV (9.5-12.2) fL Immature Gran # (0.00-0.04) 10*3/uL INR 1.2 H (<1.2) BUN (9.0-27.0) mg/dL Est GFR (CKD-EPI) (>=60) BUN/Creatinine Ratio (12.00-20.00) Ratio Calcium (8.7-10.3) mg/dL Microbiology - Last 24 Hours (Table) 05/24/25 05:12 Blood Culture - Preliminary Blood Diabetes panel 05/26/25 Range/Units 02:51 Sodium 139 (135-145) mmol/L Potassium 4.4 (3.5-5.5) mmol/L Chloride 107 (96-109) mmol/L Carbon Dioxide 22.6 (21.6-31.8) mmol/L BUN 29.5 H (9.0-27.0) mg/dL Creatinine 1.0 (0.6-1.5) mg/dL Glucose 90 (70-110) mg/dL Calcium 7.7 L (8.7-10.3) mg/dL Calcium panel 05/26/25 Range/Units 02:51 Calcium 7.7 L (8.7-10.3) mg/dL Pituitary panel 05/26/25 Range/Units 02:51 Sodium 139 (135-145) mmol/L Potassium 4.4 (3.5-5.5) mmol/L Chloride 107 (96-109) mmol/L Carbon Dioxide 22.6 (21.6-31.8) mmol/L BUN 29.5 H (9.0-27.0) mg/dL Creatinine 1.0 (0.6-1.5) mg/dL Glucose 90 (70-110) mg/dL Calcium 7.7 L (8.7-10.3) mg/dL Adrenal panel 05/26/25 Range/Units 02:51 Sodium 139 (135-145) mmol/L Potassium 4.4 (3.5-5.5) mmol/L Chloride 107 (96-109) mmol/L Carbon Dioxide 22.6 (21.6-31.8) mmol/L BUN 29.5 H (9.0-27.0) mg/dL Creatinine 1.0 (0.6-1.5) mg/dL Glucose 90 (70-110) mg/dL Calcium 7.7 L (8.7-10.3) mg/dL Assessment and Plan Assessment: Small bowel intussusception. Patient's small bowel distention is most likely spontaneous and reduced. The patient has no complaints of abdominal pain or nausea. She will be observed.
--- NOTE | 2025-05-26 15:04 | P.PN ---
Subjective Subjective: 80 F came in with complaints of generalized weakness found to have fever. Patient was complaining of cough with sputum production. Patient denies any dysuria patient is also complaining of right upper quadrant abdominal pain patient had cholecystectomy in the past. Patient had a chest x-ray which showed increased opacities in the lower lung ramirez on the lateral view. Patient was started on Rocephin. Urine is not consistent with UTI. Patient denied any diarrhea denied any cellulitis. 05/25/2025.Patient's fever resolved white count improved serum creatinine remained at 1.1. Patient still not feeling well did have nausea vomiting today patient is already on Protonix Zofran was added. Patient does not have any clinical evidence of GI bleed hemoglobin is 7.9 compared to 9.1 yesterday because of IV fluids patient's antihypertensive medications and Lasix are being held patient oxygen saturation is at her borderline 90% will closely monitor for any heart failure exacerbation or pulmonary edema. CT of the abdomen was ordered because of the liver masses. Oncology was consulted. 05/26. Patient seen at bedside. Laying in bed comfortably. Alert and oriented x3. Reported regular bowel movements. One episode of vomiting yesterday morning post breakfast containing food particles with no evidence of blood. Currently denies nausea and vomiting. Additional findings on CT abdomen indicated an incidental finding of PE. Patient's enoxaparin discontinued as a result and she is not placed on IV heparin low intensity dose. IR requested for heparin to be stopped 6h prior and after liver biopsy. This was cleared by Heme Onc. Pertinent positives and negatives discussed above, a complete review of systems was preformed and all the other systems were negative. Vitals Signs Reveiwed. SPO2 94 on RA, BP 117/77, Temp 97.6, HR 76, RR 16. General: non toxic, no distress, appears at stated age, normal weight Derm: no unusual rashes/lesions, warm Head: atraumatic, normocephalic, symmetric Neck: No cervical lymphadenopathy, trachea midline, supple Mouth: no lip lesion, mucus membranes moist Cardiovascular: S1S2 reg, no murmur, positive dorsalis pedis pulse bilateral, no edema Lungs: Chest is clear to auscultation, no wheezing or crackles.no accessory muscle use Abdominal: soft, nontender to palpation, no guarding Neuro: CN II-XI grossly intact, no gross focal neuro deficits Psych: Alert, oriented, appropriate affect Data Reveiwed Today: 05/26/2025 Patient Labs: HB 7.7, WBC 9.69, Sodium 139, Creatinine 1, troponin > 0.012 Imaging: CT PA: Bilateral pulmonary emboli. Scattered nodules within the bilateral lung ramirez suspicious for metastasis. Enlarged lymph nodes superior mediastinum. Masses within the liver suspicious for metastasis. Enlarged left adrenal gland. Suspected enlarged lymphadenopathy within the abdomen. Lobular nodule within the medial right breast. Moderate ascending thoracic aortic aneurysm 4.[address] abdo -Constellation of findings concerning for malignant malignancy with metastatic disease. There is small bowel intussusception in the mid abdomen with possible some degree of obstruction of the small bowel. This could be secondary to mesenteric masses versus small bowel mass is poorly visualized. Additionally mesenteric lymph nodes on dominant mass are present. Bilateral enlarged liver masses, pulmonary nodules, retroperitoneal lymphadenopathy, mesenteric mass and left adrenal nodule. Consider PET/CT or other sites of meta static disease as clinically indicated. Addendum: PE reported Assessment and plan: -Sepsis secondary to pneumonia awaiting blood and sputum cultures -Incidental finding of liver masses which may be causing her abdominal pain, CT scan of the abdomen, oncology consultation, Liver biopsy by IR, - Pulmonary embolism - on heparin. - Nausea vomiting: Secondary to antibiotics, possibly stress ulcerations or even cancer. Continue with Protonix and Zofran - Generalized weakness probably because of sepsis will also obtain PT and OT consultation patient is multiple hospitalizations in the past and was discharged to subacute rehabilitation in the past - Acute renal failure: Prerenal azotemia secondary to sepsis and may be a competent of acute tubular necrosis secondary to sepsis, creatinine mildly improved will cut down the fluids to 50 cc/h. - Hyperlipidemia - Hypertension patient blood pressure is low normal hold off on losartan metoprolol can be continued - History of melanoma for which patient finished chemotherapy and presently in remission. GI ppx: famotidine Code Status: full Objective - Vital Signs Vital signs: Vital Signs Temp 97.6 F 05/26/25 07:25 Pulse 76 05/26/25 07:25 Resp 16 05/26/25 07:25 BP 117/77 05/26/25 07:25 Pulse Ox 94 L 05/26/25 07:25 FiO2 Intake & Output 05/25/25 05/26/25 05/26/25 18:59 06:59 18:59 Other: Voiding Method Diaper # Voids 5 2 # Bowel Movements 1 - Labs CBC & Chem 7: 05/26/25 10:42 05/26/25 02:51 Labs: Abnormal Lab Results - Last 24 Hours (Table) 05/26/25 05/26/25 Range/Units 02:51 02:51 RBC 3.01 L (4.10-5.20) X 10*6/uL Hgb 7.7 L (12.0-15.0) g/dL Hct 26.3 L (37.2-46.3) % MCH 25.6 L (27.0-32.0) pg MCHC 29.3 L (32.0-37.0) g/dL RDW 18.3 H (11.5-14.5) % BUN 29.5 H (9.0-27.0) mg/dL Est GFR (CKD-EPI) 58 L (>=60) BUN/Creatinine Ratio 29.50 H (12.00-20.00) Ratio Calcium 7.7 L (8.7-10.3) mg/dL Microbiology - Last 24 Hours (Table) 05/24/25 05:12 Blood Culture - Preliminary Blood
[2025-05-26 15:58] LABS: Carcinoembryonic Antigen <2.0 ng/mL (0.0-4.9)
--- NOTE | 2025-05-26 17:56 | P.PN ---
Subjective Progress Note Date: 05/26/25 No acute events overnight. Continues on abx for suspected pneumonia. Hgb stable at 8.0 Objective - Vital Signs Vital signs: Vital Signs Temp 97.6 F 05/26/25 07:25 Pulse 76 05/26/25 10:45 Resp 16 05/26/25 07:25 BP 117/77 05/26/25 07:25 Pulse Ox 94 L 05/26/25 07:25 FiO2 Intake & Output 05/25/25 05/26/25 05/26/25 18:59 06:59 18:59 Other: Voiding Method Diaper Diaper # Voids 5 2 # Bowel Movements 1 - Constitutional General appearance: Present: no acute distress - EENT Eyes: Present: anicteric sclerae, EOMI ENT: Present: hearing grossly normal - Respiratory Details: breathing is even and unlabored - Cardiovascular Details: skin warm and dry - Gastrointestinal General gastrointestinal: Present: soft. Absent: tenderness - Integumentary Integumentary: Absent: cyanotic - Musculoskeletal Musculoskeletal: Present: generalized weakness - Psychiatric Psychiatric: Present: A&O x's 3 - Labs CBC & Chem 7: 05/26/25 10:42 05/26/25 02:51 Labs: Abnormal Lab Results - Last 24 Hours (Table) 05/26/25 05/26/25 05/26/25 Range/Units 02:51 02:51 10:42 RBC 3.01 L 3.06 L (4.10-5.20) X 10*6/uL Hgb 7.7 L 8.0 L (12.0-15.0) g/dL Hct 26.3 L 26.1 L (37.2-46.3) % MCH 25.6 L 26.1 L (27.0-32.0) pg MCHC 29.3 L 30.7 L (32.0-37.0) g/dL RDW 18.3 H 18.4 H (11.5-14.5) % MPV 9.4 L (9.5-12.2) fL Immature Gran # 0.13 H (0.00-0.04) 10*3/uL INR (<1.2) BUN 29.5 H (9.0-27.0) mg/dL Est GFR (CKD-EPI) 58 L (>=60) BUN/Creatinine Ratio 29.50 H (12.00-20.00) Ratio Calcium 7.7 L (8.7-10.3) mg/dL 05/26/25 Range/Units 10:42 RBC (4.10-5.20) X 10*6/uL Hgb (12.0-15.0) g/dL Hct (37.2-46.3) % MCH (27.0-32.0) pg MCHC (32.0-37.0) g/dL RDW (11.5-14.5) % MPV (9.5-12.2) fL Immature Gran # (0.00-0.04) 10*3/uL INR 1.2 H (<1.2) BUN (9.0-27.0) mg/dL Est GFR (CKD-EPI) (>=60) BUN/Creatinine Ratio (12.00-20.00) Ratio Calcium (8.7-10.3) mg/dL Microbiology - Last 24 Hours (Table) 05/24/25 05:12 Blood Culture - Preliminary Blood - Imaging and Cardiology CT scan - chest: report reviewed Assessment and Plan (1) Pulmonary embolism Current Visit: Yes Status: Acute Priority: High Code(s): I26.99 - OTHER PULMONARY EMBOLISM WITHOUT ACUTE COR PULMONALE SNOMED Code(s): 46911036 (2) Anemia Current Visit: Yes Status: Acute Priority: Medium Code(s): D64.9 - ANEMIA, UNSPECIFIED SNOMED Code(s): 005959179 (3) Liver mass, right lobe Current Visit: Yes Status: Acute Priority: High Code(s): R16.0 - HEPATOMEGALY, NOT ELSEWHERE CLASSIFIED SNOMED Code(s): 255874520 (4) Mesenteric lymphadenopathy Current Visit: Yes Status: Acute Priority: High Code(s): R59.0 - LOCALIZED ENLARGED LYMPH NODES SNOMED Code(s): 577993431 (5) Pneumonia Current Visit: Yes Status: Acute Priority: High Code(s): J18.9 - PNEUMONIA, UNSPECIFIED ORGANISM SNOMED Code(s): 644356314 Plan: Liver lesion, LLQ mesenteric mass, mesenteric LAD -Imaging findings concerning for a malignant process -Of note, a right breast mass was palpated -Discussed with pt concerning findings. She is interested in further work up -Consult placed for IR to review case, hopeful for liver biopsy -CEA, CA 19-9 and AFP obtained -Pt was started on heparin drip this morning for PE noted on CT AP, and conf irmed with CTA chest. Spoke with IR dept, Dr. Nye recommending heparin be held be held 6 hrs prior and 6-8 hrs post biopsy. Due to acute PE, we will hold on biopsy inpt. Spoke with IR, Dr. Lemons at [facility], who is amendable to proceed with biopsy next week. Pt will be started on Eliquis Folate and iron deficient anemia -Pt was seen in for anemia by Hematology -Found to be iron and folate deficient at that time-no need to repeat those labs -EGD/colonoscopy did not identify a source of bleeding 03/18/25 -Folic acid resumed. Will give additional IV iron once pt has be adequately benita ated for infection -Transfuse for Hgb <7 or if symptomatic
--- NOTE | 2025-05-26 18:07 | CA ---
Transthoracic Echo Report Name: Sue Marcial Age: 80 Gender: F : 1945 Exam Date: 05/26/2025 11:08 Exam Location: [facility] Ht (in): 64 Wt (lb): 175 Ordering Physician: Deejay Faria MD Attending/Referring Phys: Steelworker Jayro Killian RDCS Procedure CPT: Indications: PE due to malignancy Cardiac Hx: Technical Quality: Good Contrast 1: Total Dose (mL): Contrast 2: Total Dose (mL): MEASUREMENTS (Male / Female) Normal Values 2D ECHO LV Diastolic Diameter PLAX 4.9 cm 4.2 - 5.9 / 3.9 - 5.3 cm LV Systolic Diameter PLAX 2.5 cm IVS Diastolic Thickness 1.2 cm 0.6 - 1.0 / 0.6 - 0.9 cm LVPW Diastolic Thickness 1.2 cm 0.6 - 1.0 / 0.6 - 0.9 cm LV Relative Wall Thickness 0.5 RV Internal Dim ED PLAX 4.2 cm LVOT Diameter 1.8 cm LA Systolic Diameter LX 4.0 cm 3.0 - 4.0 / 2.7 - 3.8 cm LV Diastolic Volume MOD BP 65.8 cm??? 67 - 155 / 56 - 104 cm??? LV Systolic Volume MOD BP 26.5 cm??? 22 - 58 / 19 - 49 cm??? LV Ejection Fraction MOD BP 59.7 % >= 55 % LV Diastolic Volume MOD 4C 59.5 cm??? LV Systolic Volume MOD 4C 21.4 cm??? LV Ejection Fraction MOD 4C 64.1 % LV Diastolic Length 4C 7.0 cm LV Systolic Length 4C 5.6 cm LV Diastolic Volume MOD 2C 69.1 cm??? LV Systolic Volume MOD 2C 31.4 cm??? LV Ejection Fraction MOD 2C 54.6 % LV Diastolic Length 2C 7.4 cm LV Systolic Length 2C 5.9 cm DOPPLER MV Area PHT 3.1 cm??? Mitral E Point Velocity 72.0 cm/s Mitral A Point Velocity 80.1 cm/s Mitral E to A Ratio 0.9 MV Deceleration Time 244.0 ms TR Peak Velocity 346.2 cm/s TR Peak Gradient 47.9 mmHg Right Atrial Pressure 5.0 mmHg Pulmonary Artery Systolic Pressu 52.9 mmHg Right Ventricular Systolic Press 52.9 mmHg FINDINGS Left Ventricle Left ventricular ejection fraction is estimated at 60%. Normal left ventricular systolic function with no obvious regional wall motion abnormalities. Mild concentric left ventricular hypertrophy.left ventricular cavity size normal. Right Ventricle Moderate right ventricular dilatation. Reduced right ventricular global systolic function. Moderate pulmonary hypertension. Right ventricular systolic pressure estimated at 53 mm hg. Right Atrium Normal right atrial size. Left Atrium Mildly increased left atrial diameter. Mitral Valve Structurally normal mitral valve. No mitral stenosis. Trace mitral regurgitation. Aortic Valve Trileaflet aortic valve. No aortic valve stenosis or regurgitation. Tricuspid Valve Structurally normal tricuspid valve. No tricuspid stenosis. Mild tricuspid regurgitation. Pulmonic Valve Structurally normal pulmonic valve. No pulmonic stenosis. Mild pulmonic regurgitation. Pericardium Small pericardial effusion. Aorta Normal size aortic root and proximal ascending aorta. CONCLUSIONS Reason for echo:. Pulmonary embolism RV enlargement Normal LV size and function Small pericardial effusion Previewed by: Dr. Dany Wray MD (Electronically Signed) Final Date: 26 May 2025 18:06
[2025-05-26] MEDS: Apixaban Initiation Dose--VTE 5 MG TAB PO SCH (18:27)
[2025-05-26 18:38] LABS: Alpha Fetoprotein, Tumor Mkr <3.00 ng/mL (0.00-7.90)
[2025-05-27 08:46] LABS: Anion Gap 11.40 mmol/L (4.00-12.00); BUN/Creat Ratio 28.89 Ratio (12.00-20.00); Blood Urea Nitrogen 26.0 mg/dL (9.0-27.0); Carbon Dioxide 22.6 mmol/L (21.6-31.8); Chloride 108 mmol/L (96-109); Glucose 95 mg/dL (70-110); Potassium 4.4 mmol/L (3.5-5.5); Sodium 142 mmol/L (135-145)
[2025-05-27 08:47] LABS: ALT 14 U/L (8-44); AST 24 U/L (13-35); Albumin 2.3 g/dL (3.8-4.9); Albumin/Globulin Ratio 0.88 Ratio (1.60-3.17); Alkaline Phosphatase 212 U/L (41-126); Calcium 7.9 mg/dL (8.7-10.3); Globulin 2.6 g/dL (1.6-3.3); Total Protein 4.9 g/dL (6.2-8.2)
[2025-05-27 09:15] LABS: Basophils # (A) 0.03 X 10*3/uL (0.00-0.10); Basophils % (A) 0.3 %; Eosinophils # (A) 0.18 X 10*3/uL (0.04-0.35); Eosinophils % (A) 1.9 %; HCT 31.7 % (37.2-46.3); HGB 8.9 g/dL (12.0-15.0); Immature Grans, Automated 1.40 %; Lymphocytes # (A) 1.32 X 10*3/uL (0.90-5.00); Lymphocytes % (A) 13.8 %; MCH 25.6 pg (27.0-32.0); MCHC 28.1 g/dL (32.0-37.0); MCV 91.1 FL (80.0-97.0); Monocytes # (A) 0.54 X 10*3/uL (0.20-1.00); Monocytes % (A) 5.7 %; NRBC Per 100 WBC 0 X 10*3/uL (0.00-0.01); Neutrophils # (A) 7.34 X 10*3/uL (1.80-7.70); Neutrophils % (A) 76.9 %; Platelet Count 376 X 10*3/uL (140-440); RBC 3.48 X 10*6/uL (4.10-5.20); RDW 18.8 % (11.5-14.5); WBC 9.54 X 10*3/uL (4.50-10.00)
[2025-05-27 09:50] LABS: INR 1.19 sec (0.93-1.11); Prothrombin Time 13.2 sec (9.9-11.9)
--- NOTE | 2025-05-27 14:30 | P.PN ---
Subjective Subjective: 80 F came in with complaints of generalized weakness found to have fever. Patient was complaining of cough with sputum production. Patient denies any dysuria patient is also complaining of right upper quadrant abdominal pain patient had cholecystectomy in the past. Patient had a chest x-ray which showed increased opacities in the lower lung ramirez on the lateral view. Patient was started on Rocephin. Urine is not consistent with UTI. Patient denied any diarrhea denied any cellulitis. 05/25/2025.Patient's fever resolved white count improved serum creatinine remained at 1.1. Patient still not feeling well did have nausea vomiting today patient is already on Protonix Zofran was added. Patient does not have any clinical evidence of GI bleed hemoglobin is 7.9 compared to 9.1 yesterday because of IV fluids patient's antihypertensive medications and Lasix are being held patient oxygen saturation is at her borderline 90% will closely monitor for any heart failure exacerbation or pulmonary edema. CT of the abdomen was ordered because of the liver masses. Oncology was consulted. 05/26. Patient seen at bedside. Laying in bed comfortably. Alert and oriented x3. Reported regular bowel movements. One episode of vomiting yesterday morning post breakfast containing food particles with no evidence of blood. Currently denies nausea and vomiting. Additional findings on CT abdomen indicated an incidental finding of PE. Patient's enoxaparin discontinued as a result and she is not placed on IV heparin low intensity dose. IR requested for heparin to be stopped 6h prior and after liver biopsy. This was cleared by Heme Onc. 05/27. Patient seen at bedside. Laying in bed. Alert and oriented x3. patient ap pears upset and disheartened about recent diagnosis. Answers questions appropriately. Reported having two episodes of vomiting during the night. Denied blood and indicated that it was not induced by eating. Stated having one episode of central chest pain, sharp in nature, last 10 minutes in duration, last night. She reported the pain as 6/10 in severity and stated that she has had this pain before as well and it is not new. Currently she is re-experiencing her right sided sharp abdominal pain however states that it is not distressing. Patient awaits a liver biopsy next week as an outpatient and is currently placed on Apixaban 10 for PE treatment. Patient seen by PT, deemed not fit for discharge home, recommended to attend rehab ([facility]HAEL). Patient does not want to go to rehab. Pertinent positives and negatives discussed above, a complete review of systems was preformed and all the other systems were negative. Vitals Signs Reveiwed. Temperature one 8.2, HR 88, RR 18, BP 130/84, SpO2 96% on room air. General: non toxic, appears at stated age, normal weight Derm: no unusual rashes/lesions, warm Head: atraumatic, normocephalic, symmetric Neck: No cervical lymphadenopathy, trachea midline, supple Mouth: no lip lesion, mucus membranes moist Cardiovascular: S1S2 reg, no murmur, positive dorsalis pedis pulse bilateral, no edema Lungs: Chest is clear to auscultation, no wheezing or crackles.no accessory muscle use Abdominal: soft, nontender to palpation, no guarding Neuro: CN II-XI grossly intact, no gross focal neuro deficits Psych: Alert, oriented, low mood Data Reveiwed Today: 05/27/2025 Patient Labs: HB 7.7, WBC 9.69, Sodium 139, Creatinine 1, troponin < 0.012 Imaging: Echocardiogram: RV enlargement. Normal LV size and function. Small pericardial effusion. CT PA: Bilateral pulmonary emboli. Scattered nodules within the bilateral lung ramirez suspicious for metastasis. Enlarged lymph nodes superior mediastinum. Masses within the liver suspicious for metastasis. Enlarged left adrenal gland. Suspected enlarged lymphadenopathy within the abdomen. Lobular nodule within the medial right breast. Moderate ascending thoracic aortic aneurysm 4.[address] abdo -Constellation of findings concerning for malignant malignancy with metastatic disease. There is small bowel intussusception in the mid abdomen with possible some degree of obstruction of the small bowel. This could be secondary to mesenteric masses versus small bowel mass is poorly visualized. Additionally mesenteric lymph nodes on dominant mass are present. Bilateral enlarged liver masses, pulmonary nodules, retroperitoneal lymphadenopathy, mesenteric mass and left adrenal nodule. Consider PET/CT or other sites of metastatic disease as clinically indicated. Addendum: PE reported Assessment and plan: -Sepsis secondary to pneumonia awaiting blood and sputum cultures -Incidental finding of liver masses which may be causing her abdominal pain, oncology consultation, Liver biopsy to be done as an outpatient in [facility] in 1 weeks time. - Pulmonary embolism - D/C heparin IV and start Apixaban - intussusception of small of bowel , General surgery consulted, appreciate for the recommendations. - Nausea vomiting: Secondary to antibiotics, possibly stress ulcerations or even cancer. Continue with Protonix and Zofran - Generalized weakness probably because of sepsis will also obtain PT and OT consultation patient is multiple hospitalizations in the past and was discharged to subacute rehabilitation in the past - Acute renal failure: Prerenal azotemia secondary to sepsis and may be a competent of acute tubular necrosis secondary to sepsis, creatinine mildly improved will cut down the fluids to 50 cc/h. - Hyperlipidemia - Hypertension patient blood pressure is low normal hold off on losartan metoprolol can be continued - History of melanoma for which patient finished chemotherapy and presently in remission. - Troponin normal, EKG independently read indicating sinus rhythm with RBBB, similar to previous EKG. GI ppx: famotidine Code Status: full Deejay Faria MD PGY1 Internal Medicine Objective - Vital Signs Vital signs: Vital Signs Temp 98.2 F 05/27/25 06:55 Pulse 88 05/27/25 06:55 Resp 18 05/27/25 06:55 BP 130/84 05/27/25 06:55 Pulse Ox 96 05/27/25 06:55 FiO2 Intake & Output 05/26/25 05/27/25 05/27/25 18:59 06:59 18:59 Intake Total 688.08 500 Balance 688.08 500 Intake: Intake, IV Titration 688.08 Amount Heparin Sod,Pork in 0.45% 38.08 NaCl 25,000 unit In 0.45 % NaCl 1 250ml.bag @ 12 UNITS/KG/HR 9.525 mls/hr IV .Q24H KRISTINE Rx#: [id number] Lactated Ringers 1,000 ml 600 @ 50 mls/hr IV .Q20H KRISITNE Rx#:[id number] cefTRIAXone 1 gm In 50 Sodium Chloride 0.9% 50 ml @ 100 mls/hr IVPB HS KRISTINE Rx#:[id number] Oral 500 Other: Voiding Method Diaper Diaper # Bowel Movements 2 - Labs CBC & Chem 7: 05/27/25 02:50 05/27/25 02:50 Labs: Abnormal Lab Results - Last 24 Hours (Table) 05/26/25 05/26/25 05/27/25 Range/Units 10:42 10:42 02:50 RBC 3.06 L (4.10-5.20) 10*6/uL Hgb 8.0 L (12.0-15.0) g/dL Hct 26.1 L (37.2-46.3) % MCH 26.1 L (27.0-32.0) pg MCHC 30.7 L (32.0-37.0) g/dL RDW 18.4 H (11.5-14.5) % MPV 9.4 L (9.5-12.2) fL Immature Gran # 0.13 H (0.00-0.04) 10*3/uL INR 1.2 H (<1.2) BUN/Creatinine Ratio 28.89 H (12.00-20.00) Ratio Calcium 7.9 L (8.7-10.3) mg/dL Total Bilirubin <0.2 L (0.3-1.2) mg/dL Alkaline Phosphatase 212 H (41-126) U/L Total Protein 4.9 L (6.2-8.2) g/dL Albumin 2.3 L (3.8-4.9) g/dL Albumin/Globulin Ratio 0.88 L (1.60-3.17) Ratio Microbiology - Last 24 Hours (Table) 05/24/25 05:12 Blood Culture - Preliminary Blood
--- NOTE | 2025-05-27 15:52 | P.PN ---
Subjective Progress Note Date: 05/27/25 Principal diagnosis: Reason for follow-up is fever Patient is a 80-year-old female with a past medical history of peripheral hypertension hyperlipidemia anxiety depression patient has been brought into the hospital for evaluation of generalized weakness patient present ed to hospital did have fever tachycardia chest x-ray with increased opacity with concern for possible pneumonia now with evidence of multiple hepatic metastasis. On today's evaluation that is 05/27/2025, Patient is afebrile this morning patient denies having any chest pain shortness of breath still have occasional dry cough, the patient is currently on room air, patient denies any abdominal pain however has been complaining of feeling nausea and had episode of vomiting but no diarrhea. Patient white count is 9.54, creatinine 0.9 blood cultures are pending Objective - Vital Signs Vital signs: Vital Signs Temp 98.2 F 05/27/25 13:55 Pulse 101 H 05/27/25 13:55 Resp 20 05/27/25 13:55 BP 124/82 05/27/25 13:55 Pulse Ox 96 05/27/25 13:55 FiO2 Intake & Output 05/26/25 05/27/25 05/27/25 18:59 06:59 18:59 Intake Total 688.08 500 Balance 688.08 500 Intake: Intake, IV Titration 688.08 Amount Heparin Sod,Pork in 0.45% 38.08 NaCl 25,000 unit In 0.45 % NaCl 1 250ml.bag @ 12 UNITS/KG/HR 9.525 mls/hr IV .Q24H KRISTINE Rx#: [id number] Lactated Ringers 1,000 ml 600 @ 50 mls/hr IV .Q20H KRISTINE Rx#:[id number] cefTRIAXone 1 gm In 50 Sodium Chloride 0.9% 50 ml @ 100 mls/hr IVPB HS KRISTINE Rx#:[id number] Oral 500 Other: Voiding Method Diaper Diaper Diaper # Bowel Movements 2 - Exam GENERAL DESCRIPTION: An elderly female lying in bed in no distress RESPIRATORY SYSTEM: Unlabored breathing , decreased breath sounds at bases HEART: S1 S2 regular rate and rhythm , ABDOMEN: Soft , no tenderness EXTREMITIES: No edema feet - Labs CBC & Chem 7: 05/27/25 02:50 05/27/25 02:50 Labs: Abnormal Lab Results - Last 24 Hours (Table) 05/27/25 05/27/25 05/27/25 Range/Units 02:50 02:50 02:50 RBC 3.48 L (4.10-5.20) X 10*6/uL Hgb 8.9 L (12.0-15.0) g/dL Hct 31.7 L (37.2-46.3) % MCH 25.6 L (27.0-32.0) pg MCHC 28.1 L (32.0-37.0) g/dL RDW 18.8 H (11.5-14.5) % Immature Gran # 0.13 H (0.00-0.04) X 10*3/uL PT 13.2 H (9.9-11.9) sec INR 1.19 H (0.93-1.11) sec BUN/Creatinine Ratio 28.89 H (12.00-20.00) Ratio Calcium 7.9 L (8.7-10.3) mg/dL Total Bilirubin <0.2 L (0.3-1.2) mg/dL Alkaline Phosphatase 212 H (41-126) U/L Total Protein 4.9 L (6.2-8.2) g/dL Albumin 2.3 L (3.8-4.9) g/dL Albumin/Globulin Ratio 0.88 L (1.60-3.17) Ratio Microbiology - Last 24 Hours (Table) 05/24/25 05:12 Blood Culture - Preliminary Blood Assessment and Plan (1) Pneumonia Current Visit: Yes Status: Acute Priority: High Code(s): J18.9 - PNEUMONIA, UNSPECIFIED ORGANISM SNOMED Code(s): 520641112 (2) Sepsis Current Visit: Yes Status: Acute Code(s): A41.9 - SEPSIS, UNSPECIFIED ORG ANISM SNOMED Code(s): 23850153 (3) Penicillin allergy Current Visit: No Status: Acute Code(s): Z88.0 - ALLERGY STATUS TO PENICILLIN SNOMED Code(s): 90625303 Plan: 1patient presented to hospital with weakness and did have a fall in this patient noticed to have a fever tachycardia elevated white count meeting criteria for SIRS/sepsis with concern for possible pneumonia however the patient did not have significant respiratory symptoms but did have abnormal x-rayconcern for possible metastatic disease versus infectious etiology involving the liver 2-patient did have CT of abdominal with concern for multiple liver masses and there was concern for small bowel intussusception for the patient has been evaluated by general surgery plan is for observation 3patient has been evaluated by hematology oncology and planning for IR biopsy 4patient remains to be afebrile white count has been normal we will continue to treat with Rocephin and Flagyl and monitor clinical course closely Dictation was produced using [employer] dictation software. please excuse any grammatical, word or spelling errors. Time with Patient: Less than 30
--- NOTE | 2025-05-27 15:52 | P.PN ---
Subjective Progress Note Date: 05/26/25 Principal diagnosis: Reason for follow-up is fever Patient is a 80-year-old female with a past medical history of peripheral hypertension hyperlipidemia anxiety depression patient has been brought into the hospital for evaluation of generalized weakness patient present ed to hospital did have fever tachycardia chest x-ray with increased opacity with concern for possible pneumonia now with evidence of multiple hepatic metastasis. On today's evaluation that is 05/26/2025, patient has been afebrile, patient is breathing comfortably and is currently on room air, patient denies having any chest pain and cough has decreased in intensity, patient denies nausea vomiting or diarrhea and no abdominal pain. Patient white count is 8.95, blood culture currently pending Objective - Vital Signs Vital signs: Vital Signs Temp 97.6 F 05/26/25 07: Pulse 76 05/26/25 10:45 Resp 16 05/26/25 07:25 BP 117/77 05/26/25 07:25 Pulse Ox 94 L 05/26/25 07:25 FiO2 Intake & Output 05/25/25 05/26/25 05/26/25 18:59 06:59 18:59 Other: Voiding Method Diaper Diaper # Voids 5 2 # Bowel Movements 1 - Exam GENERAL DESCRIPTION: An elderly female lying in bed in no distress RESPIRATORY SYSTEM: Unlabored breathing , decreased breath sounds at bases HEART: S1 S2 regular rate and rhythm , ABDOMEN: Soft , no tenderness EXTREMITIES: No edema feet - Labs CBC & Chem 7: 05/27/25 02:50 05/27/25 02:50 Labs: Abnormal Lab Results - Last 24 Hours (Table) 05/26/25 05/26/25 05/26/25 Range/Units 02:51 02:51 10:42 RBC 3.01 L 3.06 L (4.10-5.20) X 10*6/uL Hgb 7.7 L 8.0 L (12.0-15.0) g/dL Hct 26.3 L 26.1 L (37.2-46.3) % MCH 25.6 L 26.1 L (27.0-32.0) pg MCHC 29.3 L 30.7 L (32.0-37.0) g/dL RDW 18.3 H 18.4 H (11.5-14.5) % MPV 9.4 L (9.5-12.2) fL Immature Gran # 0.13 H (0.00-0.04) 10*3/uL INR (<1.2) BUN 29.5 H (9.0-27.0) mg/dL Est GFR (CKD-EPI) 58 L (>=60) BUN/Creatinine Ratio 29.50 H (12.00-20.00) Ratio Calcium 7.7 L (8.7-10.3) mg/dL 05/26/25 Range/Units 10:42 RBC (4.10-5.20) X 10*6/uL Hgb (12.0-15.0) g/dL Hct (37.2-46.3) % MCH (27.0-32.0) pg MCHC (32.0-37.0) g/dL RDW (11.5-14.5) % MPV (9.5-12.2) fL Immature Gran # (0.00-0.04) 10*3/uL INR 1.2 H (<1.2) BUN (9.0-27.0) mg/dL Est GFR (CKD-EPI) (>=60) BUN/Creatinine Ratio (12.00-20.00) Ratio Calcium (8.7-10.3) mg/dL Microbiology - Last 24 Hours (Table) 05/24/25 05:12 Blood Culture - Preliminary Blood Assessment and Plan (1) Pneumonia Current Visit: Yes Status: Acute Priority: High Code(s): J18.9 - PNEUMONIA, UNSPECIFIED ORGANISM SNOMED Code(s): 552159574 (2) Sepsis Current Visit: Yes Status: Acute Code(s): A41.9 - SEPSIS, UNSPECIFIED ORGANISM SNOMED Code(s): 26707567 (3) Penicillin allergy Current Visit: No Status: Acute Code(s): Z88.0 - ALLERGY STATUS TO PENICILLIN SNOMED Code(s): 57134213 Plan: 1patient presented to hospital with weakness and did have a fall in this patient noticed to have a fever tachycardia elevated white count meeting criteria for SIRS/sepsis with concern for possible pneumonia however the patient did not have significant respiratory symptoms but did have abnormal x-rayconcern for possible metastatic disease versus infectious etiology involving the liver 2-patient did have CT of abdominal with concern for multiple liver masses and there was concern for small bowel intussusception for the patient has been eval uated by general surgery plan is for observation 3patient has been evaluated by hematology oncology and planning for IR biopsy 4patient to be treated with Rocephin and Flagyl and monitor clinical course closely Dictation was produced using [employer] dictation software. please excuse any grammatical, word or spelling errors. Time with Patient: Less than 30
--- NOTE | 2025-05-27 20:24 | P.PN ---
Subjective Progress Note Date: 05/27/25 Principal diagnosis: Quentin PE, abd LAD, liver mass In f/u today pt is very concerned if she is going to be able to take care of herself when she goes home. She is weak. No reported fevers, N. Pain in the abd is stable Objective - Vital Signs Vital signs: Vital Signs Temp 98.2 F 05/27/25 13:55 Pulse 101 H 05/27/25 13:55 Resp 20 05/27/25 13:55 BP 124/82 05/27/25 13:55 Pulse Ox 96 05/27/25 13:55 FiO2 Intake & Output 05/26/25 05/27/25 05/27/25 18:59 06:59 18:59 Intake Total 688.08 500 Balance 688.08 500 Intake: Intake, IV Titration 688.08 Amount Heparin Sod,Pork in 0.45% 38.08 NaCl 25,000 unit In 0.45 % NaCl 1 250ml.bag @ 12 UNITS/KG/HR 9.525 mls/hr IV .Q24H KRISTINE Rx#: [id number] Lactated Ringers 1,000 ml 600 @ 50 mls/hr IV .Q20H KRISTINE Rx#:[id number] cefTRIAXone 1 gm In 50 Sodium Chloride 0.9% 50 ml @ 100 mls/hr IVPB HS KRISTINE Rx#:[id number] Oral 500 Other: Voiding Method Diaper Diaper Diaper # Voids 2 # Bowel Movements 2 3 - Constitutional General appearance: Present: cooperative, no acute distress, obese - EENT Eyes: Present: anicteric sclerae, EOMI ENT: Present: hearing grossly normal - Respiratory Details: resp unlabored at rest - Gastrointestinal General gastrointestinal: Present: distended, soft - Integumentary Integumentary: Present: pale - Neurologic Neurologic: Present: CNII-XII intact - Musculoskeletal Musculoskeletal: Present: generalized weakness - Psychiatric Psychiatric: Present: A&O x's 3, appropriate affect, intact judgment & insight - Labs CBC & Chem 7: 05/27/25 02:50 05/27/25 02:50 Labs: Abnormal Lab Results - Last 24 Hours (Table) 05/27/25 05/27/25 05/27/25 Range/Units 02:50 02:50 02:50 RBC 3.48 L (4.10-5.20) X 10*6/uL Hgb 8.9 L (12.0-15.0) g/dL Hct 31.7 L (37.2-46.3) % MCH 25.6 L (27.0-32.0) pg MCHC 28.1 L (32.0-37.0) g/dL RDW 18.8 H (11.5-14.5) % Immature Gran # 0.13 H (0.00-0.04) X 10*3/uL PT 13.2 H (9.9-11.9) sec INR 1.19 H (0.93-1.11) sec BUN/Creatinine Ratio 28.89 H (12.00-20.00) Ratio Calcium 7.9 L (8.7-10.3) mg/dL Total Bilirubin <0.2 L (0.3-1.2) mg/dL Alkaline Phosphatase 212 H (41-126) U/L Total Protein 4.9 L (6.2-8.2) g/dL Albumin 2.3 L (3.8-4.9) g/dL Albumin/Globulin Ratio 0.88 L (1.60-3.17) Ratio Microbiology - Last 24 Hours (Table) 05/24/25 05:12 Blood Culture - Preliminary Blood Assessment and Plan (1) Liver mass, right lobe Current Visit: Yes Status: Acute Priority: High Code(s): R16.0 - HEPATOMEGALY, NOT ELSEWHERE CLASSIFIED SNOMED Code(s): 936578106 (2) Mesenteric lymphadenopathy Current Visit: Yes Status: Acute Priority: High Code(s): R59.0 - LOCALIZED ENLARGED LYMPH NODES SNOMED Code(s): 789169370 (3) Anemia Current Visit: Yes Status: Acute Priority: Medium Code(s): D64.9 - ANEMIA, UNSPECIFIED SNOMED Code(s): 726324253 (4) Weakness Current Visit: Yes Status: Acute Priority: High Code(s): R53.1 - WEAKNESS SNOMED Code(s): 67118542 Plan: Liver lesion, LLQ mesenteric mass, mesenteric LAD -Imaging findings concerning for a malignant process -Of note, a right breast mass was palpated -Discussed with pt concerning findings. She is interested in further work up -Consult placed for IR to review case. No plan for biopsy 2/2 to long holding time of heparin and new PE. Being sched at [facility] next week -CEA, CA19.9, AFP all WNL -ID has seen pt and is treating with abx for fever on admit PE -May be related to abnormal imaging, suspicious for malignancy -Eliquis started Folate and iron deficient anemia -Pt was seen in for anemia by Hematology -Found to be iron and folate deficient at that time-no need to repeat those labs -EGD/colonoscopy did not identify a source of bleeding 03/18/25 -Folic acid resumed. IV iron ordered -Transfuse for Hgb <7 or if symptomatic
[2025-05-27] MEDS: SODIUM FERRIC GLUCONAT-SUCROSE 125 MG in SODIUM CHLORIDE 0.9% 100 ML IVPB SCH (21:29)
[2025-05-28 08:17] LABS: Basophils # (A) 0.03 X 10*3/uL (0.00-0.10); Basophils % (A) 0.3 %; Eosinophils # (A) 0.10 X 10*3/uL (0.04-0.35); Eosinophils % (A) 1.1 %; HCT 28.9 % (37.2-46.3); HGB 8.4 g/dL (12.0-15.0); Immature Grans, Automated 1.50 %; Lymphocytes # (A) 0.89 X 10*3/uL (0.90-5.00); Lymphocytes % (A) 10.2 %; MCH 25.5 pg (27.0-32.0); MCHC 29.1 g/dL (32.0-37.0); MCV 87.8 FL (80.0-97.0); Monocytes # (A) 0.48 X 10*3/uL (0.20-1.00); Monocytes % (A) 5.5 %; NRBC Per 100 WBC 0 X 10*3/uL (0.00-0.01); Neutrophils # (A) 7.08 X 10*3/uL (1.80-7.70); Neutrophils % (A) 81.4 %; Platelet Count 365 X 10*3/uL (140-440); RBC 3.29 X 10*6/uL (4.10-5.20); RDW 18.7 % (11.5-14.5); WBC 8.71 X 10*3/uL (4.50-10.00)
[2025-05-28 08:23] LABS: ALT 14 U/L (8-44); AST 25 U/L (13-35); Albumin 2.3 g/dL (3.8-4.9); Albumin/Globulin Ratio 0.92 Ratio (1.60-3.17); Alkaline Phosphatase 207 U/L (41-126); Anion Gap 11.50 mmol/L (4.00-12.00); BUN/Creat Ratio 25.70 Ratio (12.00-20.00); Blood Urea Nitrogen 25.7 mg/dL (9.0-27.0); Calcium 7.7 mg/dL (8.7-10.3); Cancer Antigen 153 10.2 U/mL (0.0-32.3); Carbon Dioxide 21.5 mmol/L (21.6-31.8); Chloride 106 mmol/L (96-109); Globulin 2.5 g/dL (1.6-3.3); Glucose 91 mg/dL (70-110); Potassium 4.6 mmol/L (3.5-5.5); Sodium 139 mmol/L (135-145); Total Protein 4.8 g/dL (6.2-8.2)
--- NOTE | 2025-05-28 14:10 | P.PN ---
Subjective Progress Note Date: 05/28/25 Patient is resting in bed. She has minimal complaints of abdominal pain. CT scan reviewed. Patient has mesenteric masses. The patient is awaiting IR consultation for possible core biopsy. No immediate surgical inventions planned. Objective - Vital Signs Vital signs: Vital Signs Temp 97.9 F 05/28/25 07:42 Pulse 99 05/28/25 07:42 Resp 16 05/28/25 07:42 BP 115/77 05/28/25 07:42 Pulse Ox 95 05/28/25 07:42 FiO2 Intake & Output 05/27/25 05/28/25 05/28/25 18:59 06:59 18:59 Intake Total 1660 Balance 1660 Intake: Oral 1660 Other: Voiding Method Diaper Toilet Diaper # Voids 2 3 1 # Bowel Movements 3 2 - Labs CBC & Chem 7: 05/28/25 03:02 05/28/25 03:02 Labs: Abnormal Lab Results - Last 24 Hours (Table) 05/28/25 05/28/25 Range/Units 03:02 03:02 RBC 3.29 L (4.10-5.20) X 10*6/uL Hgb 8.4 L (12.0-15.0) g/dL Hct 28.9 L (37.2-46.3) % MCH 25.5 L (27.0-32.0) pg MCHC 29.1 L (32.0-37.0) g/dL RDW 18.7 H (11.5-14.5) % Immature Gran # 0.13 H (0.00-0.04) X 10*3/uL Lymphocytes # 0.89 L (0.90-5.00) X 10*3/uL Carbon Dioxide 21.5 L (21.6-31.8) mmol/L Est GFR (CKD-EPI) 58 L (>=60) BUN/Creatinine Ratio 25.70 H (12.00-20.00) Ratio Calcium 7.7 L (8.7-10.3) mg/dL Total Bilirubin <0.2 L (0.3-1.2) mg/dL Alkaline Phosphatase 207 H (41-126) U/L Total Protein 4.8 L (6.2-8.2) g/dL Albumin 2.3 L (3.8-4.9) g/dL Albumin/Globulin Ratio 0.92 L (1.60-3.17) Ratio CA 125 Antigen 84.7 H (0.0-30.1) U/mL Microbiology - Last 24 Hours (Table) 05/24/25 05:12 Blood Culture - Preliminary Blood
--- NOTE | 2025-05-28 16:52 | P.PN ---
Subjective Subjective: 80 F came in with complaints of generalized weakness found to have fever. Patient was complaining of cough with sputum production. Patient denies any dysuria patient is also complaining of right upper quadrant abdominal pain patient had cholecystectomy in the past. Patient had a chest x-ray which showed increased opacities in the lower lung ramirez on the lateral view. Patient was started on Rocephin. Urine is not consistent with UTI. Patient denied any diarrhea denied any cellulitis. 05/25/2025.Patient's fever resolved white count improved serum creatinine remained at 1.1. Patient still not feeling well did have nausea vomiting today patient is already on Protonix Zofran was added. Patient does not have any clinical evidence of GI bleed hemoglobin is 7.9 compared to 9.1 yesterday because of IV fluids patient's antihypertensive medications and Lasix are being held patient oxygen saturation is at her borderline 90% will closely monitor for any heart failure exacerbation or pulmonary edema. CT of the abdomen was ordered because of the liver masses. Oncology was consulted. 05/26. Patient seen at bedside. Laying in bed comfortably. Alert and oriented x3. Reported regular bowel movements. One episode of vomiting yesterday morning post breakfast containing food particles with no evidence of blood. Currently denies nausea and vomiting. Additional findings on CT abdomen indicated an incidental finding of PE. Patient's enoxaparin discontinued as a result and she is not placed on IV heparin low intensity dose. IR requested for heparin to be stopped 6h prior and after liver biopsy. This was cleared by Heme Onc. 05/27. Patient seen at bedside. Laying in bed. Alert and oriented x3. patient ap pears upset and disheartened about recent diagnosis. Answers questions appropriately. Reported having two episodes of vomiting during the night. Denied blood and indicated that it was not induced by eating. Stated having one episode of central chest pain, sharp in nature, last 10 minutes in duration, last night. She reported the pain as 6/10 in severity and stated that she has had this pain before as well and it is not new. Currently she is re-experiencing her right sided sharp abdominal pain however states that it is not distressing. Patient awaits a liver biopsy next week as an outpatient and is currently placed on Apixaban 10 for PE treatment. Patient seen by PT, deemed not fit for discharge home, recommended to attend rehab (MICHAEL). Patient does not want to go to rehab. 05/28. Patient seen at bedside. Laying in bed. Alert and oriented x3. Severely disheartened about recent diagnosis. Expressed wishes against going to rehab and requested to stay at the hospital. Vitally stable. Reported one episode of vomiting last night. Currently not nausous. Got informed later on that patient wishes for code status to be changed to no code/dnr and is requesting hospice on discharge. Pertinent positives and negatives discussed above, a complete review of systems was preformed and all the other systems were negative. Vitals Signs Reveiwed. Temperature 98.2, HR 95, RR 15, BP 136/83, General: non toxic, appears at stated age, normal weight Derm: no unusual rashes/lesions, warm Head: atraumatic, normocephalic, symmetric Neck: No cervical lymphadenopathy, trachea midline, supple Mouth: no lip lesion, mucus membranes moist Cardiovascular: S1S2 reg, no murmur, positive dorsalis pedis pulse bilateral, no edema Lungs: Chest is clear to auscultation, no wheezing or crackles.no accessory muscle use Abdominal: soft, nontender to palpation, no guarding Neuro: CN II-XI grossly intact, no gross focal neuro deficits Psych: Alert, oriented, low mood Data Reveiwed Today: 05/28/2025 Patient Labs: HB 8.4, WBC 8.71, Sodium 139, Creatinine 1, ALP 207, Ca 125 84.7 Imaging: Echocardiogram: RV enlargement. Normal LV size and function. Small pericardial effusion. CT PA: Bilateral pulmonary emboli. Scattered nodules within the bilateral lung ramirez suspicious for metastasis. Enlarged lymph nodes superior mediastinum. Masses within the liver suspicious for metastasis. Enlarged left adrenal gland. Suspected enlarged lymphadenopathy within the abdomen. Lobular nodule within the medial right breast. Moderate ascending thoracic aortic aneurysm 4.[address] abdo -Constellation of findings concerning for malignant malignancy with metastatic disease. There is small bowel intussusception in the mid abdomen with possible some degree of obstruction of the small bowel. This could be secondary to mesenteric masses versus small bowel mass is poorly visualized. Additionally mesenteric lymph nodes on dominant mass are present. Bilateral enlarged liver masses, pulmonary nodules, retroperitoneal lymphadenopathy, mesenteric mass and left adrenal nodule. Consider PET/CT or other sites of metastatic disease as clinically indicated. Addendum: PE reported Assessment and plan: -Sepsis secondary to pneumonia awaiting blood and sputum cultures -Incidental finding of liver masses which may be causing her abdominal pain, oncology consultation, Liver biopsy to be done as an outpatient in [facility] in 1 weeks time. - Pulmonary embolism - D/C heparin IV and start Apixaban - intussusception of small of bowel , General surgery consulted, appreciate for the recommendations. - Nausea vomiting: Secondary to antibiotics, possibly stress ulcerations or even cancer. Continue with Protonix and Zofran - Generalized weakness probably because of sepsis will also obtain PT and OT consultation patient is multiple hospitalizations in the past and was discharged to subacute rehabilitation in the past - Acute renal failure: Prerenal azotemia secondary to sepsis and may be a competent of acute tubular necrosis secondary to sepsis, creatinine mildly improved will cut down the fluids to 50 cc/h. - Hyperlipidemia - Hypertension patient blood pressure is low normal hold off on losartan metoprolol can be continued - History of melanoma for which patient finished chemotherapy and presently in remission. - Troponin normal, EKG independently read indicating sinus rhythm with RBBB, similar to previous EKG. - hospice on discharge GI ppx: famotidine Code Status: No code Deejay Faria MD PGY1 Internal Medicine Objective - Vital Signs Vital signs: Vital Signs Temp 98.2 F 05/28/25 14:36 Pulse 95 05/28/25 14:36 Resp 15 05/28/25 14:36 BP 136/83 05/28/25 14:36 Pulse Ox 102 H 05/28/25 14:36 FiO2 Intake & Output 05/27/25 05/28/25 05/28/25 18:59 06:59 18:59 Intake Total 1660 Output Total 100 Balance 1660 -100 Intake: Oral 1660 Output: Emesis 100 Other: Voiding Method Diaper Toilet Diaper # Voids 2 3 1 # Bowel Movements 3 2 - Labs CBC & Chem 7: 05/28/25 03:02 05/28/25 03:02 Labs: Abnormal Lab Results - Last 24 Hours (Table) 05/28/25 05/28/25 Range/Units 03:02 03:02 RBC 3.29 L (4.10-5.20) X 10*6/uL Hgb 8.4 L (12.0-15.0) g/dL Hct 28.9 L (37.2-46.3) % MCH 25.5 L (27.0-32.0) pg MCHC 29.1 L (32.0-37.0) g/dL RDW 18.7 H (11.5-14.5) % Immature Gran # 0.13 H (0.00-0.04) X 10*3/uL Lymphocytes # 0.89 L (0.90-5.00) X 10*3/uL Carbon Dioxide 21.5 L (21.6-31.8) mmol/L Est GFR (CKD-EPI) 58 L (>=60) BUN/Creatinine Ratio 25.70 H (12.00-20.00) Ratio Calcium 7.7 L (8.7-10.3) mg/dL Total Bilirubin <0.2 L (0.3-1.2) mg/dL Alkaline Phosphatase 207 H (41-126) U/L Total Protein 4.8 L (6.2-8.2) g/dL Albumin 2.3 L (3.8-4.9) g/dL Albumin/Globulin Ratio 0.92 L (1.60-3.17) Ratio CA 125 Antigen 84.7 H (0.0-30.1) U/mL Microbiology - Last 24 Hours (Table) 05/24/25 05:12 Blood Culture - Preliminary Blood
[2025-05-28] MEDS ORDERED: ACETAMINOPHEN SUPPOSITORY 650 MG SUPP RECTAL PRN (21:26)
[2025-05-29 06:19] LABS: ALT 14 U/L (4-34); AST 34 U/L (14-36); African American GFR (CKD) 54 (>60 ml/min/1.73 sqM); Albumin 2.1 g/dL (3.5-5.0); Albumin/Globulin Ratio 0.8; Alkaline Phosphatase 201 U/L (38-126); Anion Gap 12 mmol/L; Blood Urea Nitrogen 30 mg/dL (7-17); Calcium 8.2 mg/dL (8.4-10.2); Carbon Dioxide 18 mmol/L (22-30); Chloride 108 mmol/L (98-107); Globulin 2.7 g/dL; Glucose 86 mg/dL (74-99); Non-African American GFR(CKD) 47 (>60 ml/min/1.73 sqM); Potassium 4.7 mmol/L (3.5-5.1); Sodium 138 mmol/L (137-145); Total Protein 4.8 g/dL (6.3-8.2)
[2025-05-29 06:31] LABS: Basophils # (A) 0.02 10*3/uL (0.00-0.10); Basophils % (A) 0.1 %; Eosinophils # (A) 0.02 10*3/uL (0.04-0.35); Eosinophils % (A) 0.1 %; HCT 26.3 % (37.2-46.3); HGB 8.1 g/dL (12.0-15.0); Lymphocytes # (A) 1.12 10*3/uL (0.90-5.00); Lymphocytes % (A) 8.2 %; MCH 25.9 pg (27.0-32.0); MCHC 30.8 g/dL (32.0-37.0); MCV 84.0 fL (80.0-97.0); Monocytes # (A) 0.55 10*3/uL (0.20-1.00); Monocytes % (A) 4.0 %; Neutrophils # (A) 11.52 10*3/uL (1.80-7.70); Neutrophils % (A) 84.5 %; Platelet Count 383 10*3/uL (140-440); RBC 3.13 10*6/uL (4.10-5.20); RDW 18.6 % (11.5-14.5); WBC 13.65 10*3/uL (4.50-10.00)
--- NOTE | 2025-05-29 08:16 | P.PN ---
Subjective Progress Note Date: 05/28/25 Principal diagnosis: Reason for follow-up is fever Patient is a 80-year-old female with a past medical history of peripheral hypertension hyperlipidemia anxiety depression patient has been brought into the hospital for evaluation of generalized weakness patient present ed to hospital did have fever tachycardia chest x-ray with increased opacity with concern for possible pneumonia now with evidence of multiple hepatic metastasis. On today's evaluation that is 05/28/2025,the patient denies any fever or any chills, patient is breathing comfortably on room air, the patient denies chest pain shortness of breath and no worsening cough, patient denies abdominal pain, however has been complaining of nausea with episode of vomiting no diarrhea. Patient white count is 8.71, creatinine is 1.0 blood cultures currently pending Objective - Vital Signs Vital signs: Vital Signs Temp 97.9 F 05/28/25 07:42 Pulse 99 05/28/25 07:42 Resp 16 05/28/25 07:42 BP 115/77 05/28/25 07:42 Pulse Ox 95 05/28/25 07:42 FiO2 Intake & Output 05/27/25 05/28/25 05/28/25 18:59 06:59 18:59 Intake Total 1660 Balance 1660 Intake: Oral 1660 Other: Voiding Method Diaper Toilet Diaper # Voids 2 3 # Bowel Movements 3 2 - Exam GENERAL DESCRIPTION: An elderly female lying in bed in no distress RESPIRATORY SYSTEM: Unlabored breathing , decreased breath sounds at bases HEART: S1 S2 regular rate and rhythm , ABDOMEN: Soft , no tenderness EXTREMITIES: No edema feet - Labs CBC & Chem 7: 05/29/25 05:27 05/29/25 05:27 Labs: Abnormal Lab Results - Last 24 Hours (Table) 05/28/25 05/28/25 Range/Units 03:02 03:02 RBC 3.29 L (4.10-5.20) X 10*6/uL Hgb 8.4 L (12.0-15.0) g/dL Hct 28.9 L (37.2-46.3) % MCH 25.5 L (27.0-32.0) pg MCHC 29.1 L (32.0-37.0) g/dL RDW 18.7 H (11.5-14.5) % Immature Gran # 0.13 H (0.00-0.04) X 10*3/uL Lymphocytes # 0.89 L (0.90-5.00) X 10*3/uL Carbon Dioxide 21.5 L (21.6-31.8) mmol/L Est GFR (CKD-EPI) 58 L (>=60) BUN/Creatinine Ratio 25.70 H (12.00-20.00) Ratio Calcium 7.7 L (8.7-10.3) mg/dL Total Bilirubin <0.2 L (0.3-1.2) mg/dL Alkaline Phosphatase 207 H (41-126) U/L Total Protein 4.8 L (6.2-8.2) g/dL Albumin 2.3 L (3.8-4.9) g/dL Albumin/Globulin Ratio 0.92 L (1.60-3.17) Ratio CA 125 Antigen 84.7 H (0.0-30.1) U/mL Microbiology - Last 24 Hours (Table) 05/24/25 05:12 Blood Culture - Preliminary Blood Assessment and Plan (1) Pneumonia Current Visit: Yes Status: Acute Priority: High Code(s): J18.9 - PNEUMONIA, UNSPECIFIED ORGANISM SNOMED Code(s): 785995878 (2) Sepsis Current Visit: Yes Status: Acute Code(s): A41.9 - SEPSIS, UNSPECIFIED ORGANISM SNOMED Code(s): 44294192 (3) Penicillin allergy Current Visit: No Status: Acute Code(s): Z88.0 - ALLERGY STATUS TO PENICILLI N SNOMED Code(s): 91359275 Plan: 1patient presented to hospital with weakness and did have a fall in this patient noticed to have a fever tachycardia elevated white count meeting criteria for SIRS/sepsis with concern for possible pneumonia however the patient did not have significant respiratory symptoms but did have abnormal x-rayconcern for possible metastatic disease versus infectious etiology involving the liver 2-patient did have CT of abdominal with concern for multiple liver masses and there was concern for small bowel intussusception for the patient has been evaluated by general surgery plan is for observation 3patient has been evaluated by hematology oncology and planning for IR biopsy 4patient remains to be afebrile white count has been normal 5we will continue to treat with Rocephin and Flagyl and monitor clinical course closely Dictation was produced using [employer] dictation software. please excuse any grammatical, word or spelling errors. Time with Patient: Less than 30
[2025-05-29] MEDS ORDERED: ONDANSETRON ODT 4 MG TAB PO PRN (09:36)
[2025-05-29] MEDS: ONDANSETRON ODT 4 MG TAB PO STA (10:08)
--- NOTE | 2025-05-29 15:13 | P.PN ---
Subjective Progress Note Date: 05/29/25 Principal diagnosis: Reason for follow-up is fever Patient is a 80-year-old female with a past medical history of peripheral hypertension hyperlipidemia anxiety depression patient has been brought into the hospital for evaluation of generalized weakness patient present ed to hospital did have fever tachycardia chest x-ray with increased opacity with concern for possible pneumonia now with evidence of multiple hepatic metastasis. On today's evaluation that is 05/29/2025,the patient remains to be afebrile, patient is on room air not requiring supplemental oxygen patient slightly sleepy today however arousable and denies any shortness of breath no chest pain or cou gh.Patient denies having any nausea or vomiting, no abdominal pain and no diarrhea has been reported. Patient white count slightly up to 13.65 today, creatinine is 1.12 blood culture have been negative Objective - Vital Signs Vital signs: Vital Signs Temp 97.7 F 05/29/25 07:16 Pulse 102 H 05/29/25 07:16 Resp 16 05/29/25 07:16 BP 123/80 05/29/25 07:16 Pulse Ox 95 05/29/25 07:16 FiO2 Intake & Output 05/28/25 05/29/25 05/29/25 18:59 06:59 18:59 Intake Total 540 Output Total 100 Balance -100 540 Weight 79.379 kg Intake: Oral 540 Output: Emesis 100 Other: Voiding Method Toilet Diaper # Voids 1 2 # Bowel Movements 2 - Exam GENERAL DESCRIPTION: An elderly female lying in bed in no distress RESPIRATORY SYSTEM: Unlabored breathing , decreased breath sounds at bases HEART: S1 S2 regular rate and rhythm , ABDOMEN: Soft , no tenderness EXTREMITIES: No edema feet - Labs CBC & Chem 7: 05/29/25 05:27 05/29/25 05:27 Labs: Abnormal Lab Results - Last 24 Hours (Table) 05/29/25 05/29/25 Range/Units 05:27 05:27 WBC 13.65 H (4.50-10.00) 10*3/uL RBC 3.13 L (4.10-5.20) 10*6/uL Hgb 8.1 L (12.0-15.0) g/dL Hct 26.3 L (37.2-46.3) % MCH 25.9 L (27.0-32.0) pg MCHC 30.8 L (32.0-37.0) g/dL RDW 18.6 H (11.5-14.5) % Immature Gran # 0.42 H (0.00-0.04) 10*3/uL Neutrophils # 11.52 H (1.80-7.70) 10*3/uL Eosinophils # 0.02 L (0.04-0.35) 10*3/uL Chloride 108 H (98-107) mmol/L Carbon Dioxide 18 L (22-30) mmol/L BUN 30 H (7-17) mg/dL Creatinine 1.12 H (0.52-1.04) mg/dL Calcium 8.2 L (8.4-10.2) mg/dL Alkaline Phosphatase 201 H (38-126) U/L Total Protein 4.8 L (6.3-8.2) g/dL Albumin 2.1 L (3.5-5.0) g/dL Microbiology - Last 24 Hours (Table) 05/24/25 05:12 Blood Culture - Final Blood Assessment and Plan (1) Pneumonia Current Visit: Yes Status: Acute Priority: High Code(s): J18.9 - PNEUMONIA, UNSPECIFIED ORGANISM SNOMED Code(s): 285046138 (2) Sepsis Current Visit: Yes Status: Acute Code(s): A41.9 - SEPSIS, UNSPECIFIED [facility] SNOMED Code(s): 57461616 (3) Penicillin allergy Current Visit: No Status: Acute Code(s): Z88.0 - ALLERGY STATUS TO PENICILLIN SNOMED Code(s): 67796186 Plan: 1patient presented to hospital with weakness and did have a fall in this patient noticed to have a fever tachycardia elevated white count meeting criteria for SIRS/sepsis with concern for possible pneumonia however the patient did not have significant respiratory symptoms but did have abnormal x-rayconcern for possible metastatic disease versus infectious etiology involving the liver 2-patient did have CT of abdominal with concern for multiple liver masses and there was concern for small bowel intussusception for the patient has been evaluated by general surgery plan is for observation 3patient has been evaluated by hematology oncology and planning for IR biopsy 4patient remains to be afebrile white count initially normalized but has been slightly up today to be monitored closely for now continue with Rocephin and Flagyl and will repeat a CBC with a.m. lab Dictation was produced using [employer] dictation software. please excuse any grammatical, word or spelling errors. Time with Patient: Less than 30
--- NOTE | 2025-05-29 15:18 | P.PN ---
Subjective Progress Note Date: 05/29/25 Patient remains unchanged. She has no real abdominal complaints. On exam vital signs were stable. Abdomen soft. Patient is scheduled for IR liver biopsy. Objective - Vital Signs Vital signs: Vital Signs Temp 97.7 F 05/29/25 07:16 Pulse 102 H 05/29/25 07:16 Resp 16 05/29/25 07:16 BP 123/80 05/29/25 07:16 Pulse Ox 95 05/29/25 07:16 FiO2 Intake & Output 05/28/25 05/29/25 05/29/25 18:59 06:59 18:59 Intake Total 540 Output Total 100 Balance -100 540 Weight 79.379 kg Intake: Oral 540 Output: Emesis 100 Other: Voiding Method Toilet Diaper # Voids 1 2 # Bowel Movements 2 - Labs CBC & Chem 7: 05/29/25 05:27 05/29/25 05:27 Labs: Abnormal Lab Results - Last 24 Hours (Table) 05/29/25 05/29/25 Range/Units 05:27 05:27 WBC 13.65 H (4.50-10.00) 10*3/uL RBC 3.13 L (4.10-5.20) 10*6/uL Hgb 8.1 L (12.0-15.0) g/dL Hct 26.3 L (37.2-46.3) % MCH 25.9 L (27.0-32.0) pg MCHC 30.8 L (32.0-37.0) g/dL RDW 18.6 H (11.5-14.5) % Immature Gran # 0.42 H (0.00-0.04) 10*3/uL Neutrophils # 11.52 H (1.80-7.70) 10*3/uL Eosinophils # 0.02 L (0.04-0.35) 10*3/uL Chloride 108 H (98-107) mmol/L Carbon Dioxide 18 L (22-30) mmol/L BUN 30 H (7-17) mg/dL Creatinine 1.12 H (0.52-1.04) mg/dL Calcium 8.2 L (8.4-10.2) mg/dL Alkaline Phosphatase 201 H (38-126) U/L Total Protein 4.8 L (6.3-8.2) g/dL Albumin 2.1 L (3.5-5.0) g/dL Microbiology - Last 24 Hours (Table) 05/24/25 05:12 Blood Culture - Final Blood
[2025-05-29] MEDS: METOCLOPRAMIDE 5 MG/ML 2 ML VIAL IVP PRN (15:53)
[2025-05-29 17:48] LABS: Glucose,Whole Blood 86 mg/dL (70-110)
--- NOTE | 2025-05-29 18:57 | P.PN ---
Subjective Subjective: 80 F came in with complaints of generalized weakness found to have fever. Patient was complaining of cough with sputum production. Patient denies any dysuria patient is also complaining of right upper quadrant abdominal pain patient had cholecystectomy in the past. Patient had a chest x-ray which showed increased opacities in the lower lung ramirez on the lateral view. Patient was started on Rocephin. Urine is not consistent with UTI. Patient denied any diarrhea denied any cellulitis. 05/25/2025.Patient's fever resolved white count improved serum creatinine remained at 1.1. Patient still not feeling well did have nausea vomiting today patient is already on Protonix Zofran was added. Patient does not have any clinical evidence of GI bleed hemoglobin is 7.9 compared to 9.1 yesterday because of IV fluids patient's antihypertensive medications and Lasix are being held patient oxygen saturation is at her borderline 90% will closely monitor for any heart failure exacerbation or pulmonary edema. CT of the abdomen was ordered because of the liver masses. Oncology was consulted. 05/26. Patient seen at bedside. Laying in bed comfortably. Alert and oriented x3. Reported regular bowel movements. One episode of vomiting yesterday morning post breakfast containing food particles with no evidence of blood. Currently denies nausea and vomiting. Additional findings on CT abdomen indicated an incidental finding of PE. Patient's enoxaparin discontinued as a result and she is not placed on IV heparin low intensity dose. IR requested for heparin to be stopped 6h prior and after liver biopsy. This was cleared by Heme Onc. 05/27. Patient seen at bedside. Laying in bed. Alert and oriented x3. patient a ppears upset and disheartened about recent diagnosis. Answers questions appropriately. Reported having two episodes of vomiting during the night. Denied blood and indicated that it was not induced by eating. Stated having one episode of central chest pain, sharp in nature, last 10 minutes in duration, last night. She reported the pain as 6/10 in severity and stated that she has had this pain before as well and it is not new. Currently she is re-experiencing her right sided sharp abdominal pain however states that it is not distressing. Patient awaits a liver biopsy next week as an outpatient and is currently placed on Apixaban 10 for PE treatment. Patient seen by PT, deemed not fit for discharge home, recommended to attend rehab ([facility]). Patient does not want to go to rehab. 05/28. Patient seen at bedside. Laying in bed. Alert and oriented x3. Severely disheartened about recent diagnosis. Expressed wishes against going to rehab and requested to stay at the hospital. Vitally stable. Reported one episode of vomiting last night. Currently not nausous. Got informed later on that patient wishes for code status to be changed to no code/dnr and is requesting hospice on discharge. 05/29. Patient seen at bedside. Not in a good mood. Alert and oriented x3. complaints of nausea. Will be having meeting with hospice tomorrow. Pertinent positives and negatives discussed above, a complete review of systems was preformed and all the other systems were negative. Vitals Signs Reveiwed. Temperature 98.2, HR 95, RR 15, BP 136/83, General: non toxic, appears at stated age, normal weight Derm: no unusual rashes/lesions, warm Head: atraumatic, normocephalic, symmetric Neck: No cervical lymphadenopathy, trachea midline, supple Mouth: no lip lesion, mucus membranes moist Cardiovascular: S1S2 reg, no murmur, positive dorsalis pedis pulse bilateral, no edema Lungs: Chest is clear to auscultation, no wheezing or crackles.no accessory muscle use Abdominal: soft, nontender to palpation, no guarding Neuro: CN II-XI grossly intact, no gross focal neuro deficits Psych: Alert, oriented, low mood Data Reveiwed Today: 05/29/2025 Imaging: Echocardiogram: RV enlargement. Normal LV size and function. Small pericardial effusion. CT PA: Bilateral pulmonary emboli. Scattered nodules within the bilateral lung ramirez suspicious for metastasis. Enlarged lymph nodes superior mediastinum. Masses within the liver suspicious for metastasis. Enlarged left adrenal gland. Suspected enlarged lymphadenopathy within the abdomen. Lobular nodule within the medial right breast. Moderate ascending thoracic aortic aneurysm 4.[address] abdo -Constellation of findings concerning for malignant malignancy with metastatic disease. There is small bowel intussusception in the mid abdomen with possible some degree of obstruction of the small bowel. This could be secondary to mesenteric masses versus small bowel mass is poorly visualized. Additionally mesenteric lymph nodes on dominant mass are present. Bilateral enlarged liver masses, pulmonary nodules, retroperitoneal lymphadenopathy, mesenteric mass and left adrenal nodule. Consider PET/CT or other sites of met astatic disease as clinically indicated. Addendum: PE reported Assessment and plan: -Sepsis secondary to pneumonia awaiting blood and sputum cultures -Incidental finding of liver masses which may be causing her abdominal pain, oncology consultation, Liver biopsy to be done as an outpatient in [facility] in 1 weeks time. - Pulmonary embolism - D/C heparin IV and start Apixaban - intussusception of small of bowel , General surgery consulted, appreciate for the recommendations. - Nausea vomiting: Secondary to antibiotics, possibly stress ulcerations or even cancer. Continue with Protonix and Zofran - Generalized weakness probably because of sepsis will also obtain PT and OT con sultation patient is multiple hospitalizations in the past and was discharged to subacute rehabilitation in the past - Acute renal failure: Prerenal azotemia secondary to sepsis and may be a competent of acute tubular necrosis secondary to sepsis, creatinine mildly improved will cut down the fluids to 50 cc/h. - Hyperlipidemia - Hypertension patient blood pressure is low normal hold off on losartan metoprolol can be continued - History of melanoma for which patient finished chemotherapy and presently in remission. - Troponin normal, EKG independently read indicating sinus rhythm with RBBB, si milar to previous EKG. - hospice on discharge GI ppx: famotidine Code Status: No code Deejay Faria MD PGY1 Internal Medicine Objective - Vital Signs Vital signs: Vital Signs Temp 98.1 F 05/29/25 13:50 Pulse 89 05/29/25 13:50 Resp 15 05/29/25 13:50 BP 116/76 05/29/25 13:50 Pulse Ox 96 05/29/25 13:50 FiO2 Intake & Output 05/28/25 05/29/25 05/29/25 18:59 06:59 18:59 Intake Total 540 Output Total 100 Balance -100 540 Weight 79.379 kg Intake: Oral 540 Output: Emesis 100 Other: Voiding Method Toilet Diaper # Voids 1 2 3 # Bowel Movements 2 - Labs CBC & Chem 7: 05/29/25 05:27 05/29/25 05:27 Labs: Abnormal Lab Results - Last 24 Hours (Table) 05/29/25 05/29/25 Range/Units 05:27 05:27 WBC 13.65 H (4.50-10.00) 10*3/uL RBC 3.13 L (4.10-5.20) 10*6/uL Hgb 8.1 L (12.0-15.0) g/dL Hct 26.3 L (37.2-46.3) % MCH 25.9 L (27.0-32.0) pg MCHC 30.8 L (32.0-37.0) g/dL RDW 18.6 H (11.5-14.5) % Immature Gran # 0.42 H (0.00-0.04) 10*3/uL Neutrophils # 11.52 H (1.80-7.70) 10*3/uL Eosinophils # 0.02 L (0.04-0.35) 10*3/uL Chloride 108 H (98-107) mmol/L Carbon Dioxide 18 L (22-30) mmol/L BUN 30 H (7-17) mg/dL Creatinine 1.12 H (0.52-1.04) mg/dL Calcium 8.2 L (8.4-10.2) mg/dL Alkaline Phosphatase 201 H (38-126) U/L Total Protein 4.8 L (6.3-8.2) g/dL Albumin 2.1 L (3.5-5.0) g/dL Microbiology - Last 24 Hours (Table) 05/24/25 05:12 Blood Culture - Final Blood
[2025-05-29] MEDS: HYDROcodone/APAP 5-325MG 1 EACH TAB PO PRN (22:47)
[2025-05-30 01:21] VITALS: RESP 16
[2025-05-30 08:13] VITALS: BP 127/84; PULSE 97; TEMP 98.1
--- NOTE | 2025-05-30 08:54 | P.PN ---
Subjective Progress Note Date: 05/30/25 Patient appears to be depressed. She has no real abdominal complaints. Abdomen is soft nontender Patient is undergoing metastatic disease workup. Apparently she is meeting with hospice today. No surgical mention is planned. Objective - Vital Signs Vital signs: Vital Signs Temp 98.1 F 05/30/25 07:08 Pulse 97 05/30/25 07:08 Resp 16 05/30/25 07:08 BP 127/84 05/30/25 07:08 Pulse Ox 96 05/30/25 07:08 FiO2 Intake & Output 05/29/25 05/30/25 05/30/25 18:59 06:59 18:59 Weight 79.379 kg Other: Voiding Method External Catheter # Voids 3 1 # Bowel Movements 1 - Labs CBC & Chem 7: 05/29/25 05:27 05/29/25 05:27 Labs: Microbiology - Last 24 Hours (Table) 05/24/25 05:12 Blood Culture - Final Blood
--- NOTE | 2025-05-30 13:22 | P.DS ---
Providers Date of admission: 05/24/25 07:37 Attending physician: Gumaro Montes De Oca Consults: 05/24/25 07:41 Consult Physician Routine Consulting Provider: Cesar Bower Consult Reason/Comments: Pneumonia. Sepsis Do you want consulting provider notified?: Yes 05/25/25 11:36 Consult Physician Routine Consulting Provider: Manuel Ohara Consult Reason/Comments: Liver masses Do you want consulting provider notified?: Yes 05/26/25 11:53 Consult Physician Urgent Consulting Provider: Demetrio Block Consult Reason/Comments: intussuseption Do you want consulting provider notified?: Yes Primary care physician: Delgado Carbone Hospital Course: Discharge Diagnosis: 80-year-old female with a past medical history of peripheral hypertension hyperlipidemia anxiety depression, presents with complaints of generalized weakness. She reports progressive worsening of her weakness and right upper quadrant abdominal pain for the last 2 days. Patient reports not being able to hold her weight while getting up to go to the bathroom, resulting in her son to call EMS. Patient denies nausea vomiting and diarrheal episodes. In ED, patient is febrile, with a temperature of 101.5, tachycardic, mildly hypoxic with a with no oxygen requirements. Patient not hypotensive. Labarotary been brought to the hospital on arrival to the hospital patient was noted to be febrile with a temperature of 101.5 F, heart rate 109, RR 30, blood pressure 113/66, SpO2 98 on room air. Lab work significant for WBC 12.69, hemoglobin 9.1, platelet 243, sodium 140, potassium 4.7, BUN 35, glucose 123, AST 37, ALT 15, ALP 261 urine positive for trace protein. Chest xray obtained significant for some increased airspace opacities over the spine on lateral view possibly representing pneumonia. An ultrasound To indicated possible masses throughout the liver and atrophic appearance of the right kidney with no evidence for acute process. Patient transferred as inpatient. During the course of the hospital stay, patient was evaluated and followed by hematology and oncology a CT abdomen with contrast performed reported constellation of findings concerning for malignancy or metastatic disease. A small bowel intussusception in the mid abdomen with possible some degree of obstruction of the small bowel, possibly secondary to mesenteric masses versus small bowel mass. Recent. Lymph nodes abdominal mass present. Bilateral enlarged liver masses, pulmonary nodules, retroperitoneal lymphadenopathy, mesenteric mass and left adrenal nodules. Additionally a bilateral PE was later reported., For which a CTPA was obtained for further confirmation. Patient placed on therapeutic anticoagulation for same. Furthermore a liver biopsy for which a liver biopsy was suggested and planned as outpatient by IR in a week's time. Patient also evaluated by infectious disease for sepsis and temperature spike. She was able to walk around on patient, extremity antibiotics. Patient remains afebrile in the hospital for which she continues on Rocephin and Flagyl. Furthermore patient also evaluated by general surgery for small bowel intussusception. This was diagnosed as spontaneous and reduced and close observation was recommended. Patient assessed by PT and OT for discharge while awaiting further workup and liver biopsy. It was recommended for patient to discharge to rehab however patient declines and unfit for home discharge. Patient has decided to change code status from full code to no code. She has decided to seek hospice care. At the time of discharge, patient hemodynamically stable and will be going to hospice. Pt seen and examined at bedside: 05/30/2025 Vital signs reviewed and stable General: non toxic, appears at stated age, normal weight Derm: no unusual rashes/lesions, warm Head: atraumatic, normocephalic, symmetric Neck: No cervical lymphadenopathy, trachea midline, supple Mouth: no lip lesion, mucus membranes moist Cardiovascular: S1S2 reg, no murmur, positive dorsalis pedis pulse bilateral, no edema Lungs: Chest is clear to auscultation, no wheezing or crackles.no accessory muscle use Abdominal: soft, nontender to palpation, no guarding Neuro: CN II-XI grossly intact, no gross focal neuro deficits Psych: Alert, oriented, low mood A total of patient and 30 minutes were spent preparing this complex discarge summary. Patient was discharged on 05/30/2025. Patient Condition at Discharge: Fair Plan - Discharge Summary Discharge Rx Participant: Yes New Discharge Prescriptions: New Apixaban [Eliquis Starter Pack (for VTE)] 5 - 10 mg PO DIRECTED 30 Days #1 each Continue Rosuvastatin [Crestor] 10 mg PO DAILY Losartan Potassium [Cozaar] 100 mg PO DAILY Folic Acid 1 mg PO DAILY #30 tab Potassium Chloride ER [K-Dur 10] 10 meq PO DAILY #0 Furosemide [Lasix] 20 mg PO DAILY #0 Ferrous Sulfate [Iron (65 MG Elemental)] 650 mg PO DAILY hydrALAZINE HCL [Apresoline] 50 mg PO TID Pantoprazole [Protonix] 40 mg PO DAILY #30 tab Ondansetron Odt [Zofran ODT] 4 mg PO TID PRN PRN Reason: Nausea Discharge Medication List Rosuvastatin [Crestor] 10 mg PO DAILY 01/24/18 [History] Losartan Potassium [Cozaar] 100 mg PO DAILY 11/27/18 [History] Folic Acid 1 mg PO DAILY #30 tab 02/10/25 [Rx] Pantoprazole [Protonix] 40 mg PO DAILY #30 tab 03/18/25 [Rx] Furosemide [Lasix] 20 mg PO DAILY #0 04/23/25 [Rx] Potassium Chloride ER [K-Dur 10] 10 meq PO DAILY #0 04/23/25 [Rx] Ferrous Sulfate [Iron (65 MG Elemental)] 650 mg PO DAILY 05/24/25 [History] Ondansetron Odt [Zofran ODT] 4 mg PO TID PRN 05/24/25 [History] hydrALAZINE HCL [Apresoline] 50 mg PO TID 05/24/25 [History] Apixaban [Eliquis Starter Pack (for VTE)] 5 - 10 mg PO DIRECTED 30 Days #1 each 05/26/25 [Rx] Follow up Appointment(s)/Referral(s): Delgado Carbone MD [Primary Care Provider] - 1-2 days Hospice,[facility] [REFERRING] - As Needed Discharge Disposition: [facility] TO [facility]
== END 2025-05-30 10:50 | disposition hospice, inpatient (51) | DRG 871 ==
LOC: EC 04:52 → 4SSUR 07:37
PROVIDERS: ADMIT Hospitalist; ATTEND Hospitalist
PROC: 02HV33Z Insertion of Infusion Device into Superior Vena Cava, Percutaneous Approach (ICD-10-PCS; principal; 2025-05-29 12:05)
DX: A41.9 Sepsis, unspecified organism (principal); I26.99 Other pulmonary embolism without acute cor pulmonale; J18.9 Pneumonia, unspecified organism; Z51.5 Encounter for palliative care; I10 Essential (primary) hypertension; I71.21 Aneurysm of the ascending aorta, without rupture; F32.A Depression, unspecified; D64.9 Anemia, unspecified; K56.1 Intussusception; N17.9 Acute kidney failure, unspecified; R65.20 Severe sepsis without septic shock; Z66 Do not resuscitate; I45.10 Unspecified right bundle-branch block; F41.9 Anxiety disorder, unspecified; R29.6 Repeated falls; E27.8 Other specified disorders of adrenal gland; R16.0 Hepatomegaly, not elsewhere classified; E78.5 Hyperlipidemia, unspecified; Z85.820 Personal history of malignant melanoma of skin; Z79.01 Long term (current) use of anticoagulants; Z79.899 Other long term (current) drug therapy; Z88.0 Allergy status to penicillin
CPT/HCPCS: 36410; 36415; 51702; 71046; 71275; 74170; 76705; 76937; 80048; 80053; 81003; 82105; 82378; 83605; 83735; 84145; 84484; 85025; 85027; 85610; 85730; 86300; 86301; 86304; 87040; 93005; 93306; 96361; 96365; 99291